=== PATIENT | female | born 1980 | race African-American/Black ===

== ENCOUNTER 2019-05-22 09:08 | Emergency (ER) | payer OTHER, SELFPAY ==
[2019-05-22 09:23] VITALS: BP 174/116; PULSE 86; RESP 16; TEMP 37.4; O2SAT 100
--- NOTE | 2019-05-22 09:26 | ED.URI ---
HPI - URI/Sore Throat General Chief Complaint: Upper Respiratory Infection Stated Complaint: Sore throat/ear pain History of Present Illness HPI Narrative: This is a 38-year-old female comes in complaining of a sore throat according the patient 1 of the children have strep. Patient states she woke up last night was having a sore throat her ear started to hurt continue this morning coming to be swabbed for strep. Related Data Home Medications Medication Instructions Recorded Confirmed amlodipine [Norvasc] 5 mg PO DAILY 05/22/19 05/22/19 losartan 100 mg PO DAILY 05/22/19 05/22/19 Allergies Allergy/AdvReac Type Severity Reaction Status Date / Time clindamycin Allergy Mild Itching Verified 05/22/19 09:30 Review of Systems Respiratory: Comments: CONSTITUTIONAL: Denies fever, chills, or sweats. EYES: Denies visual changes, redness, or discharge. ENT: Reports s rhinorrhea, congestion, sore throat, or otalgia. CARDIOVASCULAR:Denies chest pain, palpitations, or edema. RESPIRATORY: Denies cough or dyspnea. GASTROINTESTINAL: Denies abdominal pain, nausea, vomiting, or diarrhea. GENITOURINARY: Denies dysuria or hematuria. SKIN:[Denies rash or itching. MUSCULOSKELETAL:Denies back pain, joint pain, or myalgia. NEUROLOGIC: Denies headache, numbness, or weakness. PSYCHIATRIC:Denies anxiety or depression PMFSH Past Medical History Medical History (Updated 05/22/19 @ 10:24 by Ewa Moralez NP) Depression HTN (hypertension) Kidney stone UTI (urinary tract infection) Surgical History Surgical History (Updated 02/16/19 @ 17:24 by Nettie Sy) History of hysterectomy Hx of gastric bypass Social History Social History Gender identity (if verbalized by the patient): Female Comments At time as signature, I have reviewed and agree with nursing past medical, social, surgical and family history. Please see nursing chart for further information. There is no relevant family history pertinent to the presenting complaint. Exam Narrative: Exam Narrative: GENERAL:Well-appearing, well-nourished, and in no acute distress. HEAD:Normocephalic, atraumatic. EYES: PERRLA and EOMI. ENT: Nares clear, no rhinorrhea or epistaxis. Mucous membranes moist. Pharyngeal drainage slight erythema NECK: Supple. CHEST: Clear to auscultation. No respiratory distress. HEART: Regular rate and rhythm. No murmur heard. Normal peripheral pulses. ABDOMEN: Soft, nontender, nondistended, normal active bowel sounds. EXTREMITIES: Normal range of motion. No edema. SKIN: Warm, dry, no rash. NEURO: No focal deficits. Alert and oriented x3. Course Vital Signs Vital signs: Vital Signs Temperature 99.4 F 05/22/19 09:23 Pulse Rate 86 05/22/19 09:23 Respiratory Rate 16 05/22/19 09:23 Blood Pressure 174/116 H 05/22/19 09:23 Pulse Oximetry 100 05/22/19 09:23 Temperature 99.4 F 05/22/19 09:23 Pulse Rate 86 05/22/19 09:23 Respiratory Rate 16 05/22/19 09:23 Blood Pressure 174/116 H 05/22/19 09:23 Pulse Oximetry 100 05/22/19 09:23 Your blood pressure was elevated in the clinic today, I feel that this is due to your acute illness rather than essential hypertension. please follow-up with your regular doctor for further evaluation and monitor for evaluation of hypertension Please PURNIMA schedule a followup visit with your personal physician with in the next 1-4 weeks for further evaluation and treatment. Also, ask your personal physician to assist you regarding blood pressure. Even blood pressure exceeding 120/80 may indicate pre-hypertension. If your symptoms persist, change or worsen significantly before you can contact your personal physician then please, without delay, go to the emergency department for further evaluation. Patient is asymptomatic needs medicine refill is leaving to go to her PCPs office at 1030. Called patient at 1023 to confirm patient currently at doctor's office MDM - URI/Sore Throat Different
--- NOTE | 2019-05-22 09:33 | PC.NURSE ---
[id number]; Pt states she has not taken her HTN medication as she has been out for approx one week and she has not contacted her PCP
== END 2019-05-22 09:40 | disposition home or self-care (01) ==
PROVIDERS: Emergency Provider Nurse Practitioner Family; PCP Physician Assistant
DX: J02.0 Streptococcal pharyngitis (principal); I10 Essential (primary) hypertension; Z98.84 Bariatric surgery status
CPT/HCPCS: 87880; 99213; G0463

== ENCOUNTER 2019-08-02 06:21 | Day surgery (SDC) | payer OTHER, SELFPAY ==
[2019-08-02] VITALS (12 sets, daily range): BP systolic 109–213; BP diastolic 73–139; PULSE 55–88; RESP 16–21; TEMP 36.3–37.2; O2SAT 88–100
--- NOTE | ~2019-08-02 | CT_ITS ---
EXAMINATION: CT abdomen pelvis w con DATE: 08/02/2019 07:36 INDICATION: Right lower quadrant abdominal pain. TECHNIQUE: Computed tomography (CT) of the abdomen and pelvis was performed with 100 mL Omnipaque 350 intravenous contrast. Automated exposure control and iterative reconstruction technique were employe d. The dose-length product was 804.26 mGy-cm. COMPARISON: CT abdomen and pelvis 09/15/2018 FINDINGS: The visualized portions of the lung bases demonstrate mild atelectasis. No pleural effusion . The heart size is normal. No pericardial effusion. The liver, gallbladder, spleen, and right adrena l gland are normal. There is a 12 mm mass in left adrenal gland measuring soft tissue attenuation wit hout change in size, consistent with an adenoma. Pancreas divisum is noted. The kidneys are normal. T here are changes of gastric bypass procedure. The appendix is dilated to 12 mm and fluid-filled with surrounding fat stranding and trace free fluid, consistent with acute appendicitis. There are no path ologically enlarged lymph nodes. There is old fat necrosis inferior to the transverse colon. There is mild lumbar spondylosis. IMPRESSION: 1. Acute appendicitis. I called this result to Dr. Aly on 08/02/19 at 7:51 AM. Reviewed, dictated and finalized at location A.
[2019-08-02 06:44] LABS: Basophils Percent Auto 0.3 % (0.2-1.2); Eosinophils Absolute Auto 0.1 K/mm3 (0-0.3); Eosinophils Percent Auto 0.9 % (0-4.4); Hematocrit 38.7 % (37.0-47.0); Hemoglobin 12.2 g/dL (12.0-15.0); Immature Granulocyte Absolute 0.03 K/mm3 (0.00-0.031); Immature Granulocyte Percent A 0.3 % (0-0.5); Lymphocytes Absolute Auto 1.84 K/mm3 (0.9-3.2); Lymphocytes Percent Auto 19.3 % (18.3-44.2); Mean Corpuscular HGB Conc 31.5 g/dl (32-36); Mean Corpuscular Hemoglobin 26.6 pg (26-34); Mean Corpuscular Volume 84.5 fl (80-100); Mean Platelet Volume 12.9 fl (7.4-10.4); Monocytes Absolute Auto 0.6 K/mm3 (0.1-0.6); Monocytes Percent Auto 6.1 % (2.6-8.5); Neutrophils Percent Auto 73.1 % (45.5-73.1); Platelet Count Result 174 k/mm3 (150-375); Red Blood Count 4.58 M/mm3 (4.2-5.4); Red Cell Distribution Width 15.2 % (11.5-14.5); White Blood Count 9.5 K/mm3 (4.5-10.0)
[2019-08-02 06:48] LABS: Add Urine Microscopic? YES; Appearance Urine Cloudy (Clear); Bacteria Urine Trace /hpf; Bilirubin Urine Negative (Negative); Blood Urine Negative (Negative); Calcium Oxalate Crystals Urine Many /hpf; Color Urine Yellow (Yellow); Glucose Urine UA Negative (Negative); Ketones Urine Negative (Negative); Leukocyte Esterase Ur Negative LEU/UL (Negative); Mucus Urine Few /lpf; Nitrate Urine Negative (Negative); Protein Urine Negative (Negative); RBC Urine 0-2 /hpf (0-2); Specific Grav Ur 1.023 (1.001-1.035); Squamous Epithelial Cell Urine Many /hpf (Few)
[2019-08-02 06:56] LABS: Alanine Aminotransferase 33 U/L (4-35); Albumin Level 4.1 g/dL (3.5-5.1); Alkaline Phosphatase 122 U/L (38-126); Aspartate Amino Transferase 23 U/L (14-36); Bilirubin,Total 0.4 mg/dL (0.2-1.3); Blood Urea Nitrogen 10 mg/dL (7-17); Calcium 9.1 mg/dL (8.4-10.2); Carbon Dioxide 29 mmol/L (22-30); Chloride 104 mmol/L (98-107); Estimated CRCL calculation 106 ml/min; Estimated Glomerular Filt Rate > 60; Glucose 95 mg/dL (65-105); Lipase 29 U/L (23-300); Potassium 3.7 mmol/L (3.4-5.0); Sodium 137 mmol/L (137-145)
--- NOTE | 2019-08-02 07:07 | ED.ABDPAIN ---
HPI - Abdominal Pain General Chief Complaint: Abdominal Pain Stated Complaint: right abd pain Time Seen by Provider: 08/02/19 06:33 History of Present Illness HPI narrative: Suprapubic abdominal pain since yesterday. No radiation. Worse with movement and certain positions. Better with rest. She says that this is similar t when she had a kidney stone. No nausea, vomiting, diarrhea, constipation, fever, dysuria, hematuria, vaginal discharge. Related Data Home Medications Medication Instructions Recorded Confirmed amlodipine [Norvasc] 5 mg PO DAILY 05/22/19 05/22/19 losartan 100 mg PO DAILY 05/22/19 05/22/19 fluoxetine mg 08/02/19 fluoxetine mg 08/02/19 Allergies Allergy/AdvReac Type Severity Reaction Status Date / Time clindamycin Allergy Mild Itching Verified 05/22/19 09:30 Review of Systems Review of Systems: All systems reviewed & are unremarkable except as noted in HPI and below PMFSH Past Medical History Medical History (Updated 08/02/19 @ 14:36 by Alejandro Aly MD) Depression HTN (hypertension) Hypercholesterolemia Kidney stone Migraine Obesity UTI (urinary tract infection) Surgical History Surgical History History of hysterectomy Laparoscopic total hysterectomy with BSO Hx of gastric bypass In January of 2019 at [place], current weight loss of 100 pounds since surgery Family History Family History Mother Diabetes mellitus Father Heart disease Acute myocardial infarction Social History Social History Smoking status: Never smoker Alcohol intake: current Drinks per week: 14 Alcohol use details: Reports 2 drinks per night. Substance use: current Substance use type: marijuana Last use: Yesterday had an edible. Living arrangements: with family Additional living arrangements comments: With her . They have 4 children. Occupation/Education: other Additional occupation/education comments: Works for the [employer]. Currently on short-term disability due to depression. Gender identity (if verbalized by the patient): Female Exam Const: General: healthy appearing, no acute distress and alert Nutritional Appearance: well nourished Orientation/consciousness: patient oriented x3 HENMT: Head: normal to inspection Resp: Effort & Inspection: normal respiratory effort Auscultation: clear to auscultation bilaterally, no rales, no rhonchi and no wheezes Cardio: Jugular venous distension: no JVD Rate: regular rate Rhythm: regular rhythm Heart sounds: no murmurs GI: Inspection: non-distended GI Palp: Yes Soft to palpation and Yes Tenderness to palpation present (GI) (suprapubic) Skin: General skin exam: normal color Neuro: General: patient oriented x3, moves all extremities and CN's II-XI intact bilaterally Speech: normal speech Extrem: General: normal to inspection and no edema Psych: Appearance: well kempt Affect: normal affect Course Vital Signs Vital signs: Vital Signs Temperature 37.2 C 08/02/19 06:30 Pulse Rate 59 L 08/02/19 06:30 Respiratory Rate 16 08/02/19 06:30 Blood Pressure 188/117 H 08/02/19 06:30 Pulse Oximetry 100 08/02/19 06:30 Temperature 36.8 C 08/02/19 10:22 Pulse Rate 61 08/02/19 12:45 Respiratory Rate 16 08/02/19 11:35 Blood Pressure 117/73 08/02/19 12:45 Pulse Oximetry 94 08/02/19 11:35 MDM - Abdominal Pain MDM Narrative Medical decision making narrative: Exam is benign. Labs largely unremarkable. She does have a few WBCs in her urine. This would not be typical presentation for a kidney stone, but I will obtain CT due to the fact that she believes her symptoms are the same as with previous stone. Medical Records Attestation: I reviewed the patient's medical records. Lab Data Attestation: I reviewed the patient'
--- NOTE | 2019-08-02 08:38 | WPDANESEPPF ---
Anes - Initial Pre Proc Eval Procedure: Operation Date: 08/02/19 09:00 Proposed Procedures p Laparoscopic Appendectomy - Abril Caceres MD Date/Time: 08/02/19 08:38 Pre Op Diagnosis: right abd pain Patient Data Age: 38 Gender: F Height: 1.65 m Weight: 92.5 kg Last Vital Signs Temp 37.2 C 08/02/19 06:30 Pulse 72 08/02/19 08:24 Resp 18 08/02/19 08:24 BP 213/139 H 08/02/19 08:24 Pulse Ox 100 08/02/19 08:24 Allergies Allergy/AdvReac Type Severity Reaction Status Date / Time clindamycin Allergy Mild Itching Verified 05/22/19 09:30 Home Medications Medication Instructions Recorded Confirmed Type amlodipine [Norvasc] 5 mg PO DAILY 05/22/19 05/22/19 History amoxicillin 500 mg PO Q12H 10 Days #20 cap 05/22/19 Rx losartan 100 mg PO DAILY 05/22/19 05/22/19 History fluoxetine mg 08/02/19 History fluoxetine mg 08/02/19 History Laboratory Tests 08/02/19 08/02/19 08/02/19 06:35 06:35 06:35 WBC 9.5 K/mm3 K/mm3 (4.5-10.0) RBC 4.58 M/mm3 M/mm3 (4.2-5.4) Hgb 12.2 g/dL g/dL (12.0-15.0) Hct 38.7 % % (37.0-47.0) MCV 84.5 fl fl (80-100) MCH 26.6 pg pg (26-34) MCHC 31.5 g/dl L g/dl (32-36) RDW 15.2 % H % (11.5-14.5) Plt Count 174 k/mm3 k/mm3 (150-375) MPV 12.9 fl H fl (7.4-10.4) Immature Gran % (Auto) 0.3 % % (0-0.5) Neut % (Auto) 73.1 % % (45.5-73.1) Lymph % (Auto) 19.3 % % (18.3-44.2) [place] % (Auto) 6.1 % % (2.6-8.5) Eos % (Auto) 0.9 % % (0-4.4) Baso % (Auto) 0.3 % % (0.2-1.2) Lymph # (Auto) 1.84 K/mm3 K/mm3 (0.9-3.2) [place] # (Auto) 0.6 K/mm3 K/mm3 (0.1-0.6) Eos # (Auto) 0.1 K/mm3 K/mm3 (0-0.3) Baso # (Auto) 0.0 K/mm3 K/mm3 (0.0-0.1) Abs Immat Gran (auto) 0.03 K/mm3 K/mm3 (0.00-0.031) Absolute Neuts (auto) 7.0 K/mm3 H K/mm3 (1.3-6.7) Absolute Nucleated RBC 0.0 K/mm3 K/mm3 (0.0-0.012) Nucleated RBC % 0.0 % % (0.0-0.2) Sodium 137 mmol/L mmol/L (137-145) Potassium 3.7 mmol/L mmol/L (3.4-5.0) Chloride 104 mmol/L mmol/L (98-107) Carbon Dioxide 29 mmol/L mmol/L (22-30) BUN 10 mg/dL mg/dL (7-17) Creatinine 0.70 mg/dL mg/dL (0.7-1.0) Estim Creat Clear Calc 106 ml/min ml/min Estimated GFR > 60 (59 - ) Glucose 95 mg/dL mg/dL (65-105) Calcium 9.1 mg/dL mg/dL (8.4-10.2) Total Bilirubin 0.4 mg/dL mg/dL (0.2-1.3) AST 23 U/L U/L (14-36) ALT 33 U/L U/L (4-35) Alkaline Phosphatase 122 U/L U/L (38-126) Total Protein 8.0 g/dL g/dL (6.3-8.2) Albumin 4.1 g/dL g/dL (3.5-5.1) Lipase 29 U/L U/L (23-300) Urine Color Yellow (Yellow) Urine Appearance Cloudy H (Clear) Urine pH 6.0 (5.0-9.0) Ur Specific [place] 1.023 (1.001-1.035) Urine Protein Negative mg/dL mg/dL (Negative) Urine Glucose (UA) Negative mg/dL mg/dL (Negative) Urine Ketones Negative mg/dL mg/dL (Negative) Ur Blood (Man) Negative (Negative) Urine Nitrate Negative (Negative) Urine Bilirubin Negative (Negative) Urine Urobilinogen 4.0 mg/dL H mg/dL (<2.0) Leukocyte Esterase Rfl Negative OSKAR/UL OSKAR/UL (Negative) Urine RBC 0-2 /hpf /hpf (0-2) Urine WBC 4-6 /hpf H /hpf Ur Squamous Epith Cells Many /hpf H /hpf (Few) Calcium Oxalate Crystal Many /hpf /hpf (None) Urine Bacteria Trace /hpf /hpf Urine Mucus Few /lpf H /lpf Patient hx anesthesia problems: none Family hx anesthesia problems: none [facility] Past Medical History Medical History (Updated 08/02/19 @ 08:40 by Red
--- NOTE | 2019-08-02 08:40 | PM.IMHP ---
H&P: HPI History of Present Illness Chief complaint: right abd pain Narrative: Trish Haro is a 38 year old female with a history of hypertension and depression, who presented to the emergency department for complaints of RLQ abdominal pain. She reports her pain started yesterday afternoon and were initially mild. The pain continued to worsen through the night and into this morning. Due to her unrelenting pain, she presented to the emergency department for further evaluation. CT scan of the abdomen and pelvis showed acute uncomplicated appendicitis. Labs were unremarkable. Our service was contacted by the ED physician for surgical evaluation of the acute appendicitis. The patient is now being seen in the emergency department. She reports continued abdominal pain that is worse with movement, currently tolerable with sitting still. Denies any nausea, vomiting, bloating, fever, chills, diarrhea, or constipation. She has not taken her home medications yet this morning. Has not eaten since last night around 7 pm. No other complaints at this time. She does have a remote history of laparoscopic Gastric Bypass surgery in January of 2019 at [facility], and has since lost about 100 pounds. Review of Systems Constitutional: Constitutional: Reports as per HPI, Denies chills, Denies excessive sweating, Denies fatigue, Denies fever(s), Denies headache(s) and Denies weakness Eyes: Eyes: Denies change in vision and Denies loss of vision ENT: Reports Normal hearing present, Denies dizziness and Denies headache(s) Cardiovascular: Cardiovascular: Denies chest pain, Denies syncope, Denies leg edema, Denies lightheadedness, Denies radiating jaw, neck or arm pain and Denies dyspnea Respiratory: Respiratory: Denies cough, Denies dyspnea and Denies wheezing Gastrointestinal: Gastrointestinal: Reports as per HPI, Reports no additional gastrointestinal complaints, Reports abdominal pain (RLQ), Denies bloating, Denies change in bowel habits, Denies diarrhea, Denies nausea and Denies vomiting Musculoskeletal: Musculoskeletal: Denies deformity, Denies joint swelling, Denies radiating pain into limb and Denies tingling Integumentary/Breasts: Skin/Breast: Denies pruritus, Denies wounds and Denies jaundice Neurologic: Reports Normal hearing present, Denies confusion, Denies dizziness, Denies syncope, Denies headache(s), Denies loss of vision, Denies tingling, Denies tremor(s) and Denies weakness Psychiatric: Psychiatric: Denies anxiety, Denies confusion, Reports depression (currently taking fluoxetine, on short-term disability d/t depression), Denies homicidal ideation and Denies suicidal ideation Endocrine: Endocrine: Denies cold intolerance, Denies excessive sweating, Denies fatigue and Denies heat intolerance [facility] Past Medical History Medical History (Updated 08/02/19 @ 08:53 by DEANN Sapp) Depression HTN (hypertension) Hypercholesterolemia Kidney stone Migraine Obesity UTI (urinary tract infection) Surgical History Surgical History History of hysterectomy Laparoscopic total hysterectomy with BSO Hx of gastric bypass In January of 2019 at [place], current weight loss of 100 pounds since surgery Family History Family History Mother Diabetes mellitus Father Heart disease Acute myocardial infarction Social History Social History Smoking status: Never smoker Alcohol intake: current Drinks per week: 14 Alcohol use details: Reports 2 drinks per night. Substance use: current Substance use type: marijuana Last use: Yesterday had an edible. Living arrangements: with family Additional living arrangements comments: With her . They have 4 children. Occupation/Education: other Additional occupation/education comments: Works for [employer]
[2019-08-02] MEDS: LACTATED RINGERS 1,000 ML 30 ML IV CONT ×2 (08:50→10:22)
[2019-08-02] MEDS: hydrALAZINE HCL 20 MG/ML VIAL 10 MG IV PUSH (08:55)
[2019-08-02] MEDS: BUPIVACAINE/EPINEPHRINE 0.5% 30 ML VIAL INFILTRATE (10:01)
[2019-08-02] MEDS: KETOROLAC 30 MG/ML VIAL (*BKC) IV PUSH (10:15)
--- NOTE | 2019-08-02 10:21 | P.OP_ITS ---
Procedure Note - Detailed Date of procedure: 08/02/19 Pre-op diagnosis: right abd pain acute appendicitis Post-op diagnosis: same Procedure performed: laparoscopic appendectomy Description of procedure: The patient was brought into the operating room placed in the supine position. After adequate induction of general anesthesia, the patient was prepped and draped in normal sterile fashion. A time-out was then done to verify the patient's identity as well as the procedure being performed. I began by making a 5 mm incision in the infraumbilical region. A 5 mm Optiview trocar within used to gain access into the peritoneal cavity. Once into the peritoneal cavity, CO2 gas was insufflated. After adequate pneumoperitoneum was achieved, the laparoscope was placed into the 5 mm trocar. Under direct visualization, I went ahead and placed a further 5 mm suprapubic port as well as a 12 mm port in the left lower abdomen. At this point, I was able to visualize cecum. The cecum was retracted both cephalad and medial, and this allowed us to expose the appendix. The appendix was noted to be very dilated, injected, and inflamed. There was no obvious perforation of the appendix. I then grasped the appendix near the tip of the appendix and retracted both anterior and lateral. This allowed exposure of the base of the appendix with the cecum. I then created a window with the Di dissector between the appendix and the mesoappendix at the base of the appendix. Once this was achieved, a vascular staple load on the Endo-MIKAL was placed through the 12 mm port site and subsequently transected the mesoappendix. I then reloaded the Endo-MIKAL with a blue staple load and transected the base of the appendix with the cecum. Once the appendiceal specimen was completely detached, a Endo pouch was placed th rough the 12 mm port site. The appendix was placed into the Endo pouch and removed through the 12 mm port site. The appendix will now be sent to pathology for further review. I then visualized the right lower quadrant, both staple lines were noted to be intact and hemostatic. No other pathology was noted in the right lower quadrant or pelvis. I then moved the laparoscope to the 5 mm suprapubic port. I then visualized our port of entry at the 5 mm infraumbilical site. No iatrogenic injury or other pathology was seen in the upper abdomen. I then desufflated the abdomen and all ports were removed. The fascia of the 12 mm port site was closed with an 0 Vicryl figure of 8 suture. All port sites were then closed with 4 O Monocryl subcuticular suture. The patient tolerated the procedure well and was extubated in the operating room postoperatively. The patient will be transferred to the recovery room in stable condition. Anesthesia: GETA Surgeon: Abril Caceres MD Estimated blood loss (mL): 5 Drains: No Packing: No Pathology: yes Complications: No immediate complications Condition: stable Disposition: PACU Findings: Acute uncomplicated appendicitis
--- NOTE | 2019-08-02 11:12 | SUR.PHASEI ---
1105; SAO2 DROPS TO 88% WHILE RESTING QUIETLY. O2 2L NC APPLIED.
== END 2019-08-02 13:05 | disposition home or self-care (01) ==
LOC: ANHED 08:31 → ANHSURGERY 08:49
PROVIDERS: Emergency Medicine; Emergency Provider Emergency Medicine; PCP Physician Assistant; Visit Provider Surgery
PROC: 0DTJ4ZZ Resection of Appendix, Percutaneous Endoscopic Approach (ICD-10-PCS; CPT 44970; principal; 2019-08-02 09:00)
DX: K35.30 Acute appendicitis with localized peritonitis, without perforation or gangrene (principal); I10 Essential (primary) hypertension; E78.00 Pure hypercholesterolemia, unspecified; F32.9 Major depressive disorder, single episode, unspecified; E66.9 Obesity, unspecified; Z68.33 Body mass index [BMI] 33.0-33.9, adult; Z98.84 Bariatric surgery status; F12.90 Cannabis use, unspecified, uncomplicated
CPT/HCPCS: 44970; 36415; 74177; 80053; 81001; 81025; 83690; 85025; 88304; 96374; 99285; J0131; J0330; J0360; J1100; J1885; J2250; J2370; J2405; J2543; J2704; J2710; J3010; J7120; Q9967

== ENCOUNTER 2019-12-25 10:34 | Emergency (ER) | payer OTHER, SELFPAY ==
--- NOTE | ~2019-12-25 | XR_ITS ---
EXAMINATION: XR shoulder LT min 2V DATE: 12/25/2019 11:36 INDICATION: Nontraumatic left shoulder pain TECHNIQUE: AP internally and externally rotated, AP oblique externally rotated, axillary and transsca pular Y views of the left shoulder were obtained. COMPARISON: None FINDINGS: Normal alignment. No fracture. Glenohumeral joint is normal. Acromioclavicular joint is normal. Soft tissues are unremarkable. Visualized portions of the lungs are clear. IMPRESSION: Negative left shoulder radiographs. Reviewed, dictated and finalized at location B.
--- NOTE | ~2019-12-25 | XR_ITS ---
XR tibia fibula RT 2V DATE: 12/25/2019 12:30 INDICATION: Injury. Right lower leg pain. TECHNIQUE: AP and lateral views COMPARISON: None FINDINGS: No fracture or dislocation, periosteal reaction or bone destruction is detected. Normal ali gnment at the knee and ankle joints. There is posterior calcaneal enthesopathy. IMPRESSION: No fracture or dislocation Reviewed, dictated and finalized at location A. IMPRESSION: No fracture or dislocation
[2019-12-25 10:49] VITALS: BP 137/80; PULSE 67; RESP 18; TEMP 36.1; O2SAT 100
--- NOTE | 2019-12-25 12:18 | ED.UPPEXIN ---
HPI - Extremity Injury (Upper) General Chief Complaint: Extremity Injury, Upper Stated Complaint: left shoulder pain Time Seen by Provider: 12/25/19 11:16 Source: patient Mode of arrival: ambulatory Limitations: no limitations History of Present Illness HPI narrative: This is a 39 year old female that presents to the ER for left shoulder pain since yesterday. Reports the pain is in the back of her shoulder and constant. Unsure of a certain injury. Pain is worse at night. Reports intermittent tingling in the fingers. No paresthesias currently. Also reports pain in the right calf. Reports she does not remember an injury to the area, but noted some bruising. Denies fever, chest pain, shortness of breath. decreased ROM, edema, or numbness. Related Data Home Medications Medication Instructions Recorded Confirmed amlodipine [Norvasc] 5 mg PO DAILY 05/22/19 05/22/19 fluoxetine mg 08/02/19 calcium carbonate-vitamin D3 tablet PO 12/25/19 ergocalciferol (vitamin D2) 12/25/19 ferrous sulfate mg 12/25/19 multivitamin [Daily-Fredrick] tablet 12/25/19 trazodone 12/25/19 Allergies Allergy/AdvReac Type Severity Reaction Status Date / Time clindamycin Allergy Mild Itching Verified 12/25/19 11:09 Review of Systems Review of Systems: Narrative: CONSTITUTIONAL: Denies fever CARDIOVASCULAR: Denies chest pain, or edema. RESPIRATORY: Denies dyspnea. SKIN: Denies rash MUSCULOSKELETAL: Reports joint pain, and myalgia. NEUROLOGIC: Denies numbness, or weakness. All systems reviewed & are unremarkable except as noted in HPI and below PMFSH Past Medical History Medical History (Updated 12/25/19 @ 13:54 by Dania Fang PA-C) Depression HTN (hypertension) Hypercholesterolemia Kidney stone Migraine Obesity UTI (urinary tract infection) Surgical History Surgical History (Updated 08/15/19 @ 10:44 by Irina Campos) History of hysterectomy Laparoscopic total hysterectomy with BSO History of laparoscopic appendectomy 08/02/19 Hx of gastric bypass In January of 2019 at [place], current weight loss of 100 pounds since surgery Family History Family History Mother Diabetes mellitus Father Heart disease Acute myocardial infarction Social History Social History Smoking status: Never smoker Alcohol intake: current Drinks per week: 14 Substance use: current Substance use type: marijuana Last use: Yesterday had an edible. Additional living arrangements comments: With her . They have 4 children. Additional occupation/education comments: Works for the [employer]. Currently on short-term disability due to depression. Gender identity (if verbalized by the patient): Female Exam Narrative: Exam Narrative: GENERAL: Well-appearing, well-nourished, and in no acute distress. HEAD: Normocephalic, atraumatic. EYES: EOMI. CHEST: Clear to auscultation. No respiratory distress. No wheezes rales or rhonchi HEART: Regular rate and rhythm. No murmur heard. Normal peripheral pulses. EXTREMITIES: Normal range of motion. No edema, erythema or obvious deformity. Normal peripheral pulses. Normal sensation. Moderate sized bruise to the right calf, compartments are soft. Pain with Casanova test of the left shoulder SKIN: Warm, dry, no rash. NEURO: No focal deficits. Alert and oriented x3. PSYCH: Normal mood and affect Course Vital Signs Vital signs: Vital Signs Temperature 97.0 F L 12/25/19 10:49 Pulse Rate 67 12/25/19 10:49 Respiratory Rate 18 12/25/19 10:49 Blood Pressure 137/80 12/25/19 10:49 Pulse Oximetry 100 12/25/19 10:49 Temperature 97.0 F L 12/25/19 10:49 Pulse Rate 67 12/25/19 10:49 Respiratory Rate 18 12/25/19 10:49 Blood Pressure 137/80 12/25/19 10:49 Pulse Oximetry 100 12/25/19 10:49 MDM - Extremity Injury (Upper) MDM Narrative Medical decis
[2019-12-25 14:04] VITALS: BP 193/124; PULSE 60; RESP 18; TEMP 36.7; O2SAT 100
[2019-12-25 14:05] VITALS: BP 190/118
--- NOTE | 2019-12-25 14:10 | PC.NURSE ---
ED PA notified of elevated blood pressure. She spoke with the patient and patient reports that she has not taken medication prior to coming to the ED. She was instructed by the EDPA to take her daily medication as soon as she gets home and to follow up with her PMD for evaluation of blood pressure. Patient verbalized understanding and agrees to take medication as soon as she gets home.
== END 2019-12-25 14:20 | disposition home or self-care (01) ==
PROVIDERS: Emergency Provider Emergency Medicine; PCP Physician Assistant
DX: S80.11XA Contusion of right lower leg, initial encounter (principal); X58.XXXA Exposure to other specified factors, initial encounter; I10 Essential (primary) hypertension; E78.00 Pure hypercholesterolemia, unspecified; E66.9 Obesity, unspecified; Z68.33 Body mass index [BMI] 33.0-33.9, adult; F32.9 Major depressive disorder, single episode, unspecified
CPT/HCPCS: 73030; 73590; 99284

== ENCOUNTER 2020-02-29 16:16 | Emergency (ER) | payer OTHER, SELFPAY ==
--- NOTE | ~2020-02-29 | XR_ITS ---
EXAMINATION: XR wrist LT min 3V DATE: 02/29/2020 16:56 INDICATION: Left wrist pain TECHNIQUE: Posteroanterior, ulnar deviation, oblique, and lateral views of the left wrist were obtain ed. COMPARISON: None available FINDINGS: There is no fracture, dislocation, or subluxation. The bones, soft tissues, and joint space s are normal. IMPRESSION: 1. No acute osseous abnormality. Reviewed, dictated and finalized at location A. 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
[2020-02-29 16:31] VITALS: BP 171/105; PULSE 62; RESP 16; TEMP 36.2; O2SAT 99
[2020-02-29] MEDS: KETOROLAC 30 MG/ML VIAL (*BKC) IM (17:03)
--- NOTE | 2020-02-29 17:10 | ED.CHESTPAIN ---
HPI - Chest Pain General Chief Complaint: Extremity Problem,Nontraumatic Stated Complaint: lt hand/wrist pain Time Seen by Provider: 02/29/20 16:33 Source: patient Mode of arrival: ambulatory Limitations: no limitations History of Present Illness HPI narrative: Patient is a 39-year-old female who presents with irritation along the radial aspect of the left wrist last 3 days moderate aching pain radiating to the hand worse with activity and movement denies injury or trauma or similar occurrence in the past has not taken anything for her symptoms Related Data Home Medications Medication Instructions Recorded Confirmed amlodipine [Norvasc] 5 mg PO DAILY 05/22/19 05/22/19 fluoxetine mg 08/02/19 calcium carbonate-vitamin D3 tablet PO 12/25/19 ergocalciferol (vitamin D2) 12/25/19 ferrous sulfate mg 12/25/19 multivitamin [Daily-Fredrick] tablet 12/25/19 trazodone 12/25/19 losartan 02/29/20 Allergies Allergy/AdvReac Type Severity Reaction Status Date / Time clindamycin Allergy Mild Itching Verified 02/29/20 16:39 Review of Systems Review of Systems: All systems reviewed & are unremarkable except as noted in HPI and below PMFSH Past Medical History Medical History Depression HTN (hypertension) Hypercholesterolemia Kidney stone Migraine Obesity UTI (urinary tract infection) Surgical History Surgical History History of hysterectomy Laparoscopic total hysterectomy with BSO History of laparoscopic appendectomy 08/02/19 Hx of gastric bypass In January of 2019 at [place], current weight loss of 100 pounds since surgery Family History Family History Mother Diabetes mellitus Father Heart disease Acute myocardial infarction Social History Social History Smoking status: Never smoker Alcohol intake: current Drinks per week: 14 Substance use: current Substance use type: marijuana Last use: Yesterday had an edible. Additional living arrangements comments: With her . They have 4 children. Additional occupation/education comments: Works for the [employer]. Currently on short-term disability due to depression. Gender identity (if verbalized by the patient): Female Exam Narrative: Exam Narrative: GENERAL: Well-appearing, well-nourished, and in no acute distress. HEAD: Normocephalic, atraumatic. EYES: PERRLA and EOMI. CHEST: Clear to auscultation. No respiratory distress. No wheezes rales or rhonchi HEART: Regular rate and rhythm. No murmur heard. Normal peripheral pulses. EXTREMITIES: Normal range of motion. No edema. Tenderness along the radial aspect of the left wrist joint no deformities noted SKIN: Warm, dry, no rash. NEURO: No focal deficits. Alert and oriented x3. Cranial nerves II through XII grossly intact. Neurovascularly intact. Capillary refill less than 2 seconds PSYCH: Normal mood and affect. Course Course Emergency Course: Patient in the room no distress aware of case findings treatment plan diagnosis felt appropriate for outpatient reevaluation by primary care and orthopedic surgeon Vital Signs Vital signs: Vital Signs Temperature 97.2 F L 02/29/20 16:31 Pulse Rate 62 02/29/20 16:31 Respiratory Rate 16 02/29/20 16:31 Blood Pressure 171/105 H 02/29/20 16:31 Pulse Oximetry 99 02/29/20 16:31 Temperature 97.2 F L 02/29/20 16:31 Pulse Rate 62 02/29/20 16:31 Respiratory Rate 16 02/29/20 16:31 Blood Pressure 171/105 H 02/29/20 16:31 Pulse Oximetry 99 02/29/20 16:31 MDM - Chest Pain MDM Narrative Medical decision making narrative: Patients injury or pain is consistent with musculoskeletal etiology. No signs of neurological or vascular compromise on exam. Compartments and tisues are soft without signs o
== END 2020-02-29 17:57 | disposition home or self-care (01) ==
PROVIDERS: Emergency Provider Emergency Medicine; PCP Physician Assistant
DX: M25.532 Pain in left wrist (principal); F32.9 Major depressive disorder, single episode, unspecified; I10 Essential (primary) hypertension; E78.00 Pure hypercholesterolemia, unspecified; Z87.442 Personal history of urinary calculi; Z87.440 Personal history of urinary (tract) infections; E66.9 Obesity, unspecified; Z68.33 Body mass index [BMI] 33.0-33.9, adult; Z98.84 Bariatric surgery status
CPT/HCPCS: 73110; 96372; 99283; J1885

== ENCOUNTER 2020-04-02 11:22 | Emergency (ER) | payer OTHER, SELFPAY ==
--- NOTE | 2020-04-02 11:39 | ED.EYEPROB ---
HPI - Eye Problem General Chief complaint: Eye Problems Stated complaint: right eye pain/redness Source: patient and RN notes reviewed Mode of arrival: ambulatory Limitations: no limitations History of Present Illness HPI Narrative: This is a 39-year-old -[place] female who presented to urgent care with complaints of right ear eye pain. According to patient her symptoms started a couple days ago she complains of itchiness, redness to her right eye. She did not do anything at home to resolve it. Patient denies any visual disturbance, mucopurulent discharge or eye edema. visual acuity 20/40 with glasses Related Data Home Medications Medication Instructions Recorded Confirmed amlodipine 5 mg PO DAILY 04/02/20 04/02/20 estradiol-norethindrone acet 0.5 tablet PO DAILY 04/02/20 04/02/20 ferrous sulfate 325 mg PO DAILY 04/02/20 04/02/20 fluoxetine 40 mg PO DAILY 04/02/20 04/02/20 trazodone 50 mg PO PRN PRN 04/02/20 04/02/20 Allergies Allergy/AdvReac Type Severity Reaction Status Date / Time clindamycin Allergy Mild Swelling Verified 04/02/20 11:30 Review of Systems Review of Systems: All systems reviewed & are unremarkable except as noted in HPI and below (10 point system review) [facility] Past Medical History Medical History Depression HTN (hypertension) Hypercholesterolemia Kidney stone Migraine Obesity UTI (urinary tract infection) Surgical History Surgical History History of hysterectomy Laparoscopic total hysterectomy with BSO History of laparoscopic appendectomy 08/02/19 Hx of gastric bypass In January of 2019 at [place], current weight loss of 100 pounds since surgery Family History Family History Mother Diabetes mellitus Father Heart disease Acute myocardial infarction Social History Social History Smoking status: Never smoker Alcohol intake: current Drinks per week: 14 Substance use: current Substance use type: marijuana Last use: Yesterday had an edible. Additional living arrangements comments: With her . They have 4 children. Additional occupation/education comments: Works for the [employer]. Currently on short-term disability due to depression. Gender identity (if verbalized by the patient): Female Exam Narrative: Exam Narrative: GENERAL: This is a well-nourished, well-developed patient, in no apparent distress. HEAD: normocephalic, atraumatic. EYES: PERRL. Sclera clear/white. Vision is grossly intact. EARS: External ears normal, auditory canals clear and without drainage, TMs normal without perforation. Hearing grossly intact. NOSE: External nose normal with no obvious nasal discharge, nares without redness, no rhinorrhea. THROAT: Mucous membranes moist, posterior pharynx clear. NECK: Neck supple, non-tender without lymphadenopathy, masses or thyromegaly. CARDIOVASCULAR: Regular rate and rhythm without murmurs, gallops, or rubs. RESPIRATORY: Clear to auscultation. Breath sounds equal bilaterally. No wheezes, rales, or rhonchi. GASTROINTESTINAL: Abdomen soft, non-tender, nondistended. Bowel sounds are active. No hepato-splenomegaly, or palpable masses. No guarding. SKIN: warm, intact with no suspicious lesions or rash, good texture and turgor. NEURO: awake, alert, and oriented to person, place and time. There were no obvious focal neurologic abnormalities. Steady gait EXTREMITIES: Normal range of motion. No edema. No calf tenderness. Negative Homans sign bilaterally. BACK: Nontender without deformity or crepitance. No flank tenderness. Course Vital Signs Vital signs: Vital Signs Temperature 98.4 F 04/02/20 11:41 Pulse Rate 58 L 04/02/20 11:41 Respiratory Rate 16 04/02/20 11:41 Blood Pressure 146/106 H 04/02/20
[2020-04-02 11:41] VITALS: BP 146/106; PULSE 58; RESP 16; TEMP 36.9; O2SAT 100
== END 2020-04-02 11:55 | disposition home or self-care (01) ==
PROVIDERS: Emergency Provider Nurse Practitioner; PCP Physician Assistant
DX: H10.9 Unspecified conjunctivitis (principal); I10 Essential (primary) hypertension; E78.00 Pure hypercholesterolemia, unspecified; F32.9 Major depressive disorder, single episode, unspecified
CPT/HCPCS: 99213; G0463

== ENCOUNTER 2020-04-11 07:23 | Outpatient (CLI) | payer OTHER, SELFPAY ==
--- NOTE | ~2020-04-11 | MM_ITS ---
EXAMINATION: MM screening wali BI w niko HISTORY: Screening mammogram TECHNIQUE: Craniocaudal and mediolateral oblique 3-D tomosynthesis images were obtained and synthetic 2-D images were generated. CAD analysis was submitted and interpreted. COMPARISON: No prior mammogram is available for comparison at this institution. BREAST PARENCHYMAL COMPOSITION: There are scattered areas of fibroglandular density. FINDINGS: There is no evidence of suspicious mass, calcification, or architectural distortion to sugg est malignancy in either breast. There has been no suspicious interval change. IMPRESSION: 1. No mammographic evidence of malignancy. 2. Recommend routine screening mammography in one year. BI-RADS Category 1: Negative Reviewed, dictated and finalized at location A. 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
--- NOTE | ~2020-04-11 | DEXA_ITS ---
Bone Density Report Name: Trish Haro Age: 39 Sex: Female Ethnicity: Black Date of : 1980 Indication: postmenopausal; hysterectomy; Referring Provider: INO MYRICK Study: Bone densitometry was performed. Exam Date: April 11, 2020 Accession number: [id number] Bone Density: Region BMD T-score Z-score Classification AP Spine (L1-L4) 1.034 -0.1 -0.8 Normal Femoral Neck (Left) 0.865 0.1 -0.4 Normal Total Hip (Left) 1.006 0.5 -0.1 Normal Total Hip Bilateral Avg 0.964 0.2 -0.4 Normal Femoral Neck (Right) 0.809 -0.4 -0.8 Normal Total Hip (Right) 0.921 -0.2 -0.6 Normal World Health Organization criteria for BMD impression classify patients as: Normal (T-score at or above -1.0), Osteopenia (T-score between -1.0 and -2.5), or Osteoporosis (T-score at or below -2.5). 10-year Fracture Risk: FRAX not reported because: All T-scores for Spine Total, Hip Total, Femoral Neck at or above -1.0 Clinical Information Provided by Patient: Has used the following medications: Vitamin D, Calcium Has the following medical conditions: Hysterectomy Patient maximum height was 66 Menopause Age: 31 No regular weight bearing exercise Does not regularly consume dairy products Onset of menses at age 12 Number of children 4 Impression: The patient has normal bone mass. Discussion: BONE DENSITY IS ABOVE THE MINIMUM DESIRABLE LEVEL AT ALL SKELETAL SITES TESTED. This patient?s bone mineral density is above the minimum desirable level (T-score -1.0 or better) at all sites measured. The patient should follow a healthful lifestyle (good nutrition with adequate calcium and vitamin D, and appropriate weight-bearing exercise). Follow-Up: Consider repeating this study in 5 years or sooner if there is some new clinical indication. Reported by: EFRAIN on 04/11/2020 7:55:00 AM. Reviewed, dictated and finalized at location AGiancarlo MORELAND
== END 2020-04-11 07:24 | disposition home or self-care (01) ==
LOC: ANHIMG 07:26
PROVIDERS: PCP Physician Assistant; Visit Provider Obstetrics & Gynecology
DX: Z12.31 Encounter for screening mammogram for malignant neoplasm of breast (principal); Z13.820 Encounter for screening for osteoporosis; Z78.0 Asymptomatic menopausal state
CPT/HCPCS: 77063; 77067; 77080

== ENCOUNTER 2020-06-08 04:08 | Emergency (ER) | payer OTHER, SELFPAY ==
--- NOTE | ~2020-06-08 | XR_ITS ---
EXAMINATION: XR chest 1V portable EXAM DATE: 06/08/2020 05:11 INDICATION: Cough, shortness of breath. COVID exposure. TECHNIQUE: Portable AP frontal chest x-ray was obtained. Comparison is made to prior examination from 03/04/2017. FINDINGS: The lungs are clear. There are no pleural effusions. The cardiomediastinal silhouette is within normal limits. There is no pneumothorax suspected. The bones and soft tissues are unremarkab le. IMPRESSION: No acute cardiopulmonary findings. Follow-up can be obtained if symptoms persist. Reviewed, dictated and finalized at location A. IMPRESSION: No acute cardiopulmonary findings. Follow-up can be obtained if sy mptoms persist.
[2020-06-08 04:18] VITALS: BP 173/122; RESP 20; TEMP 38.2; O2SAT 98
--- NOTE | 2020-06-08 04:25 | ED.GENADULT ---
HPI - General Adult General Chief complaint: Unspecified Stated complaint: chest pain, body aches,covid exposure Time Seen by Provider: 06/08/20 04:12 Source: RN notes reviewed History of Present Illness HPI narrative: Patient presents to emergency department from home for COVID-19 symptoms. Patient states that her daughter tested positive for COVID-19 on June 04 and she currently resides with her daughter states she began to have feelings of illness 2 days ago. She states that she has had a feeling of chest tightness as well as a sore throat and generalized fatigue and body aches for the past 2 days. She denies any loss of taste or smell she says her chest tightness just feels like she cannot take a deep breath denies any abdominal pain nausea vomiting or any other symptoms patient states she does have a history of hypertension and takes amlodipine and losartan in the morning and is due to take those at 6 AM this morning Related Data Home Medications Medication Instructions Recorded Confirmed amlodipine 5 mg PO DAILY 04/02/20 04/02/20 estradiol-norethindrone acet 0.5 tablet PO DAILY 04/02/20 04/02/20 ferrous sulfate 325 mg PO DAILY 04/02/20 04/02/20 fluoxetine 40 mg PO DAILY 04/02/20 04/02/20 trazodone 50 mg PO PRN PRN 04/02/20 04/02/20 Allergies Allergy/AdvReac Type Severity Reaction Status Date / Time clindamycin Allergy Mild Swelling Verified 04/02/20 11:30 Review of Systems Review of Systems: Narrative: Gen.: Denies fevers or chills ENT: Sore throat Respiratory: Reports mild shortness of breath with ambulation CV: Reports chest tightness GI: Denies abdominal pain nausea, emesis or diarrhea Musculoskeletal: Denies back pain or muscle pain Neuro: Denies numbness, tingling, weakness or focal weakness Skin: Denies rash Except as documented, all other systems reviewed and negative [facility] Past Medical History Medical History Depression HTN (hypertension) Hypercholesterolemia Kidney stone Migraine Obesity UTI (urinary tract infection) Surgical History Surgical History History of hysterectomy Laparoscopic total hysterectomy with BSO History of laparoscopic appendectomy 08/02/19 Hx of gastric bypass In January of 2019 at [place], current weight loss of 100 pounds since surgery Family History Family History Mother Diabetes mellitus Father Heart disease Acute myocardial infarction Social History Social History Smoking status: Never smoker Alcohol intake: current Drinks per week: 14 Substance use: current Substance use type: marijuana Last use: Yesterday had an edible. Additional living arrangements comments: With her . They have 4 children. Additional occupation/education comments: Works for the [employer]. Currently on short-term disability due to depression. Gender identity (if verbalized by the patient): Female Exam Narrative: Exam Narrative: APPEARANCE: No acute distress, nontoxic, resting in bed EYES: EOMI HEENT: Normocephalic, atraumatic, RESPIRATORY: No respiratory distress Clear to auscultation bilaterally with no rhonchi wheezing or rales. CARDIOVASCULAR: Regular rate and rhythm without murmurs rubs or gallops. ABDOMINAL: Soft, nontender, nondistended, no rebound or guarding MUSCULOSKELETAl: Moves all extremities. No clubbing, cyanosis or edema. NEURO: Awake and alert. Following commands, speech normal, no focal deficits SKIN:: Warm, dry. No rashes lesions or abrasions PSYCHIATRIC: Normal affect/mood, Course Course Emergency Course: Discussed with patient results of workup and diagnosis. Discussed need for follow-up with primary care, proper use of medication, and reasons to return to the emergency department. Patient understands and agree
[2020-06-08 04:38] VITALS: O2SAT 9
--- NOTE | 2020-06-08 04:48 | ECG_ITS ---
Measurements Intervals [place] Rate: 93 P: 40 TN: 147 QRS: 0 QRSD: 84 T: 10 QT: 342 QTc: 427 Interpretive Statements SINUS RHYTHM POSSIBLE LEFT ATRIAL ENLARGEMENT POSSIBLE LEFT VENTRICULAR HYPERTROPHY BORDERLINE T WAVE ABNORMALITY- ANT/INF LEADS BORDERLINE ECG Electronically Signed On 06-08-2020 7:50:59 CDT by Ori Roque D.O.
[2020-06-08 05:10] LABS: Basophils Percent Auto 0.3 % (0.2-1.2); Eosinophils Absolute Auto 0.1 K/mm3 (0-0.3); Eosinophils Percent Auto 2.3 % (0-4.4); Hematocrit 38.6 % (37.0-47.0); Immature Granulocyte Absolute 0.01 K/mm3 (0.00-0.031); Immature Granulocyte Percent A 0.3 % (0-0.5); Lymphocytes Absolute Auto 0.57 K/mm3 (0.9-3.2); Lymphocytes Percent Auto 14.9 % (18.3-44.2); Mean Corpuscular HGB Conc 31.1 g/dl (32-36); Mean Corpuscular Hemoglobin 26.1 pg (26-34); Mean Corpuscular Volume 83.9 fl (80-100); Mean Platelet Volume 12.8 fl (7.4-10.4); Monocytes Absolute Auto 0.5 K/mm3 (0.1-0.6); Monocytes Percent Auto 14.1 % (2.6-8.5); Neutrophils Absolute Auto 2.6 K/mm3 (1.3-6.7); Neutrophils Percent Auto 68.1 % (45.5-73.1); Platelet Count Result 175 k/mm3 (150-375); Red Cell Distribution Width 15.4 % (11.5-14.5); White Blood Count 3.8 K/mm3 (4.5-10.0)
[2020-06-08 05:20] LABS: INR 0.9; Prothrombin Time 13.1 Seconds (11.1-14.7)
[2020-06-08 05:21] LABS: Partial Thromboplastin Time 26.9 SECONDS (22.3-36.8)
[2020-06-08] MEDS: ACETAMINOPHEN 500 MG TABLET 1000 MG PO (05:22)
[2020-06-08 05:23] LABS: Anion Gap 6 mmol/L (8-16); Blood Urea Nitrogen 14 mg/dL (7-17); Calcium 8.6 mg/dL (8.4-10.2); Carbon Dioxide 31 mmol/L (22-30); Chloride 103 mmol/L (98-107); Estimated CRCL calculation 87 ml/min; Estimated Glomerular Filt Rate > 60; Glucose 93 mg/dL (65-105); Sodium 140 mmol/L (137-145)
[2020-06-08] MEDS: LOSARTAN POTASSIUM 100 MG TABLET PO (05:23)
[2020-06-08] MEDS: amLODIPine BESYLATE 5 MG TABLET PO (05:23)
[2020-06-08] MEDS: ALBUTEROL SULFATE (*SP) AEROSOL 1 PUFF 2 PUFF INHALATION (05:29)
[2020-06-08 05:35] LABS: Troponin I < 0.012 ng/mL (0.000-0.034)
[2020-06-08 05:46] VITALS: BP 182/113; PULSE 89; RESP 18; O2SAT 98
[2020-06-08 06:37] VITALS: BP 161/112; PULSE 86; RESP 20; O2SAT 97
[2020-06-09 19:43] LABS: SARS-CoV-2 RNA PCR Positive
== END 2020-06-08 06:52 | disposition home or self-care (01) ==
PROVIDERS: Emergency Provider Emergency Medicine; PCP Physician Assistant
DX: U07.1 COVID-19 (principal); F32.9 Major depressive disorder, single episode, unspecified; I10 Essential (primary) hypertension; E78.00 Pure hypercholesterolemia, unspecified; Z87.442 Personal history of urinary calculi; Z87.440 Personal history of urinary (tract) infections; E66.9 Obesity, unspecified; Z68.39 Body mass index [BMI] 39.0-39.9, adult; Z98.84 Bariatric surgery status; R94.31 Abnormal electrocardiogram [ECG] [EKG]
CPT/HCPCS: 36415; 71045; 80048; 84484; 85025; 85610; 85730; 93005; 94640; 99284; A9270; C9803; U0003; U0005

== ENCOUNTER 2020-06-10 11:52 | Emergency (ER) | payer OTHER, SELFPAY ==
[2020-06-10] VITALS (14 sets, daily range): BP systolic 128–176; BP diastolic 106–119; PULSE 73–96; RESP 14–26; TEMP 36.2; O2SAT 94–100
--- NOTE | ~2020-06-10 | XR_ITS ---
EXAMINATION: XR chest 1V portable EXAM DATE: 06/10/2020 13:57 INDICATION: Cough, shortness of breath. COVID exposure. TECHNIQUE: Portable AP frontal chest x-ray was obtained. Comparison is made to prior examination from 06/08/2020. FINDINGS: Small amount of linear bilateral mid lung zone atelectasis or developing infectious process . No confluent consolidation, pneumothorax or pleural effusion suspected. Cardiomediastinal silhouet te is normal. There are no osseous abnormalities identified. IMPRESSION: Small amount of linear bilateral atelectasis or developing infection. Reviewed, dictated and finalized at location A. IMPRESSION: Small amount of linear bilateral atelectasis or developing infectio n.
--- NOTE | 2020-06-10 13:36 | ECG_ITS ---
Measurements Intervals [place] Rate: 74 P: 31 CA: 157 QRS: -11 QRSD: 87 T: 3 QT: 365 QTc: 406 Interpretive Statements SINUS RHYTHM VOLTAGE CRITERIA FOR LVH NONSPECIFIC T-WAVE ABNORMALITY- ANTEROLAT/INF LEADS BORDERLINE ECG Electronically Signed On 06-10-2020 14:19:24 CDT by Ori Roque D.O.
--- NOTE | 2020-06-10 13:49 | ED.URI ---
HPI - URI/Sore Throat General Chief Complaint: Upper Respiratory Infection Stated Complaint: covid Time Seen by Provider: 06/10/20 13:18 Source: patient Mode of arrival: ambulatory Limitations: no limitations History of Present Illness HPI Narrative: This is a 39 year old female that presents to the ER for cold symptoms x5 days. Reports cough, congestion, fever, and otalgia. Reports he tested positive for coronavirus 2 days ago. Reports she has been experiencing shortness of breath and dull chest pains with exertion. Denies lower extremity edema. Related Data Home Medications Medication Instructions Recorded Confirmed amlodipine 5 mg PO DAILY 04/02/20 04/02/20 estradiol-norethindrone acet 0.5 tablet PO DAILY 04/02/20 04/02/20 ferrous sulfate 325 mg PO DAILY 04/02/20 04/02/20 fluoxetine 40 mg PO DAILY 04/02/20 04/02/20 trazodone 50 mg PO PRN PRN 04/02/20 04/02/20 Allergies Allergy/AdvReac Type Severity Reaction Status Date / Time clindamycin Allergy Mild Swelling Verified 06/10/20 13:50 Review of Systems Review of Systems: Narrative: CONSTITUTIONAL: Reports fever ENT: Reports rhinorrhea, congestion and otalgia. CARDIOVASCULAR: Reports chest pain. Denies edema. RESPIRATORY: Reports cough and dyspnea. All systems reviewed & are unremarkable except as noted in HPI and below PMFSH Past Medical History Medical History Depression HTN (hypertension) Hypercholesterolemia Kidney stone Migraine Obesity UTI (urinary tract infection) Surgical History Surgical History History of hysterectomy Laparoscopic total hysterectomy with BSO History of laparoscopic appendectomy 08/02/19 Hx of gastric bypass In January of 2019 at [place], current weight loss of 100 pounds since surgery Family History Family History Mother Diabetes mellitus Father Heart disease Acute myocardial infarction Social History Social History Smoking status: Never smoker Alcohol intake: current Drinks per week: 14 Substance use: current Substance use type: marijuana Last use: Yesterday had an edible. Additional living arrangements comments: With her . They have 4 children. Additional occupation/education comments: Works for the [employer]. Currently on short-term disability due to depression. Gender identity (if verbalized by the patient): Female Exam Narrative: Exam Narrative: GENERAL: Well-appearing, obese, and in no acute distress. HEAD: Normocephalic, atraumatic. EYES: PERRLA and EOMI. ENT: Nares clear, no rhinorrhea or epistaxis. Mucous membranes moist. Oropharynx without tonsillar hypertrophy exudate or other lesions. Bilateral TMs pearly armijo non-bulging NECK: Supple. No adenopathy or masses. CHEST: Clear to auscultation. No respiratory distress. No wheezes rales or rhonchi HEART: Regular rate and rhythm. No murmur heard. Normal peripheral pulses. EXTREMITIES: Normal range of motion. No edema. SKIN: Warm, dry, no rash. NEURO: No focal deficits. Alert and oriented x3. PSYCH: Normal mood and affect Course Vital Signs Vital signs: Vital Signs Temperature 97.2 F L 06/10/20 11:55 Pulse Rate 96 06/10/20 11:55 Respiratory Rate 18 06/10/20 11:55 Blood Pressure 176/117 H 06/10/20 11:55 Pulse Oximetry 100 06/10/20 11:55 Temperature 97.2 F L 06/10/20 11:55 Pulse Rate 87 06/10/20 15:16 Respiratory Rate 17 06/10/20 15:16 Blood Pressure 128/113 H 06/10/20 15:16 Pulse Oximetry 94 06/10/20 15:16 MDM - URI/Sore Throat MDM Narrative Medical decision making narrative: Patient presents to the emergency department for cold symptoms x5 days. Was recently diagnosed with coronavirus. Reporting shortness of breath. She is afebrile and nontoxic-appearing.
[2020-06-10] MEDS: amLODIPine BESYLATE 5 MG TABLET PO (13:54)
[2020-06-10] MEDS: LOSARTAN POTASSIUM 100 MG TABLET PO (13:54)
[2020-06-10 14:56] LABS: Basophils Percent Auto 0.3 % (0.2-1.2); Eosinophils Percent Auto 0.3 % (0-4.4); Hematocrit 40.7 % (37.0-47.0); Hemoglobin 12.7 g/dL (12.0-15.0); Immature Granulocyte Absolute 0.01 K/mm3 (0.00-0.031); Immature Granulocyte Percent A 0.3 % (0-0.5); Immature Platelet Fraction Pct 10.6 % (0.9-11.2); Lymphocytes Absolute Auto 1.12 K/mm3 (0.9-3.2); Lymphocytes Percent Auto 28.6 % (18.3-44.2); Mean Corpuscular HGB Conc 31.2 g/dl (32-36); Mean Corpuscular Hemoglobin 26.3 pg (26-34); Mean Corpuscular Volume 84.4 fl (80-100); Monocytes Absolute Auto 0.4 K/mm3 (0.1-0.6); Monocytes Percent Auto 10.5 % (2.6-8.5); Neutrophils Absolute Auto 2.4 K/mm3 (1.3-6.7); Platelet Count Result 137 k/mm3 (150-375); Red Blood Count 4.82 M/mm3 (4.2-5.4); Red Cell Distribution Width 15.5 % (11.5-14.5); White Blood Count 3.9 K/mm3 (4.5-10.0)
[2020-06-10 15:05] LABS: INR 0.9; Prothrombin Time 12.4 Seconds (11.1-14.7)
[2020-06-10 15:06] LABS: Alanine Aminotransferase 48 U/L (4-35); Albumin Level 4.4 g/dL (3.5-5.1); Alkaline Phosphatase 102 U/L (38-126); Anion Gap 6 mmol/L (8-16); Aspartate Amino Transferase 47 U/L (14-36); Bilirubin,Total 0.3 mg/dL (0.2-1.3); Blood Urea Nitrogen 12 mg/dL (7-17); Calcium 8.7 mg/dL (8.4-10.2); Carbon Dioxide 28 mmol/L (22-30); Chloride 103 mmol/L (98-107); Estimated CRCL calculation 94 ml/min; Estimated Glomerular Filt Rate > 60; Glucose 86 mg/dL (65-105); Partial Thromboplastin Time 27.6 SECONDS (22.3-36.8); Potassium 3.8 mmol/L (3.4-5.0); Sodium 137 mmol/L (137-145)
[2020-06-10 15:08] LABS: D Dimer 0.39 ug/mL (<0.48)
[2020-06-10 15:18] LABS: Troponin I < 0.012 ng/mL (0.000-0.034)
--- NOTE | 2020-06-10 16:08 | PC.NURSE ---
called gordo ivy, added on BNP 1602
[2020-06-10 16:28] LABS: NT Pro B Type Natriuretic Pept 43 PG/ML (5-100)
== END 2020-06-10 16:33 | disposition home or self-care (01) ==
PROVIDERS: Physician Assistant; Emergency Provider Emergency Medicine; PCP Physician Assistant
DX: U07.1 COVID-19 (principal); F32.9 Major depressive disorder, single episode, unspecified; I10 Essential (primary) hypertension; E78.5 Hyperlipidemia, unspecified; Z87.440 Personal history of urinary (tract) infections; Z87.442 Personal history of urinary calculi
CPT/HCPCS: 36415; 71045; 80053; 83880; 84484; 85025; 85055; 85380; 85610; 85730; 93005; 99284; A9270

== ENCOUNTER 2020-06-12 20:33 | Emergency (ER) | payer OTHER, SELFPAY ==
--- NOTE | ~2020-06-12 | XR_ITS ---
XR chest 1V portable DATE: 06/12/2020 21:18 INDICATION: Generalized chest pain, weakness. Covid-positive for one week. TECHNIQUE: Portable upright AP chest on 06/12/2020 at 2109 hours COMPARISON: 06/10/2020 portable AP chest FINDINGS: There is patchy infiltrate and atelectasis in the left mid and bilateral lower lung zones, left greater than right. Heart size is within normal range. No pleural effusion or pulmonary vascular congestion or pneumothor ax. IMPRESSION: Left mid and bilateral lower lung infiltrate and/atelectasis, increased since 06/10/2020 Reviewed, dictated and finalized at location A. IMPRESSION: Left mid and bilateral lower lung infiltrate and/atelectasis, incre ased since 06/10/2020
--- NOTE | ~2020-06-12 | CT_ITS ---
EXAMINATION: CTA chest PE abdomen pel DATE: 06/12/2020 22:45 INDICATION: Chest pain, abdominal pain. Covid-positive. TECHNIQUE: Computed tomography angiography (CTA) of the chest, abdomen and pelvis was performed with 100 mL Omnipaque-350 intravenous contrast timed to evaluate the pulmonary arteries. Coronal maximum i ntensity projection 3D-reconstructions were created by the technologist. Automated exposure control a nd iterative reconstruction technique were employed. Exam dose: 1314.60 mGy-cm total exam DLP. COMPARISON: 06/12/2020 portable AP chest 08/02/2019 CT abdomen and pelvis FINDINGS: There is moderate opacification of the pulmonary arteries and no apparent pulmonary embolis m. Cardiomegaly. No pericardial effusion. Minimal bilateral pleural effusions. Mild thoracic aortic aneurysm of the anterior arch measuring up to 3.2 cm diameter. Normal diameter o f the ascending and descending thoracic aorta. No thoracic aortic dissection is evident. No hilar or mediastinal mass lesion or lymphadenopathy. There are patchy bilateral infiltrates with mild scattered groundglass infiltrates in the upper lobes , more prominent involvement of the lingula and prominent patchy infiltrate and atelectasis of the mi ddle and to a greater extent both lower lobes. The liver, gallbladder, bile ducts, pancreas, pancreatic duct and spleen are unremarkable. The adrenal glands are unremarkable. No renal mass lesion is evident. There is a 4.5 x 8.2 mm calculus at the very proximal right ureter with minimal if any right hydronep hrosis. No other urinary tract calcification is noted. There is no hydronephrosis on the left. The urinary bladder is unremarkable. Status post hysterectomy. Normal caliber of the abdominal aorta. No intraperitoneal or retroperitoneal or pelvic mass lesion or adenopathy or ascites. Status post gastric bypass. Minimal colonic diverticulosis; no CT evidence of diverticulitis. Status post appendectomy. Included skeletal structures are unremarkable, without evidence of suspicious osteolytic or osteoblas tic lesions. IMPRESSION: Patchy bilateral pulmonary infiltrates, greatest in the lower lobes and lingula, with le sser involvement of the middle lobe and upper lobes No CT evidence of pulmonary embolism Cardiomegaly 4.5 x 8.2 mm proximal right ureteral calculus with minimal if any right hydronephrosis Minimal colonic diverticulosis; no CT evidence of diverticulitis Status post appendectomy Status post hysterectomy Reviewed, dictated and finalized at [facility]. Reviewed, dictated and finalized at [facility]. IMPRESSION: Patchy bilateral pulmonary infiltrates, greatest in the lower lobe s and lingula, with lesser involvement of the middle lobe and upper lobes No CT evidence of pulmonary embolism Cardiomegaly 4.5 x 8.2 mm proximal right ureteral calculus with minimal if any right hydrone phrosis Minimal colonic diverticulosis; no CT evidence of diverticulitis Status post appendectomy Status post hysterectomy
--- NOTE | 2020-06-12 20:38 | ECG_ITS ---
Measurements Intervals [place] Rate: 95 P: 37 [place]: 146 QRS: 0 QRSD: 93 T: 28 QT: 385 QTc: 484 Interpretive Statements SINUS RHYTHM VOLTAGE CRITERIA FOR LVH BORDERLINE T WAVE ABNORMALITY- ANTEROLAT/INF LEADS BASELINE ARTIFACT- I, II, AVR, AVF, V2-V6 BORDERLINE ECG Electronically Signed On 06-13-2020 0:15:50 CDT by Ori Roque D.O.
[2020-06-12 20:42] VITALS: BP 157/100; PULSE 114; RESP 21; TEMP 39.6; O2SAT 99
[2020-06-12 20:56] LABS: Basophils Percent Auto 0.2 % (0.2-1.2); Hematocrit 41.7 % (37.0-47.0); Hemoglobin 13.2 g/dL (12.0-15.0); Immature Granulocyte Absolute 0.01 K/mm3 (0.00-0.031); Immature Granulocyte Percent A 0.2 % (0-0.5); Lymphocytes Absolute Auto 1.43 K/mm3 (0.9-3.2); Lymphocytes Percent Auto 33.5 % (18.3-44.2); Mean Corpuscular HGB Conc 31.7 g/dl (32-36); Mean Corpuscular Volume 82.2 fl (80-100); Mean Platelet Volume 12.1 fl (7.4-10.4); Monocytes Absolute Auto 0.4 K/mm3 (0.1-0.6); Monocytes Percent Auto 10.3 % (2.6-8.5); Neutrophils Absolute Auto 2.4 K/mm3 (1.3-6.7); Neutrophils Percent Auto 55.8 % (45.5-73.1); Platelet Count Result 143 k/mm3 (150-375); Red Blood Count 5.07 M/mm3 (4.2-5.4); Red Cell Distribution Width 15.3 % (11.5-14.5); White Blood Count 4.3 K/mm3 (4.5-10.0)
[2020-06-12] MEDS: SODIUM CHLORIDE 0.9% IV 1,000 ML 999 ML (21:00)
[2020-06-12] MEDS: ASPIRIN 81 MG CHEWABLE TABLET 324 MG PO (21:00)
[2020-06-12 21:05] LABS: Anion Gap 7 mmol/L (8-16); Blood Urea Nitrogen 12 mg/dL (7-17); Calcium 8.5 mg/dL (8.4-10.2); Carbon Dioxide 27 mmol/L (22-30); Chloride 103 mmol/L (98-107); Estimated CRCL calculation 76 ml/min; Estimated Glomerular Filt Rate > 60; Glucose 109 mg/dL (65-105); Potassium 3.9 mmol/L (3.4-5.0); Sodium 137 mmol/L (137-145)
[2020-06-12 21:06] LABS: INR 0.9; Partial Thromboplastin Time 29.2 SECONDS (22.3-36.8); Prothrombin Time 12.6 Seconds (11.1-14.7)
[2020-06-12 21:18] LABS: Troponin I 0.013 ng/mL (0.000-0.034)
[2020-06-12 21:26] VITALS: PULSE 89; RESP 21
[2020-06-12] MEDS: ALBUTEROL SULFATE (*SP) INHALER 2 PUFF INHALATION (21:26)
[2020-06-12] MEDS: KETOROLAC 30 MG/ML VIAL (*BKC) IV PUSH (21:38)
[2020-06-12] MEDS: ONDANSETRON INJ 4 MG/2 ML VIAL IV PUSH (21:38)
[2020-06-12 21:48] LABS: Base Excess ABG -1.2 mEq/l (+/-2.0); Fractional Inspired Oxygen 28 %; HCO3 ABG 23.4 mEq/l (22.0-26.0); Oxygen Content ABG 16.8 %vol (16.0-22.0); Oxygen Saturation ABG 98.7 % (95.0-100.0); Oxyhemoglobin 96.7 % THb (90.0-100.0); PCO2 ABG 38.6 mmHg (35.0-45.0); PO2 ABG 135.1 mmHg (80.0-100.0); PO2 FiO2 Ratio Arterial Blood 4.83 %; Total Hemoglobin 12.2 g/dL (12.0-18.0)
[2020-06-12 21:49] LABS: Device NASAL CANNULA; Site Drawn RIGHT BRACHIAL
[2020-06-12] MEDS: BENZONATATE 100 MG CAPSULE 200 MG PO (21:50)
[2020-06-12] MEDS: SODIUM CHLORIDE 0.9% IV 1,000 ML 999 ML IV CONT (21:50)
[2020-06-12 23:31] LABS: Troponin I < 0.012 ng/mL (0.000-0.034)
--- NOTE | 2020-06-13 00:15 | ED.GENADULT ---
HPI - General Adult General Chief complaint: Chest Pain Stated complaint: covid-19+, chest pain Time Seen by Provider: 06/12/20 21:00 History of Present Illness HPI narrative: Patient is a 39-year-old female who presents to emergency department with chief complaint of cough and shortness of breath. Patient reports she was diagnosed with COVID-19 states she is felt bad as generalized body aches fevers and has been unimproved. The patient states her primary care physician and started on a cough medication and steroid and she is still feeling unwell. Patient came to the emergency department today because she felt as though she was dehydrated and wanted to make sure that she was not getting worse. Related Data Home Medications Medication Instructions Recorded Confirmed amlodipine 5 mg PO DAILY 04/02/20 04/02/20 estradiol-norethindrone acet 0.5 tablet PO DAILY 04/02/20 04/02/20 ferrous sulfate 325 mg PO DAILY 04/02/20 04/02/20 fluoxetine 40 mg PO DAILY 04/02/20 04/02/20 trazodone 50 mg PO PRN PRN 04/02/20 04/02/20 Allergies Allergy/AdvReac Type Severity Reaction Status Date / Time clindamycin Allergy Mild Swelling Verified 06/10/20 13:50 Review of Systems Review of Systems: Narrative: A 10 system review of systems was completed on the patient and is negative except for what is stated in the HPI. Nursing and ancillary documentation was reviewed. [facility] Past Medical History Medical History Depression HTN (hypertension) Hypercholesterolemia Kidney stone Migraine Obesity UTI (urinary tract infection) Surgical History Surgical History History of hysterectomy Laparoscopic total hysterectomy with BSO History of laparoscopic appendectomy 08/02/19 Hx of gastric bypass In January of 2019 at [place], current weight loss of 100 pounds since surgery Family History Family History Mother Diabetes mellitus Father Heart disease Acute myocardial infarction Social History Social History Smoking status: Never smoker Alcohol intake: current Drinks per week: 14 Substance use: current Substance use type: marijuana Last use: Yesterday had an edible. Additional living arrangements comments: With her . They have 4 children. Additional occupation/education comments: Works for the [employer]. Currently on short-term disability due to depression. Gender identity (if verbalized by the patient): Female Exam Narrative: Exam Narrative: GENERAL: Well-appearing, well-nourished, and in no acute distress. HEAD: Normocephalic, atraumatic. EYES: PERRLA and EOMI. ENT: Nares clear, no rhinorrhea or epistaxis. Mucous membranes moist. NECK: Supple. CHEST: Clear to auscultation. No respiratory distress. HEART: Regular rate and rhythm. No murmur heard. Normal peripheral pulses. ABDOMEN: Soft, nontender, nondistended, normal active bowel sounds. EXTREMITIES: Normal range of motion. No edema. SKIN: Warm, dry, no rash. NEURO: No focal deficits. Alert and oriented x3. PSYCH: Normal mood and affect. Course Course Emergency Course: Patient received hydration in the emergency department and is feeling much better at this time. Vital Signs Vital signs: Vital Signs Temperature 39.6 C H 06/12/20 20:42 Pulse Rate 114 H 06/12/20 20:42 Respiratory Rate 21 H 06/12/20 20:42 Blood Pressure 157/100 H 06/12/20 20:42 Pulse Oximetry 99 06/12/20 20:42 Temperature 39.6 C H 06/12/20 20:42 Pulse Rate 89 06/12/20 21:26 Respiratory Rate 21 H 06/12/20 21:26 Blood Pressure 157/100 H 06/12/20 20:42 Pulse Oximetry 99 06/12/20 20:42 Medical Decision Making Vital Signs Vital Signs: Vital Signs Temperature 39.6 C H 06/12/20 20:42 Pulse Rate 11
[2020-06-13 00:24] VITALS: BP 131/76; PULSE 85; RESP 18; TEMP 37.1; O2SAT 97
== END 2020-06-13 00:25 | disposition home or self-care (01) ==
PROVIDERS: Emergency Provider Emergency Medicine; PCP Physician Assistant
DX: U07.1 COVID-19 (principal); J12.82 Pneumonia due to coronavirus disease 2019; I10 Essential (primary) hypertension; E78.00 Pure hypercholesterolemia, unspecified; Z87.442 Personal history of urinary calculi; F32.9 Major depressive disorder, single episode, unspecified; Z87.440 Personal history of urinary (tract) infections; E66.9 Obesity, unspecified; Z68.35 Body mass index [BMI] 35.0-35.9, adult; Z98.84 Bariatric surgery status; R94.31 Abnormal electrocardiogram [ECG] [EKG]
CPT/HCPCS: 36415; 36600; 71045; 71275; 74177; 80048; 82805; 84484; 85025; 85610; 85730; 93005; 94640; 96361; 96374; 96375; 99284; A9270; J1885; J2405; J7030; Q9967

== ENCOUNTER 2020-06-15 11:09 | Inpatient (IN) | payer OTHER, SELFPAY ==
[2020-06-15] VITALS (27 sets, daily range): BP systolic 115–152; BP diastolic 75–104; PULSE 88–108; RESP 7–38; TEMP 36.3–37.8; O2SAT 89–98; BMI 34.8
--- NOTE | ~2020-06-15 | XR_ITS ---
EXAMINATION: XR chest 1V portable DATE: 06/15/2020 11:48 INDICATION: COVID positive. Cough. TECHNIQUE: frontal view of the chest was obtained. COMPARISON: Chest radiograph and CT dated 06/12/2020 FINDINGS: Interval increase in patchy airspace opacities in bilateral mid and lower lung zones. No pneumothorax or definitive pleural effusion. Cardiomegaly. Visualized bones and soft tissues are unremarkable. IMPRESSION: 1. Increasing patchy airspace opacity in the bilateral mid and lower lung zones consistent with pneum onia. 2. Cardiomegaly. Reviewed, dictated and finalized at [facility]. IMPRESSION: 1. Increasing patchy airspace opacity in the bilateral mid and lower lung zones consistent with pneumonia. 2. Cardiomegaly.
--- NOTE | ~2020-06-15 | XR_ITS ---
EXAMINATION: XR chest 1V portable DATE: 06/21/2020 10:44 INDICATION: Hypoxia. Pulmonary edema. COVID-19 positive on 06/08/20 TECHNIQUE: A single frontal view of the chest was obtained. COMPARISON: Chest single view 06/15/2020, chest CT 06/12/2020 FINDINGS: There are patchy airspace opacities in the middle and lower zones. No pleural effusion or p neumothorax. Cardiomegaly is noted. IMPRESSION: 1. Patchy airspace opacities in the mid and lower lung zones with improvement on the left, consistent with pneumonia. 2. Cardiomegaly. Reviewed, dictated and finalized at [facility]. IMPRESSION: 1. Patchy airspace opacities in the mid and lower lung zones with improvement o n the left, consistent with pneumonia. 2. Cardiomegaly.
--- NOTE | 2020-06-15 11:18 | ECG_ITS ---
Measurements Intervals [place] Rate: 90 P: 38 AR: 141 QRS: -21 QRSD: 100 T: 6 QT: 348 QTc: 427 Interpretive Statements SINUS RHYTHM DELAYED PRECORDIAL R/S TRANSITION VOLTAGE CRITERIA FOR LVH BORDERLINE T WAVE ABNORMALITY- ANTEROLAT/INF LEADS BASELINE ARTIFACT- II, III, AVF, V2-V6 BORDERLINE ECG Electronically Signed On 06-15-2020 21:46:56 CDT by Ori Roque D.O.
[2020-06-15 11:42] LABS: Hematocrit 39.6 % (37.0-47.0); Hemoglobin 12.4 g/dL (12.0-15.0); Immature Granulocyte Absolute 0.01 K/mm3 (0.00-0.031); Immature Granulocyte Percent A 0.2 % (0-0.5); Immature Platelet Fraction Pct 10.8 % (0.9-11.2); Lymphocytes Absolute Auto 0.76 K/mm3 (0.9-3.2); Lymphocytes Percent Auto 17.6 % (18.3-44.2); Mean Corpuscular HGB Conc 31.3 g/dl (32-36); Mean Corpuscular Hemoglobin 26.1 pg (26-34); Mean Corpuscular Volume 83.4 fl (80-100); Mean Platelet Volume 12.7 fl (7.4-10.4); Monocytes Absolute Auto 0.1 K/mm3 (0.1-0.6); Neutrophils Absolute Auto 3.4 K/mm3 (1.3-6.7); Neutrophils Percent Auto 79.2 % (45.5-73.1); Platelet Count Result 143 k/mm3 (150-375); Red Blood Count 4.75 M/mm3 (4.2-5.4); Red Cell Distribution Width 15.3 % (11.5-14.5); White Blood Count 4.3 K/mm3 (4.5-10.0)
[2020-06-15 11:50] LABS: Lactic Acid Reflex 1.1 mmol/L (0.7-2.1)
[2020-06-15 11:56] LABS: Anion Gap 6 mmol/L (8-16); Blood Urea Nitrogen 9 mg/dL (7-17); Calcium 8.7 mg/dL (8.4-10.2); Carbon Dioxide 29 mmol/L (22-30); Chloride 105 mmol/L (98-107); Estimated CRCL calculation 107 ml/min; Estimated Glomerular Filt Rate > 60; Glucose 97 mg/dL (65-105); Sodium 140 mmol/L (137-145)
[2020-06-15 12:18] LABS: Alveolar/Arterial O2 Gradient 32.5 mmHg; Base Excess ABG 2.3 mEq/l (+/-2.0); Fractional Inspired Oxygen 21 %; HCO3 ABG 25.5 mEq/l (22.0-26.0); Oxygen Content ABG 15.5 %vol (16.0-22.0); Oxygen Saturation ABG 96.1 % (95.0-100.0); Oxyhemoglobin 93.8 % THb (90.0-100.0); PCO2 ABG 34.8 mmHg (35.0-45.0); PO2 ABG 75.6 mmHg (80.0-100.0); Total Hemoglobin 11.7 g/dL (12.0-18.0); pH ABG 7.483 (7.350-7.450)
[2020-06-15 12:19] LABS: Alanine Aminotransferase 21 U/L (4-35); Albumin Level 4.1 g/dL (3.5-5.1); Alkaline Phosphatase 79 U/L (38-126); Aspartate Amino Transferase 32 U/L (14-36); Bilirubin,Total 0.5 mg/dL (0.2-1.3); CRP 8.1 mg/dL (<1.0)
[2020-06-15 12:19] LABS: Device ROOM AIR; Site Drawn LEFT BRACHIAL
[2020-06-15 12:28] LABS: Partial Thromboplastin Time 29.1 SECONDS (22.3-36.8); Prothrombin Time 13.3 Seconds (11.1-14.7)
[2020-06-15 12:31] LABS: D Dimer 0.39 ug/mL (<0.48)
--- NOTE | 2020-06-15 14:07 | ED.SOB ---
HPI - SOB/Dyspnea General Chief Complaint: Shortness of Breath/Dyspnea Stated Complaint: SOB-covid positive Time Seen by Provider: 06/15/20 11:17 Source: patient Mode of arrival: ambulatory Limitations: no limitations History of Present Illness HPI Narrative: Patient is 39 years old -[place] female presents to the ED with increased shortness of breath over the last few days. Patient was tested positive for COVID-19 on June 08. Today is the fourth ED visit over the last 7 days.. Currently patient denying any fever, chills, nausea, vomiting, headache, or sore throat. MD elicited complaint: shortness of breath and cough Related Data Home Medications Medication Instructions Recorded Confirmed amlodipine 5 mg PO DAILY 04/02/20 04/02/20 estradiol-norethindrone acet 0.5 tablet PO DAILY 04/02/20 04/02/20 ferrous sulfate 325 mg PO DAILY 04/02/20 04/02/20 fluoxetine 40 mg PO DAILY 04/02/20 04/02/20 trazodone 50 mg PO PRN PRN 04/02/20 04/02/20 Allergies Allergy/AdvReac Type Severity Reaction Status Date / Time clindamycin Allergy Mild Swelling Verified 06/15/20 11:20 Review of Systems Review of Systems: Narrative: CONSTITUTIONAL: Denies fever, chills, or sweats. EYES: Denies visual changes, redness, or discharge. ENT: Denies rhinorrhea, congestion, sore throat, or otalgia. CARDIOVASCULAR: Denies chest pain, palpitations, or edema. RESPIRATORY: Denies cough or dyspnea. GASTROINTESTINAL: Denies abdominal pain, nausea, vomiting, or diarrhea. GENITOURINARY: Denies dysuria or hematuria. SKIN: Denies rash or itching. MUSCULOSKELETAL: Denies back pain, joint pain, or myalgia. NEUROLOGIC: Denies headache, numbness, or weakness. PSYCHIATRIC: Denies anxiety or depression. [facility] Past Medical History Medical History Depression HTN (hypertension) Hypercholesterolemia Kidney stone Migraine Obesity UTI (urinary tract infection) Surgical History Surgical History History of hysterectomy Laparoscopic total hysterectomy with BSO History of laparoscopic appendectomy 08/02/19 Hx of gastric bypass In January of 2019 at [place], current weight loss of 100 pounds since surgery Family History Family History Mother Diabetes mellitus Father Heart disease Acute myocardial infarction Social History Social History Smoking status: Never smoker Alcohol intake: current Drinks per week: 14 Substance use: current Substance use type: marijuana Last use: Yesterday had an edible. Additional living arrangements comments: With her . They have 4 children. Additional occupation/education comments: Works for the [employer]. Currently on short-term disability due to depression. Gender identity (if verbalized by the patient): Female Exam Narrative: Exam Narrative: General appearance: Well-developed, well-nourished, anxious, no family member at the bedside Skin: Normal color Head: Normocephalic, nontraumatic Eyes: Clear conjunctiva ENT: Oropharynx normal, ears normal, nose normal Neck: Supple, nontender Chest and respiratory: Airway patent, no respiratory distress, no accessory muscle use, diminution of air entry bilaterally at the bases, few scattered rhonchi Heart: Regular rate/rhythm Abdomen: Soft, nontender, no organomegaly, quiet bowel sounds Vascular: Normal peripheral pulses, normal capillary refill. Musculoskeletal: Normal range of motion, nontender back Neurologic: Alert and oriented ?3, SCHEDULE HANGER is normal as tested, no gross motor deficit
--- NOTE | 2020-06-15 18:39 | PC.NURSE ---
This patient, Trish Haro, was admitted to 3 Med Surg Room 310-01 at 1350. Patient/family oriented to hospital policies and general routines including ID bracelet, bed and alarms, visiting hours, pain management, procedures, bathroom and other care routines, personal items, smoking policy, room service/diet, and visiting hours. Information on how to activate the Rapid Response Team has been discussed. Patient/Family are encouraged to report perceived risks to care and to ask questions if they do not understand what they are told or what they should do.
[2020-06-15] MEDS: ALBUTEROL SULFATE NEB 2.5 MG/0.5 ML INH 5 MG INHALATION (19:56)
[2020-06-15] MEDS: ENOXAPARIN 40 MG/0.4 ML SYRINGE SUB-Q (20:43)
[2020-06-15] MEDS: guaiFENesin 12 HR 600 MG TABCR PO (20:44)
[2020-06-16] VITALS (24 sets, daily range): BP systolic 107–128; BP diastolic 66–86; PULSE 64–102; RESP 14–22; TEMP 36.1–37.4; O2SAT 82–98
[2020-06-16] MEDS: ALBUTEROL SULFATE NEB 2.5 MG/0.5 ML INH 5 MG INHALATION (01:47)
--- NOTE | 2020-06-16 06:24 | PM.IMHP ---
H&P: HPI History of Present Illness Date/Time: 06/16/20 06:24 Chief Complaint: COVID with worsening shortness of breath Narrative: 39-year-old female with past medical history of obesity, hypertension and hormone replacement therapy and recent diagnosis of COVID who presented to the ER with worsening shortness of breath. The patient was diagnosed with COVID on 06/08/2020. She reported that her youngest daughter (12 years old) became ill with COVID on 06/04/2020. The patient began having symptoms on 06/06/2020. She reported feeling chest tightness and, sore throat generalized fatigue and body aches. On day 4 she developed loss of sense of taste and smell. She reports that her chest tightness feels if she cannot take a deep breath. She began having a cough 2 or 3 days in the symptoms. Her cough is for the most part nonproductive. She has had decreased appetite but no nausea or vomiting. She did have 1 day of diarrhea that has since resolved. She has had temperatures as high as 103.2?. She contacted her primary care physician and had a prescription for azithromycin. She was also taking Coricidin HBP and naproxen for symptoms without much relief. HerT-max on day presentation was 100.1. The patient had a total of 4 ER visits since the . She had a CTA of the chest abdomen and pelvis on the for PE but demonstrated bilateral patchy pulmonary infiltrates greatest in the lower lobes and lingula with lesser involvement middle lobe and upper lobes. She had incidental finding of 4.5 x 8.2 mm proximal right ureteral stone with minimal if any right hydronephrosis. She had also been prescribed an albuterol inhaler. She reports that her cough has gotten progressively worse. Her cough is nonproductive. She has been having significant increase in dyspnea on exertion mostly due to her cough. The patient was placed on oxygen the ER for comfort. When patient arrived on the medical floor the nursing staff weaned her oxygen down to 1 L nasal cannula. When they tried to wean her oxygen off her oxygen saturations dropped to 85% on room air. Review of Systems Review of Systems: Narrative: 12 systems were reviewed with pertinent positives and negatives per HPI. Except as documented in the HPI, all other systems were reviewed and are negative. [facility] Past Medical History Medical History Depression HTN (hypertension) Hypercholesterolemia Kidney stone Migraine Obesity UTI (urinary tract infection) Surgical History Surgical History History of hysterectomy Laparoscopic total hysterectomy with BSO History of laparoscopic appendectomy 08/02/19 Hx of gastric bypass In January of 2019 at [place], current weight loss of 100 pounds since surgery Family History Family History (Updated 06/16/20 @ 07:06 by Abida Rea DO) Mother Diabetes mellitus Father , At age 64 Heart disease Acute myocardial infarction Social History Social History (Updated 06/16/20 @ 07:10 by Abida Rea DO) Social History: Primary care provider: Andrews GOLDSMITH Smoking status: Never smoker Alcohol intake: current Drinks per week: 2 Alcohol use details: She reports that since her father's last year she has been drinking more alcohol. She was drinking 2-3 alcoholic beverages a night. She has cut back down to 2 drinks a week over the last couple of months. Substance use: never Last use: Yesterday had an edible. Additional living arrangements comments: With her they have been together for 22 years and been for 9 years.. They have 4 children. Her oldest child is 22 years old and youngest is 12. Additional occupation/education comments: Works for the [employer]. Currently on short-term disability due to depression. 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
[2020-06-16] MEDS: ALBUTEROL SULFATE (*SP) AEROSOL 1 PUFF 4 PUFF INHALATION ×2 (08:45→20:06)
[2020-06-16] MEDS: DEXAMETHASONE SOD PHOS INJ 4 MG/ML VIAL 6 MG IV PUSH (09:55)
[2020-06-16] MEDS: ENOXAPARIN 40 MG/0.4 ML SYRINGE SUB-Q ×2 (09:55→20:06)
[2020-06-16] MEDS: FLUoxetine HCL 20 MG CAPSULE 40 MG PO (09:55)
[2020-06-16] MEDS: FERROUS SULFATE 324 MG TABLET PO (09:55)
[2020-06-16] MEDS: amLODIPine BESYLATE 5 MG TABLET PO (09:55)
[2020-06-16 11:35] LABS: Alanine Aminotransferase 17 U/L (4-35); Estimated CRCL calculation 94 ml/min; Estimated Glomerular Filt Rate > 60
[2020-06-16 11:36] LABS: Prothrombin Time 13.4 Seconds (11.1-14.7)
[2020-06-16] MEDS: CHOLECALCIFEROL 1,000 UNITS TABLET 1000 UNITS PO (12:05)
[2020-06-16] MEDS: ASCORBIC ACID 500 MG TABLET PO (12:05)
[2020-06-16] MEDS: ZINC SULFATE 220 MG CAPSULE PO (12:06)
--- NOTE | 2020-06-16 13:28 | PM.IMPN ---
Progress Note: A&P Assessment and Plan (1) Pneumonia due to COVID-19 virus: Code(s): U07.1 - COVID-19; J12.82 - Pneumonia due to coronavirus disease 2019 Status: Acute (2) Acute respiratory failure with hypoxia: Code(s): J96.01 - Acute respiratory failure with hypoxia Status: Acute Additional Plan 06/16/20 13:28 Patient has acute hypoxic respiratory failure due to COVID-19 pneumonia. Patient has been started on Decadron. Will initiate therapy with albuterol 4 puffs q.6 hours scheduled. Patient may have Mucinex p.r.n. for cough. Will wean oxygen as tolerated. Patient is to remain on droplet/airborne and contact isolation. Patient has been placed on DVT prophylaxis with Lovenox 40 mg subq q.12 hours. The patient's home hormone supplementation will be held. Patient's blood pressures are stable will continue patient's home antihypertensive and antidepressants. Patient is a 39-year-old female was diagnosed with COVID-19 on 06/08/20 patient presented emergency depart with worsening shortness of breath and hypoxia patient was started on dexamethasone on 06/16 03/09 and today started her on Remdesivir and patient has agreed to take convalescent plasma, also added Vitmain D and C also zinc as well as symbicort, currently patient has no fever and requiring 1-2 L of oxygen will continue to monitor, Subjective Date/time seen: 06/16/20 13:28 Patient has acute hypoxic respiratory failure due to COVID-19 pneumonia. Patient has been started on Decadron. Will initiate therapy with albuterol 4 puffs q.6 hours scheduled. Patient may have Mucinex p.r.n. for cough. Will wean oxygen as tolerated. Patient is to remain on droplet/airborne and contact isolation. Patient has been placed on DVT prophylaxis with Lovenox 40 mg subq q.12 hours. The patient's home hormone supplementation will be held. Patient's blood pressures are stable will continue patient's home antihypertensive and antidepressants. Patient is a 39-year-old female was diagnosed with COVID-19 on 06/08/20 patient presented emergency depart with worsening shortness of breath and hypoxia patient was started on dexamethasone on 06/16 03/09 and today started her on Remdesivir and patient has agreed to take convalescent plasma, also added Vitmain D and C also zinc as well as symbicort, currently patient has no fever and requiring 1-2 L of oxygen will continue to monitor, Review of Systems Review of Systems: All systems reviewed & are unremarkable except as noted in HPI and below Exam Narrative: Exam Narrative: Moderately obese Patient is comfortable, NAD HEENT: eyes are clear and none icteric LUNGS: Normal respiratory effort ABD: Mildly distended Lower extremities: no edema SKIN: nonjaundiced Neuro: grossly intact normal speech. Objective Data Vital Signs Vital Signs: Vital Signs - 24 hr 06/15/20 13:31 06/15/20 13:46 06/15/20 14:01 Temperature Pulse Rate 93 90 91 Respiratory Rate 20 33 H 24 H Blood Pressure 133/93 H 132/94 H 132/90 Pulse Oximetry 98 95 96 06/15/20 14:16 06/15/20 14:31 06/15/20 14:47 Temperature Pulse Rate 101 H 89 108 H Respiratory Rate 30 H 26 H 38 H Blood Pressure 127/93 H 131/91 H 132/88 Pulse Oximetry 93 98 06/15/20 15:01 06/15/20 16:00 06/15/20 18:30 Temperature 100.1 F H Pulse Rate 88 91 96 Respiratory Rate 11 L 26 H Blood Pressure 129/94 H 121/78 Pulse Oximetry 95 06/15/20 19:57 06/15/20 20:00 06/15/20 20:11 Temperature 98.9 F Pulse Rate 105 H 101 H 101 H Respiratory Rate 24 H 22 H 22 H Blood Pressure 135/92 H Pulse Oximetry 96 06/15/20 22:00 06/15/20 23:49 06/16/20 00:00 Temperature 97.5 F L Pulse Rate 93 80 Respiratory Rate 18 Blood Pressure 116/76 Pulse Oximetry 95 95 06/16/20 01:00 06/16/20 01:48 06/16/20 01:59 Temperature Pulse Rate 99 102 H Respiratory Rate 22 H 22 H Blood Pressure Pulse Oximetry 93 06/16/20 02:26 06/16/20 03:46 06/16/20
[2020-06-16] MEDS: REMDESIVIR 200 MG/NS 250 ML 200 MG/250 ML BAG 250 MG IVPB (13:41)
[2020-06-16 14:09] LABS: Alveolar/Arterial O2 Gradient 238.7 mmHg; Base Excess ABG -0.1 mEq/l (+/-2.0); Fractional Inspired Oxygen 48 %; HCO3 ABG 23.7 mEq/l (22.0-26.0); Oxygen Content ABG 15.3 %vol (16.0-22.0); Oxygen Saturation ABG 93.2 % (95.0-100.0); Oxyhemoglobin 90.6 % THb (90.0-100.0); PCO2 ABG 35.6 mmHg (35.0-45.0); PO2 ABG 63.3 mmHg (80.0-100.0); PO2 FiO2 Ratio Arterial Blood 1.32 %; pH ABG 7.441 (7.350-7.450)
[2020-06-16 14:10] LABS: Device HIGH FLOW NASAL CANN; Site Drawn LEFT BRACHIAL
[2020-06-16] MEDS: ACETAMINOPHEN 325 MG TABLET 650 MG PO (14:10)
[2020-06-16 14:23] LABS: Glucose Point of Care 141 (65-105)
--- NOTE | 2020-06-16 16:19 | PC.NURSE ---
Around 1340, patient became very weak and pulled her bathroom cord to alarm us. Patient stated she was very weak, didn't feel good, and had diarrhea. Put patient back in bed with Martina Balbuena assisted by MORENO Luevano. Vital signs obtained. O2 sats were 82% on 1L NC, patient diaphoretic and drowsy. O2 increased to 7L NC. MD notified and obtained STAT ABG's and consult to pulmonology. Blood sugar at this time was 141. After patient was in bed for a few minutes, she stated she was feeling a little better, but still weak. Discussed plan of care with patient. Patient is now a stand by assist with ambulation. Patient currently on 7LHFNC sats 95%.
[2020-06-16] MEDS: BUDESONIDE/FORMOTEROL (*SP) 160-4.5 MCG 6 GM INH 2 PUFF INHALATION (20:14)
[2020-06-17] VITALS (18 sets, daily range): BP systolic 124–141; BP diastolic 83–94; PULSE 57–91; RESP 14–24; TEMP 36.4–36.9; O2SAT 79–99
[2020-06-17] MEDS: ALBUTEROL SULFATE (*SP) AEROSOL 1 PUFF 4 PUFF INHALATION ×4 (02:22→20:18)
[2020-06-17 06:44] LABS: Alanine Aminotransferase 18 U/L (4-35); Albumin Level 3.7 g/dL (3.5-5.1); Alkaline Phosphatase 74 U/L (38-126); Anion Gap 5 mmol/L (8-16); Aspartate Amino Transferase 25 U/L (14-36); Bilirubin,Total 0.1 mg/dL (0.2-1.3); Blood Urea Nitrogen 11 mg/dL (7-17); Calcium 8.6 mg/dL (8.4-10.2); Carbon Dioxide 28 mmol/L (22-30); Chloride 108 mmol/L (98-107); Estimated CRCL calculation 106 ml/min; Estimated Glomerular Filt Rate > 60; Glucose 91 mg/dL (65-105); Lactate Dehydrogenase 554 U/L (313-618); Sodium 141 mmol/L (137-145)
[2020-06-17 06:48] LABS: CRP 11.9 mg/dL (<1.0)
[2020-06-17 07:26] LABS: Hematocrit 33.5 % (37.0-47.0); Hemoglobin 10.4 g/dL (12.0-15.0); Mean Corpuscular Volume 83.8 fl (80-100); Mean Platelet Volume 11.9 fl (7.4-10.4); Platelet Count Result 111 k/mm3 (150-375); Red Cell Distribution Width 15.5 % (11.5-14.5)
[2020-06-17] MEDS: FLUoxetine HCL 20 MG CAPSULE 40 MG PO (09:01)
[2020-06-17] MEDS: ASCORBIC ACID 500 MG TABLET PO (09:01)
[2020-06-17] MEDS: ZINC SULFATE 220 MG CAPSULE PO (09:01)
[2020-06-17] MEDS: amLODIPine BESYLATE 5 MG TABLET PO (09:02)
[2020-06-17] MEDS: CHOLECALCIFEROL 1,000 UNITS TABLET 1000 UNITS PO (09:02)
[2020-06-17] MEDS: FERROUS SULFATE 324 MG TABLET PO (09:02)
[2020-06-17] MEDS: ENOXAPARIN 40 MG/0.4 ML SYRINGE SUB-Q ×2 (09:03→20:18)
[2020-06-17] MEDS: DEXAMETHASONE SOD PHOS INJ 4 MG/ML VIAL 6 MG IV PUSH (09:03)
[2020-06-17] MEDS: BUDESONIDE/FORMOTEROL (*SP) 160-4.5 MCG 6 GM INH 2 PUFF INHALATION ×2 (09:07→20:18)
[2020-06-17] MEDS: REMDESIVIR 100 MG/NS 250 ML 100 MG/250 ML BAG 250 MG IVPB (09:19)
--- NOTE | 2020-06-17 10:07 | PM.CNPUL ---
Assessment and Plan Assessment and plan (1) Acute respiratory failure with hypoxia: Code(s): J96.01 - Acute respiratory failure with hypoxia Status: Acute Assessment and Plan: she has bilateral pulmonary infiltrates with hypoxic respiratory failure. She also has some bibasilar atelectasis likely from laying in bed. Continue high-flow oxygen to maintain O2 saturations of 92-96% incentive spirometer q.2 hours while awake up into the chair b.i.d. as tolerated Benzotate 200 mg t.i.d. for cough suppression (2) Pneumonia due to COVID-19 virus: Code(s): U07.1 - COVID-19; J12.82 - Pneumonia due to coronavirus disease 2018 Status: Acute Assessment and Plan: agree with Decadron 6 mg daily for 5-10 days to be pending on her clinical response agree with Remdesivir for 5-10 days depending on her clinical response. History of Present Illness History of Present Illness Consult date: 06/17/20 Chief complaint: Covid pneumonia, hypoxia Narrative: This is a very pleasant 45-year-old female who is admitted with COVID-19 pneumonia and acute hypoxemic respiratory failure. Her symptoms started around June 05 and she tested positive on June 07 or . Her symptoms were mild so she was not admitted to the hospital at the time but a couple of days ago she began to have more coughing, more shortness of breath and chest tightness and was admitted to hospital. She is currently on high-flow oxygen is 7 L and ranges between 3-7 L depending on activity. She gets into coughing spells and becomes short of breath on exertion. She does not appear to be in any respiratory distress at the moment. She does feel weak with decreased appetite but has no fevers. She was started on Decadron and Remdesivir on admission and received 1 transfusion of convalescent plasma her past medical history significant for hypertension and morbid obesity she underwent a gastric bypass surgery in 2019 and has since lost about 100 lb. She was borderline diabetic which seems to have resolved, Review of Systems Review of Systems: All systems reviewed & are unremarkable except as noted in HPI and below PMFSH Past Medical History Medical History Depression HTN (hypertension) Hypercholesterolemia Kidney stone Migraine Obesity UTI (urinary tract infection) Surgical History Surgical History History of hysterectomy Laparoscopic total hysterectomy with BSO History of laparoscopic appendectomy 08/02/19 Hx of gastric bypass In January of 2019 at [place], current weight loss of 100 pounds since surgery Family History Family History (Updated 06/16/20 @ 07:06 by Abida Rea DO) Mother Diabetes mellitus Father , At age 64 Heart disease Acute myocardial infarction Social History Social History (Updated 06/16/20 @ 07:10 by Abida Rea DO) Social History: Primary care provider: Andrews GOLDSMITH Smoking status: Never smoker Alcohol intake: current Drinks per week: 2 Alcohol use details: She reports that since her father's last year she has been drinking more alcohol. She was drinking 2-3 alcoholic beverages a night. She has cut back down to 2 drinks a week over the last couple of months. Substance use: never Last use: Yesterday had an edible. Additional living arrangements comments: With her they have been together for 22 years and been for 9 years.. They have 4 children. Her oldest child is 22 years old and youngest is 12. Additional occupation/education comments: Works for the [employer]. Currently on short-term disability due to depression. Gender identity (if verbalized by the patient): Female Spiritual care concerns: No Meds Home Medications and Allergies Home Medications Medication Instructions Recorded Confirmed Type amlod
--- NOTE | 2020-06-17 13:27 | PM.IMPN ---
Progress Note: A&P Assessment and Plan (1) Pneumonia due to COVID-19 virus: Code(s): U07.1 - COVID-19; J12.82 - Pneumonia due to coronavirus disease 2019 Status: Acute (2) Acute respiratory failure with hypoxia: Code(s): J96.01 - Acute respiratory failure with hypoxia Status: Acute Additional Plan 06/17/20 13:27 Patient has acute hypoxic respiratory failure due to COVID-19 pneumonia. Patient has been started on Decadron. Will initiate therapy with albuterol 4 puffs q.6 hours scheduled. Patient may have Mucinex p.r.n. for cough. Will wean oxygen as tolerated. Patient is to remain on droplet/airborne and contact isolation. Patient has been placed on DVT prophylaxis with Lovenox 40 mg subq q.12 hours. The patient's home hormone supplementation will be held. Patient's blood pressures are stable will continue patient's home antihypertensive and antidepressants. 06/16 Patient is a 39-year-old female was diagnosed with COVID-19 on 06/08/20 patient presented emergency depart with worsening shortness of breath and hypoxia patient was started on dexamethasone on 06/16 03/09 and today started her on Remdesivir and patient has agreed to take convalescent plasma, also added Vitmain D and C also zinc as well as symbicort, currently patient has no fever and requiring 1-2 L of oxygen will continue to monitor, 06/17 Patient is a 39-year-old female was diagnosed with COVID-19 on 06/08/20 patient presented emergency depart on 06/16 with worsening shortness of breath and hypoxia patient was started on dexamethasone on 06/16 04/09 and started her on Remdesivir 04/09 and received convalescent plasma, patient still requiring 7 L of oxygen and gets worse with exertion, patient was seen by supervisor post wave agreed with current management and added Tessalon and spirometer, patient states is feeling little better compared to yesterday when she arrived, patient instructed to ambulate as much as possible and to lay and prone position, will continue to monitor and further recommendation to follow. Subjective Date/time seen: 06/17/20 13:27 Patient has acute hypoxic respiratory failure due to COVID-19 pneumonia. Patient has been started on Decadron. Will initiate therapy with albuterol 4 puffs q.6 hours scheduled. Patient may have Mucinex p.r.n. for cough. Will wean oxygen as tolerated. Patient is to remain on droplet/airborne and contact isolation. Patient has been placed on DVT prophylaxis with Lovenox 40 mg subq q.12 hours. The patient's home hormone supplementation will be held. Patient's blood pressures are stable will continue patient's home antihypertensive and antidepressants. 06/16 Patient is a 39-year-old female was diagnosed with COVID-19 on 06/08/20 patient presented emergency depart with worsening shortness of breath and hypoxia patient was started on dexamethasone on 06/16 03/09 and today started her on Remdesivir and patient has agreed to take convalescent plasma, also added Vitmain D and C also zinc as well as symbicort, currently patient has no fever and requiring 1-2 L of oxygen will continue to monitor, 06/17 Patient is a 39-year-old female was diagnosed with COVID-19 on 06/08/20 patient presented emergency depart on 06/16 with worsening shortness of breath and hypoxia patient was started on dexamethasone on 06/16 04/09 and started her on Remdesivir 04/09 and received convalescent plasma, patient still requiring 7 L of oxygen and gets worse with exertion, patient was seen by supervisor post wave agreed with current management and added Tessalon and spirometer, patient states is feeling little better compared to yesterday when she arrived, patient instructed to ambulate as much as possible and to lay and prone position, will continue to monitor and further recommendation to follow Review of Systems Review of Systems: All systems reviewed & are unremarkable except as noted in HPI and below Exam Narrative: Exam Narrative: Moderately obese Patient
[2020-06-17] MEDS: BENZONATATE 100 MG CAPSULE 200 MG PO ×2 (13:47→18:16)
[2020-06-18] VITALS (14 sets, daily range): BP systolic 132–146; BP diastolic 76–98; PULSE 53–106; RESP 18–26; TEMP 36.7–37.5; O2SAT 87–99
[2020-06-18] MEDS: ALBUTEROL SULFATE (*SP) AEROSOL 1 PUFF 4 PUFF INHALATION ×4 (02:39→20:04)
[2020-06-18 06:21] LABS: Hematocrit 33.8 % (37.0-47.0); Hemoglobin 10.5 g/dL (12.0-15.0); Lymphocytes Absolute Auto 1.16 K/mm3 (0.9-3.2); Lymphocytes Percent Auto 34.6 % (18.3-44.2); Mean Corpuscular HGB Conc 31.1 g/dl (32-36); Mean Corpuscular Hemoglobin 26.1 pg (26-34); Mean Corpuscular Volume 84.1 fl (80-100); Mean Platelet Volume 12.8 fl (7.4-10.4); Monocytes Absolute Auto 0.3 K/mm3 (0.1-0.6); Monocytes Percent Auto 10.1 % (2.6-8.5); Neutrophils Absolute Auto 1.9 K/mm3 (1.3-6.7); Neutrophils Percent Auto 55.3 % (45.5-73.1); Platelet Count Result 119 k/mm3 (150-375); Red Blood Count 4.02 M/mm3 (4.2-5.4); Red Cell Distribution Width 15.3 % (11.5-14.5); White Blood Count 3.4 K/mm3 (4.5-10.0)
[2020-06-18 06:28] LABS: Prothrombin Time 13.8 Seconds (11.1-14.7)
[2020-06-18 06:34] LABS: Alanine Aminotransferase 18 U/L (4-35); Albumin Level 3.6 g/dL (3.5-5.1); Alkaline Phosphatase 70 U/L (38-126); Anion Gap 3 mmol/L (8-16); Aspartate Amino Transferase 23 U/L (14-36); Bilirubin,Total 0.1 mg/dL (0.2-1.3); Blood Urea Nitrogen 12 mg/dL (7-17); CRP 4.1 mg/dL (<1.0); Calcium 8.5 mg/dL (8.4-10.2); Carbon Dioxide 31 mmol/L (22-30); Chloride 107 mmol/L (98-107); Estimated CRCL calculation 94 ml/min; Estimated Glomerular Filt Rate > 60; Glucose 88 mg/dL (65-105); Potassium 3.6 mmol/L (3.4-5.0); Sodium 141 mmol/L (137-145)
[2020-06-18] MEDS: guaiFENesin 12 HR 600 MG TABCR PO (09:56)
[2020-06-18] MEDS: DEXAMETHASONE SOD PHOS INJ 4 MG/ML VIAL 6 MG IV PUSH (09:56)
[2020-06-18] MEDS: FLUoxetine HCL 20 MG CAPSULE 40 MG PO (09:56)
[2020-06-18] MEDS: CHOLECALCIFEROL 1,000 UNITS TABLET 1000 UNITS PO (09:56)
[2020-06-18] MEDS: amLODIPine BESYLATE 5 MG TABLET PO (09:57)
[2020-06-18] MEDS: ENOXAPARIN 40 MG/0.4 ML SYRINGE SUB-Q ×2 (09:57→22:01)
[2020-06-18] MEDS: ZINC SULFATE 220 MG CAPSULE PO (09:57)
[2020-06-18] MEDS: BENZONATATE 100 MG CAPSULE 200 MG PO ×3 (09:57→17:48)
[2020-06-18] MEDS: FERROUS SULFATE 324 MG TABLET PO (09:58)
[2020-06-18] MEDS: REMDESIVIR 100 MG/NS 250 ML 100 MG/250 ML BAG 250 MG IVPB (09:58)
[2020-06-18] MEDS: ASCORBIC ACID 500 MG TABLET PO (09:58)
[2020-06-18] MEDS: BUDESONIDE/FORMOTEROL (*SP) 160-4.5 MCG 6 GM INH 2 PUFF INHALATION (09:59)
[2020-06-18] MEDS: ONDANSETRON INJ 4 MG/2 ML VIAL IV PUSH (10:02)
--- NOTE | 2020-06-18 10:25 | PM.IMPN ---
Progress Note: A&P Additional Plan 06/17/20 13:27 Patient has acute hypoxic respiratory failure due to COVID-19 pneumonia. Patient has been started on Decadron. Will initiate therapy with albuterol 4 puffs q.6 hours scheduled. Patient may have Mucinex p.r.n. for cough. Will wean oxygen as tolerated. Patient is to remain on droplet/airborne and contact isolation. Patient has been placed on DVT prophylaxis with Lovenox 40 mg subq q.12 hours. The patient's home hormone supplementation will be held. Patient's blood pressures are stable will continue patient's home antihypertensive and antidepressants. 06/16 Patient is a 39-year-old female was diagnosed with COVID-19 on 06/08/20 patient presented emergency depart with worsening shortness of breath and hypoxia patient was started on dexamethasone on 06/16 03/09 and today started her on Remdesivir and patient has agreed to take convalescent plasma, also added Vitmain D and C also zinc as well as symbicort, currently patient has no fever and requiring 1-2 L of oxygen will continue to monitor, 06/17 Patient is a 39-year-old female was diagnosed with COVID-19 on 06/08/20 patient presented emergency depart on 06/16 with worsening shortness of breath and hypoxia patient was started on dexamethasone on 06/16 04/09 and started her on Remdesivir 04/09 and received convalescent plasma, patient still requiring 7 L of oxygen and gets worse with exertion, patient was seen by market risk specialist agreed with current management and added Tessalon and spirometer, patient states is feeling little better compared to yesterday when she arrived, patient instructed to ambulate as much as possible and to lay and prone position, will continue to monitor and further recommendation to follow. 06/18 Patient doing well on dexamethasone and to severe being followed by pulmonology Critical Care currently on day 3 of 10 day treatment. She has received plasma. Today she is on 7 L uncomfortable. Medications reviewed. Ambrocio encouraged. Pulmonology Critical Care bedside recommendations appreciated. continue current care Subjective Date/time seen: 06/18/20 10:25 Patient doing okay at the time my interview she states she is feeling the same somewhat improved from previous study. Her coughing fits causing to lose breath she has no complaints. Review of Systems Review of Systems: All systems reviewed & are unremarkable except as noted in HPI and below Exam Narrative: Exam Narrative: GEN: NAD, AAOx3, cooperative HEENT: NCAT, MMM, EOMI Neck: no JVD Heart: S1S2 RRR Lungs: CTA B/l Abd: soft, NT, ND, bowel sounds normoactive Ext: moves all, no cyanosis, no clubbing, no edema Neuro: No focal neurological deficits noted, cranial nerves intact Psych: mood and affect congruent Objective Data Vital Signs Vital Signs: Vital Signs - 24 hr 06/17/20 12:00 06/17/20 13:55 06/17/20 15:05 Temperature 98.3 F Pulse Rate 91 91 Respiratory Rate 24 H 18 Blood Pressure 134/88 Pulse Oximetry 92 92 91 06/17/20 16:00 06/17/20 20:00 06/17/20 23:49 Temperature 98.1 F 98.4 F 98.2 F Pulse Rate 78 68 70 Respiratory Rate 20 18 20 Blood Pressure 141/89 H 134/94 H 140/91 H Pulse Oximetry 93 93 97 06/18/20 00:00 06/18/20 03:55 06/18/20 04:00 Temperature 98.3 F Pulse Rate 59 L 57 L 53 L Respiratory Rate 20 Blood Pressure 135/95 H Pulse Oximetry 97 06/18/20 06:00 06/18/20 06:26 06/18/20 06:53 Temperature Pulse Rate Respiratory Rate Blood Pressure Pulse Oximetry 99 97 98 06/18/20 08:00 06/18/20 08:29 Temperature 98.0 F Pulse Rate 73 Respiratory Rate 18 Blood Pressure 137/92 H Pulse Oximetry 98 91 Intake/Output Intake/Output: Intake & Output 06/15/20 06/16/20 06/17/20 06/18/20 23:59 23:59 23:59 23:59 Intake Total 540 1580 2193 250 Output Total 600 700 Balance 642 066 3456 250 Meds/Results Medications: Active Medications Generic Name Dose Route Start Last Admin Trade Name
--- NOTE | 2020-06-18 12:58 | PM.PNPUL ---
Progress Note: A&P Assessment and Plan (1) Acute respiratory failure with hypoxia: Code(s): J96.01 - Acute respiratory failure with hypoxia Status: Acute Assessment and Plan: Continue current oxygen with high-flow nasal cannula to maintain O2 saturations of 92-96% Continue Benzoate 200 mg p.o. t.i.d. scheduled Morphine 4 mg IV q.4 hours p.r.n. for severe coughing spasms attempt prone positioning for as long as tolerated during the day. When speaking to the patient she does want intubation and full aggressive measures should she deteriorate (2) Pneumonia due to COVID-19 virus: Code(s): U07.1 - COVID-19; J12.82 - Pneumonia due to coronavirus disease 2019 Status: Acute Assessment and Plan: continue dexamethasone daily for 10 days continue Remdesivir daily for 10 days and monitor daily creatinine and liver function test. Start Pulmicort 1 mg nebulized q.12 hours Subjective Date/time seen: 06/18/20 12:58 Interval history: She continues to complain of coughing and severe shortness of breath with minimal exertion such as getting out of bed to use the bedside commode. When compared to yesterday she says her symptoms are no worse. Her oxygen demands are fluctuating but currently at around 9 L by high-flow nasal cannula. Review of Systems Review of Systems: All systems reviewed & are unremarkable except as noted in HPI and below Exam Const: General: cooperative, healthy appearing, comfortable, no acute distress, well developed, alert and awake HENMT: Head: normal to inspection, normocephalic and atraumatic Eyes: General: appearance normal, both eyes and all related structures Neck: Neck: trachea midline and supple Resp: Effort & Inspection: normal respiratory effort and able to speak in complete sentences Auscultation: clear to auscultation bilaterally and diminished lung sounds Cardio: Jugular venous distension: no JVD Rate: regular rate Rhythm: regular rhythm Heart sounds: S1 normal heart sound present and S2 normal heart sound present GI: Inspection: normal to inspection Auscultation: normal bowel sounds Skin: General skin exam: normal color and no rashes or lesions noted Neuro: General: oriented to person, oriented to place, oriented to time and patient oriented x3 Cognition (Neuro): normal cognition Speech: normal speech Extrem: General: normal to inspection and no clubbing, cyanosis or edema Psych: Appearance: grossly normal and well kempt Mental Status: mental status grossly normal Objective Data Vital Signs Vital Signs: Vital Signs - 24 hr 06/17/20 13:55 06/17/20 15:05 06/17/20 16:00 Temperature 36.7 C Pulse Rate 91 78 Respiratory Rate 18 20 Blood Pressure 141/89 H Pulse Oximetry 92 91 93 06/17/20 20:00 06/17/20 23:49 06/18/20 00:00 Temperature 36.9 C 36.8 C Pulse Rate 68 70 59 L Respiratory Rate 18 20 Blood Pressure 134/94 H 140/91 H Pulse Oximetry 93 97 06/18/20 03:55 06/18/20 04:00 06/18/20 06:00 Temperature 36.8 C Pulse Rate 57 L 53 L Respiratory Rate 20 Blood Pressure 135/95 H Pulse Oximetry 97 99 06/18/20 06:26 06/18/20 06:53 06/18/20 08:00 Temperature 36.7 C Pulse Rate 73 Respiratory Rate 18 Blood Pressure 137/92 H Pulse Oximetry 97 98 91 06/18/20 08:29 Temperature Pulse Rate Respiratory Rate Blood Pressure Pulse Oximetry 91 Intake/Output Intake/Output: Intake & Output 06/15/20 06/16/20 06/17/20 06/18/20 23:59 23:59 23:59 23:59 Intake Total 540 1580 2193 370 Output Total 600 700 Balance 705 782 9087 370 Meds/Results Medications: Active Medications Generic Name Dose Route Start Last Admin Trade Name Freq PRN Reason Stop Dose Admin Acetaminophen 650 mg 06/15/20 14:14 06/16/20 14:10 Acetaminophen 325 Mg Tablet PO 650 mg Q4H PRN Administration Mild Pain (1-3) or Fever Hydrocodone Bitart/Acetaminophen 1 tab 06/15/20 16:48 Hydrocodone/Acetaminophen
--- NOTE | 2020-06-18 14:26 | PCRCNOTE ---
Window of time for administration has passed. See next scheduled administration.
[2020-06-18] MEDS: BUDESONIDE RESPULE NEB 0.5 MG/2 ML AMP 1 MG INHALATION (20:04)
[2020-06-19] VITALS (14 sets, daily range): BP systolic 119–145; BP diastolic 72–92; PULSE 52–96; RESP 16–22; TEMP 36.4–37.1; O2SAT 91–100
[2020-06-19] MEDS: ALBUTEROL SULFATE (*SP) AEROSOL 1 PUFF 4 PUFF INHALATION ×4 (02:22→19:56)
[2020-06-19 06:11] LABS: Prothrombin Time 14.2 Seconds (11.1-14.7)
[2020-06-19 06:12] LABS: Hemoglobin 10.7 g/dL (12.0-15.0); Immature Granulocyte Absolute 0.01 K/mm3 (0.00-0.031); Immature Granulocyte Percent A 0.3 % (0-0.5); Lymphocytes Absolute Auto 0.88 K/mm3 (0.9-3.2); Lymphocytes Percent Auto 25.9 % (18.3-44.2); Mean Corpuscular HGB Conc 30.6 g/dl (32-36); Mean Corpuscular Hemoglobin 26.2 pg (26-34); Mean Corpuscular Volume 85.6 fl (80-100); Mean Platelet Volume 12.7 fl (7.4-10.4); Monocytes Absolute Auto 0.4 K/mm3 (0.1-0.6); Monocytes Percent Auto 11.8 % (2.6-8.5); Neutrophils Absolute Auto 2.1 K/mm3 (1.3-6.7); Red Blood Count 4.09 M/mm3 (4.2-5.4); Red Cell Distribution Width 15.2 % (11.5-14.5); White Blood Count 3.4 K/mm3 (4.5-10.0)
[2020-06-19 06:14] LABS: D Dimer 0.38 ug/mL (<0.48)
[2020-06-19 06:40] LABS: Alanine Aminotransferase 30 U/L (4-35); Albumin Level 3.7 g/dL (3.5-5.1); Alkaline Phosphatase 81 U/L (38-126); Anion Gap 6 mmol/L (8-16); Aspartate Amino Transferase 32 U/L (14-36); Bilirubin,Total 0.2 mg/dL (0.2-1.3); Blood Urea Nitrogen 10 mg/dL (7-17); Calcium 8.6 mg/dL (8.4-10.2); Carbon Dioxide 31 mmol/L (22-30); Chloride 106 mmol/L (98-107); Estimated CRCL calculation 106 ml/min; Estimated Glomerular Filt Rate > 60; Glucose 98 mg/dL (65-105); Potassium 3.3 mmol/L (3.4-5.0); Sodium 143 mmol/L (137-145)
[2020-06-19] MEDS: ENOXAPARIN 40 MG/0.4 ML SYRINGE SUB-Q ×2 (08:53→20:43)
[2020-06-19] MEDS: ASCORBIC ACID 500 MG TABLET PO (08:53)
[2020-06-19] MEDS: BENZONATATE 100 MG CAPSULE 200 MG PO ×3 (08:53→16:58)
[2020-06-19] MEDS: FLUoxetine HCL 20 MG CAPSULE 40 MG PO (08:54)
[2020-06-19] MEDS: traZODone HCL 50 MG TABLET PO (08:54)
[2020-06-19] MEDS: CHOLECALCIFEROL 1,000 UNITS TABLET 1000 UNITS PO (08:54)
[2020-06-19] MEDS: amLODIPine BESYLATE 5 MG TABLET PO (08:54)
[2020-06-19] MEDS: guaiFENesin 12 HR 600 MG TABCR PO (08:54)
[2020-06-19] MEDS: DEXAMETHASONE SOD PHOS INJ 4 MG/ML VIAL 6 MG IV PUSH (08:54)
[2020-06-19] MEDS: ZINC SULFATE 220 MG CAPSULE PO (08:55)
[2020-06-19] MEDS: FERROUS SULFATE 324 MG TABLET PO (08:55)
[2020-06-19] MEDS: BUDESONIDE RESPULE NEB 0.5 MG/2 ML AMP 1 MG INHALATION ×2 (09:16→19:56)
[2020-06-19] MEDS: REMDESIVIR 100 MG/NS 250 ML 100 MG/250 ML BAG 250 MG IVPB (09:45)
[2020-06-19] MEDS: POTASSIUM CHLORIDE 20 MEQ PACKET (FOR LIQUID) 40 MEQ PO (10:48)
--- NOTE | 2020-06-19 12:39 | PM.IMPN ---
Progress Note: A&P Additional Plan 06/17/20 13:27 Patient has acute hypoxic respiratory failure due to COVID-19 pneumonia. Patient has been started on Decadron. Will initiate therapy with albuterol 4 puffs q.6 hours scheduled. Patient may have Mucinex p.r.n. for cough. Will wean oxygen as tolerated. Patient is to remain on droplet/airborne and contact isolation. Patient has been placed on DVT prophylaxis with Lovenox 40 mg subq q.12 hours. The patient's home hormone supplementation will be held. Patient's blood pressures are stable will continue patient's home antihypertensive and antidepressants. 06/16 Patient is a 39-year-old female was diagnosed with COVID-19 on 06/08/20 patient presented emergency depart with worsening shortness of breath and hypoxia patient was started on dexamethasone on 06/16 03/09 and today started her on Remdesivir and patient has agreed to take convalescent plasma, also added Vitmain D and C also zinc as well as symbicort, currently patient has no fever and requiring 1-2 L of oxygen will continue to monitor, 06/17 Patient is a 39-year-old female was diagnosed with COVID-19 on 06/08/20 patient presented emergency depart on 06/16 with worsening shortness of breath and hypoxia patient was started on dexamethasone on 06/16 04/09 and started her on Remdesivir 04/09 and received convalescent plasma, patient still requiring 7 L of oxygen and gets worse with exertion, patient was seen by pin sorter and bagger agreed with current management and added Tessalon and spirometer, patient states is feeling little better compared to yesterday when she arrived, patient instructed to ambulate as much as possible and to lay and prone position, will continue to monitor and further recommendation to follow. 06/18 Patient doing well on dexamethasone and Remdesivir being followed by pulmonology Critical Care currently on day 3 of 10 day treatment. She has received plasma. Today she is on 7 L uncomfortable. Medications reviewed. Cristóbal encouraged. Pulmonology Critical Care bedside recommendations appreciated. continue current care 06/19/20 Patient continues to improve. She is on 7 L and comfortable. Yesterday she had to be increased to 9 briefly but recovered shortly thereafter. Patient is following directions of Cristóbal. She remains treatment for COVID 19 and pulmonary Critical Care is following. Continue current care Subjective Date/time seen: 06/19/20 12:39 Patient doing much better. Reports the coughing has decreased that she has of problems overnight in that she was able to sleep very well. Exam Narrative: Exam Narrative: GEN: NAD, AAOx3, cooperative, obese HEENT: NCAT, MMM, EOMI Neck: no JVD Abd: soft, NT, ND, bowel sounds normoactive Ext: moves all, no cyanosis, no clubbing, no edema Neuro: No focal neurological deficits noted, cranial nerves intact Psych: mood and affect congruent Objective Data Vital Signs Vital Signs: Vital Signs - 24 hr 06/18/20 16:00 06/18/20 20:00 06/18/20 20:11 Temperature 98.1 F 99.5 F Pulse Rate 106 H 86 81 Respiratory Rate 24 H 22 H 20 Blood Pressure 146/98 H 140/76 Pulse Oximetry 93 95 87 L 06/18/20 20:24 06/18/20 23:27 06/19/20 00:00 Temperature 98.2 F Pulse Rate 86 59 L 76 Respiratory Rate 22 H 18 Blood Pressure 145/80 H Pulse Oximetry 96 06/19/20 02:22 06/19/20 02:27 06/19/20 03:47 Temperature Pulse Rate 52 L 52 L 90 Respiratory Rate 22 H Blood Pressure Pulse Oximetry 100 96 06/19/20 04:00 06/19/20 08:00 06/19/20 09:16 Temperature 98.7 F 98.5 F Pulse Rate 85 61 76 Respiratory Rate 18 18 20 Blood Pressure 137/91 H 145/92 H Pulse Oximetry 91 97 94 06/19/20 09:30 Temperature Pulse Rate 72 Respiratory Rate 20 Blood Pressure Pulse Oximetry Intake/Output Intake/Output: Intake & Output 06/16/20 06/17/20 06/18/20 06/19/20 23:59 23:59 23:59 23:59 Intake Total 1580 2193 1140 200 Output Total 600 700 750 Balance 980 1493 390 200
[2020-06-20] VITALS (24 sets, daily range): BP systolic 126–141; BP diastolic 85–99; PULSE 46–94; RESP 18–20; TEMP 36.4–37.1; O2SAT 85–100
[2020-06-20] MEDS: ALBUTEROL SULFATE (*SP) AEROSOL 1 PUFF 4 PUFF INHALATION ×4 (04:59→20:09)
[2020-06-20 05:57] LABS: Eosinophils Percent Auto 0.2 % (0-4.4); Hematocrit 36.8 % (37.0-47.0); Hemoglobin 11.1 g/dL (12.0-15.0); Immature Granulocyte Absolute 0.02 K/mm3 (0.00-0.031); Immature Granulocyte Percent A 0.5 % (0-0.5); Lymphocytes Absolute Auto 1.41 K/mm3 (0.9-3.2); Lymphocytes Percent Auto 32.2 % (18.3-44.2); Mean Corpuscular HGB Conc 30.2 g/dl (32-36); Mean Corpuscular Volume 86.2 fl (80-100); Mean Platelet Volume 11.5 fl (7.4-10.4); Monocytes Absolute Auto 0.5 K/mm3 (0.1-0.6); Monocytes Percent Auto 10.7 % (2.6-8.5); Neutrophils Absolute Auto 2.5 K/mm3 (1.3-6.7); Neutrophils Percent Auto 56.4 % (45.5-73.1); Platelet Count Result 118 k/mm3 (150-375); Red Blood Count 4.27 M/mm3 (4.2-5.4); Red Cell Distribution Width 15.2 % (11.5-14.5); White Blood Count 4.4 K/mm3 (4.5-10.0)
[2020-06-20 06:09] LABS: INR 1.1; Prothrombin Time 14.6 Seconds (11.1-14.7)
[2020-06-20 06:20] LABS: Potassium 3.3 mmol/L (3.4-5.0)
[2020-06-20 06:26] LABS: Alanine Aminotransferase 33 U/L (4-35); Albumin Level 3.5 g/dL (3.5-5.1); Alkaline Phosphatase 85 U/L (38-126); Anion Gap 5 mmol/L (8-16); Aspartate Amino Transferase 34 U/L (14-36); Bilirubin,Total 0.1 mg/dL (0.2-1.3); Blood Urea Nitrogen 10 mg/dL (7-17); CRP 1.2 mg/dL (<1.0); Calcium 8.7 mg/dL (8.4-10.2); Carbon Dioxide 31 mmol/L (22-30); Chloride 106 mmol/L (98-107); Estimated CRCL calculation 94 ml/min; Estimated Glomerular Filt Rate > 60; Glucose 90 mg/dL (65-105); Sodium 142 mmol/L (137-145)
[2020-06-20] MEDS: BUDESONIDE RESPULE NEB 0.5 MG/2 ML AMP 1 MG INHALATION ×2 (07:51→20:09)
[2020-06-20] MEDS: ENOXAPARIN 40 MG/0.4 ML SYRINGE SUB-Q ×2 (10:09→21:25)
[2020-06-20] MEDS: DEXAMETHASONE SOD PHOS INJ 4 MG/ML VIAL 6 MG IV PUSH (10:10)
[2020-06-20] MEDS: BENZONATATE 100 MG CAPSULE 200 MG PO ×3 (10:10→18:36)
[2020-06-20] MEDS: amLODIPine BESYLATE 5 MG TABLET PO (10:11)
[2020-06-20] MEDS: ZINC SULFATE 220 MG CAPSULE PO (10:11)
[2020-06-20] MEDS: FLUoxetine HCL 20 MG CAPSULE 40 MG PO (10:11)
[2020-06-20] MEDS: FERROUS SULFATE 324 MG TABLET PO (10:11)
[2020-06-20] MEDS: CHOLECALCIFEROL 1,000 UNITS TABLET 1000 UNITS PO (10:11)
[2020-06-20] MEDS: guaiFENesin 12 HR 600 MG TABCR PO (10:11)
[2020-06-20] MEDS: traZODone HCL 50 MG TABLET PO (10:12)
[2020-06-20] MEDS: ASCORBIC ACID 500 MG TABLET PO (10:12)
[2020-06-20] MEDS: REMDESIVIR 100 MG/NS 250 ML 100 MG/250 ML BAG 250 MG IVPB (10:35)
--- NOTE | 2020-06-20 11:06 | PM.PNPUL ---
Progress Note: A&P Assessment and Plan (1) Acute respiratory failure with hypoxia: Code(s): J96.01 - Acute respiratory failure with hypoxia Status: Acute Assessment and Plan: Continue current oxygen with high-flow nasal cannula to maintain O2 saturations of 92-96% Continue Benzoate 200 mg p.o. t.i.d. scheduled Morphine 4 mg IV q.4 hours p.r.n. for severe coughing spasms attempt prone positioning for as long as tolerated during the day. When speaking to the patient she does want intubation and full aggressive measures should she deteriorate (2) Pneumonia due to COVID-19 virus: Code(s): U07.1 - COVID-19; J12.82 - Pneumonia due to coronavirus disease 2019 Status: Acute Assessment and Plan: continue dexamethasone daily for 10 days continue Remdesivir daily for 10 days and monitor daily creatinine and liver function test. Start Pulmicort 1 mg nebulized q.12 hours Subjective Date/time seen: 06/20/20 11:06 Interval history: She is feeling much better today. Her cough is less and she is less short of breath on exertion. Her oxygen demands her weaning and her appetite is improving. She appears to be clinically improving. Review of Systems Review of Systems: All systems reviewed & are unremarkable except as noted in HPI and below Exam Const: General: cooperative, healthy appearing, comfortable, no acute distress, well developed, alert and awake HENMT: Head: normal to inspection, normocephalic and atraumatic Eyes: General: appearance normal, both eyes and all related structures Neck: Neck: trachea midline and supple Resp: Effort & Inspection: normal respiratory effort and able to speak in complete sentences Auscultation: clear to auscultation bilaterally and diminished lung sounds Cardio: Jugular venous distension: no JVD Rate: regular rate Rhythm: regular rhythm Heart sounds: S1 normal heart sound present and S2 normal heart sound present GI: Inspection: normal to inspection Auscultation: normal bowel sounds Skin: General skin exam: normal color and no rashes or lesions noted Neuro: General: oriented to person, oriented to place, oriented to time and patient oriented x3 Cognition (Neuro): normal cognition Speech: normal speech Extrem: General: normal to inspection and no clubbing, cyanosis or edema Psych: Appearance: grossly normal and well kempt Mental Status: mental status grossly normal Objective Data Vital Signs Vital Signs: Vital Signs - 24 hr 06/19/20 12:00 06/19/20 16:00 06/19/20 20:00 Temperature 37.1 C 36.4 C 36.6 C Pulse Rate 61 80 96 Respiratory Rate 16 18 18 Blood Pressure 128/77 120/81 119/72 Pulse Oximetry 96 96 97 06/19/20 20:10 06/19/20 20:25 06/19/20 23:35 Temperature 36.7 C Pulse Rate 90 52 L Respiratory Rate 18 18 Blood Pressure 132/76 Pulse Oximetry 96 100 06/20/20 00:00 06/20/20 04:00 06/20/20 07:56 Temperature 36.6 C Pulse Rate 52 L 46 L 93 Respiratory Rate 20 18 Blood Pressure 135/88 Pulse Oximetry 99 96 06/20/20 08:00 Temperature 36.7 C Pulse Rate 63 Respiratory Rate 18 Blood Pressure 136/99 H Pulse Oximetry 95 Intake/Output Intake/Output: Intake & Output 06/17/20 06/18/20 06/19/20 06/20/20 23:59 23:59 23:59 23:59 Intake Total 2193 1140 1000 310 Output Total 700 750 400 Balance 1493 390 600 310 Meds/Results Medications: Active Medications Generic Name Dose Route Start Last Admin Trade Name Freq PRN Reason Stop Dose Admin Acetaminophen 650 mg 06/15/20 14:14 06/16/20 14:10 Acetaminophen 325 Mg Tablet PO 650 mg Q4H PRN Administration Mild Pain (1-3) or Fever Hydrocodone Bitart/Acetaminophen 1 tab 06/15/20 16:48 Hydrocodone/Acetaminophen (*Crx) 5-325 Mg Tablet PO Q6H PRN Pain Rated 4-6 Albuterol 4 puff 06/16/20 08:00 06/20/20 07:51 Albuterol Sulfate (*Sp) Aerosol 1 Puff INHALATION 4 puff Q6HRT SOPHIA Administration Amlodipine Besylate 5 mg
--- NOTE | 2020-06-20 14:32 | PM.IMPN ---
Progress Note: A&P Additional Plan 06/17/20 13:27 Patient has acute hypoxic respiratory failure due to COVID-19 pneumonia. Patient has been started on Decadron. Will initiate therapy with albuterol 4 puffs q.6 hours scheduled. Patient may have Mucinex p.r.n. for cough. Will wean oxygen as tolerated. Patient is to remain on droplet/airborne and contact isolation. Patient has been placed on DVT prophylaxis with Lovenox 40 mg subq q.12 hours. The patient's home hormone supplementation will be held. Patient's blood pressures are stable will continue patient's home antihypertensive and antidepressants. 06/16 Patient is a 39-year-old female was diagnosed with COVID-19 on 06/08/20 patient presented emergency depart with worsening shortness of breath and hypoxia patient was started on dexamethasone on 06/16 03/09 and today started her on Remdesivir and patient has agreed to take convalescent plasma, also added Vitmain D and C also zinc as well as symbicort, currently patient has no fever and requiring 1-2 L of oxygen will continue to monitor, 06/17 Patient is a 39-year-old female was diagnosed with COVID-19 on 06/08/20 patient presented emergency depart on 06/16 with worsening shortness of breath and hypoxia patient was started on dexamethasone on 06/16 04/09 and started her on Remdesivir 04/09 and received convalescent plasma, patient still requiring 7 L of oxygen and gets worse with exertion, patient was seen by sexual assault counselor agreed with current management and added Tessalon and spirometer, patient states is feeling little better compared to yesterday when she arrived, patient instructed to ambulate as much as possible and to lay and prone position, will continue to monitor and further recommendation to follow. 06/18 Patient doing well on dexamethasone and Remdesivir being followed by pulmonology Critical Care currently on day 3 of 10 day treatment. She has received plasma. Today she is on 7 L uncomfortable. Medications reviewed. Cristóbal encouraged. Pulmonology Critical Care bedside recommendations appreciated. continue current care 06/19/20 Patient continues to improve. She is on 7 L and comfortable. Yesterday she had to be increased to 9 briefly but recovered shortly thereafter. Patient is following directions of Cristóbal. She remains treatment for COVID 19 and pulmonary Critical Care is following. Continue current care 06/20/20 Patient continues to improve now down to 4 L would like to go home tomorrow however review of medical record shows that pulmonology is requesting that she continue Remdesvir for 10 days Continue current oxygen Continue Benzoate 200 mg p.o. t.i.d. scheduled proning encouraged continue dexamethasone daily for 10 days continue Remdesivir daily for 10 days and monitor daily creatinine and liver function test. continue Pulmicort 1 mg nebulized q.12 hours Subjective Date/time seen: 06/20/20 14:32 Patient doing a lot better now down on 4 L reports that she overall is breathing better with less dyspnea with exertion. Tomorrow is her daughter's birthday she would really like to be discharged without if possible. She is advised that if she continues to have oxygen overnight and is able to walk around without requiring higher levels of oxygen tomorrow and she might be able to go home. review of medical record reveals that pulmonology would like patient to remain on Remdesivir for 10 days she has completed 5 of 10 day course. Exam Narrative: Exam Narrative: GEN: NAD, AAOx3, cooperative, obese HEENT: NCAT, MMM, EOMI Neck: no JVD Abd: soft, NT, ND, bowel sounds normoactive Ext: moves all, no cyanosis, no clubbing, no edema Neuro: No focal neurological deficits noted, cranial nerves intact Psych: mood and affect congruent Objective Data Vital Signs Vital Signs: Vital Signs - 24 hr 06/19/20 16:00 06/19/20 20:00 06/19/20 20:10 Temperature 97.6 F 97.9 F Pulse Rate 80 96 90 Respiratory Rate 18 18 18 Blood Pressu
--- NOTE | 2020-06-20 17:22 | PCRCNOTE ---
Home O2 eval, pt requires 3 L at rest and 9 L with exertion High Flow Cannula. RN and Charge Nurse aware.
[2020-06-20] MEDS: POTASSIUM CHLORIDE 20 MEQ PACKET (FOR LIQUID) 40 MEQ PO (18:37)
[2020-06-21] VITALS (19 sets, daily range): BP systolic 130–142; BP diastolic 86–96; PULSE 56–99; RESP 18–20; TEMP 35.8–37.2; O2SAT 84–100
[2020-06-21] MEDS: ALBUTEROL SULFATE (*SP) AEROSOL 1 PUFF 4 PUFF INHALATION ×2 (02:15→09:45)
[2020-06-21 06:06] LABS: Eosinophils Percent Auto 0.4 % (0-4.4); Hematocrit 35.7 % (37.0-47.0); Hemoglobin 10.9 g/dL (12.0-15.0); Immature Granulocyte Absolute 0.04 K/mm3 (0.00-0.031); Immature Granulocyte Percent A 0.9 % (0-0.5); Immature Platelet Fraction Pct 12.3 % (0.9-11.2); Lymphocytes Absolute Auto 1.36 K/mm3 (0.9-3.2); Lymphocytes Percent Auto 30.4 % (18.3-44.2); Mean Corpuscular HGB Conc 30.5 g/dl (32-36); Mean Corpuscular Hemoglobin 26.3 pg (26-34); Mean Platelet Volume 11.8 fl (7.4-10.4); Monocytes Absolute Auto 0.5 K/mm3 (0.1-0.6); Monocytes Percent Auto 10.1 % (2.6-8.5); Neutrophils Absolute Auto 2.6 K/mm3 (1.3-6.7); Neutrophils Percent Auto 58.2 % (45.5-73.1); Platelet Count Result 150 k/mm3 (150-375); Red Blood Count 4.15 M/mm3 (4.2-5.4); Red Cell Distribution Width 15.1 % (11.5-14.5); White Blood Count 4.5 K/mm3 (4.5-10.0)
[2020-06-21 06:18] LABS: Alanine Aminotransferase 40 U/L (4-35); Albumin Level 3.4 g/dL (3.5-5.1); Alkaline Phosphatase 82 U/L (38-126); Anion Gap 3 mmol/L (8-16); Aspartate Amino Transferase 38 U/L (14-36); Bilirubin,Total 0.1 mg/dL (0.2-1.3); Blood Urea Nitrogen 11 mg/dL (7-17); CRP 0.9 mg/dL (<1.0); Calcium 8.7 mg/dL (8.4-10.2); Carbon Dioxide 32 mmol/L (22-30); Chloride 106 mmol/L (98-107); Estimated CRCL calculation 106 ml/min; Estimated Glomerular Filt Rate > 60; Glucose 85 mg/dL (65-105); Potassium 3.7 mmol/L (3.4-5.0); Sodium 141 mmol/L (137-145)
[2020-06-21 06:23] LABS: D Dimer 0.36 ug/mL (<0.48)
[2020-06-21] MEDS: DEXAMETHASONE SOD PHOS INJ 4 MG/ML VIAL 6 MG IV PUSH (09:26)
[2020-06-21] MEDS: FLUoxetine HCL 20 MG CAPSULE 40 MG PO (09:27)
[2020-06-21] MEDS: BENZONATATE 100 MG CAPSULE 200 MG PO ×3 (09:27→18:14)
[2020-06-21] MEDS: ENOXAPARIN 40 MG/0.4 ML SYRINGE SUB-Q ×2 (09:27→20:56)
[2020-06-21] MEDS: CHOLECALCIFEROL 1,000 UNITS TABLET 1000 UNITS PO (09:28)
[2020-06-21] MEDS: ASCORBIC ACID 500 MG TABLET PO (09:28)
[2020-06-21] MEDS: guaiFENesin 12 HR 600 MG TABCR PO (09:28)
[2020-06-21] MEDS: ZINC SULFATE 220 MG CAPSULE PO (09:28)
[2020-06-21] MEDS: amLODIPine BESYLATE 5 MG TABLET PO (09:28)
[2020-06-21] MEDS: FERROUS SULFATE 324 MG TABLET PO (09:28)
[2020-06-21] MEDS: BUDESONIDE RESPULE NEB 0.5 MG/2 ML AMP 1 MG INHALATION ×2 (09:37→20:26)
--- NOTE | 2020-06-21 12:38 | PM.PNPUL ---
Progress Note: A&P Assessment and Plan (1) Acute respiratory failure with hypoxia: Code(s): J96.01 - Acute respiratory failure with hypoxia Status: Acute Assessment and Plan: Continue current oxygen with high-flow nasal cannula to maintain O2 saturations of 92-96% Continue Benzoate 200 mg p.o. t.i.d. scheduled Morphine 4 mg IV q.4 hours p.r.n. for severe coughing spasms attempt prone positioning for as long as tolerated during the day. When speaking to the patient she does want intubation and full aggressive measures should she deteriorate (2) Pneumonia due to COVID-19 virus: Code(s): U07.1 - COVID-19; J12.82 - Pneumonia due to coronavirus disease 2019 Status: Acute Assessment and Plan: continue dexamethasone daily for 10 days continue Remdesivir daily for 10 days and monitor daily creatinine and liver function test. Start Pulmicort 1 mg nebulized q.12 hours Subjective Date/time seen: 06/21/20 12:38 Interval history: She is doing well but still gets very short of breath with minimal exertion along with coughing. Her coughing has diminished quite a bit and her appetite and oral intake is improving. Her O2 demands will fluctuate from time to time but they are no significantly better or worse than many days ago. Albuterol MDI his make her cough excessively without added benefit to her dyspnea so I will discontinue this medication. Review of Systems Review of Systems: All systems reviewed & are unremarkable except as noted in HPI and below Exam Const: General: cooperative, healthy appearing, comfortable, no acute distress, well developed, alert and awake HENMT: Head: normal to inspection, normocephalic and atraumatic Eyes: General: appearance normal, both eyes and all related structures Neck: Neck: trachea midline and supple Resp: Effort & Inspection: normal respiratory effort and able to speak in complete sentences Auscultation: clear to auscultation bilaterally and diminished lung sounds Cardio: Jugular venous distension: no JVD Rate: regular rate Rhythm: regular rhythm Heart sounds: S1 normal heart sound present and S2 normal heart sound present GI: Inspection: normal to inspection Auscultation: normal bowel sounds Skin: General skin exam: normal color and no rashes or lesions noted Neuro: General: oriented to person, oriented to place, oriented to time and patient oriented x3 Cognition (Neuro): normal cognition Speech: normal speech Extrem: General: normal to inspection and no clubbing, cyanosis or edema Psych: Appearance: grossly normal and well kempt Mental Status: mental status grossly normal Objective Data Vital Signs Vital Signs: Vital Signs - 24 hr 06/20/20 14:53 06/20/20 16:00 06/20/20 16:41 Temperature 36.6 C Pulse Rate 74 Respiratory Rate 18 Blood Pressure 141/97 H Pulse Oximetry 93 92 95 06/20/20 16:45 06/20/20 16:46 06/20/20 16:47 Temperature Pulse Rate Respiratory Rate Blood Pressure Pulse Oximetry 87 L 87 L 91 06/20/20 16:50 06/20/20 16:52 06/20/20 16:54 Temperature Pulse Rate Respiratory Rate Blood Pressure Pulse Oximetry 85 L 85 L 87 L 06/20/20 17:00 06/20/20 17:03 06/20/20 17:05 Temperature Pulse Rate Respiratory Rate Blood Pressure Pulse Oximetry 87 L 87 L 89 L 06/20/20 17:10 06/20/20 18:17 06/20/20 20:00 Temperature 36.4 C Pulse Rate 63 Respiratory Rate 18 Blood Pressure 129/93 H Pulse Oximetry 92 96 95 06/20/20 20:20 06/20/20 20:38 06/20/20 20:40 Temperature Pulse Rate 66 69 66 Respiratory Rate 18 18 Blood Pressure Pulse Oximetry 96 06/20/20 23:53 06/21/20 00:00 06/21/20 00:47 Temperature 36.4 C L Pulse Rate 57 L 56 L Respiratory Rate 18 Blood Pressure 126/85 Pulse Oximetry 100 97 06/21/20 02:16 06/21/20 03:05 06/21/20 04:00 Temperature 36.1 C L Pulse Rate 59 L 58 L Respiratory Rate 18 18 Blood Pressure 1
--- NOTE | 2020-06-21 14:23 | PM.IMPN ---
Progress Note: A&P Additional Plan 06/17/20 13:27 Patient has acute hypoxic respiratory failure due to COVID-19 pneumonia. Patient has been started on Decadron. Will initiate therapy with albuterol 4 puffs q.6 hours scheduled. Patient may have Mucinex p.r.n. for cough. Will wean oxygen as tolerated. Patient is to remain on droplet/airborne and contact isolation. Patient has been placed on DVT prophylaxis with Lovenox 40 mg subq q.12 hours. The patient's home hormone supplementation will be held. Patient's blood pressures are stable will continue patient's home antihypertensive and antidepressants. 06/16 Patient is a 39-year-old female was diagnosed with COVID-19 on 06/08/20 patient presented emergency depart with worsening shortness of breath and hypoxia patient was started on dexamethasone on 06/16 03/09 and today started her on Remdesivir and patient has agreed to take convalescent plasma, also added Vitmain D and C also zinc as well as symbicort, currently patient has no fever and requiring 1-2 L of oxygen will continue to monitor, 06/17 Patient is a 39-year-old female was diagnosed with COVID-19 on 06/08/20 patient presented emergency depart on 06/16 with worsening shortness of breath and hypoxia patient was started on dexamethasone on 06/16 04/09 and started her on Remdesivir 04/09 and received convalescent plasma, patient still requiring 7 L of oxygen and gets worse with exertion, 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 06/18 Patient doing well on dexamethasone and Remdesivir being followed by pulmonology Critical Care currently on day 3 of 10 day treatment. She has received plasma. Today she is on 7 L uncomfortable. Medications reviewed. Cristóbal encouraged. Pulmonology Critical Care bedside recommendations appreciated. continue current care 06/19/20 Patient continues to improve. She is on 7 L and comfortable. Yesterday she had to be increased to 9 briefly but recovered shortly thereafter. Patient is following directions of Cristóbal. She remains treatment for COVID 19 and pulmonary Critical Care is following. Continue current care 06/20/20 Patient continues to improve now down to 4 L would like to go home tomorrow however review of medical record shows that pulmonology is requesting that she continue Remdesvir for 10 days Continue current oxygen Continue Benzoate 200 mg p.o. t.i.d. scheduled proning encouraged continue dexamethasone daily for 10 days continue Remdesivir daily for 10 days and monitor daily creatinine and liver function test. continue Pulmicort 1 mg nebulized q.12 hours 06/21/20 Patient with significant lung pathology. Her coronal virus inflammatory labs have all normalized. She remains O2 dependent on 6 L 9 for ambulation. Patient now receiving day 7/10 Remdesivir and dexamethasone. Anticipate slow recovery. Continue current care. Subjective Date/time seen: 06/21/20 14:23 Patient still complains of cough, reports that her breathing is improved. She has no subjective feeling of hypoxia despite her fluctuating need for oxygen. Would like to go soon. Exam Narrative: Exam Narrative: GEN: NAD, AAOx3, cooperative, obese HEENT: NCAT, MMM, EOMI Neck: no JVD Abd: soft, NT, ND, bowel sounds normoactive Ext: moves all, no cyanosis, no clubbing, no edema Neuro: No focal neurological deficits noted, cranial nerves intact Psych: mood and affect congruent Objective Data Vital Signs Vital Signs: Vital Signs - 24 hr 06/20/20 14:53 06/20/20 16:00 06/20/20 16:41 Temperature 97.9 F Pulse Rate 74 Respiratory Rate 18 Blood Pressure 141/97 H Pulse Oximetry 93 92 95 06/20/20 16:45 06/20/20 16:46 06/20/20 16:47 Temper
[2020-06-22] VITALS (9 sets, daily range): BP systolic 111–137; BP diastolic 71–96; PULSE 50–99; RESP 16–20; TEMP 36.2–37; O2SAT 92–97
[2020-06-22 06:19] LABS: Basophils Percent Auto 0.1 % (0.2-1.2); Eosinophils Absolute Auto 0.1 K/mm3 (0-0.3); Hematocrit 35.1 % (37.0-47.0); Hemoglobin 10.9 g/dL (12.0-15.0); Immature Granulocyte Absolute 0.07 K/mm3 (0.00-0.031); Lymphocytes Absolute Auto 1.67 K/mm3 (0.9-3.2); Lymphocytes Percent Auto 24.4 % (18.3-44.2); Mean Corpuscular HGB Conc 31.1 g/dl (32-36); Mean Corpuscular Hemoglobin 25.6 pg (26-34); Mean Corpuscular Volume 82.6 fl (80-100); Mean Platelet Volume 11.6 fl (7.4-10.4); Monocytes Absolute Auto 0.5 K/mm3 (0.1-0.6); Monocytes Percent Auto 7.7 % (2.6-8.5); Neutrophils Absolute Auto 4.5 K/mm3 (1.3-6.7); Neutrophils Percent Auto 65.8 % (45.5-73.1); Platelet Count Result 182 k/mm3 (150-375); Red Blood Count 4.25 M/mm3 (4.2-5.4); White Blood Count 6.9 K/mm3 (4.5-10.0)
[2020-06-22 06:33] LABS: Alanine Aminotransferase 61 U/L (4-35); Albumin Level 3.4 g/dL (3.5-5.1); Alkaline Phosphatase 82 U/L (38-126); Anion Gap 4 mmol/L (8-16); Aspartate Amino Transferase 54 U/L (14-36); Bilirubin,Total 0.1 mg/dL (0.2-1.3); Blood Urea Nitrogen 14 mg/dL (7-17); CRP 0.7 mg/dL (<1.0); Calcium 8.6 mg/dL (8.4-10.2); Carbon Dioxide 31 mmol/L (22-30); Chloride 105 mmol/L (98-107); Estimated CRCL calculation 106 ml/min; Estimated Glomerular Filt Rate > 60; Glucose 91 mg/dL (65-105); Potassium 3.8 mmol/L (3.4-5.0); Sodium 140 mmol/L (137-145)
[2020-06-22] MEDS: BENZONATATE 100 MG CAPSULE 200 MG PO ×3 (08:23→17:28)
[2020-06-22] MEDS: CHOLECALCIFEROL 1,000 UNITS TABLET 1000 UNITS PO (08:23)
[2020-06-22] MEDS: amLODIPine BESYLATE 5 MG TABLET PO (08:23)
[2020-06-22] MEDS: ASCORBIC ACID 500 MG TABLET PO (08:23)
[2020-06-22] MEDS: ENOXAPARIN 40 MG/0.4 ML SYRINGE SUB-Q ×2 (08:24→20:57)
[2020-06-22] MEDS: FERROUS SULFATE 324 MG TABLET PO (08:24)
[2020-06-22] MEDS: ZINC SULFATE 220 MG CAPSULE PO (08:24)
[2020-06-22] MEDS: FLUoxetine HCL 20 MG CAPSULE 40 MG PO (08:24)
[2020-06-22] MEDS: DEXAMETHASONE SOD PHOS INJ 4 MG/ML VIAL 6 MG IV PUSH (08:24)
[2020-06-22] MEDS: BUDESONIDE RESPULE NEB 0.5 MG/2 ML AMP 1 MG INHALATION ×2 (08:38→20:13)
--- NOTE | 2020-06-22 12:55 | PM.PNPUL ---
Progress Note: A&P Assessment and Plan (1) Acute respiratory failure with hypoxia: Code(s): J96.01 - Acute respiratory failure with hypoxia Status: Acute Assessment and Plan: Continue current oxygen with high-flow nasal cannula to maintain O2 saturations of 92-96% Continue Benzoate 200 mg p.o. t.i.d. scheduled Morphine 4 mg IV q.4 hours p.r.n. for severe coughing spasms attempt prone positioning for as long as tolerated during the day. When speaking to the patient she does want intubation and full aggressive measures should she deteriorate (2) Pneumonia due to COVID-19 virus: Code(s): U07.1 - COVID-19; J12.82 - Pneumonia due to coronavirus disease 2019 Status: Acute Assessment and Plan: continue dexamethasone daily for 10 days continue Remdesivir daily for 10 days and monitor daily creatinine and liver function test. Start Pulmicort 1 mg nebulized q.12 hours Subjective Date/time seen: 06/22/20 12:55 Interval history: Continues to improve slowly. Oxygen down to 3 L. still gets short of breath with minimal exertion. Review of Systems Review of Systems: All systems reviewed & are unremarkable except as noted in HPI and below Exam Const: General: cooperative, healthy appearing, comfortable, no acute distress, well developed, alert and awake HENMT: Head: normal to inspection, normocephalic and atraumatic Eyes: General: appearance normal, both eyes and all related structures Neck: Neck: trachea midline and supple Resp: Effort & Inspection: normal respiratory effort and able to speak in complete sentences Auscultation: clear to auscultation bilaterally and diminished lung sounds Cardio: Jugular venous distension: no JVD Rate: regular rate Rhythm: regular rhythm Heart sounds: S1 normal heart sound present and S2 normal heart sound present GI: Inspection: normal to inspection Auscultation: normal bowel sounds Skin: General skin exam: normal color and no rashes or lesions noted Neuro: General: oriented to person, oriented to place, oriented to time and patient oriented x3 Cognition (Neuro): normal cognition Speech: normal speech Extrem: General: normal to inspection and no clubbing, cyanosis or edema Psych: Appearance: grossly normal and well kempt Mental Status: mental status grossly normal Objective Data Vital Signs Vital Signs: Vital Signs - 24 hr 06/21/20 13:05 06/21/20 13:15 06/21/20 14:10 Temperature Pulse Rate Respiratory Rate Blood Pressure Pulse Oximetry 97 95 97 06/21/20 14:27 06/21/20 16:00 06/21/20 20:00 Temperature 36.2 C L 35.8 C L Pulse Rate 99 71 Respiratory Rate 18 18 Blood Pressure 134/96 H 132/95 H Pulse Oximetry 96 95 97 06/21/20 20:26 06/21/20 23:52 06/22/20 00:00 Temperature 35.9 C L Pulse Rate 71 56 L 52 L Respiratory Rate 20 18 Blood Pressure 142/91 H Pulse Oximetry 97 98 06/22/20 04:00 06/22/20 08:00 06/22/20 08:38 Temperature 36.2 C L 36.8 C Pulse Rate 55 L 50 L 73 Respiratory Rate 18 20 20 Blood Pressure 137/86 137/85 Pulse Oximetry 96 95 92 06/22/20 08:45 Temperature Pulse Rate 75 Respiratory Rate 20 Blood Pressure Pulse Oximetry Intake/Output Intake/Output: Intake & Output 06/19/20 06/20/20 06/21/20 06/22/20 23:59 23:59 23:59 23:59 Intake Total 1000 1540 1510 250 Output Total 493 609 6371 300 Balance 600 840 110 -50 Meds/Results Medications: Active Medications Generic Name Dose Route Start Last Admin Trade Name Sarbjitq PRN Reason Stop Dose Admin Acetaminophen 650 mg 06/15/20 14:14 06/16/20 14:10 Acetaminophen 325 Mg Tablet PO 650 mg Q4H PRN Administration Mild Pain (1-3) or Fever Amlodipine Besylate 5 mg 06/16/20 09:00 06/22/20 08:23 Amlodipine Besylate 5 Mg Tablet PO 5 mg DAILY SOPHIA Administration Ascorbic Acid 500 mg 06/16/20 10:40 06/22/20 08:23 Ascorbic Acid 500 Mg Tablet PO 500 mg DAILY SOPHIA Administration Benzon
--- NOTE | 2020-06-22 15:41 | PM.IMPN ---
Progress Note: A&P Assessment and Plan (1) Acute respiratory failure with hypoxia: Code(s): J96.01 - Acute respiratory failure with hypoxia Status: Acute (2) 2019 novel coronavirus–infected pneumonia (NCIP)#8211;infected pneumonia (NCIP): Code(s): U07.1 - COVID-19; J12.82 - Pneumonia due to coronavirus disease 2019 Status: Acute (3) Migraine: Code(s): G43.909 - Migraine, unspecified, not intractable, without status migrainosus Status: Acute (4) Obesity: Code(s): E66.9 - Obesity, unspecified Status: Acute (5) Hypercholesterolemia: Code(s): E78.00 - Pure hypercholesterolemia, unspecified Status: Acute (6) HTN (hypertension): Qualifiers: Hypertension type: unspecified Qualified Code(s): I10 - Essential (primary) hypertension Code(s): I10 - Essential (primary) hypertension Status: Acute (7) Depression: Code(s): F32.9 - Major depressive disorder, single episode, unspecified Status: Acute Additional Plan 06/17/20 13:27 Patient has acute hypoxic respiratory failure due to COVID-19 pneumonia. Patient has been started on Decadron. Will initiate therapy with albuterol 4 puffs q.6 hours scheduled. Patient may have Mucinex p.r.n. for cough. Will wean oxygen as tolerated. Patient is to remain on droplet/airborne and contact isolation. Patient has been placed on DVT prophylaxis with Lovenox 40 mg subq q.12 hours. The patient's home hormone supplementation will be held. Patient's blood pressures are stable will continue patient's home antihypertensive and antidepressants. 06/16 Patient is a 39-year-old female was diagnosed with COVID-19 on 06/08/20 patient presented emergency depart with worsening shortness of breath and hypoxia patient was started on dexamethasone on 06/16 03/09 and today started her on Remdesivir and patient has agreed to take convalescent plasma, also added Vitmain D and C also zinc as well as symbicort, currently patient has no fever and requiring 1-2 L of oxygen will continue to monitor, 06/17 Patient is a 39-year-old female was diagnosed with COVID-19 on 06/08/20 patient presented emergency depart on 06/16 with worsening shortness of breath and hypoxia patient was started on dexamethasone on 06/16 04/09 and started her on Remdesivir 04/09 and received convalescent plasma, patient still requiring 7 L of oxygen and gets worse with exertion, 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 06/18 Patient doing well on dexamethasone and Remdesivir being followed by pulmonology Critical Care currently on day 3 of 10 day treatment. She has received plasma. Today she is on 7 L uncomfortable. Medications reviewed. Cristóbal encouraged. Pulmonology Critical Care bedside recommendations appreciated. continue current care 06/19/20 Patient continues to improve. She is on 7 L and comfortable. Yesterday she had to be increased to 9 briefly but recovered shortly thereafter. Patient is following directions of Cristóbal. She remains treatment for COVID 19 and pulmonary Critical Care is following. Continue current care 06/20/20 Patient continues to improve now down to 4 L would like to go home tomorrow however review of medical record shows that pulmonology is requesting that she continue Remdesvir for 10 days Continue current oxygen Continue Benzoate 200 mg p.o. t.i.d. scheduled proning encouraged continue dexamethasone daily for 10 days continue Remdesivir daily for 10 days and monitor daily creatinine and liver function test. continue Pulmicort 1 mg nebulized q.12 hours 06/21/20 Patient with significant lung pathology. Her coronal virus inflammatory labs have a
[2020-06-23] VITALS (11 sets, daily range): BP systolic 127–151; BP diastolic 88–97; PULSE 49–80; RESP 18–20; TEMP 36.1–37; O2SAT 90–100
[2020-06-23 06:16] LABS: Basophils Percent Auto 0.2 % (0.2-1.2); Eosinophils Absolute Auto 0.1 K/mm3 (0-0.3); Eosinophils Percent Auto 0.8 % (0-4.4); Hematocrit 34.5 % (37.0-47.0); Hemoglobin 10.5 g/dL (12.0-15.0); Immature Granulocyte Absolute 0.07 K/mm3 (0.00-0.031); Immature Granulocyte Percent A 1.1 % (0-0.5); Lymphocytes Absolute Auto 1.74 K/mm3 (0.9-3.2); Lymphocytes Percent Auto 27.7 % (18.3-44.2); Mean Corpuscular HGB Conc 30.4 g/dl (32-36); Mean Corpuscular Hemoglobin 25.4 pg (26-34); Mean Corpuscular Volume 83.3 fl (80-100); Mean Platelet Volume 11.4 fl (7.4-10.4); Monocytes Absolute Auto 0.5 K/mm3 (0.1-0.6); Monocytes Percent Auto 7.6 % (2.6-8.5); Neutrophils Absolute Auto 3.9 K/mm3 (1.3-6.7); Neutrophils Percent Auto 62.6 % (45.5-73.1); Platelet Count Result 211 k/mm3 (150-375); Red Blood Count 4.14 M/mm3 (4.2-5.4); Red Cell Distribution Width 15.2 % (11.5-14.5); White Blood Count 6.3 K/mm3 (4.5-10.0)
[2020-06-23 06:27] LABS: Alanine Aminotransferase 78 U/L (4-35); Albumin Level 3.3 g/dL (3.5-5.1); Alkaline Phosphatase 85 U/L (38-126); Anion Gap 3 mmol/L (8-16); Aspartate Amino Transferase 61 U/L (14-36); Bilirubin,Total 0.1 mg/dL (0.2-1.3); Blood Urea Nitrogen 12 mg/dL (7-17); CRP 0.7 mg/dL (<1.0); Calcium 8.4 mg/dL (8.4-10.2); Carbon Dioxide 31 mmol/L (22-30); Chloride 105 mmol/L (98-107); Estimated CRCL calculation 106 ml/min; Estimated Glomerular Filt Rate > 60; Glucose 82 mg/dL (65-105); Potassium 3.8 mmol/L (3.4-5.0); Sodium 139 mmol/L (137-145)
[2020-06-23] MEDS: ASCORBIC ACID 500 MG TABLET PO (08:17)
[2020-06-23] MEDS: FLUoxetine HCL 20 MG CAPSULE 40 MG PO (08:17)
[2020-06-23] MEDS: CHOLECALCIFEROL 1,000 UNITS TABLET 1000 UNITS PO (08:17)
[2020-06-23] MEDS: amLODIPine BESYLATE 5 MG TABLET PO (08:17)
[2020-06-23] MEDS: ENOXAPARIN 40 MG/0.4 ML SYRINGE SUB-Q ×2 (08:18→20:18)
[2020-06-23] MEDS: DEXAMETHASONE SOD PHOS INJ 4 MG/ML VIAL 6 MG IV PUSH (08:18)
[2020-06-23] MEDS: FERROUS SULFATE 324 MG TABLET PO (08:18)
[2020-06-23] MEDS: ZINC SULFATE 220 MG CAPSULE PO (08:18)
[2020-06-23] MEDS: BENZONATATE 100 MG CAPSULE 200 MG PO ×2 (08:19→13:03)
--- NOTE | 2020-06-23 09:48 | PM.PNPUL ---
Progress Note: A&P Assessment and Plan (1) Pneumonia due to COVID-19 virus: Code(s): U07.1 - COVID-19; J12.82 - Pneumonia due to coronavirus disease 2019 Status: Acute Assessment and Plan: Patient improving clinically and CXR improved on 06/21. She is on 2 L NC oxygen (peak was 10 L NC on 06/18) on dexamethasone 6 mg IV, s/p convalescent plasma on 06/16 and remdesivir from 06/16 to 06/20. Would give another 5 days (10 total) since she is still requiring oxygen and has DAVIS. I will DC budesonide for now as she is on systemic steroids and no wheezes. At discharge she will need chest Xray to serve as discharge baseline, apnea link on room air and home O2 assessment to determine if she qualifies for supplemental oxygen at night, with rest or with ambulation. No pulmonary specific issues that require outpatient pulmonary follow up at this time. She sees primary physicain Dr. Falcon as an oupatient. Discussed with Dr. Tapia, will sign off, call with any questions. Subjective Date/time seen: 06/23/20 09:48 Interval history: Patient states that she is improved, aafebrile, slept last night, no phlegm production, ambulating in room with some SOB but improved. On 2 L with saturations 90-97%. Review of Systems Review of Systems: All systems reviewed & are unremarkable except as noted in HPI and below Eyes: Eyes: Reports no additional eye complaints ENT: Reports system reviewed and no additional complaints, except as documented Cardiovascular: Cardiovascular: Reports no additional cardiovascular complaints Respiratory: Respiratory: Reports no additional respiratory complaints, Denies change in phlegm color, Reports cough, Denies excessive phlegm production and Reports dyspnea on exertion Gastrointestinal: Gastrointestinal: Reports no additional gastrointestinal complaints Musculoskeletal: Musculoskeletal: Reports no additional musculoskeletal complaints Integumentary/Breasts: Skin/Breast: Reports system reviewed and no additional complaints, except as docu Neurologic: Reports system reviewed and no additional complaints, except as documented Psychiatric: Psychiatric: Reports no additional psychiatric complaints Endocrine: Endocrine: Reports no additional endocrine complaints Exam Const: General: cooperative and healthy appearing Orientation/consciousness: oriented to person, oriented to place and oriented to time HENMT: Head: normal to inspection Ears: hearing grossly normal bilaterally Mouth: Yes Normal oral and palatal mucosa present Throat: tonsils absent Eyes: General: appearance normal, both eyes and all related structures Neck: Neck: normal visual inspection Chest: Chest palpation & inspection: normal inspection of the chest Resp: Effort & Inspection: normal respiratory effort Auscultation: crackles, no rales, no rhonchi and no wheezes Cardio: Jugular venous distension: no JVD GI: Inspection: normal to inspection Skin: General skin exam: normal color Neuro: General: oriented to person, oriented to place and oriented to time Extrem: General: normal to inspection Psych: Appearance: grossly normal Objective Data Vital Signs Vital Signs: Vital Signs - 24 hr 06/22/20 12:00 06/22/20 16:00 06/22/20 20:00 Temperature 36.9 C 36.5 C 37.0 C Pulse Rate 84 60 66 Respiratory Rate 20 20 20 Blood Pressure 125/89 111/71 135/96 H Pulse Oximetry 94 95 97 06/22/20 20:13 06/23/20 00:00 06/23/20 04:00 Temperature 37.0 C 36.7 C Pulse Rate 70 54 L 56 L Respiratory Rate 16 20 20 Blood Pressure 151/93 H 145/91 H Pulse Oximetry 94 98 96 06/23/20 08:00 06/23/20 08:47 06/23/20 08:48 Temperature 36.7 C Pulse Rate 59 L 80 Respiratory Rate 18 18 Blood Pressure 129/90 Pulse Oximetry 97 90 06/23/20 08:57 Temperature Pulse Rate 80 Respiratory Rate 18 Blood Pressure Pulse Oximetry Intake/Output Intake/Output: Intake & Output 06/20/20 06/21/20 06/22/20 06/23/20
--- NOTE | 2020-06-23 09:56 | PCNWS ---
Weekly nutritional screen. Patient is tolerating current diet-regular with adequate intake-greater than 75% of meals. No weight loss reported. No nutritional needs at this time.
[2020-06-23 10:11] LABS: Estimated CRCL calculation 94 ml/min; Estimated Glomerular Filt Rate > 60
[2020-06-23 10:27] LABS: Prothrombin Time 13.8 Seconds (11.1-14.7)
[2020-06-23] MEDS: REMDESIVIR 200 MG/NS 250 ML 200 MG/250 ML BAG 250 MG IVPB (11:06)
--- NOTE | 2020-06-23 13:04 | PM.IMPN ---
Progress Note: A&P Additional Plan 06/17/20 13:27 Patient has acute hypoxic respiratory failure due to COVID-19 pneumonia. Patient has been started on Decadron. Will initiate therapy with albuterol 4 puffs q.6 hours scheduled. Patient may have Mucinex p.r.n. for cough. Will wean oxygen as tolerated. Patient is to remain on droplet/airborne and contact isolation. Patient has been placed on DVT prophylaxis with Lovenox 40 mg subq q.12 hours. The patient's home hormone supplementation will be held. Patient's blood pressures are stable will continue patient's home antihypertensive and antidepressants. 06/16 Patient is a 39-year-old female was diagnosed with COVID-19 on 06/08/20 patient presented emergency depart with worsening shortness of breath and hypoxia patient was started on dexamethasone on 06/16 03/09 and today started her on Remdesivir and patient has agreed to take convalescent plasma, also added Vitmain D and C also zinc as well as symbicort, currently patient has no fever and requiring 1-2 L of oxygen will continue to monitor, 06/17 Patient is a 39-year-old female was diagnosed with COVID-19 on 06/08/20 patient presented emergency depart on 06/16 with worsening shortness of breath and hypoxia patient was started on dexamethasone on 06/16 04/09 and started her on Remdesivir 04/09 and received convalescent plasma, patient still requiring 7 L of oxygen and gets worse with exertion, patient was seen by critical care clinical nurse specialist agreed with current management and added Tessalon and spirometer, patient states is feeling little better compared to yesterday when she arrived, patient instructed to ambulate as much as possible and to lay and prone position, will continue to monitor and further recommendation to follow. 06/18 Patient doing well on dexamethasone and Remdesivir being followed by pulmonology Critical Care currently on day 3 of 10 day treatment. She has received plasma. Today she is on 7 L uncomfortable. Medications reviewed. Cristóbal encouraged. Pulmonology Critical Care bedside recommendations appreciated. continue current care 06/19/20 Patient continues to improve. She is on 7 L and comfortable. Yesterday she had to be increased to 9 briefly but recovered shortly thereafter. Patient is following directions of Cristóbal. She remains treatment for COVID 19 and pulmonary Critical Care is following. Continue current care 06/20/20 Patient continues to improve now down to 4 L would like to go home tomorrow however review of medical record shows that pulmonology is requesting that she continue Remdesvir for 10 days Continue current oxygen Continue Benzoate 200 mg p.o. t.i.d. scheduled proning encouraged continue dexamethasone daily for 10 days continue Remdesivir daily for 10 days and monitor daily creatinine and liver function test. continue Pulmicort 1 mg nebulized q.12 hours 06/21/20 Patient with significant lung pathology. Her coronal virus inflammatory labs have all normalized. She remains O2 dependent on 6 L 9 for ambulation. Patient now receiving day 09/06 Remdesivir and dexamethasone. Anticipate slow recovery. Continue current care. 06/22/20 pt doing ok now down to 3L of O2 at rest, still requiring more O2 with increased activity. Remdesivir 10/07. cont to improve slowly. cont supportive care pulm following 06/23/20 13:04 Patient with COVID-19 on dexamethasone now 11/07 patient received 5 days remdesivir and had been required high flow of oxygen today discussed with pulmonology will start the 2nd round of Remdesivir with loading dose, today patient states feeling much is only requiring 2-3 L address however with exertion her oxygen requirement goes into 6-7 L, she is off isolation as patient was diagnosed with COVID-19 over 10 days ago will continue to monitor, and further recommendation to follow Subjective Date/time seen: 06/23/20 13:04 Patient with COVID-19 on dexamethasone now 11/07 patient received 5 days remdesivir and had been requir
[2020-06-24] VITALS (12 sets, daily range): BP systolic 129–145; BP diastolic 74–82; PULSE 45–76; RESP 16–18; TEMP 36.2–36.7; O2SAT 92–98
[2020-06-24 06:11] LABS: Basophils Percent Auto 0.2 % (0.2-1.2); Eosinophils Absolute Auto 0.1 K/mm3 (0-0.3); Hematocrit 36.7 % (37.0-47.0); Hemoglobin 11.2 g/dL (12.0-15.0); Immature Granulocyte Absolute 0.07 K/mm3 (0.00-0.031); Immature Granulocyte Percent A 1.2 % (0-0.5); Lymphocytes Absolute Auto 1.79 K/mm3 (0.9-3.2); Lymphocytes Percent Auto 29.6 % (18.3-44.2); Mean Corpuscular HGB Conc 30.5 g/dl (32-36); Mean Corpuscular Hemoglobin 25.8 pg (26-34); Mean Corpuscular Volume 84.6 fl (80-100); Mean Platelet Volume 11.8 fl (7.4-10.4); Monocytes Absolute Auto 0.4 K/mm3 (0.1-0.6); Monocytes Percent Auto 6.8 % (2.6-8.5); Neutrophils Absolute Auto 3.7 K/mm3 (1.3-6.7); Neutrophils Percent Auto 61.2 % (45.5-73.1); Platelet Count Result 230 k/mm3 (150-375); Red Blood Count 4.34 M/mm3 (4.2-5.4); Red Cell Distribution Width 15.3 % (11.5-14.5)
[2020-06-24 06:29] LABS: Alanine Aminotransferase 93 U/L (4-35); Albumin Level 3.3 g/dL (3.5-5.1); Alkaline Phosphatase 86 U/L (38-126); Anion Gap 2 mmol/L (8-16); Aspartate Amino Transferase 55 U/L (14-36); Bilirubin,Total 0.1 mg/dL (0.2-1.3); Blood Urea Nitrogen 12 mg/dL (7-17); CRP < 0.5 mg/dL (<1.0); Calcium 8.4 mg/dL (8.4-10.2); Carbon Dioxide 32 mmol/L (22-30); Chloride 104 mmol/L (98-107); Estimated CRCL calculation 106 ml/min; Estimated Glomerular Filt Rate > 60; Glucose 84 mg/dL (65-105); Potassium 3.7 mmol/L (3.4-5.0); Sodium 138 mmol/L (137-145)
[2020-06-24] MEDS: BENZONATATE 100 MG CAPSULE 200 MG PO ×2 (08:21→12:50)
[2020-06-24] MEDS: ZINC SULFATE 220 MG CAPSULE PO (08:22)
[2020-06-24] MEDS: CHOLECALCIFEROL 1,000 UNITS TABLET 1000 UNITS PO (08:22)
[2020-06-24] MEDS: amLODIPine BESYLATE 5 MG TABLET PO (08:22)
[2020-06-24] MEDS: ASCORBIC ACID 500 MG TABLET PO (08:22)
[2020-06-24] MEDS: ENOXAPARIN 40 MG/0.4 ML SYRINGE SUB-Q ×2 (08:22→20:12)
[2020-06-24] MEDS: FLUoxetine HCL 20 MG CAPSULE 40 MG PO (08:22)
[2020-06-24] MEDS: FERROUS SULFATE 324 MG TABLET PO (08:22)
[2020-06-24] MEDS: DEXAMETHASONE SOD PHOS INJ 4 MG/ML VIAL 6 MG IV PUSH (08:22)
[2020-06-24] MEDS: REMDESIVIR 100 MG/NS 250 ML 100 MG/250 ML BAG 250 MG IVPB (10:15)
--- NOTE | 2020-06-24 12:16 | P.PNIM_ITS ---
Progress Note: A&P Assessment and Plan (1) Acute respiratory failure with hypoxia: Code(s): J96.01 - Acute respiratory failure with hypoxia Status: Acute (2) 2019 novel coronavirus–infected pneumonia (NCIP)#8211;infected pneumonia (NCIP): Code(s): U07.1 - COVID-19; J12.82 - Pneumonia due to coronavirus disease 2019 Status: Acute (3) Migraine: Code(s): G43.909 - Migraine, unspecified, not intractable, without status migrainosus Status: Acute (4) Obesity: Code(s): E66.9 - Obesity, unspecified Status: Acute (5) Hypercholesterolemia: Code(s): E78.00 - Pure hypercholesterolemia, unspecified Status: Acute (6) HTN (hypertension): Qualifiers: Hypertension type: unspecified Qualified Code(s): I10 - Essential (primary) hypertension Code(s): I10 - Essential (primary) hypertension Status: Acute (7) Depression: Code(s): F32.9 - Major depressive disorder, single episode, unspecified Status: Acute Additional Plan 06/17/20 13:27 Patient has acute hypoxic respiratory failure due to COVID-19 pneumonia. Patient has been started on Decadron. Will initiate therapy with albuterol 4 puffs q.6 hours scheduled. Patient may have Mucinex p.r.n. for cough. Will wean oxygen as tolerated. Patient is to remain on droplet/airborne and contact isolation. Patient has been placed on DVT prophylaxis with Lovenox 40 mg subq q.12 hours. The patient's home hormone supplementation will be held. Patient's blood pressures are stable will continue patient's home antihypertensive and antidepressants. 06/16 Patient is a 39-year-old female was diagnosed with COVID-19 on 06/08/20 patient presented emergency depart with worsening shortness of breath and hypoxia patient was started on dexamethasone on 06/16 03/09 and today started her on Remdesivir and patient has agreed to take convalescent plasma, also added Vitmain D and C also zinc as well as symbicort, currently patient has no fever and requiring 1-2 L of oxygen will continue to monitor, 06/17 Patient is a 39-year-old female was diagnosed with COVID-19 on 06/08/20 patient presented emergency depart on 06/16 with worsening shortness of breath and hypoxia patient was started on dexamethasone on 06/16 04/09 and started her on Remdesivir 04/09 and received convalescent plasma, patient still requiring 7 L of oxygen and gets worse with exertion, patient was seen by preventive medicine physician agreed with current management and added Tessalon and spirometer, patient states is feeling little better compared to yesterday when she arrived, patient instructed to ambulate as much as possible and to lay and prone position, will continue to monitor and further recommendation to follow. 06/18 Patient doing well on dexamethasone and Remdesivir being followed by pulmonology Critical Care currently on day 3 of 10 day treatment. She has received plasma. Today she is on 7 L uncomfortable. Medications reviewed. Cristóbal encouraged. Pulmonology Critical Care bedside recommendations appreciated. continue current care 06/19/20 Patient continues to improve. She is on 7 L and comfortable. Yesterday she had to be increased to 9 briefly but recovered shortly thereafter. Patient is following directions of Cristóbal. She remains treatment for COVID 19 and pulm onleonidas Critical Care is following. Continue current care 06/20/20 Patient continues to improve now down to 4 L would like to go home tomorrow however review of medical record shows that pulmonology is requesting that she continue Remdesvir for 10 days Continue current oxygen Continue Benzoate 200 mg p.o. t.i.d. brent
[2020-06-25] VITALS (11 sets, daily range): BP systolic 119–159; BP diastolic 78–94; PULSE 47–95; RESP 16–18; TEMP 36–36.7; O2SAT 5–100
[2020-06-25 06:31] LABS: Basophils Percent Auto 0.1 % (0.2-1.2); Eosinophils Absolute Auto 0.1 K/mm3 (0-0.3); Hematocrit 35.6 % (37.0-47.0); Immature Granulocyte Absolute 0.05 K/mm3 (0.00-0.031); Immature Granulocyte Percent A 0.7 % (0-0.5); Lymphocytes Absolute Auto 1.75 K/mm3 (0.9-3.2); Lymphocytes Percent Auto 25.2 % (18.3-44.2); Mean Corpuscular HGB Conc 30.9 g/dl (32-36); Mean Corpuscular Hemoglobin 25.5 pg (26-34); Mean Corpuscular Volume 82.6 fl (80-100); Mean Platelet Volume 11.4 fl (7.4-10.4); Monocytes Absolute Auto 0.5 K/mm3 (0.1-0.6); Monocytes Percent Auto 6.8 % (2.6-8.5); Neutrophils Absolute Auto 4.6 K/mm3 (1.3-6.7); Neutrophils Percent Auto 66.2 % (45.5-73.1); Platelet Count Result 194 k/mm3 (150-375); Red Blood Count 4.31 M/mm3 (4.2-5.4); Red Cell Distribution Width 15.2 % (11.5-14.5)
[2020-06-25 06:44] LABS: Alanine Aminotransferase 86 U/L (4-35); Albumin Level 3.3 g/dL (3.5-5.1); Alkaline Phosphatase 86 U/L (38-126); Anion Gap 1 mmol/L (8-16); Aspartate Amino Transferase 47 U/L (14-36); Bilirubin,Total < 0.1 mg/dL (0.2-1.3); Blood Urea Nitrogen 13 mg/dL (7-17); CRP 0.5 mg/dL (<1.0); Calcium 8.3 mg/dL (8.4-10.2); Carbon Dioxide 32 mmol/L (22-30); Chloride 105 mmol/L (98-107); Estimated CRCL calculation 106 ml/min; Estimated Glomerular Filt Rate > 60; Glucose 82 mg/dL (65-105); Potassium 3.8 mmol/L (3.4-5.0); Sodium 138 mmol/L (137-145)
[2020-06-25 07:09] LABS: Prothrombin Time 13.8 Seconds (11.1-14.7)
[2020-06-25] MEDS: ZINC SULFATE 220 MG CAPSULE PO (09:37)
[2020-06-25] MEDS: ENOXAPARIN 40 MG/0.4 ML SYRINGE SUB-Q ×2 (09:37→20:40)
[2020-06-25] MEDS: guaiFENesin 12 HR 600 MG TABCR PO (09:38)
[2020-06-25] MEDS: FERROUS SULFATE 324 MG TABLET PO (09:38)
[2020-06-25] MEDS: FLUoxetine HCL 20 MG CAPSULE 40 MG PO (09:38)
[2020-06-25] MEDS: CHOLECALCIFEROL 1,000 UNITS TABLET 1000 UNITS PO (09:39)
[2020-06-25] MEDS: amLODIPine BESYLATE 5 MG TABLET PO (09:39)
[2020-06-25] MEDS: DEXAMETHASONE SOD PHOS INJ 4 MG/ML VIAL 6 MG IV PUSH (09:39)
[2020-06-25] MEDS: ASCORBIC ACID 500 MG TABLET PO (09:39)
[2020-06-25] MEDS: BENZONATATE 100 MG CAPSULE 200 MG PO ×3 (09:39→18:15)
[2020-06-25] MEDS: REMDESIVIR 100 MG/NS 250 ML 100 MG/250 ML BAG 250 MG IVPB (09:40)
--- NOTE | 2020-06-25 10:12 | HOMEO2EVAL ---
Evaluation was performed at [facility] Home Oxygen Evaluation RC: Home Oxygen (O2) Evaluation Start: 06/25/20 07:45 Freq: ONCE Status: Active Protocol: RPE Activity Type Activity Date Activity User E-Sign Co-Sign Detail Recorded Client Recorded Date Recorded By Document 06/25/20 09:40 KMV [email or web address] 06/25/20 10:11 KMV Document 06/25/20 09:35 KMV [email or web address] 06/25/20 10:02 KMV 06/25/20 06/25/20 09:40 09:35 Home O2 Evaluation Test Phase Exercise Resting Oxygen Delivery Nasal Cannula Room Air Pulse Oximetry (90-100 %) 5 L 89 L Pulse Rate (60-100 beats/min) 95 95 Activity Tolerance Good Ambulation Distance (feet) 150 Home Oxygen Evaluation Comments Pt requires 1 lpm at rest 5 lpm with activity. Treatment Charges O2 Evaluation - O2 Evaluation - Inpatient Inpatient
--- NOTE | 2020-06-25 10:56 | PM.DS ---
DS: Summary Time Spent with Patient Time attestation: Total time spent providing and/or coordinating discharge services: DS: Data Data Completed and Pending Labs on day of discharge: Labs from last 24 hours 06/25/20 06/25/20 06/25/20 06:01 06:01 06:01 WBC 7.0 RBC 4.31 Hgb 11.0 L Hct 35.6 L MCV 82.6 MCH 25.5 L MCHC 30.9 L RDW 15.2 H Plt Count 194 MPV 11.4 H Immature Gran % (Auto) 0.7 H Neut % (Auto) 66.2 Lymph % (Auto) 25.2 [place] % (Auto) 6.8 Eos % (Auto) 1.0 Baso % (Auto) 0.1 L Lymph # (Auto) 1.75 [place] # (Auto) 0.5 Eos # (Auto) 0.1 Baso # (Auto) 0.0 Abs Immat Gran (auto) 0.05 H Absolute Neuts (auto) 4.6 Absolute Nucleated RBC 0.0 Nucleated RBC % 0.0 PT 13.8 INR 1.0 Sodium 138 Potassium 3.8 Chloride 105 Carbon Dioxide 32 H Anion Gap 1 L BUN 13 Creatinine 0.70 Estim Creat Clear Calc 106 Estimated GFR > 60 Glucose 82 Calcium 8.3 L Total Bilirubin < 0.1 L AST 47 H ALT 86 H Alkaline Phosphatase 86 C-Reactive Protein 0.5 Total Protein 6.0 L Albumin 3.3 L Discharge Plan Discharge Attending physician on discharge: Jelly Tapia Consulting providers: Xavier Fritz Discharging Clinician: Jelly Tapia Patient Disposition: Home, Self-Care Activity: as tolerated Diet: heart healthy Discharge Instructions: patient is instructed to wear mask, keep social distance and general public, patient to follow up with her primary care provider as soon as possible, patient is instructed if any symptomds get worsen to go to nearest ER, please let the ER know you are COVID-19 positive. Patient Instructions: Antibiotic Form, Remdesivir (By injection), Hypoxia (GEN), COVID-19 (Coronavirus Disease 2019) (DC) Stand Alone Forms: General Discharge Information Follow-up/Referrals: Ezekiel,RUPAL Yoo [Primary Care Provider] - Discharge Medications: New benzonatate 100 mg Capsule 200 mg PO TID Qty: 30 RF: 0 guaifenesin [Mucus Relief ER] 600 mg Tablet Extended Release 12hr 600 mg PO Q12HR PRN (Reason: cough) Qty: 30 RF: 0 ascorbic acid (vitamin C) [Vitamin C] 500 mg Tablet 500 mg PO DAILY Qty: 30 RF: 0 cholecalciferol (vitamin D3) [Vitamin D3] 25 mcg (1,000 unit) Tablet 1,000 unit PO DAILY Qty: 30 RF: 0 zinc sulfate 50 mg zinc (220 mg) Capsule 220 mg PO QAM Qty: 30 RF: 0 Continued fluoxetine 40 mg capsule 40 mg PO DAILY RF: 0 trazodone 50 mg tablet 50 mg PO PRN PRN (Reason: Insomnia) RF: 0 amlodipine 5 mg tablet 5 mg PO DAILY RF: 0 estradiol-norethindrone acet 1-0.5 mg tablet 0.5 tablet PO DAILY RF: 0 ferrous sulfate 325 mg (65 mg iron) tablet 325 mg PO DAILY RF: 0 calcium carbonate-vitamin D3 [Calcium 600 + D(3)] 600 mg(1,500mg) -400 unit tablet 1 tablet PO DAILY RF: 0 albuterol sulfate 90 mcg/actuation HFA aerosol inhaler 2 puff INHALATION QID PRN (Reason: shortness of breath or wheezing) Qty: 6.7 RF: 0 Date of admission: 06/16/20 11:52 Primary Care Provider: Ezekiel,Sai Turcios Admitting Provider: Jacob Stone V. Attending physician on admission: Jacob Stone V. Condition: Stable Quality VTE Prophylaxis VTE prophylaxis: pharmacologic ordered (Lovenox 40 mg subq q.12 hours)
--- NOTE | 2020-06-25 12:41 | P.PNIM_ITS ---
Progress Note: A&P Additional Plan 06/17/20 13:27 Patient has acute hypoxic respiratory failure due to COVID-19 pneumonia. Patient has been started on Decadron. Will initiate therapy with albuterol 4 puffs q.6 hours scheduled. Patient may have Mucinex p.r.n. for cough. Will wean oxygen as tolerated. Patient is to remain on droplet/airborne and contact isolation. Patient has been placed on DVT prophylaxis with Lovenox 40 mg subq q.12 hours. The patient's home hormone supplementation will be held. Patient's blood pressures are stable will continue patient's home antihypertensive and antidepressants. 06/16 Patient is a 39-year-old female was diagnosed with COVID-19 on 06/08/20 patient presented emergency depart with worsening shortness of breath and hypoxia patient was started on dexamethasone on 06/16 03/09 and today started her on Remdesivir and patient has agreed to take convalescent plasma, also added Vitmain D and C also zinc as well as symbicort, currently patient has no fever and requiring 1-2 L of oxygen will continue to monitor, 06/17 Patient is a 39-year-old female was diagnosed with COVID-19 on 06/08/20 patient presented emergency depart on 06/16 with worsening shortness of breath and hypoxia patient was started on dexamethasone on 06/16 04/09 and started her on Remdesivir 04/09 and received convalescent plasma, patient still requiring 7 L of oxygen and gets worse with exertion, patient was seen by payroll machine operator agreed with current management and added Tessalon and spirometer, patient states is f eeling little better compared to yesterday when she arrived, patient instructed to ambulate as much as possible and to lay and prone position, will continue to monitor and further recommendation to follow. 06/18 Patient doing well on dexamethasone and Remdesivir being followed by pulmonology Critical Care currently on day 3 of 10 day treatment. She has received plasma. Today she is on 7 L uncomfortable. Medications reviewed. Cristóbal encouraged. Pulmonology Critical Care bedside recommendations appreciated. continue current care 06/19/20 Patient continues to improve. She is on 7 L and comfortable. Yesterday she had to be increased to 9 briefly but recovered shortly thereafter. Patient is following directions of Cristóbal. She remains treatment for COVID 19 and pulmonary Critical Care is following. Continue current care 06/20/20 Patient continues to improve now down to 4 L would like to go home tomorrow however review of medical record shows that pulmonology is requesting that she continue Remdesvir for 10 days Continue current oxygen Continue Benzoate 200 mg p.o. t.i.d. scheduled proning encouraged continue dexamethasone daily for 10 days continue Remdesivir daily for 10 days and monitor daily creatinine and liver function test. continue Pulmicort 1 mg nebulized q.12 hours 06/21/20 Patient with significant lung pathology. Her coronal virus inflammatory labs have all normalized. She remains O2 dependent on 6 L 9 for ambulation. Patient now receiving day 7/ Remdesivir and dexamethasone. Anticipate slow recovery. Continue current care. 06/22/20 pt doing ok now down to 3L of O2 at rest, still requiring more O2 with increased activity. Remdesivir 10/07. cont to improve slowly. cont supportive care pulm following 06/24 Patient with COVID-19 on dexamethasone now 11/07 patient received 5 days remdesivir and had been required high flow of oxygen today discussed with pulmonology will start the 2nd round of Remdesivir with loading dose, today patient states feeling much is only requiring 2-3 L address however with exertion her oxygen requirement goes into 6-7 L, she is off isolation as patient was diagn
--- NOTE | 2020-06-25 15:07 | HOMEO2EVAL ---
Evaluation was performed at [facility] Home Oxygen Evaluation RC: Home Oxygen (O2) Evaluation Start: 06/25/20 07:45 Freq: ONCE Status: Active Protocol: RPE Activity Type Activity Date Activity User E-Sign Co-Sign Detail Recorded Client Recorded Date Recorded By Document 06/25/20 09:40 KMV [email or web address] 06/25/20 10:11 KMV Document 06/25/20 09:35 KMV [email or web address] 06/25/20 10:02 KMV 06/25/20 06/25/20 09:40 09:35 Home O2 Evaluation Test Phase Exercise Resting Oxygen Delivery Nasal Cannula Room Air Pulse Oximetry (90-100 %) 5 L 89 L Pulse Rate (60-100 beats/min) 95 95 Activity Tolerance Good Ambulation Distance (feet) 150 Home Oxygen Evaluation Comments Pt requires 1 lpm at rest 5 lpm with activity. Treatment Charges O2 Evaluation - O2 Evaluation - Inpatient Inpatient
[2020-06-26] VITALS (12 sets, daily range): BP systolic 123–135; BP diastolic 82–87; PULSE 54–83; RESP 16–20; TEMP 36.7–37; O2SAT 93–98
[2020-06-26 06:05] LABS: Basophils Percent Auto 0.1 % (0.2-1.2); Eosinophils Percent Auto 0.3 % (0-4.4); Hematocrit 37.2 % (37.0-47.0); Hemoglobin 11.8 g/dL (12.0-15.0); Immature Granulocyte Absolute 0.05 K/mm3 (0.00-0.031); Immature Granulocyte Percent A 0.6 % (0-0.5); Lymphocytes Absolute Auto 1.77 K/mm3 (0.9-3.2); Lymphocytes Percent Auto 19.7 % (18.3-44.2); Mean Corpuscular HGB Conc 31.7 g/dl (32-36); Mean Corpuscular Hemoglobin 25.8 pg (26-34); Mean Corpuscular Volume 81.4 fl (80-100); Mean Platelet Volume 12.1 fl (7.4-10.4); Monocytes Absolute Auto 0.6 K/mm3 (0.1-0.6); Monocytes Percent Auto 6.1 % (2.6-8.5); Neutrophils Absolute Auto 6.6 K/mm3 (1.3-6.7); Neutrophils Percent Auto 73.2 % (45.5-73.1); Platelet Count Result 258 k/mm3 (150-375); Red Blood Count 4.57 M/mm3 (4.2-5.4); Red Cell Distribution Width 15.3 % (11.5-14.5)
[2020-06-26 06:37] LABS: Alanine Aminotransferase 105 U/L (4-35); Albumin Level 3.6 g/dL (3.5-5.1); Alkaline Phosphatase 87 U/L (38-126); Anion Gap 5 mmol/L (8-16); Aspartate Amino Transferase 54 U/L (14-36); Bilirubin,Total 0.1 mg/dL (0.2-1.3); Blood Urea Nitrogen 12 mg/dL (7-17); CRP 0.6 mg/dL (<1.0); Calcium 8.6 mg/dL (8.4-10.2); Carbon Dioxide 29 mmol/L (22-30); Chloride 105 mmol/L (98-107); Estimated CRCL calculation 106 ml/min; Estimated Glomerular Filt Rate > 60; Glucose 121 mg/dL (65-105); Potassium 3.6 mmol/L (3.4-5.0); Sodium 139 mmol/L (137-145)
[2020-06-26] MEDS: guaiFENesin 12 HR 600 MG TABCR PO (08:23)
[2020-06-26] MEDS: ZINC SULFATE 220 MG CAPSULE PO (08:23)
[2020-06-26] MEDS: ENOXAPARIN 40 MG/0.4 ML SYRINGE SUB-Q ×2 (08:23→20:30)
[2020-06-26] MEDS: BENZONATATE 100 MG CAPSULE 200 MG PO ×3 (08:24→17:24)
[2020-06-26] MEDS: FLUoxetine HCL 20 MG CAPSULE 40 MG PO (08:24)
[2020-06-26] MEDS: ASCORBIC ACID 500 MG TABLET PO (08:24)
[2020-06-26] MEDS: amLODIPine BESYLATE 5 MG TABLET PO (08:24)
[2020-06-26] MEDS: FERROUS SULFATE 324 MG TABLET PO (08:24)
[2020-06-26] MEDS: CHOLECALCIFEROL 1,000 UNITS TABLET 1000 UNITS PO (08:25)
[2020-06-26] MEDS: REMDESIVIR 100 MG/NS 250 ML 100 MG/250 ML BAG 250 MG IVPB (09:09)
[2020-06-26] MEDS: ONDANSETRON INJ 4 MG/2 ML VIAL IV PUSH (09:43)
--- NOTE | 2020-06-26 11:35 | PM.IMPN ---
Progress Note: A&P Additional Plan 06/17/20 13:27 Patient has acute hypoxic respiratory failure due to COVID-19 pneumonia. Patient has been started on Decadron. Will initiate therapy with albuterol 4 puffs q.6 hours scheduled. Patient may have Mucinex p.r.n. for cough. Will wean oxygen as tolerated. Patient is to remain on droplet/airborne and contact isolation. Patient has been placed on DVT prophylaxis with Lovenox 40 mg subq q.12 hours. The patient's home hormone supplementation will be held. Patient's blood pressures are stable will continue patient's home antihypertensive and antidepressants. 06/16 Patient is a 39-year-old female was diagnosed with COVID-19 on 06/08/20 patient presented emergency depart with worsening shortness of breath and hypoxia patient was started on dexamethasone on 06/16 03/09 and today started her on Remdesivir and patient has agreed to take convalescent plasma, also added Vitmain D and C also zinc as well as symbicort, currently patient has no fever and requiring 1-2 L of oxygen will continue to monitor, 06/17 Patient is a 39-year-old female was diagnosed with COVID-19 on 06/08/20 patient presented emergency depart on 06/16 with worsening shortness of breath and hypoxia patient was started on dexamethasone on 06/16 04/09 and started her on Remdesivir 04/09 and received convalescent plasma, patient still requiring 7 L of oxygen and gets worse with exertion, patient was seen by stained glass painter agreed with current management and added Tessalon and spirometer, patient states is feeling little better compared to yesterday when she arrived, patient instructed to ambulate as much as possible and to lay and prone position, will continue to monitor and further recommendation to follow. 06/18 Patient doing well on dexamethasone and Remdesivir being followed by pulmonology Critical Care currently on day 3 of 10 day treatment. She has received plasma. Today she is on 7 L uncomfortable. Medications reviewed. Cristóbal encouraged. Pulmonology Critical Care bedside recommendations appreciated. continue current care 06/19/20 Patient continues to improve. She is on 7 L and comfortable. Yesterday she had to be increased to 9 briefly but recovered shortly thereafter. Patient is following directions of Cristóbal. She remains treatment for COVID 19 and pulmonary Critical Care is following. Continue current care 06/20/20 Patient continues to improve now down to 4 L would like to go home tomorrow however review of medical record shows that pulmonology is requesting that she continue Remdesvir for 10 days Continue current oxygen Continue Benzoate 200 mg p.o. t.i.d. scheduled proning encouraged continue dexamethasone daily for 10 days continue Remdesivir daily for 10 days and monitor daily creatinine and liver function test. continue Pulmicort 1 mg nebulized q.12 hours 06/21/20 Patient with significant lung pathology. Her coronal virus inflammatory labs have all normalized. She remains O2 dependent on 6 L 9 for ambulation. Patient now receiving day 09/06 Remdesivir and dexamethasone. Anticipate slow recovery. Continue current care. 06/22/20 pt doing ok now down to 3L of O2 at rest, still requiring more O2 with increased activity. Remdesivir 10/07. cont to improve slowly. cont supportive care pulm following 06/24 Patient with COVID-19 on dexamethasone now 11/07 patient received 5 days remdesivir and had been required high flow of oxygen today discussed with pulmonology will start the 2nd round of Remdesivir with loading dose, today patient states feeling much is only requiring 2-3 L address however with exertion her oxygen requirement goes into 6-7 L, she is off isolation as patient was diagnosed with COVID-19 over 10 days ago will continue to monitor, and further recommendation to follow 06/24, on 06/23 2nd 5 dose of Remdesivir was resumed yesterday and received the 1st loading dose, today patient will complete a 10 days dexamethasone, t
--- NOTE | 2020-06-26 15:54 | PCPTNOTE ---
The patient treatment was not able to be completed today. PT attempted 2 x this afternoon and patient was out of room. Will plan to continue treatment per plan of care.
[2020-06-27] VITALS: PULSE 60
[2020-06-27 04:00] VITALS: PULSE 54
[2020-06-27 05:49] VITALS: BP 118/68; PULSE 62; RESP 18; TEMP 37.1; O2SAT 95
[2020-06-27 06:20] LABS: Basophils Percent Auto 0.3 % (0.2-1.2); Eosinophils Absolute Auto 0.1 K/mm3 (0-0.3); Eosinophils Percent Auto 1.4 % (0-4.4); Hematocrit 35.7 % (37.0-47.0); Hemoglobin 10.8 g/dL (12.0-15.0); Immature Granulocyte Absolute 0.04 K/mm3 (0.00-0.031); Immature Granulocyte Percent A 0.6 % (0-0.5); Lymphocytes Absolute Auto 1.74 K/mm3 (0.9-3.2); Lymphocytes Percent Auto 24.6 % (18.3-44.2); Mean Corpuscular HGB Conc 30.3 g/dl (32-36); Mean Corpuscular Hemoglobin 25.4 pg (26-34); Mean Corpuscular Volume 83.8 fl (80-100); Mean Platelet Volume 12.8 fl (7.4-10.4); Monocytes Absolute Auto 0.5 K/mm3 (0.1-0.6); Monocytes Percent Auto 6.8 % (2.6-8.5); Neutrophils Absolute Auto 4.7 K/mm3 (1.3-6.7); Neutrophils Percent Auto 66.3 % (45.5-73.1); Platelet Count Result 208 k/mm3 (150-375); Red Blood Count 4.26 M/mm3 (4.2-5.4); Red Cell Distribution Width 15.9 % (11.5-14.5); White Blood Count 7.1 K/mm3 (4.5-10.0)
[2020-06-27 06:33] LABS: Alanine Aminotransferase 98 U/L (4-35); Albumin Level 3.2 g/dL (3.5-5.1); Alkaline Phosphatase 83 U/L (38-126); Anion Gap 1 mmol/L (8-16); Aspartate Amino Transferase 43 U/L (14-36); Bilirubin,Total 0.2 mg/dL (0.2-1.3); Blood Urea Nitrogen 14 mg/dL (7-17); CRP 0.5 mg/dL (<1.0); Calcium 8.3 mg/dL (8.4-10.2); Carbon Dioxide 32 mmol/L (22-30); Chloride 106 mmol/L (98-107); Estimated CRCL calculation 106 ml/min; Estimated Glomerular Filt Rate > 60; Glucose 83 mg/dL (65-105); Potassium 4.1 mmol/L (3.4-5.0); Sodium 139 mmol/L (137-145)
[2020-06-27 06:42] LABS: Prothrombin Time 14.1 Seconds (11.1-14.7)
[2020-06-27 08:00] VITALS: PULSE 56; O2SAT 94
[2020-06-27] MEDS: REMDESIVIR 100 MG/NS 250 ML 100 MG/250 ML BAG 250 MG IVPB (08:05)
[2020-06-27] MEDS: BENZONATATE 100 MG CAPSULE 200 MG PO (08:05)
[2020-06-27] MEDS: CHOLECALCIFEROL 1,000 UNITS TABLET 1000 UNITS PO (08:05)
[2020-06-27] MEDS: amLODIPine BESYLATE 5 MG TABLET PO (08:05)
[2020-06-27] MEDS: ASCORBIC ACID 500 MG TABLET PO (08:05)
[2020-06-27] MEDS: FLUoxetine HCL 20 MG CAPSULE 40 MG PO (08:06)
[2020-06-27] MEDS: ZINC SULFATE 220 MG CAPSULE PO (08:06)
[2020-06-27] MEDS: FERROUS SULFATE 324 MG TABLET PO (08:06)
[2020-06-27] MEDS: ENOXAPARIN 40 MG/0.4 ML SYRINGE SUB-Q (08:06)
--- NOTE | 2020-06-27 08:39 | PM.DS ---
DS: Admitting Diagnosis Admitting Diagnosis Admitting Diagnosis: Chief Complaint: COVID with worsening shortness of breath DS: Discharge Diagnosis Discharge Diagnosis (1) Acute respiratory failure with hypoxia: Code(s): J96.01 - Acute respiratory failure with hypoxia Status: Acute (2) 2019 novel coronavirus–infected pneumonia (NCIP)#8211;infected pneumonia (NCIP): Code(s): U07.1 - COVID-19; J12.82 - Pneumonia due to coronavirus disease 2019 Status: Acute Assessment and Plan: Patient has acute hypoxic respiratory failure due to COVID-19 pneumonia. Patient has been started on Decadron. Will initiate therapy with albuterol 4 puffs q.6 hours scheduled. Patient may have Mucinex p.r.n. for cough. Will wean oxygen as tolerated. Patient is to remain on droplet/airborne and contact isolation. Patient has been placed on DVT prophylaxis with Lovenox 40 mg subq q.12 hours. The patient's home hormone supplementation will be held. Patient's blood pressures are stable will continue patient's home antihypertensive and antidepressants. 06/16 Patient is a 39-year-old female was diagnosed with COVID-19 on 06/08/20 patient presented emergency depart with worsening shortness of breath and hypoxia patient was started on dexamethasone on 06/16 03/09 and today started her on Remdesivir and patient has agreed to take convalescent plasma, also added Vitmain D and C also zinc as well as symbicort, currently patient has no fever and requiring 1-2 L of oxygen will continue to monitor, 06/17 Patient is a 39-year-old female was diagnosed with COVID-19 on 06/08/20 patient presented emergency depart on 06/16 with worsening shortness of breath and hypoxia patient was started on dexamethasone on 06/16 04/09 and started her on Remdesivir 04/09 and received convalescent plasma, patient still requiring 7 L of oxygen and gets worse with exertion, patient was seen by striker off agreed with current management and added Tessalon and spirometer, patient states is feeling little better compared to yesterday when she arrived, patient instructed to ambulate as much as possible and to lay and prone position, will continue to monitor and further recommendation to follow. 06/18 Patient doing well on dexamethasone and Remdesivir being followed by pulmonology Critical Care currently on day 3 of 10 day treatment. She has received plasma. Today she is on 7 L uncomfortable. Medications reviewed. Cristóbal encouraged. Pulmonology Critical Care bedside recommendations appreciated. continue current care 06/19/20 Patient continues to improve. She is on 7 L and comfortable. Yesterday she had to be increased to 9 briefly but recovered shortly thereafter. Patient is following directions of Cristóbal. She remains treatment for COVID 19 and pulmonary Critical Care is following. Continue current care 06/20/20 Patient continues to improve now down to 4 L would like to go home tomorrow however review of medical record shows that pulmonology is requesting that she continue Remdesvir for 10 days Continue current oxygen Continue Benzoate 200 mg p.o. t.i.d. scheduled proning encouraged continue dexamethasone daily for 10 days continue Remdesivir daily for 10 days and monitor daily creatinine and liver function test. continue Pulmicort 1 mg nebulized q.12 hours 06/21/20 Patient with significant lung pathology. Her coronal virus inflammatory labs have all normalized. She remains O2 dependent on 6 L 9 for ambulation. Patient now receiving day 7/10 Remdesivir and dexamethasone. Anticipate slow recovery. Continue current care. 06/22/20 pt doing ok now down to 3L of O2 at rest, still requiring more O2 with increased activity. Remdesivir 10/07. cont to improve slowly. cont supportive care pulm following 06/23 Patient with COVID-19 on dexamethasone now 11/07 patient received 5 days remdesivir and had been required high flow of oxygen today discussed with pulmonology will start
--- NOTE | 2020-06-27 11:15 | PCRCNOTE ---
[facility] notified me that the patient is refusing the oxygen set-up upon her discharge. Evelia Presley RN aware.
== END 2020-06-27 10:00 | disposition home or self-care (01) | DRG 137 ==
LOC: ANHED 14:28 → ANH3MEDSUR 14:38
PROVIDERS: Hospitalist; Internal Medicine; Admitting Provider Internal Medicine; Emergency Provider Emergency Medicine; PCP Physician Assistant; Visit Provider Family Medicine
DX: U07.1 COVID-19 (principal); J12.82 Pneumonia due to coronavirus disease 2019; J96.00 Acute respiratory failure, unspecified whether with hypoxia or hypercapnia; E66.9 Obesity, unspecified; Z68.34 Body mass index [BMI] 34.0-34.9, adult; F32.9 Major depressive disorder, single episode, unspecified; I10 Essential (primary) hypertension
CPT/HCPCS: 36415; 36430; 36600; 71045; 80048; 80053; 82565; 82728; 82805; 82948; 83605; 83615; 83735; 84460; 85025; 85027; 85055; 85380; 85610; 85730; 86140; 86900; 86901; 87040; 93005; 94618; 94640; 96372; 96374; 97110; 97116; 97161; 99285; A9270; G0378; G0379; J1100; J1650; J2405; P9059

== ENCOUNTER 2020-07-18 02:20 | Emergency (ER) | payer OTHER, SELFPAY ==
--- NOTE | ~2020-07-18 | XR_ITS ---
EXAMINATION: XR hand RT min 3V DATE: 07/18/2020 02:44 INDICATION: Right hand injury and pain. TECHNIQUE: 3 views of right hand were obtained. COMPARISON: None. FINDINGS: Bone alignment is normal. No fracture. Joint spaces are well maintained. IMPRESSION: 1. Normal right hand. Reviewed, dictated and finalized at location A. IMPRESSION: 1. Normal right hand.
[2020-07-18 02:25] VITALS: BP 208/132; PULSE 72; RESP 18; TEMP 36.7; O2SAT 97
--- NOTE | 2020-07-18 02:30 | ED.UPPEXIN ---
HPI - Extremity Injury (Upper) General Chief Complaint: Extremity Injury, Upper Stated Complaint: hurt hand while walking dog Time Seen by Provider: 07/18/20 02:23 Source: patient, RN notes reviewed and old records reviewed History of Present Illness HPI narrative: 39-year-old female presents to emergency department for right hand pain that happened yesterday. Patient states she was walking her dog, when her dog got away from her causing her to fall onto her right hand. She has not taken anything for the pain so far. She reports having pain around the fifth MCP joint. Pain with movement. She also reports some swelling Related Data Home Medications Medication Instructions Recorded Confirmed amlodipine 5 mg PO DAILY 04/02/20 06/15/20 ferrous sulfate 325 mg PO DAILY 04/02/20 06/15/20 fluoxetine 40 mg PO DAILY 04/02/20 06/15/20 calcium carbonate-vitamin D3 1 tablet PO DAILY 06/15/20 06/15/20 [Calcium 600 + D(3)] Allergies Allergy/AdvReac Type Severity Reaction Status Date / Time clindamycin Allergy Mild Swelling Verified 07/18/20 02:33 Review of Systems Review of Systems: Narrative: CONSTITUTIONAL: Denies fever, chills, or sweats. EYES: Denies visual changes, redness, or discharge. ENT: Denies rhinorrhea, congestion, sore throat, or otalgia. CARDIOVASCULAR: Denies chest pain, palpitations, or edema. RESPIRATORY: Denies cough or dyspnea. GASTROINTESTINAL: Denies abdominal pain, nausea, vomiting, or diarrhea. GENITOURINARY: Denies dysuria or hematuria. SKIN: Denies rash or itching. MUSCULOSKELETAL: Denies back pain and myalgia. Reports right hand pain NEUROLOGIC: Denies headache, numbness, dizziness, or weakness. PSYCHIATRIC: Denies anxiety or depression. All systems reviewed & are unremarkable except as noted in HPI and below (ROS) [facility] Past Medical History Medical History Depression HTN (hypertension) Hypercholesterolemia Kidney stone Migraine Obesity UTI (urinary tract infection) Surgical History Surgical History History of hysterectomy Laparoscopic total hysterectomy with BSO History of laparoscopic appendectomy 08/02/19 Hx of gastric bypass In January of 2019 at [place], current weight loss of 100 pounds since surgery Family History Family History Mother Diabetes mellitus Father , At age 64 Heart disease Acute myocardial infarction Social History Social History (Updated 06/16/20 @ 07:10 by Abida Rea DO) Social History: Primary care provider: Andrews GOLDSMITH Smoking status: Never smoker Alcohol intake: current Drinks per week: 2 Substance use: never Last use: Yesterday had an edible. Additional living arrangements comments: With her they have been together for 22 years and been for 9 years.. They have 4 children. Her oldest child is 22 years old and youngest is 12. Additional occupation/education comments: Works for the [employer]. Currently on short-term disability due to depression. Gender identity (if verbalized by the patient): Female Spiritual care concerns: No Exam Narrative: Exam Narrative: GENERAL: Well-appearing, well-nourished, and in no acute distress. HEAD: Normocephalic, atraumatic. EYES: PERRLA and EOMI. ENT: Nares clear, no rhinorrhea or epistaxis. Mucous membranes moist. NECK: Supple. CHEST: Clear to auscultation. No respiratory distress. HEART: Regular rate and rhythm. No murmur heard. Normal peripheral pulses. ABDOMEN: Soft, nontender, nondistended, normal active bowel sounds. EXTREMITIES: Tenderness to palpation of right fifth MCP joint with swelling. SKIN: Warm, dry, no rash. NEURO: No focal deficits. Alert and oriented x3. PSYCH: Normal mood and affect. Course Course Emergency Course: 300AM -reevaluated patient, no new complai
[2020-07-18 02:45] VITALS: BP 172/127; PULSE 79; RESP 20; O2SAT 82
--- NOTE | 2020-07-18 02:45 | PC.NURSE ---
Manual BP taken on pt after high BP reading on automatic cuff. EDP aware of BP.
[2020-07-18] MEDS: KETOROLAC 15 MG/ML VIAL (*BKC) IM (02:49)
== END 2020-07-18 03:15 | disposition home or self-care (01) ==
PROVIDERS: Emergency Provider Emergency Medicine; PCP Physician Assistant
DX: S63.91XA Sprain of unspecified part of right wrist and hand, initial encounter (principal); I10 Essential (primary) hypertension; E78.00 Pure hypercholesterolemia, unspecified; F32.9 Major depressive disorder, single episode, unspecified; E66.9 Obesity, unspecified; Z68.34 Body mass index [BMI] 34.0-34.9, adult; Z87.440 Personal history of urinary (tract) infections; Z87.442 Personal history of urinary calculi; Z98.84 Bariatric surgery status; W18.39XA Other fall on same level, initial encounter; Y93.K1 Activity, walking an animal
CPT/HCPCS: 73130; 96372; 99283; J1885

== ENCOUNTER 2020-08-24 09:05 | Emergency (ER) | payer OTHER, SELFPAY ==
--- NOTE | ~2020-08-24 | CT_ITS ---
EXAMINATION: CT abdomen pelvis w con DATE: 08/24/2020 11:35 INDICATION: Right lower quadrant pain TECHNIQUE: Computed tomography (CT) of the abdomen and pelvis was performed without intravenous contr ast. The dose-length product was 982.22 mGy-cm. Automated exposure control and iterative reconstructi on technique were employed. COMPARISON: CT dated 06/12/2020. FINDINGS: Lung bases are unremarkable. Cardiomegaly. No significant pleural or pericardial effusion. The liver, spleen, pancreas, adrenal glands and kidneys are unremarkable. There are changes of gastri c bypass surgery. No acute osseous abnormality. Nonobstructive bowel gas pattern. No free air or free fluid. IMPRESSION: 1. No acute abdominal abnormality. Reviewed, dictated and finalized at location A.
[2020-08-24 09:16] VITALS: BP 187/120; PULSE 69; RESP 18; TEMP 36.9; O2SAT 100
[2020-08-24 09:43] LABS: Basophils Percent Auto 0.7 % (0.2-1.2); Eosinophils Absolute Auto 0.2 K/mm3 (0-0.3); Eosinophils Percent Auto 3.9 % (0-4.4); Hematocrit 36.5 % (37.0-47.0); Hemoglobin 11.3 g/dL (12.0-15.0); Immature Granulocyte Absolute 0.02 K/mm3 (0.00-0.031); Immature Granulocyte Percent A 0.3 % (0-0.5); Lymphocytes Absolute Auto 1.75 K/mm3 (0.9-3.2); Lymphocytes Percent Auto 29.4 % (18.3-44.2); Mean Corpuscular Volume 84.1 fl (80-100); Mean Platelet Volume 12.4 fl (7.4-10.4); Monocytes Absolute Auto 0.6 K/mm3 (0.1-0.6); Monocytes Percent Auto 9.9 % (2.6-8.5); Neutrophils Absolute Auto 3.3 K/mm3 (1.3-6.7); Neutrophils Percent Auto 55.8 % (45.5-73.1); Platelet Count Result 200 k/mm3 (150-375); Red Blood Count 4.34 M/mm3 (4.2-5.4); Red Cell Distribution Width 16.1 % (11.5-14.5)
[2020-08-24 09:52] LABS: Alanine Aminotransferase 30 U/L (4-35); Albumin Level 4.3 g/dL (3.5-5.1); Alkaline Phosphatase 88 U/L (38-126); Anion Gap 9 mmol/L (8-16); Aspartate Amino Transferase 33 U/L (14-36); Bilirubin,Total 0.3 mg/dL (0.2-1.3); Blood Urea Nitrogen 11 mg/dL (7-17); Calcium 9.1 mg/dL (8.4-10.2); Carbon Dioxide 27 mmol/L (22-30); Chloride 106 mmol/L (98-107); Estimated CRCL calculation 123 ml/min; Estimated Glomerular Filt Rate > 60; Glucose 90 mg/dL (65-105); Lipase 33 U/L (23-300); Potassium 3.9 mmol/L (3.4-5.0); Sodium 142 mmol/L (137-145)
[2020-08-24 09:54] LABS: Add Urine Microscopic? YES; Appearance Urine Clear (Clear); Bilirubin Urine Negative (Negative); Blood Urine Negative (Negative); Color Urine Yellow (Yellow); Glucose Urine UA Negative (Negative); Ketones Urine Negative (Negative); Leukocyte Esterase Ur Negative LEU/UL (Negative); Mucus Urine Few /lpf; Nitrate Urine Negative (Negative); Protein Urine 1+ mg/dL (Negative); RBC Urine 0-2 /hpf (0-2); Specific Grav Ur 1.027 (1.001-1.035); Squamous Epithelial Cell Urine Few /hpf (Few); WBC Urine 0-3 /hpf
[2020-08-24] MEDS: PANTOPRAZOLE SODIUM IV 40 MG VIAL IV PUSH (10:49)
--- NOTE | 2020-08-24 12:06 | ED.GENADULT ---
HPI - General Adult General Chief complaint: Abdominal Pain <VITA Mendez Last Filed: 08/24/20 12:10> Stated complaint: abdominal pain <VITA Mendez Last Filed: 08/24/20 12:10> Time Seen by Provider: 08/24/20 10:14 <VITA Mendez Last Filed: 08/24/20 12:10> Source: patient and RN notes reviewed <VITA Mendez Last Filed: 08/24/20 12:10> Mode of arrival: ambulatory <VITA Mendez Last Filed: 08/24/20 12:10> Limitations: no limitations <VITA Mendez Last Filed: 08/24/20 12:10> History of Present Illness HPI narrative: Patient is a 39-year-old female who presents with right lower abdominal pain that is been present now for the last week off and on patient is unsure as to the etiology of this pain patient had recent appendectomy a few months ago patient denies any vomiting urinary bowel changes or vaginal complaints patient has not taken anything for symptoms presents in no distress does not appear to come <VITA Mendez Last Filed: 08/24/20 12:10> Related Data Home medications: Home Medications Medication Instructions Recorded Confirmed amlodipine 5 mg PO DAILY 04/02/20 06/15/20 ferrous sulfate 325 mg PO DAILY 04/02/20 06/15/20 fluoxetine 40 mg PO DAILY 04/02/20 06/15/20 calcium carbonate-vitamin D3 1 tablet PO DAILY 06/15/20 06/15/20 [Calcium 600 + D(3)] <VITA Mendez Last Filed: 08/24/20 12:10> Allergies/adverse reactions: Allergies Allergy/AdvReac Type Severity Reaction Status Date / Time clindamycin Allergy Mild Swelling Verified 08/24/20 09:31 <VITA Mendez Last Filed: 08/24/20 12:10> Review of Systems Review of Systems: All systems reviewed & are unremarkable except as noted in HPI and below <VITA Mendez Last Filed: 08/24/20 12:10> PMFSH Past Medical History Medical History: Medical History Depression HTN (hypertension) Hypercholesterolemia Kidney stone Migraine Obesity UTI (urinary tract infection) <Balaji Lynn PA-C - Last Filed: 08/24/20 12:10> Surgical History Surgical History: Surgical History History of hysterectomy Laparoscopic total hysterectomy with BSO History of laparoscopic appendectomy 08/02/19 Hx of gastric bypass In January of 2019 at [place], current weight loss of 100 pounds since surgery <Balaji Lynn PA-C - Last Filed: 08/24/20 12:10> Family History Family History: Family History Mother Diabetes mellitus Father , At age 64 Heart disease Acute myocardial infarction <Balaji Lynn PA-C - Last Filed: 08/24/20 12:10> Social History Social History: Social History Social History: Primary care provider: Andrews GOLDSMITH Smoking status: Never smoker Alcohol intake: current Drinks per week: 2 Substance use: never Last use: Yesterday had an edible. Additional living arrangements comments: With her they have been together for 22 years and been for 9 years.. They have 4 children. Her oldest child is 22 years old and youngest is 12. Additional occupation/education comments: Works for the [employer]. Currently on short-term disability due to depression. Gender identity (if verbalized by the patient): Female Spiritual care concerns: No <Balaji Lynn PA-C - Last Filed: 08/24/20 12:10> Exam Narrative: Exam Narrative: GENERAL: Well-appearing, well-nourished, and in no acute distress. HEAD: Normocephalic, atraumatic. EYES: PERRLA and EOMI. ENT: Nares clear, no rhinorrhea or epistaxis. Mucous membranes moist. CHEST: Clear to auscultation. No respiratory distress. No wheezes rales or r
[2020-08-24 12:20] VITALS: BP 175/90; PULSE 70; RESP 17; O2SAT 100
== END 2020-08-24 12:21 | disposition home or self-care (01) ==
PROVIDERS: Emergency Provider General Practice; PCP Physician Assistant
DX: R10.31 Right lower quadrant pain (principal); I10 Essential (primary) hypertension; E78.00 Pure hypercholesterolemia, unspecified; Z87.442 Personal history of urinary calculi; Z87.440 Personal history of urinary (tract) infections; E66.9 Obesity, unspecified; Z68.35 Body mass index [BMI] 35.0-35.9, adult; Z98.84 Bariatric surgery status; F32.9 Major depressive disorder, single episode, unspecified
CPT/HCPCS: 36415; 74177; 80053; 81001; 83690; 85025; 96365; 96375; 99284; C9113; J0131; Q9967

== ENCOUNTER 2020-09-18 02:01 | Observation (INO) | payer OTHER, SELFPAY ==
[2020-09-18] VITALS (22 sets, daily range): BP systolic 130–194; BP diastolic 69–132; PULSE 52–86; RESP 8–20; TEMP 35.8–37.3; O2SAT 94–100; BMI 33.7
--- NOTE | ~2020-09-18 | XR_ITS ---
XR retrograde pyelo w/stent RT DATE: 09/18/2020 11:46 INDICATION: Right stent placement TECHNIQUE: 14.9 seconds fluoroscopy time 255.39 radcm2 COMPARISON: None FINDINGS: Cystoscopic placement of guidewire and subsequently stent in right ureter and kidney. There is contrast material in the colonic lumen. IMPRESSION: Right internal urinary stent placement Reviewed, dictated and finalized at [facility]. Reviewed, dictated and finalized at location A.
--- NOTE | ~2020-09-18 | CT_ITS ---
EXAMINATION: CT abdomen pelvis w con INDICATION: Abdominal pain TECHNIQUE: Computed tomographic images of the abdomen and pelvis were obtained after the administrati on of 100 cc of Omnipaque 350 intravenous contrast. The dose-length product (DLP) was 1206.98 mGy-cm. Automated exposure control and iterative reconstruction technique were employed. COMPARISON: 08/24/2020 FINDINGS: Minimal dependent atelectasis is present in the lung bases. The heart size is normal. Carl es of gastric bypass surgery are noted. The liver, spleen, pancreas, gallbladder, and right adrenal g land are normal. There is a stable 12 mm adenoma of the left adrenal There is a 2 mm cyst in the left kidney. An 8 mm stone is present at the right ureterovesicular junction which causes moderate right hydroureteronephrosis. There is decreased perfusion of the right kidney compared to the left. No path ologically enlarged abdominal or pelvic lymph nodes are identified. There is no free intraperitoneal gas or evidence of bowel obstruction. Enteric contrast material opacifies the large and small bowel. There is mild lumbar spondylosis. IMPRESSION: 1. 8 mm stone at the right ureterovesicular junction causing moderate right hydroureteronephrosis Reviewed, dictated and finalized at location B. IMPRESSION: 1. 8 mm stone at the right ureterovesicular junction causing moderate right hyd roureteronephrosis
--- NOTE | 2020-09-18 02:22 | PC.NURSE ---
Pt has had hysterectomy, bedside test not required.
[2020-09-18 02:34] LABS: Basophils Percent Auto 0.6 % (0.2-1.2); Eosinophils Absolute Auto 0.2 K/mm3 (0-0.3); Eosinophils Percent Auto 2.6 % (0-4.4); Hematocrit 38.6 % (37.0-47.0); Immature Granulocyte Absolute 0.01 K/mm3 (0.00-0.031); Immature Granulocyte Percent A 0.1 % (0-0.5); Lymphocytes Absolute Auto 1.66 K/mm3 (0.9-3.2); Lymphocytes Percent Auto 23.9 % (18.3-44.2); Mean Corpuscular HGB Conc 31.1 g/dl (32-36); Mean Corpuscular Hemoglobin 25.8 pg (26-34); Mean Platelet Volume 11.9 fl (7.4-10.4); Monocytes Absolute Auto 0.7 K/mm3 (0.1-0.6); Monocytes Percent Auto 9.8 % (2.6-8.5); Neutrophils Absolute Auto 4.4 K/mm3 (1.3-6.7); Platelet Count Result 179 k/mm3 (150-375); Red Blood Count 4.65 M/mm3 (4.2-5.4); Red Cell Distribution Width 15.3 % (11.5-14.5)
[2020-09-18 02:36] LABS: Add Urine Microscopic? NO; Appearance Urine Clear (Clear); Bilirubin Urine Negative (Negative); Blood Urine Negative (Negative); Color Urine Colorless (Yellow); Glucose Urine UA Negative (Negative); Ketones Urine Negative (Negative); Leukocyte Esterase Ur Negative LEU/UL (Negative); Nitrate Urine Negative (Negative); Protein Urine Negative (Negative); Specific Grav Ur 1.012 (1.001-1.035); Urobilinogen Urine Negative mg/dL (<2.0)
[2020-09-18 02:45] LABS: Alanine Aminotransferase 37 U/L (4-35); Albumin Level 4.4 g/dL (3.5-5.1); Alkaline Phosphatase 108 U/L (38-126); Anion Gap 9 mmol/L (8-16); Aspartate Amino Transferase 30 U/L (14-36); Bilirubin,Total 0.3 mg/dL (0.2-1.3); Blood Urea Nitrogen 14 mg/dL (7-17); Calcium 9.1 mg/dL (8.4-10.2); Carbon Dioxide 28 mmol/L (22-30); Chloride 101 mmol/L (98-107); Estimated CRCL calculation 84 ml/min; Estimated Glomerular Filt Rate > 60; Glucose 96 mg/dL (65-110); Lipase 65 U/L (23-300); Potassium 3.4 mmol/L (3.4-5.0); Sodium 138 mmol/L (137-145)
--- NOTE | 2020-09-18 02:47 | ED.GENADULT ---
HPI - General Adult General Chief complaint: Abdominal Pain Stated complaint: abd pain Time Seen by Provider: 09/18/20 02:24 History of Present Illness HPI narrative: Patient 39-year-old female presents the emergency department chief complaint of abdominal pain. Patient reports that she has been having some discomfort in the right side of her abdomen reports that it is sharp reports that she is also had increasing urinary frequency. The patient denies nausea vomiting reports that she noticed her stool has been somewhat different color and almost orange in color. Patient denies blood in her stool denies fever. The patient reports that she has had a prior history of a gastric bypass Related Data Home Medications Medication Instructions Recorded Confirmed amlodipine 5 mg PO DAILY 04/02/20 06/15/20 ferrous sulfate 325 mg PO DAILY 04/02/20 06/15/20 fluoxetine 40 mg PO DAILY 04/02/20 06/15/20 calcium carbonate-vitamin D3 1 tablet PO DAILY 06/15/20 06/15/20 [Calcium 600 + D(3)] gentamicin drp 09/18/20 omeprazole 09/18/20 09/18/20 Allergies Allergy/AdvReac Type Severity Reaction Status Date / Time clindamycin Allergy Mild Swelling Verified 09/18/20 02:18 Review of Systems Review of Systems: Narrative: A 10 system review of systems was completed on the patient and is negative except for what is stated in the HPI. Nursing and ancillary documentation was reviewed. [facility] Past Medical History Medical History Depression HTN (hypertension) Hypercholesterolemia Kidney stone Migraine Obesity UTI (urinary tract infection) Surgical History Surgical History History of hysterectomy Laparoscopic total hysterectomy with BSO History of laparoscopic appendectomy 08/02/19 Hx of gastric bypass In January of 2019 at [place], current weight loss of 100 pounds since surgery Family History Family History Mother Diabetes mellitus Father , At age 64 Heart disease Acute myocardial infarction Social History Social History Social History: Primary care provider: Andrews GOLDSMITH Smoking status: Never smoker Alcohol intake: current Drinks per week: 2 Alcohol use details: She reports that since her father's last year she has been drinking more alcohol. She was drinking 2-3 alcoholic beverages a night. She has cut back down to 2 drinks a week over the last couple of months. Substance use: never Last use: Yesterday had an edible. Additional living arrangements comments: With her they have been together for 22 years and been for 9 years.. They have 4 children. Her oldest child is 22 years old and youngest is 12. Additional occupation/education comments: Works for the [employer]. Currently on short-term disability due to depression. Gender identity (if verbalized by the patient): Female Spiritual care concerns: No Exam Narrative: Exam Narrative: GENERAL: Well-appearing, well-nourished, and in no acute distress. HEAD: Normocephalic, atraumatic. EYES: PERRLA and EOMI. ENT: Nares clear, no rhinorrhea or epistaxis. Mucous membranes moist. NECK: Supple. CHEST: Clear to auscultation. No respiratory distress. HEART: Regular rate and rhythm. No murmur heard. Normal peripheral pulses. ABDOMEN: Soft, tenderness to palpation in the right lower quadrant, nondistended, normal active bowel sounds. EXTREMITIES: Normal range of motion. No edema. SKIN: Warm, dry, no rash. NEURO: No focal deficits. Alert and oriented x3. PSYCH: Normal mood and affect. Course Vital Signs Vital signs: Vital Signs Temperature 36.6 C 09/18/20 02:02 Pulse Rate 79 09/18/20 02:02 Respiratory Rate 18 09/18/20 02:02 Blood Pressure
[2020-09-18] MEDS: SODIUM CHLORIDE 0.9% IV 1,000 ML 999 ML IV CONT ×2 (02:56→05:23)
[2020-09-18] MEDS: ONDANSETRON INJ 4 MG/2 ML VIAL IV PUSH (02:58)
[2020-09-18] MEDS: DICYCLOMINE HCL INJ 20 MG/2 ML VIAL IM (02:58)
[2020-09-18 03:02] LABS: Alanine Aminotransferase 34 U/L (4-35); Albumin Level 4.2 g/dL (3.5-5.1); Alkaline Phosphatase 106 U/L (38-126); Anion Gap 10 mmol/L (8-16); Aspartate Amino Transferase 29 U/L (14-36); Bilirubin,Total 0.4 mg/dL (0.2-1.3); Blood Urea Nitrogen 15 mg/dL (7-17); Calcium 8.8 mg/dL (8.4-10.2); Carbon Dioxide 25 mmol/L (22-30); Chloride 102 mmol/L (98-107); Estimated CRCL calculation 93 ml/min; Estimated Glomerular Filt Rate > 60; Glucose 96 mg/dL (65-110); Lactic Acid Reflex 0.9 mmol/L (0.7-2.1); Lipase 57 U/L (23-300); Potassium 3.3 mmol/L (3.4-5.0); Sodium 137 mmol/L (137-145)
--- NOTE | 2020-09-18 03:30 | PC.NURSE ---
Pt to imaging at this time
--- NOTE | 2020-09-18 04:04 | PC.NURSE ---
Dr. Akers aware of elevated BP.
[2020-09-18] MEDS: MORPHINE SULFATE (*CRX) 4 MG/ML INJ IV PUSH (04:24)
[2020-09-18] MEDS: HYDROmorphone HCL INJ (*CRX) 1 MG/ML SYR IV PUSH ×2 (05:09→05:38)
--- NOTE | 2020-09-18 06:51 | PC.NURSE ---
Unit unable to take report at this time. Will call ED back for report.
--- NOTE | 2020-09-18 07:08 | PM.IMHP ---
H&P: HPI History of Present Illness Date/Time: 09/18/20 07:08 Pleasant 39-year-old female whose had urolithiasis in the past, requiring endoscopic extraction on at least 1 prior occasion. She has a history of gastric bypass which puts her at risk for urolithiasis. She presents to the ER with acute right flank pain, nausea vomiting but no fevers chills or gross hematuria. Imaging demonstrates a 7 day mm obstructing right distal ureteral calculus. Discussion of options she elects for admission with endoscopic extraction later today. She is aware the risks, including but not limited to, adverse cardiopulmonary events, postoperative infection, need for stent placement, ureteral injury. Chief Complaint: Right flank pain Review of Systems Cardiovascular: Cardiovascular: Denies chest pain, Denies lightheadedness, Denies palpitations and Denies dyspnea Respiratory: Respiratory: Denies dyspnea Gastrointestinal: Gastrointestinal: Denies diarrhea, Denies nausea and Denies vomiting Genitourinary: Genitourinary: Denies hematuria and Denies dysuria Endocrine: Endocrine: Denies palpitations PMFSH Past Medical History Medical History Depression HTN (hypertension) Hypercholesterolemia Kidney stone Migraine Obesity UTI (urinary tract infection) Surgical History Surgical History History of hysterectomy Laparoscopic total hysterectomy with BSO History of laparoscopic appendectomy 08/02/19 Hx of gastric bypass In January of 2019 at [place], current weight loss of 100 pounds since surgery Family History Family History Mother Diabetes mellitus Father , At age 64 Heart disease Acute myocardial infarction Social History Social History Social History: Primary care provider: Andrews GOLDSMITH Smoking status: Never smoker Alcohol intake: current Drinks per week: 2 Alcohol use details: She reports that since her father's last year she has been drinking more alcohol. She was drinking 2-3 alcoholic beverages a night. She has cut back down to 2 drinks a week over the last couple of months. Substance use: never Last use: Yesterday had an edible. Additional living arrangements comments: With her they have been together for 22 years and been for 9 years.. They have 4 children. Her oldest child is 22 years old and youngest is 12. Additional occupation/education comments: Works for the [employer]. Currently on short-term disability due to depression. Gender identity (if verbalized by the patient): Female Spiritual care concerns: No Meds Home Medications and Allergies Home Medications Medication Instructions Recorded Confirmed Type amlodipine 5 mg PO DAILY 04/02/20 06/15/20 History ferrous sulfate 325 mg PO DAILY 04/02/20 06/15/20 History fluoxetine 40 mg PO DAILY 04/02/20 06/15/20 History calcium carbonate-vitamin D3 1 tablet PO DAILY 06/15/20 06/15/20 History [Calcium 600 + D(3)] ascorbic acid (vitamin C) [Vitamin 500 mg PO DAILY #30 tablet 06/25/20 Rx C] cholecalciferol (vitamin D3) 1,000 unit PO DAILY #30 tablet 06/25/20 Rx [Vitamin D3] zinc sulfate 220 mg PO QAM #30 cap 06/25/20 Rx ondansetron 4 mg PO Q8H PRN #7 tablet 08/24/20 Rx gentamicin drp 09/18/20 History omeprazole 09/18/20 09/18/20 History Allergies Allergy/AdvReac Type Severity Reaction Status Date / Time clindamycin Allergy Mild Swelling Verified 09/18/20 02:18 Vital Signs Vital Signs - 24 hr 09/18/20 02:02 09/18/20 03:18 09/18/20 04:00 Temperature 97.9 F Pulse Rate 79 69 Respiratory Rate 18 19 Blood Pressure 157/127 H 194/122 H 184/132 H Pulse Oximetry 100 100 09/18/20 04:32 09/18/20 05:26 09/18/20 05:32 Temperature Pul
--- NOTE | 2020-09-18 07:49 | ADMGEN ---
This patient, Trish Haro, was admitted to 2 Medical Room 251-01. Patient/family oriented to hospital policies and general routines including ID bracelet, bed and alarms, visiting hours, pain management, procedures, bathroom and other care routines, personal items, smoking policy, room service/diet, and visiting hours. Information on how to activate the Rapid Response Team has been discussed. Patient/Family are encouraged to report perceived risks to care and to ask questions if they do not understand what they are told or what they should do.
[2020-09-18] MEDS: SODIUM CHLORIDE 0.9% IV 1,000 ML 125 ML IV CONT ×3 (08:14→23:20)
[2020-09-18] MEDS: LACTATED RINGERS 1,000 ML 30 ML IV CONT (10:30)
--- NOTE | 2020-09-18 10:45 | WPDANESEPPF ---
Anes - Initial Pre Proc Eval Procedure: Operation Date: 09/18/20 17:30 Proposed Procedures p Cystoscopy, Right Ureteroscopy, Possible Right Retrograde Pyelogram, Possible Right Stone Extraction, Possible Right Stent Placement, - Ignacio Campos MD s Possible Holmium Laser Procedure - Ignacio Campos MD Date/Time: 09/18/20 10:45 Surgeon: Ignacio Campos MD Pre Op Diagnosis: ureterolithiasis Patient Data Age: 39 Gender: F Height: 1.65 m Weight: 94.2 kg Last Vital Signs Temp 36.6 C 09/18/20 02:02 Pulse 65 09/18/20 07:35 Resp 18 09/18/20 07:35 BP 170/115 H 09/18/20 07:35 Pulse Ox 98 09/18/20 07:35 Allergies Allergy/AdvReac Type Severity Reaction Status Date / Time clindamycin Allergy Mild Swelling Verified 09/18/20 07:51 NSAIDS (Non-Steroidal AdvReac Unknown Verified 09/18/20 07:51 Anti-Inflamma Home Medications Medication Instructions Recorded Confirmed Type amlodipine 5 mg PO DAILY 04/02/20 09/18/20 History ferrous sulfate 325 mg PO DAILY 04/02/20 09/18/20 History fluoxetine 40 mg PO DAILY 04/02/20 09/18/20 History ascorbic acid (vitamin C) [Vitamin 500 mg PO DAILY #30 tablet 06/25/20 09/18/20 Rx C] zinc sulfate 220 mg PO QAM #30 cap 06/25/20 09/18/20 Rx cholecalciferol (vitamin D3) 1,000 unit PO WEEKLY 09/18/20 09/18/20 History [Vitamin D3] losartan 100 mg PO DAILY 09/18/20 09/18/20 History Laboratory Tests 09/18/20 09/18/20 09/18/20 02:23 02:23 02:23 WBC 7.0 K/mm3 K/mm3 (4.5-10.0) RBC 4.65 M/mm3 M/mm3 (4.2-5.4) Hgb 12.0 g/dL g/dL (12.0-15.0) Hct 38.6 % % (37.0-47.0) MCV 83.0 fl fl (80-100) MCH 25.8 pg L pg (26-34) MCHC 31.1 g/dl L g/dl (32-36) RDW 15.3 % H % (11.5-14.5) Plt Count 179 k/mm3 k/mm3 (150-375) MPV 11.9 fl H fl (7.4-10.4) Immature Gran % (Auto) 0.1 % % (0-0.5) Neut % (Auto) 63.0 % % (45.5-73.1) Lymph % (Auto) 23.9 % % (18.3-44.2) [place]lin % (Auto) 9.8 % H % (2.6-8.5) Eos % (Auto) 2.6 % % (0-4.4) Baso % (Auto) 0.6 % % (0.2-1.2) Lymph # (Auto) 1.66 K/mm3 K/mm3 (0.9-3.2) Collin # (Auto) 0.7 K/mm3 H K/mm3 (0.1-0.6) Eos # (Auto) 0.2 K/mm3 K/mm3 (0-0.3) Baso # (Auto) 0.0 K/mm3 K/mm3 (0.0-0.1) Abs Immat Gran (auto) 0.01 K/mm3 K/mm3 (0.00-0.031) Absolute Neuts (auto) 4.4 K/mm3 K/mm3 (1.3-6.7) Absolute Nucleated RBC 0.0 K/mm3 K/mm3 (0.0-0.012) Nucleated RBC % 0.0 % % (0.0-0.2) % Immature Plt Fraction Sodium 138 mmol/L mmol/L (137-145) Potassium 3.4 mmol/L mmol/L (3.4-5.0) Chloride 101 mmol/L mmol/L (98-107) Carbon Dioxide 28 mmol/L mmol/L (22-30) Anion Gap 9 mmol/L mmol/L (8-16) BUN 14 mg/dL mg/dL (7-17) Creatinine 0.90 mg/dL mg/dL (0.7-1.0) Estim Creat Clear Calc 84 ml/min ml/min Estimated GFR > 60 (59 - ) Glucose 96 mg/dL mg/dL (65-110) Lactic Acid Calcium 9.1 mg/dL mg/dL (8.4-10.2) Total Bilirubin 0.3 mg/dL mg/dL (0.2-1.3) AST 30 U/L U/L (14-36) ALT 37 U/L H U/L (4-35) Alkaline Phosphatase 108 U/L U/L (38-126) Total Protein 8.0 g/dL g/dL (6.3-8.2) Albumin 4.4 g/dL g/dL (3.5-5.1) Lipase 65 U/L U/L (23-300) Urine Color Colorless (Yellow) Urine Appearance Clear (Clear) Urine pH 7.0 (5.0-9.0) Ur Specific [place] 1.012 (1.001-1.035) Urine Protein Negative mg/dL mg/dL (Negative) Urine Glucose (UA) Negative mg/dL mg/dL (Negative) Urine Ketones Negative mg/dL mg/dL (Negative) Ur Blood (Man) Negative (Negative) Urine Nitrate Negative (Negative
--- NOTE | 2020-09-18 10:59 | WPDHPUPDATE1 ---
History and Physical Update Update Date/Time: 09/18/20 10:59 History and Physical has been reviewed, including an updated exam of the patient. There are NO changes in the patient's condition. Risks, benefits, and alternatives have been discussed and questions answered. Patient agrees to proceed with procedure.
[2020-09-18] MEDS: ceFAZolin 2 GM/D5W 50 ML 2 GM/50 ML BAG IVPB (11:13)
--- NOTE | 2020-09-18 11:42 | W.PM.PROC2 ---
Procedure Note - Detailed Date of Procedure 09/18/20 Pre-op Diagnosis Right ureteral stone Post-op Diagnosis same Procedure Performed Cystoscopy, right ureteroscopy, laser lithotripsy with stone extraction and right ureteral stent placement Surgeon Ignacio Campos MD Environmental Director None Anesthesia general Description of Procedure The patient was brought to the operative suite where she is prepped and draped in a routine sterile fashion while in the dorsal lithotomy position after the uneventful induction of a general LMA anesthetic. A 19F rigid cystoscope was placed in the bladder. The patient had no evidence of urethral stricture or bladder neck contracture. The bladder mucosa was endoscopically normal without hyperemia or neoplasm. There was a single, orthotopic ureteral orifice bilaterally. A 0.035 glidewire was advanced into the right renal pelvis under fluoroscopy. The distal ureter was dilated with an 8F/10F ureteral dilator. Ureteroscopy was undertaken with a short tapered semi-rigid ureteroscope. With ureteroscopy I fractured the stone into smaller pieces using a 273micron Holmium laser fiber with the Holmium laser. I was able to then extract the stone pieces using a 1.9F Escape disposable stone basket. Due to the extent of this manipulation I did place a 4.8F double-J ureteral stent. The proximal coil of the stent was confirmed to be in the renal pelvis and the distal coil in the bladder. The patient's bladder was emptied and he was taken to the recovery room having tolerated this procedure well. Drains Yes Packing No Pathology yes Complications No immediate complications Condition stable Disposition PACU
[2020-09-18] MEDS: LOSARTAN POTASSIUM 100 MG TABLET PO (16:24)
[2020-09-18] MEDS: FLUoxetine HCL 20 MG CAPSULE 40 MG PO (16:24)
[2020-09-18] MEDS: FERROUS SULFATE 324 MG TABLET PO (16:24)
[2020-09-18] MEDS: amLODIPine BESYLATE 5 MG TABLET PO (16:24)
[2020-09-19 05:07] VITALS: BP 144/98; PULSE 68; RESP 16; TEMP 36.1; O2SAT 99
--- NOTE | 2020-09-19 06:15 | WPDUROPN2 ---
Progress Note: A&P Assessment and Plan (1) Right ureteral stone: Code(s): N20.1 - Calculus of ureter Status: Acute Assessment and Plan: Doing well following endoscopic extraction of right ureteral stone Discharged today with follow-up in 1 week for stent removal Subjective Subjective Date/Time Seen: 09/19/20 06:15 Comfortable, tolerating diet Review of Systems Cardiovascular: Cardiovascular: Denies chest pain, Denies lightheadedness, Denies palpitations and Denies dyspnea Respiratory: Respiratory: Denies dyspnea Gastrointestinal: Gastrointestinal: Denies diarrhea, Denies nausea and Denies vomiting Genitourinary: Genitourinary: Denies hematuria and Denies dysuria Endocrine: Endocrine: Denies palpitations Exam Const: General: no acute distress Resp: Effort & Inspection: normal respiratory effort GI: Inspection: non-distended GI Palp: No abdominal tenderness and No Guarding due to palpation present (GI) Auscultation: normal bowel sounds Objective Data Vital Signs Vital Signs: Vital Signs - 24 hr 09/18/20 07:35 09/18/20 08:00 09/18/20 10:15 Temperature 97.2 F L 97.0 F L Pulse Rate 65 62 56 L Respiratory Rate 18 16 16 Blood Pressure 170/115 H 179/106 H 164/106 H Pulse Oximetry 98 100 100 09/18/20 11:49 09/18/20 12:00 09/18/20 12:15 Temperature 97.1 F L Pulse Rate 59 L 54 L 56 L Respiratory Rate 13 16 16 Blood Pressure 130/97 H 162/105 H 162/104 H Pulse Oximetry 100 100 96 09/18/20 12:30 09/18/20 12:45 09/18/20 13:00 Temperature Pulse Rate 56 L 53 L 54 L Respiratory Rate 15 18 19 Blood Pressure 152/98 H 165/109 H 154/103 H Pulse Oximetry 96 96 94 09/18/20 13:15 09/18/20 13:40 09/18/20 13:55 Temperature 96.9 F L 96.9 F L Pulse Rate 52 L 60 59 L Respiratory Rate 16 16 16 Blood Pressure 166/98 H 180/106 H 162/106 H Pulse Oximetry 94 94 94 09/18/20 14:15 09/18/20 15:15 09/18/20 21:28 Temperature 96.6 F L 96.4 F L 99.1 F Pulse Rate 57 L 86 66 Respiratory Rate 17 17 16 Blood Pressure 158/97 H 152/69 H 145/97 H Pulse Oximetry 97 100 96 09/19/20 05:07 Temperature 97.0 F L Pulse Rate 68 Respiratory Rate 16 Blood Pressure 144/98 H Pulse Oximetry 99 Intake/Output Intake/Output: Intake & Output 09/16/20 09/17/20 09/18/20 09/19/20 23:59 23:59 23:59 23:59 Intake Total 4580 300 Output Total 500 1000 Balance 4080 -700 Meds/Results Medications: Active Medications Generic Name Dose Route Start Last Admin Trade Name Freq PRN Reason Stop Dose Admin Amlodipine Besylate 5 mg 09/19/20 09:00 Amlodipine Besylate 5 Mg Tablet PO DAILY [facility] Fentanyl Citrate 25 mcg 09/18/20 16:57 Fentanyl Citrate Inj (*Crx) 100 Mcg/2 Ml Vial IV PUSH Q2M PRN Pain Ferrous Sulfate 324 mg 09/19/20 09:00 Ferrous Sulfate 324 Mg Tablet PO DAILY [facility] Fluoxetine HCl 40 mg 09/19/20 09:00 Fluoxetine Hcl 20 Mg Capsule PO DAILY [facility] Hydromorphone HCl 1 mg 09/18/20 06:29 Hydromorphone Hcl Inj (*Crx) 1 Mg/Ml Syr IV PUSH Q4H PRN Pain Rated 7-10 Hydromorphone HCl 0.25 mg 09/18/20 16:57 Hydromorphone Hcl Inj (*Crx) 1 Mg/Ml Syr IV PUSH Q5M PRN Pain Sodium Chloride 1,000 mls @ 125 mls/hr 09/18/20 06:30 09/18/20 23:20 Normal Saline Iv IV CONT 125 mls/hr .Q8H [place] Administration Lactated Ringer's 1,000 mls @ 30 mls/hr 09/18/20 17:00 Lr - Lactated Ringers Iv IV CONT .Q24H [facility] Losartan Potassium 100 mg 09/19/20 09:00 Losartan Potassium 100 Mg Tablet PO DAILY [facility] Ondansetron HCl 4 mg 09/18/20 06:29 Ondansetron Inj 4 Mg/2 Ml Vial IV PUSH Q4H PRN Nausea Ondansetron HCl 4 mg 09/18/20 16:57 Ondansetron Inj 4 Mg/2 Ml Vial IV PUSH ONCE PRN Nausea Oxycodone HCl 5 mg 09/18/20 16:57 Oxycodone Hcl (*Crx) 5 Mg Tab Ir PO ONCE PRN Pain Radiology Results: ITS Impressions Abdomen/Pelvis CT 09/18/20 08:13 IMPRESSION
--- NOTE | 2020-09-19 06:18 | PM.DS ---
DS: Admitting Diagnosis Admitting Diagnosis right ureteral stone DS: Discharge Diagnosis Discharge Diagnosis (1) Right ureteral stone: Code(s): N20.1 - Calculus of ureter Status: Acute DS: Summary Hospital Course Hospital Course: Patient was admitted to the ER with a painful, obstructing right distal ureteral calculus. That morning she underwent endoscopic extraction with stent placement. Thereafter she tolerated a diet and ambulating. She will be discharged with plans follow-up in 1 week for stent removal Time Spent with Patient Time attestation: Total time spent providing and/or coordinating discharge services: 20 min Exam Const: General: no acute distress Resp: Effort & Inspection: normal respiratory effort GI: Inspection: non-distended GI Palp: No abdominal tenderness and No Guarding due to palpation present (GI) Auscultation: normal bowel sounds DS: Data Data Completed and Pending Pending studies at discharge: Pending at discharge 09/18/20 11:45 Surgical [PTH] Routine Discharge Plan Discharge Attending physician on discharge: Ignacio Campos Discharging Clinician: Ignacio Campos Patient Disposition: Home, Self-Care Activity: as tolerated Diet: as tolerated Discharge Instructions: 1) Activity: no driving or important decisions x24 hours. 2) Diet: resume your normal, pre-admission diet. 3) Follow-up: 1-week for stent removal / call for appointment time ([phone]). 4) Office fax for paperwork from her employer: [phone]. 5) Return to work Tuesday09/29/20. Patient Instructions: Antibiotic Form Stand Alone Forms: General Discharge Information Follow-up/Referrals: Ignacio Campos MD [Physician] - Discharge Medications: New hydrocodone-acetaminophen 5-325 mg tablet 1 - 2 tablet PO Q6H PRN (Reason: pain) Qty: 20 RF: 0 cephalexin 500 mg capsule 500 mg PO Q8H Qty: 9 RF: 0 Continued fluoxetine 40 mg capsule 40 mg PO DAILY RF: 0 amlodipine 5 mg tablet 5 mg PO DAILY RF: 0 ferrous sulfate 325 mg (65 mg iron) tablet 325 mg PO DAILY RF: 0 ascorbic acid (vitamin C) [Vitamin C] 500 mg Tablet 500 mg PO DAILY Qty: 30 RF: 0 zinc sulfate 50 mg zinc (220 mg) Capsule 220 mg PO QAM Qty: 30 RF: 0 losartan 100 mg tablet 100 mg PO DAILY RF: 0 cholecalciferol (vitamin D3) [Vitamin D3] 25 mcg (1,000 unit) tablet 1,000 unit PO WEEKLY RF: 0 Date of admission: 09/18/20 06:29 Primary Care Provider: Ezekiel,Sai Turcios Admitting Provider: Ignacio Campos Attending physician on admission: Ignacio Campos Condition: Stable
[2020-09-19] MEDS: SODIUM CHLORIDE 0.9% IV 1,000 ML 125 ML IV CONT (07:40)
[2020-09-19] MEDS: amLODIPine BESYLATE 5 MG TABLET PO (07:59)
[2020-09-19] MEDS: FERROUS SULFATE 324 MG TABLET PO (07:59)
[2020-09-19] MEDS: FLUoxetine HCL 20 MG CAPSULE 40 MG PO (08:00)
[2020-09-19] MEDS: LOSARTAN POTASSIUM 100 MG TABLET PO (08:00)
== END 2020-09-19 11:27 | disposition home or self-care (01) ==
LOC: ANHED 06:29 → ANH2MED 06:39
PROVIDERS: Admitting Provider Urology; Emergency Provider Emergency Medicine; PCP Physician Assistant; Visit Provider Urology
PROC: (CPT 52352; principal; 2020-09-18 17:30)
PROC: (CPT 52356; 2020-09-18 17:30)
DX: N13.2 Hydronephrosis with renal and ureteral calculous obstruction (principal); I10 Essential (primary) hypertension; E78.00 Pure hypercholesterolemia, unspecified; E66.9 Obesity, unspecified; G43.909 Migraine, unspecified, not intractable, without status migrainosus; F32.9 Major depressive disorder, single episode, unspecified; Z98.84 Bariatric surgery status; Z90.710 Acquired absence of both cervix and uterus
CPT/HCPCS: 52356; 36415; 74177; 74420; 80053; 81003; 82365; 83605; 83690; 85025; 88300; 96361; 96372; 96375; 99285; A9270; C1769; C2617; G0378; G0379; J0500; J0690; J1100; J1170; J2250; J2270; J2405; J2704; J7030; J7120; Q9967

== ENCOUNTER 2020-12-15 09:56 | Emergency (ER) | payer OTHER, SELFPAY ==
--- NOTE | ~2020-12-15 | XR_ITS ---
EXAMINATION: XR chest 2V DATE: 12/15/2020 10:37 INDICATION: Chest congestion. TECHNIQUE: Frontal and lateral views of the chest were obtained. COMPARISON: Chest single view 06/21/2020, CT abdomen and pelvis 09/18/2020 FINDINGS: The chest demonstrates clear lungs without pneumonia, pleural effusion, or pneumothorax. Th e heart size is normal. IMPRESSION: 1. No acute cardiopulmonary disease. Reviewed, dictated and finalized at location A.
[2020-12-15 10:05] VITALS: BP 147/104; PULSE 78; RESP 18; TEMP 36.5; O2SAT 100
--- NOTE | 2020-12-15 10:20 | ED.URI ---
HPI - URI/Sore Throat General Chief Complaint: Upper Respiratory Infection Stated Complaint: Congestion Time Seen by Provider: 12/15/20 10:20 Source: patient and RN notes reviewed Mode of arrival: ambulatory Limitations: no limitations History of Present Illness HPI Narrative: 40-year-old female presents to the [facility] with complaints of a cough and congestion. Patient states she started with a sore throat 3 days ago Patient states she has had chest congestion, significant cough and is concerned for pneumonia. Has had a sore throat is concerned for strep throat. MD elicited complaint: cough and sore throat Related Data Home Medications Medication Instructions Recorded Confirmed amlodipine 5 mg PO DAILY 04/02/20 09/18/20 ferrous sulfate 325 mg PO DAILY 04/02/20 09/18/20 fluoxetine 40 mg PO DAILY 04/02/20 09/18/20 cholecalciferol (vitamin D3) 1,000 unit PO WEEKLY 09/18/20 09/18/20 [Vitamin D3] losartan 100 mg PO DAILY 09/18/20 09/18/20 Allergies Allergy/AdvReac Type Severity Reaction Status Date / Time clindamycin Allergy Mild Swelling Verified 12/15/20 10:21 NSAIDS (Non-Steroidal AdvReac Unknown Verified 12/15/20 10:21 Anti-Inflamma Review of Systems Review of Systems: All systems reviewed & are unremarkable except as noted in HPI and below Constitutional: Constitutional: Reports no additional constitutional complaints, Denies chills and Denies fever(s) Eyes: Eyes: Reports no additional eye complaints ENT: Reports as per HPI and Reports sore throat Cardiovascular: Cardiovascular: Reports no additional cardiovascular complaints and Denies chest pain Respiratory: Respiratory: Reports as per HPI, Reports chest congestion, Reports cough, Reports dyspnea and Denies wheezing Gastrointestinal: Gastrointestinal: Reports no additional gastrointestinal complaints, Denies abdominal pain, Denies nausea and Denies vomiting Musculoskeletal: Musculoskeletal: Reports no additional musculoskeletal complaints Integumentary/Breasts: Skin/Breast: Reports system reviewed and no additional complaints, except as docu Neurologic: Reports system reviewed and no additional complaints, except as documented Psychiatric: Psychiatric: Reports no additional psychiatric complaints Allergic/Immunologic: Allergic/Immunologic: Reports no additional allergic/immunologic complaints PMFSH Past Medical History Medical History Depression HTN (hypertension) Hypercholesterolemia Kidney stone Migraine Obesity UTI (urinary tract infection) Surgical History Surgical History History of hysterectomy Laparoscopic total hysterectomy with BSO History of laparoscopic appendectomy 08/02/19 Hx of gastric bypass In January of 2019 at [place], current weight loss of 100 pounds since surgery Family History Family History Mother Diabetes mellitus Father , At age 64 Heart disease Acute myocardial infarction Social History Social History Social History: Primary care provider: Andrews GOLDSMITH Smoking status: Never smoker Alcohol intake: current Drinks per week: 2 Alcohol use details: She reports that since her father's last year she has been drinking more alcohol. She was drinking 2-3 alcoholic beverages a night. She has cut back down to 2 drinks a week over the last couple of months. Substance use: never Last use: Yesterday had an edible. Additional living arrangements comments: With her they have been together for 22 years and been for 9 years.. They have 4 children. Her oldest child is 22 years old and youngest is 12. Additional occupation/education comments: Works for the [employer]. Currently on short-term disability due to depression. Gender identity (if verbalized by t
== END 2020-12-15 11:00 | disposition home or self-care (01) ==
PROVIDERS: Emergency Provider Nurse Practitioner
DX: J40 Bronchitis, not specified as acute or chronic (principal); J01.40 Acute pansinusitis, unspecified; I10 Essential (primary) hypertension; E78.00 Pure hypercholesterolemia, unspecified; E66.9 Obesity, unspecified; Z68.35 Body mass index [BMI] 35.0-35.9, adult; F32.A Depression, unspecified
CPT/HCPCS: 71046; 87081; 87880; 99213; G0463

== ENCOUNTER 2020-12-16 11:07 | Emergency (ER) | payer OTHER, SELFPAY ==
[2020-12-16] VITALS (17 sets, daily range): BP systolic 98–213; BP diastolic 38–147; PULSE 58–123; RESP 16–29; TEMP 36.4; O2SAT 99–100
--- NOTE | ~2020-12-16 | CT_ITS ---
EXAMINATION: CT BRAIN W/O DATE: 12/16/2020 14:49 INDICATION: Headache. Hypertension. TECHNIQUE: Computed tomography (CT) of the head was performed without intravenous contrast. The dose- length product was 529.67 mGy-cm. Automated exposure control and iterative reconstruction technique w ere employed. COMPARISON: CT dated 03/04/2017 FINDINGS: Normal brain parenchymal volume for age. Normal armijo-white differentiation. No acute intrac ranial hemorrhage, infarction, mass or mass effect. No ventriculomegaly or midline shift. Midline sagittal images demonstrate a normal corpus callosum, c raniovertebral junction and sella turcica. Basilar cisterns are patent. No depressed skull fractures. Paranasal sinuses and mastoids are pneumatized. No depressed skull fractures. IMPRESSION: 1. No acute intracranial abnormality. Reviewed, dictated and finalized at location B.
--- NOTE | ~2020-12-16 | XR_ITS ---
EXAMINATION: XR chest 1V portable 12/16/2020 16:02 INDICATION: Hypertension. Headache. Generalized chest pain. PROCEDURE: AP portable chest COMPARISON: Comparison to multiple prior studies sequentially, with oldest reviewed study dated 06/12. FINDINGS: The lungs are clear. The cardiomediastinal silhouette is within normal limits. There are no pleural effusions. There is no pneumothorax suspected. IMPRESSION: 1: NO ACUTE CARDIOPULMONARY DISEASE. Reviewed, dictated and finalized at location B.
--- NOTE | 2020-12-16 11:19 | ECG_ITS ---
Measurements Intervals [place] Rate: 60 P: 21 AL: 143 QRS: 2 QRSD: 90 T: 8 QT: 418 QTc: 421 Interpretive Statements SINUS RHYTHM VOLTAGE CRITERIA FOR LVH BORDERLINE T WAVE ABNORMALITY- INFERIOR LEADS BORDERLINE ECG Electronically Signed On 12-16-2020 13:07:15 CDT by Ori Roque D.O.
[2020-12-16 11:37] LABS: Basophils Percent Auto 0.4 % (0.2-1.2); Eosinophils Absolute Auto 0.1 K/mm3 (0-0.3); Eosinophils Percent Auto 0.8 % (0-4.4); Hematocrit 35.6 % (37.0-47.0); Immature Granulocyte Absolute 0.02 K/mm3 (0.00-0.031); Immature Granulocyte Percent A 0.3 % (0-0.5); Lymphocytes Absolute Auto 1.96 K/mm3 (0.9-3.2); Lymphocytes Percent Auto 26.2 % (18.3-44.2); Mean Corpuscular HGB Conc 30.9 g/dl (32-36); Mean Corpuscular Hemoglobin 25.3 pg (26-34); Mean Platelet Volume 11.7 fl (7.4-10.4); Monocytes Absolute Auto 0.7 K/mm3 (0.1-0.6); Monocytes Percent Auto 9.3 % (2.6-8.5); Neutrophils Absolute Auto 4.7 K/mm3 (1.3-6.7); Platelet Count Result 211 k/mm3 (150-375); Red Blood Count 4.34 M/mm3 (4.2-5.4); Red Cell Distribution Width 15.9 % (11.5-14.5); White Blood Count 7.5 K/mm3 (4.5-10.0)
[2020-12-16 11:46] LABS: INR 0.9; Prothrombin Time 12.1 Seconds (11.1-14.7)
[2020-12-16 11:47] LABS: Partial Thromboplastin Time 25.2 SECONDS (22.3-36.8)
[2020-12-16 11:50] LABS: Anion Gap 7 mmol/L (8-16); Blood Urea Nitrogen 11 mg/dL (7-17); Calcium 9.1 mg/dL (8.4-10.2); Carbon Dioxide 27 mmol/L (22-30); Chloride 106 mmol/L (98-107); Estimated CRCL calculation 105 ml/min; Estimated Glomerular Filt Rate > 60; Glucose 95 mg/dL (65-110); Potassium 3.6 mmol/L (3.4-5.0); Sodium 140 mmol/L (137-145)
[2020-12-16 12:02] LABS: Troponin I < 0.012 ng/mL (0.000-0.034)
[2020-12-16] MEDS: NITROGLYCERIN OINTMENT 1 INCH DOSE TRANSDERM (15:03)
[2020-12-16] MEDS: hydrALAZINE HCL 20 MG/ML VIAL IV PUSH (15:03)
[2020-12-16 15:39] LABS: Troponin I < 0.012 ng/mL (0.000-0.034)
--- NOTE | 2020-12-16 15:52 | ED.GENADULT ---
HPI - General Adult General Chief complaint: Recheck/Abnormal Lab/Rx Stated complaint: high blood pressure Time Seen by Provider: 12/16/20 14:27 Source: patient, RN notes reviewed and old records reviewed Mode of arrival: ambulatory Limitations: no limitations History of Present Illness HPI narrative: Patient is 40 years old -[place] female presented to the ED with left-sided headache and nausea for the last 2 days. Patient had sore throat and dry cough over the last few days, went to urgent care, negative strep throat and normal chest x-ray. The symptoms are resolved. The last 2 days patient noticed dull aching pain left frontal, associated with intermittent nausea and elevated blood pressure. Currently patient is on amlodipine and lisinopril. Patient denies any chest pain or shortness of breath or back pain. Patient also denies any vomiting or abdominal pain. Patient reported that her 15 years old at the time had sore throat and dry cough few days ago. The patient and her daughter are fully vaccinated for COVID-19, denies exposure to any known COVID-19 patient. Related Data Home Medications Medication Instructions Recorded Confirmed amlodipine 5 mg PO DAILY 04/02/20 09/18/20 ferrous sulfate 325 mg PO DAILY 04/02/20 09/18/20 fluoxetine 40 mg PO DAILY 04/02/20 09/18/20 cholecalciferol (vitamin D3) 1,000 unit PO WEEKLY 09/18/20 09/18/20 [Vitamin D3] losartan 100 mg PO DAILY 09/18/20 09/18/20 Allergies Allergy/AdvReac Type Severity Reaction Status Date / Time clindamycin Allergy Mild Swelling Verified 12/15/20 10:21 NSAIDS (Non-Steroidal AdvReac Unknown Verified 12/15/20 10:21 Anti-Inflamma Review of Systems Review of Systems: CONSTITUTIONAL: Denies fever, chills, or sweats. EYES: Denies visual changes, redness, or discharge. ENT: Denies rhinorrhea, congestion, sore throat, or otalgia. CARDIOVASCULAR: Denies chest pain, palpitations, or edema. RESPIRATORY: Denies cough or dyspnea. GASTROINTESTINAL: Denies abdominal pain, nausea, vomiting, or diarrhea. GENITOURINARY: Denies dysuria or hematuria. SKIN: Denies rash or itching. MUSCULOSKELETAL: Denies back pain, joint pain, or myalgia. NEUROLOGIC: Denies headache, numbness, or weakness. PSYCHIATRIC: Denies anxiety or depression. [facility] Past Medical History Medical History Depression HTN (hypertension) Hypercholesterolemia Kidney stone Migraine Obesity UTI (urinary tract infection) Surgical History Surgical History History of hysterectomy Laparoscopic total hysterectomy with BSO History of laparoscopic appendectomy 08/02/19 Hx of gastric bypass In January of 2019 at [place], current weight loss of 100 pounds since surgery Family History Family History Mother Diabetes mellitus Father , At age 64 Heart disease Acute myocardial infarction Social History Social History Social History: Primary care provider: Andrews GOLDSMITH Smoking status: Never smoker Alcohol intake: current Drinks per week: 2 Alcohol use details: She reports that since her father's last year she has been drinking more alcohol. She was drinking 2-3 alcoholic beverages a night. She has cut back down to 2 drinks a week over the last couple of months. Substance use: never Last use: Yesterday had an edible. Additional living arrangements comments: With her they have been together for 22 years and been for 9 years.. They have 4 children. Her oldest child is 22 years old and youngest is 12. Additional occupation/education comments: Works for the [employer]. Currently on short-term disability due to depression. Gender identity (if verbalized by the patient): Female Spiritual care concerns: No Exam Narr
[2020-12-16] MEDS: hydrALAZINE HCL 20 MG/ML VIAL 10 MG IV PUSH (15:53)
[2020-12-16] MEDS: LABETALOL HCL INJ 100 MG/20 ML VIAL 20 MG IV PUSH (16:32)
== END 2020-12-16 17:13 | disposition home or self-care (01) ==
PROVIDERS: Emergency Provider Emergency Medicine; PCP Physician Assistant
DX: I10 Essential (primary) hypertension (principal); E78.00 Pure hypercholesterolemia, unspecified; Z87.442 Personal history of urinary calculi; Z87.440 Personal history of urinary (tract) infections; E66.9 Obesity, unspecified; Z68.35 Body mass index [BMI] 35.0-35.9, adult; Z98.84 Bariatric surgery status; R94.31 Abnormal electrocardiogram [ECG] [EKG]
CPT/HCPCS: 36415; 70450; 71045; 80048; 84484; 85025; 85610; 85730; 93005; 96374; 96375; 96376; 99284; A9270; J0360

== ENCOUNTER 2021-02-07 08:19 | Outpatient (CLI) | payer OTHER, SELFPAY ==
[2021-02-07 09:16] LABS: Hemoglobin 11.5 g/dL (12.0-15.0); Mean Corpuscular HGB Conc 31.1 g/dl (32-36); Mean Corpuscular Hemoglobin 25.1 pg (26-34); Mean Corpuscular Volume 80.6 fl (80-100); Mean Platelet Volume 12.6 fl (7.4-10.4); Platelet Count Result 244 k/mm3 (150-375); Red Blood Count 4.59 M/mm3 (4.2-5.4); Red Cell Distribution Width 15.7 % (11.5-14.5); White Blood Count 4.7 K/mm3 (4.5-10.0)
[2021-02-07 09:31] LABS: Alanine Aminotransferase 29 U/L (4-35); Albumin Level 4.3 g/dL (3.5-5.1); Alkaline Phosphatase 101 U/L (38-126); Anion Gap 7 mmol/L (8-16); Aspartate Amino Transferase 25 U/L (14-36); Bilirubin,Total 0.3 mg/dL (0.2-1.3); Blood Urea Nitrogen 13 mg/dL (7-17); Calcium 8.9 mg/dL (8.4-10.2); Carbon Dioxide 26 mmol/L (22-30); Chloride 103 mmol/L (98-107); Cholesterol 209 mg/dL (0-200); Estimated Glomerular Filt Rate > 60; Glucose 94 mg/dL (65-110); HDL Direct 80 mg/dL; Potassium 4.1 mmol/L (3.4-5.0); Sodium 136 mmol/L (137-145); Triglycerides 71 mg/dL (<150)
[2021-02-07 09:39] LABS: Hemoglobin A1C 5.7 % (<5.7)
[2021-02-07 09:41] LABS: LDL Cholesterol Direct 95 mg/dL
[2021-02-07 10:04] LABS: Iron 32 ug/dL (37-170)
[2021-02-07 10:15] LABS: Percent Iron Saturation 7 % (20-50)
[2021-02-07 10:32] LABS: Vitamin D 25 Hydroxy 23.6 ng/mL
[2021-02-07 10:45] LABS: Ferritin 5.02 ng/mL (6.24-137); Thyroid Stimulating Hormone Reflex 0.917 uIU/mL (0.465-4.68)
[2021-02-11 14:40] LABS: Red Blood Cell Folate 389 ng/mL RBC (>280)
[2021-02-14 10:35] LABS: Folic Acid 3.2 ng/mL (2.76->20)
== END 2021-02-07 08:20 | disposition home or self-care (01) ==
LOC: ANHLAB 08:25
PROVIDERS: PCP Physician Assistant
DX: E55.9 Vitamin D deficiency, unspecified (principal); Z98.84 Bariatric surgery status; E88.9 Metabolic disorder, unspecified; E63.9 Nutritional deficiency, unspecified; R73.02 Impaired glucose tolerance (oral); D64.9 Anemia, unspecified; K90.89 Other intestinal malabsorption
CPT/HCPCS: 36415; 80053; 80061; 82306; 82525; 82607; 82728; 82746; 82747; 83036; 83525; 83540; 83550; 84425; 84443; 85027

== ENCOUNTER 2021-02-16 10:17 | Outpatient (CLI) | payer OTHER, SELFPAY ==
[2021-02-19 00:43] LABS: Insulin Level Total 5.6 uIU/mL (<=19.6)
== END 2021-02-16 10:18 | disposition home or self-care (01) ==
PROVIDERS: PCP Physician Assistant
DX: E55.9 Vitamin D deficiency, unspecified (principal); Z98.84 Bariatric surgery status; E88.9 Metabolic disorder, unspecified; D64.9 Anemia, unspecified; K90.89 Other intestinal malabsorption; E63.9 Nutritional deficiency, unspecified; R73.02 Impaired glucose tolerance (oral)
CPT/HCPCS: 36415; 83525

== ENCOUNTER 2021-02-23 15:09 | Emergency (ER) | payer OTHER, SELFPAY ==
--- NOTE | ~2021-02-23 | XR_ITS ---
XR chest 1V portable DATE: 02/23/2021 18:10 INDICATION: Midsternal chest pain. Shortness of breath. TECHNIQUE: Portable upright AP chest on 02/23/2021 1807 hours COMPARISON: 12/16/2020 portable upright AP chest FINDINGS: No pulmonary infiltrate or consolidation, pleural effusion or pulmonary vascular congestion or pneumothorax is detected. The cardiac and mediastinal sweats appear unremarkable. Included skelet al structures are unremarkable other than minimal thoracic scoliosis. IMPRESSION: No active cardiopulmonary disease Reviewed, dictated and finalized at location A. MOTIVE WARRANTY ADMINISTRATOR
[2021-02-23 15:14] VITALS: BP 187/131; PULSE 78; RESP 18; TEMP 36.2; O2SAT 99
--- NOTE | 2021-02-23 15:25 | ECG_ITS ---
Measurements Intervals [place] Rate: 70 P: 23 FL: 152 QRS: 68 QRSD: 95 T: 52 QT: 387 QTc: 418 Interpretive Statements SINUS RHYTHM NONSPECIFIC T-WAVE ABNORMALITY- ANTERIOR LEADS BORDERLINE ECG Electronically Signed On 02-23-2021 16:59:39 FASHION ILLUSTRATOR by Ori Roque D.O.
[2021-02-23 17:04] VITALS: BP 180/110; PULSE 86; RESP 18; TEMP 36.4; O2SAT 100
[2021-02-23 17:25] VITALS: BP 194/128; PULSE 78; RESP 14; TEMP 37.6; O2SAT 100
--- NOTE | 2021-02-23 18:02 | WPDEDEXPGENP ---
HPI - General Ped General Chief complaint: Fever Stated complaint: Cough,CP,Diarrhea,Sweats Time Seen by Provider: 02/23/21 17:27 History of Present Illness HPI narrative: 40-year-old female presented [facility] department for evaluation of dry cough, chest pain and sore throat. Patient also has associated subjective fever and chills. Patient states that the symptoms started yesterday approximately 5 PM. Patient states at that time she began having intermittent chest pain with a dry nonproductive cough. Patient states that her blood pressure has been high at home although she reports she has been taking her medications as directed. Patient reports she has taken both her lisinopril and amlodipine and has not missed any doses. Patient reports she did have Covid in May. Patient states she was also vaccinated after this. Patient states she is due for her Covid booster in March. Related Data Home Medications Medication Instructions Recorded Confirmed amlodipine 20 mg PO DAILY 04/02/20 09/18/20 ferrous sulfate 325 mg PO DAILY 04/02/20 09/18/20 fluoxetine 40 mg PO DAILY 04/02/20 09/18/20 cholecalciferol (vitamin D3) 1,000 unit PO WEEKLY 09/18/20 09/18/20 [Vitamin D3] losartan 100 mg PO DAILY 09/18/20 09/18/20 Allergies Allergy/AdvReac Type Severity Reaction Status Date / Time clindamycin Allergy Mild Swelling Verified 02/23/21 17:31 NSAIDS (Non-Steroidal AdvReac Unknown Verified 02/23/21 17:31 Anti-Inflamma Pediatric Review of Systems Review of Systems: CONSTITUTIONAL: Subjective fever and chills. EYES: Denies visual changes, redness, or discharge. ENT: Sore throat CARDIOVASCULAR: intermittent chest pain, palpitations, or edema. RESPIRATORY: Dry cough, exertional shortness of breath. GASTROINTESTINAL: Denies abdominal pain, nausea, vomiting, or diarrhea. GENITOURINARY: Denies dysuria or hematuria. SKIN: Denies rash or itching. MUSCULOSKELETAL: Denies back pain, joint pain, or myalgia. NEUROLOGIC: Does report associated headache PSYCHIATRIC: Denies anxiety or depression. [facility] Past Medical History Medical History Depression HTN (hypertension) Hypercholesterolemia Kidney stone Migraine Obesity UTI (urinary tract infection) Surgical History Surgical History History of hysterectomy Laparoscopic total hysterectomy with BSO History of laparoscopic appendectomy 08/02/19 Hx of gastric bypass In January of 2019 at [place], current weight loss of 100 pounds since surgery Family History Family History Mother Diabetes mellitus Father , At age 64 Heart disease Acute myocardial infarction Social History Social History Social History: Primary care provider: Andrews GOLDSMITH Smoking status: Never smoker Alcohol intake: current Drinks per week: 2 Alcohol use details: She reports that since her father's last year she has been drinking more alcohol. She was drinking 2-3 alcoholic beverages a night. She has cut back down to 2 drinks a week over the last couple of months. Substance use: never Last use: Yesterday had an edible. Additional living arrangements comments: With her they have been together for 22 years and been for 9 years.. They have 4 children. Her oldest child is 22 years old and youngest is 12. Additional occupation/education comments: Works for the [employer]. Currently on short-term disability due to depression. Gender identity (if verbalized by the patient): Female Spiritual care concerns: No Pediatric Exam Narrative: Physical exam: APPEARANCE: Well appearing, no pain in distress, well-nourished. Head normocephalic and atraumatic. EYES: PERRLA/EOMI, conjunctivae very clear. NOSE: Normal no drainage THROAT: Pharynx c
[2021-02-23 18:33] LABS: Basophils Percent Auto 0.4 % (0.2-1.2); Eosinophils Absolute Auto 0.1 K/mm3 (0-0.3); Hematocrit 35.8 % (37.0-47.0); Immature Granulocyte Absolute 0.02 K/mm3 (0.00-0.031); Immature Granulocyte Percent A 0.3 % (0-0.5); Lymphocytes Percent Auto 19.2 % (18.3-44.2); Mean Corpuscular HGB Conc 30.7 g/dl (32-36); Mean Corpuscular Hemoglobin 24.9 pg (26-34); Mean Platelet Volume 11.7 fl (7.4-10.4); Monocytes Absolute Auto 0.7 K/mm3 (0.1-0.6); Monocytes Percent Auto 9.5 % (2.6-8.5); Neutrophils Absolute Auto 5.4 K/mm3 (1.3-6.7); Neutrophils Percent Auto 69.6 % (45.5-73.1); Platelet Count Result 174 k/mm3 (150-375); Red Blood Count 4.42 M/mm3 (4.2-5.4); Red Cell Distribution Width 15.7 % (11.5-14.5); White Blood Count 7.8 K/mm3 (4.5-10.0)
[2021-02-23] MEDS: hydrALAZINE HCL 20 MG/ML VIAL 10 MG IV PUSH ×2 (18:35→19:18)
[2021-02-23 18:46] LABS: Alanine Aminotransferase 30 U/L (4-35); Albumin Level 4.1 g/dL (3.5-5.1); Alkaline Phosphatase 105 U/L (38-126); Anion Gap 6 mmol/L (8-16); Aspartate Amino Transferase 36 U/L (14-36); Bilirubin,Total 0.3 mg/dL (0.2-1.3); Blood Urea Nitrogen 11 mg/dL (7-17); Calcium 8.7 mg/dL (8.4-10.2); Carbon Dioxide 29 mmol/L (22-30); Chloride 103 mmol/L (98-107); Estimated CRCL calculation 94 ml/min; Estimated Glomerular Filt Rate > 60; Glucose 103 mg/dL (65-110); Potassium 3.7 mmol/L (3.4-5.0); Sodium 138 mmol/L (137-145)
[2021-02-23 18:57] LABS: Troponin I < 0.012 ng/mL (0.000-0.034)
[2021-02-23 20:16] VITALS: BP 161/107
[2021-02-23 21:25] VITALS: BP 162/92
[2021-02-23 22:17] LABS: Troponin I < 0.012 ng/mL (0.000-0.034)
[2021-02-23] MEDS: HYDROcodone/acetaminophen (*CRX) 5-325 MG TABLET 1 TAB PO (22:55)
[2021-02-23 23:20] VITALS: BP 147/90; PULSE 80; RESP 16; O2SAT 100
[2021-02-25 03:58] LABS: SARS-CoV-2 RNA PCR Positive
== END 2021-02-23 23:21 | disposition home or self-care (01) ==
PROVIDERS: Emergency Provider Emergency Medicine; PCP Physician Assistant
DX: U07.1 COVID-19 (principal); R05.9 Cough, unspecified; R07.9 Chest pain, unspecified; I10 Essential (primary) hypertension; Z86.16 Personal history of COVID-19; E78.00 Pure hypercholesterolemia, unspecified; F32.A Depression, unspecified; Z87.442 Personal history of urinary calculi; Z87.440 Personal history of urinary (tract) infections; E66.9 Obesity, unspecified; Z68.35 Body mass index [BMI] 35.0-35.9, adult
CPT/HCPCS: 36415; 71045; 80053; 84484; 85025; 87804; 93005; 96374; 96376; 99284; A9270; C9803; J0360; U0003; U0005

== ENCOUNTER 2021-03-20 20:37 | Emergency (ER) | payer OTHER, SELFPAY ==
[2021-03-20] VITALS (9 sets, daily range): BP systolic 134–157; BP diastolic 77–102; PULSE 50–67; RESP 17–20; TEMP 36.2; O2SAT 99–100
--- NOTE | ~2021-03-20 | CT_ITS ---
EXAMINATION: CTA chest PE protocol DATE: 03/20/2021 23:07 INDICATION: Left-sided chest pain TECHNIQUE: Computed tomography angiography (CTA) of the chest was performed with 100 mL Omnipaque-350 intravenous contrast timed to evaluate the pulmonary arteries. Coronal maximum intensity projection 3D-reconstructions were created by the technologist. The dose-length product (DLP) was 511.44 mGy-cm. Automated exposure control and iterative reconstruction technique were employed. COMPARISON: 06/12/2020 FINDINGS: The pulmonary arteries are well-opacified. No pulmonary embolism is identified. Cardiomegal y is noted. There is no pleural effusion or pneumothorax. No pathologically enlarged thoracic lymph n odes are identified. There is mild dependent atelectasis. The lungs are free of focal airspace opacit ies. Surgical changes are noted in the stomach. IMPRESSION: 1. No pulmonary embolism or acute cardiopulmonary abnormality. 2. Cardiomegaly. Reviewed, dictated and finalized at location F. CENTER SUPPORT CONSULTANT
--- NOTE | ~2021-03-20 | XR_ITS ---
EXAMINATION: XR chest 2V DATE: 03/20/2021 21:17 INDICATION: Left chest and arm pain TECHNIQUE: PA and lateral views of the chest are obtained. COMPARISON: 02/23/2021 FINDINGS: The lungs are free of acute opacities. There is no pleural effusion or pneumothorax. The ca rdiomediastinal silhouette is normal. The visualized bones and soft tissues are unremarkable. IMPRESSION: 1. No acute cardiopulmonary abnormality. Reviewed, dictated and finalized at location F. CARE ASSISTANT
--- NOTE | 2021-03-20 21:00 | ECG_ITS ---
Measurements Intervals [place] Rate: 50 P: 47 UT: 152 QRS: 10 QRSD: 90 T: 17 QT: 467 QTc: 428 Interpretive Statements SINUS BRADYCARDIA BORDERLINE ECG Electronically Signed On 03-21-2021 7:05:22 POCKET MACHINE OPERATOR by Ori Roque D.O.
[2021-03-20 21:18] LABS: Basophils Percent Auto 0.5 % (0.2-1.2); Eosinophils Absolute Auto 0.4 K/mm3 (0-0.3); Eosinophils Percent Auto 5.7 % (0-4.4); Hematocrit 36.2 % (37.0-47.0); Hemoglobin 10.8 g/dL (12.0-15.0); Immature Granulocyte Absolute 0.01 K/mm3 (0.00-0.031); Immature Granulocyte Percent A 0.1 % (0-0.5); Lymphocytes Absolute Auto 1.98 K/mm3 (0.9-3.2); Lymphocytes Percent Auto 27.1 % (18.3-44.2); Mean Corpuscular HGB Conc 29.8 g/dl (32-36); Mean Corpuscular Hemoglobin 24.6 pg (26-34); Mean Corpuscular Volume 82.5 fl (80-100); Monocytes Absolute Auto 0.6 K/mm3 (0.1-0.6); Monocytes Percent Auto 8.1 % (2.6-8.5); Neutrophils Absolute Auto 4.3 K/mm3 (1.3-6.7); Neutrophils Percent Auto 58.5 % (45.5-73.1); Platelet Count Result 177 k/mm3 (150-375); Red Blood Count 4.39 M/mm3 (4.2-5.4); Red Cell Distribution Width 16.2 % (11.5-14.5); White Blood Count 7.3 K/mm3 (4.5-10.0)
[2021-03-20 21:27] LABS: Prothrombin Time 12.8 Seconds (11.1-14.7)
[2021-03-20 21:28] LABS: Hypochromasia 1+ (NORMAL); Partial Thromboplastin Time 26.7 SECONDS (22.3-36.8); Platelet Estimate Adequate (Adequate)
[2021-03-20 21:30] LABS: Alanine Aminotransferase 34 U/L (4-35); Albumin Level 4.2 g/dL (3.5-5.1); Alkaline Phosphatase 111 U/L (38-126); Anion Gap 7 mmol/L (8-16); Aspartate Amino Transferase 33 U/L (14-36); Bilirubin,Total 0.2 mg/dL (0.2-1.3); Blood Urea Nitrogen 13 mg/dL (7-17); Carbon Dioxide 28 mmol/L (22-30); Chloride 103 mmol/L (98-107); Estimated CRCL calculation 94 ml/min; Estimated Glomerular Filt Rate > 60; Glucose 96 mg/dL (65-110); Lipase 62 U/L (23-300); Potassium 3.7 mmol/L (3.4-5.0); Sodium 138 mmol/L (137-145)
[2021-03-20 21:41] LABS: Troponin I < 0.012 ng/mL (0.000-0.034)
--- NOTE | 2021-03-20 21:45 | ED.CHESTPAIN ---
HPI - Chest Pain General Chief Complaint: Chest Pain Stated Complaint: chest pain x few days Time Seen by Provider: 03/20/21 21:31 Source: RN notes reviewed History of Present Illness HPI narrative: Patient presents emergency department from home for chest pain. Patient states for the past 3 days she has been having midsternal chest pain that has been intermittent the pain is located midsternal chest described as a pressure and radiates into the left arm patient states he is having approximately 3-4 episodes a day and nothing seems to make the episodes better or worse she states the pain has been more constant this evening she denies any associated shortness of breath with the symptoms she denies any abdominal pain nausea vomiting or any other symptoms. Patient did have COVID at the end of January 2021 but denies any cough denies any previous cardiac history Related Data Home Medications Medication Instructions Recorded Confirmed amlodipine 20 mg PO DAILY 04/02/20 09/18/20 ferrous sulfate 325 mg PO DAILY 04/02/20 09/18/20 fluoxetine 40 mg PO DAILY 04/02/20 09/18/20 cholecalciferol (vitamin D3) 1,000 unit PO WEEKLY 09/18/20 09/18/20 [Vitamin D3] losartan 100 mg PO DAILY 09/18/20 09/18/20 Allergies Allergy/AdvReac Type Severity Reaction Status Date / Time clindamycin Allergy Mild Swelling Verified 02/23/21 17:31 NSAIDS (Non-Steroidal AdvReac Unknown Verified 02/23/21 17:31 Anti-Inflamma Review of Systems Review of Systems: Gen.: Denies fevers or chills ENT: Denies congestion Respiratory: Denies shortness of breath or cough CV: Reports chest pain GI: Denies abdominal pain nausea, emesis or diarrhea Musculoskeletal: Denies back pain or muscle pain Neuro: Denies numbness, tingling, weakness or focal weakness Skin: Denies rash Except as documented, all other systems reviewed and negative [facility] Past Medical History Medical History Depression HTN (hypertension) Hypercholesterolemia Kidney stone Migraine Obesity UTI (urinary tract infection) Surgical History Surgical History History of hysterectomy Laparoscopic total hysterectomy with BSO History of laparoscopic appendectomy 08/02/19 Hx of gastric bypass In January of 2019 at [place], current weight loss of 100 pounds since surgery Family History Family History Mother Diabetes mellitus Father , At age 64 Heart disease Acute myocardial infarction Social History Social History Social History: Primary care provider: Andrews GOLDSMITH Smoking status: Never smoker Alcohol intake: current Drinks per week: 2 Alcohol use details: She reports that since her father's last year she has been drinking more alcohol. She was drinking 2-3 alcoholic beverages a night. She has cut back down to 2 drinks a week over the last couple of months. Substance use: never Last use: Yesterday had an edible. Additional living arrangements comments: With her they have been together for 22 years and been for 9 years.. They have 4 children. Her oldest child is 22 years old and youngest is 12. Additional occupation/education comments: Works for the [employer]. Currently on short-term disability due to depression. Gender identity (if verbalized by the patient): Female Spiritual care concerns: No Exam Narrative: APPEARANCE: No acute distress, nontoxic, resting in bed EYES: EOMI HEENT: Normocephalic, atraumatic, OMM RESPIRATORY: No respiratory distress Clear to auscultation bilaterally with no rhonchi wheezing or rales. CARDIOVASCULAR: Regular rate and rhythm without murmurs rubs or gallops. Bilateral radial pulse 2+ ABDOMINAL: Soft, nontender, nondistended, no rebound or guarding MUSCULOSKELETAl:
[2021-03-20 22:02] LABS: D Dimer 0.56 ug/mL (<0.48)
[2021-03-21 00:49] VITALS: BP 140/87; PULSE 49; RESP 16; O2SAT 100
[2021-03-21 00:54] LABS: Troponin I < 0.012 ng/mL (0.000-0.034)
[2021-03-21 01:29] VITALS: BP 139/94; PULSE 53; RESP 16; O2SAT 100
== END 2021-03-21 01:32 | disposition home or self-care (01) ==
PROVIDERS: Emergency Medicine; Emergency Provider Emergency Medicine; PCP Physician Assistant
DX: R07.89 Other chest pain (principal); I10 Essential (primary) hypertension; E78.00 Pure hypercholesterolemia, unspecified; F32.A Depression, unspecified; E66.9 Obesity, unspecified; Z68.35 Body mass index [BMI] 35.0-35.9, adult; Z86.16 Personal history of COVID-19; Z87.442 Personal history of urinary calculi; Z87.440 Personal history of urinary (tract) infections; Z98.84 Bariatric surgery status; I51.7 Cardiomegaly; R00.1 Bradycardia, unspecified
CPT/HCPCS: 36415; 71046; 71275; 80053; 83690; 84484; 85025; 85380; 85610; 85730; 93005; 99284; A9270; Q9967

== ENCOUNTER 2021-05-07 07:36 | Emergency (ER) | payer OTHER, SELFPAY ==
[2021-05-07] VITALS (7 sets, daily range): BP systolic 154–171; BP diastolic 96–108; PULSE 53–82; RESP 13–20; TEMP 36.9; O2SAT 99–100
--- NOTE | ~2021-05-07 | XR_ITS ---
EXAMINATION: XR chest 2V DATE: 05/07/2021 08:07 INDICATION: Midline chest pain. TECHNIQUE: Frontal and lateral views of the chest were obtained. COMPARISON: Chest 2 views 03/20/2021, chest CT 03/20/2021 FINDINGS: The chest demonstrates clear lungs without pneumonia, pleural effusion, or pneumothorax. Ca rdiomegaly is noted. IMPRESSION: 1. Cardiomegaly. Reviewed, dictated and finalized at location A. NUE RESEARCH ANALYST IMPRESSION: 1. Cardiomegaly.
--- NOTE | 2021-05-07 07:40 | ECG_ITS ---
Measurements Intervals [place] Rate: 74 P: 53 NC: 163 QRS: 22 QRSD: 89 T: 29 QT: 379 QTc: 421 Interpretive Statements SINUS RHYTHM BASELINE ARTIFACT NONSPECIFIC T-WAVE ABNORMALITY BORDERLINE ECG COMPARED TO ECG 03/20/2021 21:04:37 HEART RATE HAS INCREASED Electronically Signed On 05-07-2021 14:09:01 PULMONARY DISEASE SPECIALIST by Ras Yeung M.D.
[2021-05-07 07:50] LABS: Basophils Absolute Auto 0.1 K/mm3 (0.0-0.1); Basophils Percent Auto 0.8 % (0.2-1.2); Eosinophils Absolute Auto 0.3 K/mm3 (0-0.3); Eosinophils Percent Auto 4.6 % (0-4.4); Hematocrit 36.5 % (37.0-47.0); Hemoglobin 11.1 g/dL (12.0-15.0); Immature Granulocyte Absolute 0.01 K/mm3 (0.00-0.031); Immature Granulocyte Percent A 0.1 % (0-0.5); Lymphocytes Absolute Auto 2.05 K/mm3 (0.9-3.2); Lymphocytes Percent Auto 27.9 % (18.3-44.2); Mean Corpuscular HGB Conc 30.4 g/dl (32-36); Mean Corpuscular Hemoglobin 25.1 pg (26-34); Mean Corpuscular Volume 82.4 fl (80-100); Mean Platelet Volume 11.4 fl (7.4-10.4); Monocytes Absolute Auto 0.6 K/mm3 (0.1-0.6); Monocytes Percent Auto 8.6 % (2.6-8.5); Neutrophils Absolute Auto 4.3 K/mm3 (1.3-6.7); Platelet Count Result 215 k/mm3 (150-375); Red Blood Count 4.43 M/mm3 (4.2-5.4); Red Cell Distribution Width 18.3 % (11.5-14.5); White Blood Count 7.3 K/mm3 (4.5-10.0)
[2021-05-07 08:02] LABS: Alanine Aminotransferase 28 U/L (4-35); Albumin Level 4.2 g/dL (3.5-5.1); Alkaline Phosphatase 106 U/L (38-126); Anion Gap 8 mmol/L (8-16); Aspartate Amino Transferase 34 U/L (14-36); Bilirubin,Total 0.4 mg/dL (0.2-1.3); Blood Urea Nitrogen 13 mg/dL (7-17); Calcium 8.7 mg/dL (8.4-10.2); Carbon Dioxide 26 mmol/L (22-30); Chloride 105 mmol/L (98-107); Estimated CRCL calculation 93 ml/min; Estimated Glomerular Filt Rate > 60; Glucose 83 mg/dL (65-110); Lipase 52 U/L (23-300); Potassium 3.5 mmol/L (3.4-5.0); Sodium 139 mmol/L (137-145)
[2021-05-07 08:13] LABS: Partial Thromboplastin Time 26.4 SECONDS (22.3-36.8); Prothrombin Time 13.1 Seconds (11.1-14.7); Troponin I < 0.012 ng/mL (0.000-0.034)
[2021-05-07] MEDS: KETOROLAC 15 MG/ML VIAL (*BKC) IV PUSH (08:43)
[2021-05-07 10:49] LABS: Troponin I < 0.012 ng/mL (0.000-0.034)
--- NOTE | 2021-05-07 11:08 | ED.CHESTPAIN ---
HPI - Chest Pain General Chief Complaint: Chest Pain Stated Complaint: chest pain, light headed Time Seen by Provider: 05/07/21 07:43 History of Present Illness HPI narrative: Patient is a 40-year-old female who presents ER with chest pain. Central and aching. Began after she took her morning medications. Denies bad taste going into her mouth or epigastric discomfort. No fevers or chills or sweats. No exertional discomfort. No alleviating factors that she is noted. No history of cardiac disease. Denies nausea/vomiting/shortness of breath. Related Data Home Medications Medication Instructions Recorded Confirmed amlodipine 20 mg PO DAILY 04/02/20 09/18/20 ferrous sulfate 325 mg PO DAILY 04/02/20 09/18/20 fluoxetine 40 mg PO DAILY 04/02/20 09/18/20 cholecalciferol (vitamin D3) 1,000 unit PO WEEKLY 09/18/20 09/18/20 [Vitamin D3] losartan 100 mg PO DAILY 09/18/20 09/18/20 Allergies Allergy/AdvReac Type Severity Reaction Status Date / Time clindamycin Allergy Mild Swelling Verified 02/23/21 17:31 NSAIDS (Non-Steroidal AdvReac Unknown Verified 02/23/21 17:31 Anti-Inflamma Review of Systems Review of Systems: All systems reviewed & are unremarkable except as noted in HPI and below Constitutional: Constitutional: Denies chills, Denies fever(s) and Denies weakness ENT: Denies nasal congestion and Denies sore throat Cardiovascular: Cardiovascular: Reports chest pain, Denies rapid heart rate and Denies radiating jaw, neck or arm pain Respiratory: Respiratory: Denies cough and Denies dyspnea Gastrointestinal: Gastrointestinal: Denies abdominal pain, Denies nausea and Denies vomiting Genitourinary: Genitourinary: Denies nocturia, Denies dysuria and Denies flank pain Neurologic: Denies syncope, Denies focal weakness and Denies numbness ON LICENSE OF [facility] Past Medical History Medical History Depression HTN (hypertension) Hypercholesterolemia Kidney stone Migraine Obesity UTI (urinary tract infection) Surgical History Surgical History History of hysterectomy Laparoscopic total hysterectomy with BSO History of laparoscopic appendectomy 6/4/20 Hx of gastric bypass In January of 2019 at [place], current weight loss of 100 pounds since surgery Family History Family History Mother Diabetes mellitus Father , At age 64 Heart disease Acute myocardial infarction Social History Social History Social History: Primary care provider: Andrews GOLDSMITH Smoking status: Never smoker Alcohol intake: current Drinks per week: 2 Alcohol use details: She reports that since her father's last year she has been drinking more alcohol. She was drinking 2-3 alcoholic beverages a night. She has cut back down to 2 drinks a week over the last couple of months. Substance use: never Last use: Yesterday had an edible. Additional living arrangements comments: With her they have been together for 22 years and been for 9 years.. They have 4 children. Her oldest child is 22 years old and youngest is 12. Additional occupation/education comments: Works for the [employer]. Currently on short-term disability due to depression. Gender identity (if verbalized by the patient): Female Spiritual care concerns: No Exam Narrative: GENERAL: Well-appearing, well-nourished, and in no acute distress. HEAD: Normocephalic, atraumatic. CHEST: Clear to auscultation. No respiratory distress. HEART: Regular rate and rhythm. Normal peripheral pulses. ABDOMEN: Soft, nontender, nondistended. EXTREMITIES: Normal range of motion. No edema. SKIN: Warm, dry, no rash. NEURO: Alert and oriented x3. PSYCH: Normal mood and affect. Course Course Emergency Course: Patient re
--- NOTE | 2021-05-07 12:14 | PC.NURSE ---
EKG and report EDP faxed to primary.
== END 2021-05-07 11:59 | disposition home or self-care (01) ==
PROVIDERS: General Practice; Emergency Provider Emergency Medicine; PCP Physician Assistant
DX: R07.89 Other chest pain (principal); I10 Essential (primary) hypertension; E78.00 Pure hypercholesterolemia, unspecified; E66.9 Obesity, unspecified; Z68.35 Body mass index [BMI] 35.0-35.9, adult; Z87.442 Personal history of urinary calculi; Z87.440 Personal history of urinary (tract) infections; Z98.84 Bariatric surgery status; I51.7 Cardiomegaly; R94.31 Abnormal electrocardiogram [ECG] [EKG]
CPT/HCPCS: 36415; 71046; 80053; 83690; 84484; 85025; 85610; 85730; 93005; 96374; 99284; J1885

== ENCOUNTER 2021-05-26 08:54 | Emergency (ER) | payer OTHER, SELFPAY ==
[2021-05-26] VITALS (18 sets, daily range): BP systolic 120–151; BP diastolic 69–108; PULSE 47–70; RESP 6–23; TEMP 37; O2SAT 96–100
--- NOTE | ~2021-05-26 | XR_ITS ---
EXAMINATION: XR chest 2V DATE: 05/26/2021 09:09 INDICATION: Midsternal chest pain. TECHNIQUE: Frontal and lateral views of the chest were obtained. COMPARISON: Chest 2 views 05/07/2021, chest CT 03/20/2021 FINDINGS: The chest demonstrates clear lungs without pneumonia, pleural effusion, or pneumothorax. Ca rdiomegaly is noted. IMPRESSION: 1. Cardiomegaly. Reviewed, dictated and finalized at location A. IMPRESSION: 1. Cardiomegaly.
--- NOTE | ~2021-05-26 | CT_ITS ---
EXAMINATION: CT abdomen pelvis wo con DATE: 05/26/2021 10:35 INDICATION: Bilateral flank pain. TECHNIQUE: Computed tomography (CT) of the abdomen and pelvis was performed without intravenous contr ast. Automated exposure control and iterative reconstruction technique were employed. The dose-length product was 423.86 mGy-cm. COMPARISON: None FINDINGS: Lung bases are clear. Heart size is normal. No pericardial or pleural effusion. Postoperative change of prior antecolic Lluvia-en-Y gastric bypass procedure. Liver, gallbladder, spleen, pancreas and bilat eral adrenal glands are normal. No urolithiasis along the normal appearing bilateral kidneys and dyana l collecting systems. No hydronephrosis. Suture line at the tip the cecum likely related to prior mariama endectomy. There is fatty infiltration of the wall of the colon primarily proximally which is likely related to body habitus. No bowel obstruction. Bladder is normal. The uterus is not identified and barbour s likely been surgically resected. No free intraperitoneal gas or fluid No pathologically enlarged ab dominal or pelvic lymphadenopathy. Which are unremarkable. IMPRESSION: 1. No urolithiasis or acute intra-abdominal/pelvic process. Reviewed, dictated and finalized at location A.
--- NOTE | 2021-05-26 08:57 | ECG_ITS ---
Measurements Intervals [place] Rate: 61 P: 33 MD: 158 QRS: -2 QRSD: 87 T: -1 QT: 404 QTc: 408 Interpretive Statements SINUS RHYTHM VOLTAGE CRITERIA FOR LVH [MEETS CRITERIA IN ONE OF: R(aVL), S(V1), R(V5), R(V5/V6)+S(V1)] NONSPECIFIC T-WAVE ABNORMALITY COMPARED TO ECG 05/07/2021 07:43:50 LEFT VENTRICULAR HYPERTROPHY NOW PRESENT Electronically Signed On 05-26-2021 17:18:45 CDT by Ray Barney M.D.
--- NOTE | 2021-05-26 09:12 | PC.NURSE ---
Patient off unit to Radiology for chest xray.
--- NOTE | 2021-05-26 09:26 | ED.CHESTPAIN ---
HPI - Chest Pain General Chief Complaint: Chest Pain Stated Complaint: chest pain Time Seen by Provider: 05/26/21 08:58 Source: patient Mode of arrival: ambulatory Limitations: no limitations History of Present Illness HPI narrative: Patient is a 40-year-old female complaining of chest pain, midsternal, tightness, 7 out of 10, nonradiating started yesterday. Patient has had multiple ER visits secondary to chest pain since January. Patient states that she has recently seen a mail weigher and has scheduled an echo and a stress test for her next week. Patient also states that she has been having bilateral flank pain, I think it is my kidney stones that is been ongoing x2 weeks. Patient denies any shortness of breath, abdominal pain, nausea, vomiting, diaphoresis, fever or chills. Related Data Home Medications Medication Instructions Recorded Confirmed amlodipine 20 mg PO DAILY 04/02/20 09/18/20 ferrous sulfate 325 mg PO DAILY 04/02/20 09/18/20 fluoxetine 40 mg PO DAILY 04/02/20 09/18/20 cholecalciferol (vitamin D3) 1,000 unit PO WEEKLY 09/18/20 09/18/20 [Vitamin D3] losartan 100 mg PO DAILY 09/18/20 09/18/20 Allergies Allergy/AdvReac Type Severity Reaction Status Date / Time clindamycin Allergy Mild Swelling Verified 05/26/21 09:30 NSAIDS (Non-Steroidal AdvReac Unknown Verified 05/26/21 09:30 Anti-Inflamma Review of Systems Review of Systems: All systems reviewed & are unremarkable except as noted in HPI and below Constitutional: Constitutional: Denies body ache(s), Denies chills, Denies excessive sweating, Denies fatigue, Denies fever(s), Denies headache(s), Denies lethargy, Denies malaise, Denies weakness and Denies weight loss Eyes: Eyes: Denies blurry vision, Denies change in vision and Denies loss of vision ENT: Denies dizziness, Denies ear discharge, Denies headache(s), Denies lip swelling, Denies epistaxis, Denies nasal congestion, Denies neck pain, Denies throat swelling and Denies tongue swelling Cardiovascular: Cardiovascular: Denies diaphoresis, Denies rapid heart rate, Denies edema, Denies irregular heart rhythm, Denies lightheadedness, Denies palpitations, Denies dyspnea and Denies dyspnea on exertion Respiratory: Respiratory: Denies chest congestion, Denies cough, Denies hemoptysis, Denies dyspnea and Denies dyspnea on exertion Gastrointestinal: Gastrointestinal: Denies abdominal pain, Denies melena, Denies hematochezia, Denies diarrhea, Denies nausea, Denies vomiting and Denies hematemesis Musculoskeletal: Musculoskeletal: Denies abnormal gait, Denies deformity, Denies joint swelling, Denies limited range of motion, Denies neck pain and Denies numbness Neurologic: Denies Abnormal speech present, Denies abnormal gait, Denies confusion, Denies dizziness, Denies headache(s), Denies focal weakness, Denies loss of vision, Denies numbness, Denies Other visual disturbances, Denies Sensory deficit (Neuro) and Denies weakness Psychiatric: Psychiatric: Denies confusion, Denies depression, Denies auditory hallucinations, Denies homicidal ideation and Denies suicidal ideation Endocrine: Endocrine: Denies cold intolerance, Denies excessive sweating, Denies fatigue, Denies heat intolerance and Denies palpitations Hematologic/Lymphatic: Hematologic/Lymphatic: Denies easy bleeding and Denies easy bruising Allergic/Immunologic: Allergic/Immunologic: Denies lip swelling, Denies throat swelling and Denies tongue swelling PMFSH Past Medical History Medical History Depression HTN (hypertension) Hypercholesterolemia Kidney stone Migraine Obesity UTI (urinary tract infection) Surgical History Surgical History History of hysterectomy Laparoscopic total hysterectomy with BSO History of laparoscopic appendectomy 08/02/19 Hx of gastric bypass In January of 2019 at [place], current weight loss of 100 pounds
[2021-05-26 09:56] LABS: Basophils Percent Auto 0.4 % (0.2-1.2); Eosinophils Absolute Auto 0.2 K/mm3 (0-0.3); Eosinophils Percent Auto 3.6 % (0-4.4); Hematocrit 36.5 % (37.0-47.0); Immature Granulocyte Absolute 0.01 K/mm3 (0.00-0.031); Immature Granulocyte Percent A 0.1 % (0-0.5); Lymphocytes Absolute Auto 1.25 K/mm3 (0.9-3.2); Lymphocytes Percent Auto 18.7 % (18.3-44.2); Mean Corpuscular HGB Conc 30.1 g/dl (32-36); Mean Corpuscular Hemoglobin 24.6 pg (26-34); Mean Corpuscular Volume 81.5 fl (80-100); Mean Platelet Volume 11.6 fl (7.4-10.4); Monocytes Absolute Auto 0.5 K/mm3 (0.1-0.6); Monocytes Percent Auto 7.2 % (2.6-8.5); Neutrophils Absolute Auto 4.7 K/mm3 (1.3-6.7); Platelet Count Result 203 k/mm3 (150-375); Red Blood Count 4.48 M/mm3 (4.2-5.4); Red Cell Distribution Width 17.9 % (11.5-14.5); White Blood Count 6.7 K/mm3 (4.5-10.0)
[2021-05-26 10:05] LABS: INR 0.9; Prothrombin Time 12.1 Seconds (11.1-14.7)
[2021-05-26 10:06] LABS: Appearance Urine Clear (Clear); Bilirubin Urine Negative (Negative); Color Urine Yellow (Yellow); Glucose Urine UA Negative (Negative); Ketones Urine Negative (Negative); Leukocyte Esterase Ur Negative LEU/UL (Negative); Nitrate Urine Negative (Negative); Protein Urine Negative (Negative); Specific Grav Ur 1.015 (1.001-1.035); Urobilinogen Urine 0.2 mg/dL (<2.0)
[2021-05-26 10:09] LABS: D Dimer 0.31 ug/mL (<0.48)
[2021-05-26 10:11] LABS: Alanine Aminotransferase 28 U/L (4-35); Albumin Level 4.2 g/dL (3.5-5.1); Alkaline Phosphatase 107 U/L (38-126); Anion Gap 7 mmol/L (8-16); Aspartate Amino Transferase 29 U/L (14-36); Bilirubin,Total 0.2 mg/dL (0.2-1.3); Blood Urea Nitrogen 12 mg/dL (7-17); Carbon Dioxide 29 mmol/L (22-30); Chloride 103 mmol/L (98-107); Estimated CRCL calculation 85 ml/min; Estimated Glomerular Filt Rate > 60; Glucose 109 mg/dL (65-110); Lipase 54 U/L (23-300); Potassium 3.7 mmol/L (3.4-5.0); Sodium 139 mmol/L (137-145)
[2021-05-26 10:22] LABS: Add Urine Microscopic? YES; Blood Urine Trace-Intact (Negative); Troponin I < 0.012 ng/mL (0.000-0.034)
[2021-05-26 10:25] LABS: RBC Urine 0-2 /hpf (0-2); Squamous Epithelial Cell Urine Rare /hpf (Few); WBC Urine 0-3 /hpf
[2021-05-26] MEDS: METOPROLOL TARTRATE 50 MG TAB PO (10:51)
[2021-05-26] MEDS: ASPIRIN 81 MG CHEWABLE TABLET 324 MG PO (10:51)
[2021-05-26 12:21] LABS: Troponin I < 0.012 ng/mL (0.000-0.034)
== END 2021-05-26 13:08 | disposition home or self-care (01) ==
PROVIDERS: Emergency Provider Emergency Medicine; PCP Physician Assistant
DX: R07.89 Other chest pain (principal); R10.9 Unspecified abdominal pain; I10 Essential (primary) hypertension; F32.A Depression, unspecified; E78.00 Pure hypercholesterolemia, unspecified; Z87.442 Personal history of urinary calculi; Z87.440 Personal history of urinary (tract) infections; E66.9 Obesity, unspecified; Z68.36 Body mass index [BMI] 36.0-36.9, adult; Z98.84 Bariatric surgery status; R94.31 Abnormal electrocardiogram [ECG] [EKG]
CPT/HCPCS: 36415; 71046; 74176; 80053; 81001; 83690; 84484; 85025; 85380; 85610; 85730; 93005; 99284; A9270

== ENCOUNTER 2021-06-25 08:06 | Emergency (ER) | payer OTHER, SELFPAY ==
[2021-06-25 08:15] VITALS: BP 139/81; PULSE 69; RESP 16; TEMP 36.3; O2SAT 100
--- NOTE | 2021-06-25 08:25 | ED.URI ---
HPI - URI/Sore Throat General Chief Complaint: Upper Respiratory Infection Stated Complaint: sore throat/cough Time Seen by Provider: 06/25/21 08:25 Source: patient Mode of arrival: ambulatory Limitations: no limitations History of Present Illness HPI Narrative: 40-year-old female presents with complaint of runny nose, scratchy throat, dry cough since yesterday. Denies fever chills. No chest pain or shortness of breath. Works from home. No concern for COVID. States I just thought maybe I had strep throat because my throat is itching . Patient is eating and drinking normally. Started taking DayQuil NyQuil cold and flu yesterday. All systems reviewed and negative except as noted above. Related Data Home Medications Medication Instructions Recorded Confirmed amlodipine 20 mg PO DAILY 04/02/20 09/18/20 fluoxetine 40 mg PO DAILY 04/02/20 09/18/20 losartan 100 mg PO DAILY 09/18/20 09/18/20 chlorthalidone 25 mg PO DAILY 06/25/21 06/25/21 omeprazole 40 mg PO DAILY 06/25/21 06/25/21 spironolactone 50 mg PO DAILY 06/25/21 06/25/21 Allergies Allergy/AdvReac Type Severity Reaction Status Date / Time clindamycin Allergy Mild Swelling Verified 06/25/21 08:27 NSAIDS (Non-Steroidal AdvReac Unknown Verified 06/25/21 08:27 Anti-Inflamma Review of Systems Review of Systems: CONSTITUTIONAL: Denies fever, chills, or sweats. EYES: Denies visual changes, redness, or discharge. ENT: Reports rhinorrhea, congestion, sore throat. Denies otalgia. CARDIOVASCULAR: Denies chest pain, palpitations, or edema. RESPIRATORY: Reports cough. Denies dyspnea. GASTROINTESTINAL: Denies abdominal pain, nausea, vomiting, or diarrhea. GENITOURINARY: Denies dysuria or hematuria. SKIN: Denies rash or itching. MUSCULOSKELETAL: Denies back pain, joint pain, or myalgia. NEUROLOGIC: Denies headache, numbness, or weakness. PSYCHIATRIC: Denies anxiety or depression. All other systems reviewed are negative, except as documented in HPI. [facility] Past Medical History Medical History Depression HTN (hypertension) Hypercholesterolemia Kidney stone Migraine Obesity UTI (urinary tract infection) Surgical History Surgical History History of hysterectomy Laparoscopic total hysterectomy with BSO History of laparoscopic appendectomy 08/02/19 Hx of gastric bypass In January of 2019 at [place], current weight loss of 100 pounds since surgery Family History Family History Mother Diabetes mellitus Father , At age 64 Heart disease Acute myocardial infarction Social History Social History Social History: Primary care provider: Andrews GOLDSMITH Smoking status: Never smoker Alcohol intake: current Drinks per week: 2 Alcohol use details: She reports that since her father's last year she has been drinking more alcohol. She was drinking 2-3 alcoholic beverages a night. She has cut back down to 2 drinks a week over the last couple of months. Substance use: never Last use: Yesterday had an edible. Additional living arrangements comments: With her they have been together for 22 years and been for 9 years.. They have 4 children. Her oldest child is 22 years old and youngest is 12. Additional occupation/education comments: Works for the [employer]. Currently on short-term disability due to depression. Gender identity (if verbalized by the patient): Female Spiritual care concerns: No Comments At time of signature, agree with nursing past medical, surgical, social and family history. There is no relevant family history pertinent to the presenting complaint. Exam Narrative: GENERAL: This is a well-nourished, well-developed patient, in no apparent distress. HEAD: normoceph
== END 2021-06-25 08:40 | disposition home or self-care (01) ==
PROVIDERS: Emergency Provider Nurse Practitioner Family; PCP Physician Assistant
DX: J06.9 Acute upper respiratory infection, unspecified (principal); I10 Essential (primary) hypertension; E78.00 Pure hypercholesterolemia, unspecified; E66.9 Obesity, unspecified; Z68.35 Body mass index [BMI] 35.0-35.9, adult; Z98.84 Bariatric surgery status; F32.A Depression, unspecified
CPT/HCPCS: 99211; G0463

== ENCOUNTER 2021-07-22 09:37 | Emergency (ER) | payer OTHER, SELFPAY ==
[2021-07-22 09:58] VITALS: BP 154/100; PULSE 70; RESP 20; TEMP 36.6; O2SAT 100
--- NOTE | 2021-07-22 10:08 | ED.URI ---
HPI - URI/Sore Throat General Chief Complaint: Upper Respiratory Infection Stated Complaint: ear pain/sore throat Time Seen by Provider: 07/22/21 10:08 Source: patient Mode of arrival: ambulatory Limitations: no limitations History of Present Illness HPI Narrative: 40-year-old female presents with complaint of runny nose, itchy ears, scratchy throat, dry cough for 2 days. Reports pain with swallowing. Afebrile. No shortness of breath or chest pain. Has not taken any [id number] medications to treat her symptoms. Is not concerned for COVID. Eating and drinking normally. Patient's grandson had recent runny nose and lives with patient. All systems reviewed and negative except as noted above. Related Data Home Medications Medication Instructions Recorded Confirmed amlodipine 5 mg tablet 20 mg PO DAILY 04/02/20 07/22/21 fluoxetine 40 mg capsule 40 mg PO DAILY 04/02/20 07/22/21 losartan 100 mg tablet 100 mg PO DAILY 09/18/20 07/22/21 chlorthalidone 25 mg tablet 25 mg PO DAILY 06/25/21 07/22/21 omeprazole 40 mg capsule,delayed 40 mg PO DAILY 06/25/21 07/22/21 release spironolactone 50 mg tablet 50 mg PO DAILY 06/25/21 07/22/21 Allergies Allergy/AdvReac Type Severity Reaction Status Date / Time clindamycin Allergy Mild Swelling Verified 07/22/21 09:56 NSAIDS (Non-Steroidal AdvReac Unknown Verified 07/22/21 09:56 Anti-Inflamma Review of Systems Review of Systems: CONSTITUTIONAL: Denies fever, chills, or sweats. EYES: Denies visual changes, redness, or discharge. ENT: Reports rhinorrhea, congestion, sore throat, itchy ears Denies otalgia. CARDIOVASCULAR: Denies chest pain, palpitations, or edema. RESPIRATORY: Reports cough. Denies dyspnea. GASTROINTESTINAL: Denies abdominal pain, nausea, vomiting, or diarrhea. GENITOURINARY: Denies dysuria or hematuria. SKIN: Denies rash or itching. MUSCULOSKELETAL: Denies back pain, joint pain, or myalgia. NEUROLOGIC: Denies headache, numbness, or weakness. PSYCHIATRIC: Denies anxiety or depression. All other systems reviewed are negative, except as documented in HPI. [facility] Past Medical History Medical History Depression HTN (hypertension) Hypercholesterolemia Kidney stone Migraine Obesity UTI (urinary tract infection) Surgical History Surgical History History of hysterectomy Laparoscopic total hysterectomy with BSO History of laparoscopic appendectomy 08/02/19 Hx of gastric bypass In January of 2019 at [place], current weight loss of 100 pounds since surgery Family History Family History Mother Diabetes mellitus Father , At age 64 Heart disease Acute myocardial infarction Social History Social History Social History: Primary care provider: Andrews GOLDSMITH Smoking status: Never smoker Alcohol intake: current Drinks per week: 2 Alcohol use details: She reports that since her father's last year she has been drinking more alcohol. She was drinking 2-3 alcoholic beverages a night. She has cut back down to 2 drinks a week over the last couple of months. Substance use: never Last use: Yesterday had an edible. Additional living arrangements comments: With her they have been together for 22 years and been for 9 years.. They have 4 children. Her oldest child is 22 years old and youngest is 12. Additional occupation/education comments: Works for the [employer]. Currently on short-term disability due to depression. Gender identity (if verbalized by the patient): Female Spiritual care concerns: No Comments At time of signature, agree with nursing past medical, surgical, social and family history. There is no relevant family history pertinent to the presenting complaint. Exam Narrat
== END 2021-07-22 10:25 | disposition home or self-care (01) ==
PROVIDERS: Emergency Provider Nurse Practitioner Family; PCP Physician Assistant
DX: J02.0 Streptococcal pharyngitis (principal); F32.A Depression, unspecified; I10 Essential (primary) hypertension; E78.00 Pure hypercholesterolemia, unspecified; E66.9 Obesity, unspecified; Z68.37 Body mass index [BMI] 37.0-37.9, adult; Z87.440 Personal history of urinary (tract) infections
CPT/HCPCS: 87880; 99213; G0463

== ENCOUNTER 2021-07-23 14:19 | Emergency (ER) | payer OTHER, SELFPAY ==
[2021-07-23 14:23] VITALS: BP 187/98; PULSE 88; RESP 20; TEMP 36.8; O2SAT 100
[2021-07-23] MEDS: METOCLOPRAMIDE HCL INJ 10 MG/2 ML VIAL IV PUSH (16:06)
[2021-07-23] MEDS: KETOROLAC 30 MG/ML VIAL (*BKC) IV PUSH (16:06)
[2021-07-23] MEDS: diphenhydrAMINE HCl INJ 50 MG/ML VIAL 25 MG IV PUSH (16:07)
[2021-07-23] MEDS: SODIUM CHLORIDE 0.9% IV 1,000 ML 999 ML IV CONT (16:09)
--- NOTE | 2021-07-23 16:49 | ED.HA ---
HPI - Headache General Chief Complaint: Headache Stated Complaint: nausea, ear pain Time Seen by Provider: 07/23/21 14:28 Source: patient Mode of arrival: ambulatory Limitations: no limitations History of Present Illness HPI Narrative: 40-year-old female presents today with complaints of a headache that started around 2 AM last night. Patient states she used oxycodone and Tylenol at home without any relief. Patient states she has a history of migraines but has not had migraines since she is staying on top of her high blood pressure. Patient seen yesterday in clinic for complaints of left ear pain which she still continues to have. Patient diagnosed with strep and sent home on amoxicillin. Patient denies decrease in oral intake. Patient states she does not feel any better since she started her antibiotics yesterday. Related Data Home Medications Medication Instructions Recorded Confirmed amlodipine 5 mg tablet 20 mg PO DAILY 04/02/20 07/22/21 fluoxetine 40 mg capsule 40 mg PO DAILY 04/02/20 07/22/21 losartan 100 mg tablet 100 mg PO DAILY 09/18/20 07/22/21 chlorthalidone 25 mg tablet 25 mg PO DAILY 06/25/21 07/22/21 omeprazole 40 mg capsule,delayed 40 mg PO DAILY 06/25/21 07/22/21 release spironolactone 50 mg tablet 50 mg PO DAILY 06/25/21 07/22/21 Allergies Allergy/AdvReac Type Severity Reaction Status Date / Time clindamycin Allergy Mild Swelling Verified 07/23/21 14:31 NSAIDS (Non-Steroidal AdvReac Unknown Verified 07/23/21 14:31 Anti-Inflamma Review of Systems Review of Systems: CONSTITUTIONAL: Denies fever, chills, or sweats. EYES: Denies visual changes, redness, or discharge. ENT: Left ear pain and left-sided throat pain. Denies rhinorrhea, congestion. CARDIOVASCULAR: Denies chest pain, palpitations, or edema. RESPIRATORY: Denies cough or dyspnea. GASTROINTESTINAL: Denies abdominal pain, nausea, vomiting, or diarrhea. GENITOURINARY: Denies dysuria or hematuria. SKIN: Denies rash or itching. MUSCULOSKELETAL: Denies back pain, joint pain, or myalgia. NEUROLOGIC: Headache 7 out of 10 throbbing and annoying in nature, similar to her previous migraines but not as intense. Denies numbness, dizziness, or weakness. PSYCHIATRIC: Denies anxiety or depression. [facility] Past Medical History Medical History Depression HTN (hypertension) Hypercholesterolemia Kidney stone Migraine Obesity UTI (urinary tract infection) Surgical History Surgical History History of hysterectomy Laparoscopic total hysterectomy with BSO History of laparoscopic appendectomy 08/02/19 Hx of gastric bypass In January of 2019 at [place], current weight loss of 100 pounds since surgery Family History Family History Mother Diabetes mellitus Father , At age 64 Heart disease Acute myocardial infarction Social History Social History Social History: Primary care provider: Andrews GOLDSMITH Smoking status: Never smoker Alcohol intake: current Drinks per week: 2 Alcohol use details: She reports that since her father's last year she has been drinking more alcohol. She was drinking 2-3 alcoholic beverages a night. She has cut back down to 2 drinks a week over the last couple of months. Substance use: never Last use: Yesterday had an edible. Additional living arrangements comments: With her they have been together for 22 years and been for 9 years.. They have 4 children. Her oldest child is 22 years old and youngest is 12. Additional occupation/education comments: Works for the [employer]. Currently on short-term disability due to depression. Gender identity (if verbalized by the patient): Female Spiritual care concerns: No Exam Narrative: GENERAL: Well-appea
== END 2021-07-23 17:25 | disposition home or self-care (01) ==
PROVIDERS: Emergency Provider Nurse Practitioner Family; PCP Physician Assistant
DX: R51.9 Headache, unspecified (principal); H60.512 Acute actinic otitis externa, left ear; I10 Essential (primary) hypertension; E78.00 Pure hypercholesterolemia, unspecified; E66.9 Obesity, unspecified; Z68.36 Body mass index [BMI] 36.0-36.9, adult; F32.A Depression, unspecified; Z87.442 Personal history of urinary calculi; Z87.440 Personal history of urinary (tract) infections; Z98.84 Bariatric surgery status
CPT/HCPCS: 96361; 96374; 96375; 99284; J1100; J1200; J1885; J2765; J7030

== ENCOUNTER 2021-09-07 13:57 | Emergency (ER) | payer OTHER, SELFPAY ==
--- NOTE | ~2021-09-07 | CT_ITS ---
EXAMINATION: CT abdomen pelvis w con DATE: 09/07/2021 16:17 INDICATION: Abdominal pain TECHNIQUE: Computed tomography (CT) of the abdomen and pelvis was performed with 100 mL Omnipaque-300 intravenous contrast. Automated exposure control and iterative reconstruction technique were employe d. The dose-length product was 1301.42 mGy-cm. COMPARISON: 05/26/2021 FINDINGS: Mild dependent atelectasis in the bilateral lower lobes. Borderline heart size. No pericardial or ple ural effusion. Postoperative changes of prior Lluvia-en-Y gastric bypass procedure with antecolic Lluvia limb. Liver, gallbladder, spleen, pancreas and right adrenal gland are normal. Unchanged 1 cm left ad renal adenoma with characteristic low attenuation on prior CT. Bilateral kidneys are normal. Status p ost appendectomy with couple surgical clips and suture line at the tip the cecum. Unchanged fatty inf iltration of the wall of the proximal colon likely related to body habitus. No bowel obstruction. Harley dder is normal. The uterus is not identified and has likely been surgically resected. Tiny amount of likely physiologic free fluid in the pelvis. No abscess or free intraperitoneal gas. No pathologicall y enlarged abdominal or pelvic lymphadenopathy. Bones are unremarkable. IMPRESSION: 1. No acute intra-abdominal/pelvic process. Reviewed, dictated and finalized at location B.
[2021-09-07 14:13] VITALS: BP 181/117; PULSE 59; RESP 14; TEMP 36.9; O2SAT 100
[2021-09-07 14:24] LABS: Basophils Absolute Auto 0.1 K/mm3 (0.0-0.1); Basophils Percent Auto 0.6 % (0.2-1.2); Eosinophils Absolute Auto 0.2 K/mm3 (0-0.3); Eosinophils Percent Auto 1.9 % (0-4.4); Hematocrit 36.1 % (37.0-47.0); Hemoglobin 10.8 g/dL (12.0-15.0); Immature Granulocyte Absolute 0.02 K/mm3 (0.00-0.031); Immature Granulocyte Percent A 0.2 % (0-0.5); Lymphocytes Absolute Auto 1.85 K/mm3 (0.9-3.2); Lymphocytes Percent Auto 21.8 % (18.3-44.2); Mean Corpuscular HGB Conc 29.9 g/dl (32-36); Mean Corpuscular Hemoglobin 23.8 pg (26-34); Mean Corpuscular Volume 79.7 fl (80-100); Mean Platelet Volume 11.5 fl (7.4-10.4); Monocytes Absolute Auto 0.7 K/mm3 (0.1-0.6); Monocytes Percent Auto 8.6 % (2.6-8.5); Neutrophils Absolute Auto 5.7 K/mm3 (1.3-6.7); Neutrophils Percent Auto 66.9 % (45.5-73.1); Platelet Count Result 240 k/mm3 (150-375); Red Blood Count 4.53 M/mm3 (4.2-5.4); White Blood Count 8.5 K/mm3 (4.5-10.0)
[2021-09-07 14:32] LABS: Appearance Urine Clear (Clear); Bilirubin Urine Negative (Negative); Blood Urine Negative (Negative); Color Urine Yellow (Yellow); Glucose Urine UA Negative (Negative); Ketones Urine Negative (Negative); Leukocyte Esterase Ur Negative LEU/UL (Negative); Nitrate Urine Negative (Negative); Protein Urine Negative (Negative); Specific Grav Ur 1.025 (1.001-1.035)
[2021-09-07 14:36] LABS: Alanine Aminotransferase 35 U/L (6-35); Albumin Level 4.6 g/dL (3.5-5.1); Alkaline Phosphatase 104 U/L (38-126); Anion Gap 7 mmol/L (8-16); Aspartate Amino Transferase 27 U/L (14-36); Bilirubin,Total 0.2 mg/dL (0.2-1.3); Blood Urea Nitrogen 17 mg/dL (7-17); Calcium 8.9 mg/dL (8.4-10.2); Carbon Dioxide 27 mmol/L (22-30); Chloride 103 mmol/L (98-107); Estimated Glomerular Filt Rate > 60; Glucose 119 mg/dL (65-110); Lipase 48 U/L (23-300); Potassium 3.3 mmol/L (3.4-5.0); Sodium 137 mmol/L (137-145)
[2021-09-07 14:37] LABS: Mucus Urine Rare /lpf; Squamous Epithelial Cell Urine Many /hpf (Few)
[2021-09-07 14:42] LABS: Add Urine Microscopic? YES
[2021-09-07 16:13] LABS: Pregnancy On Board Control Positive; Urine Pregnancy Test Negative
--- NOTE | 2021-09-07 16:38 | ED.GENADULT ---
HPI - General Adult General Chief complaint: Abdominal Pain Stated complaint: ABDOMINAL PAIN Time Seen by Provider: 09/07/21 14:16 Source: RN notes reviewed History of Present Illness HPI narrative: Patient presents emergency department from home for abdominal pain. Patient states that symptoms been intermittent for the past 3 weeks. The pain is located around the umbilicus and is described as cramping in nature. Patient states that symptoms seem to be worse at night she denies any current pain she denies any fevers or chills chest pain shortness of breath nausea vomiting diarrhea or any other symptoms. States she not taking thing for the pain Related Data Home Medications Medication Instructions Recorded Confirmed amlodipine 5 mg tablet 20 mg PO DAILY 04/02/20 07/22/21 fluoxetine 40 mg capsule 40 mg PO DAILY 04/02/20 07/22/21 losartan 100 mg tablet 100 mg PO DAILY 09/18/20 07/22/21 chlorthalidone 25 mg tablet 25 mg PO DAILY 06/25/21 07/22/21 omeprazole 40 mg capsule,delayed 40 mg PO DAILY 06/25/21 07/22/21 release spironolactone 50 mg tablet 50 mg PO DAILY 06/25/21 07/22/21 Allergies Allergy/AdvReac Type Severity Reaction Status Date / Time clindamycin Allergy Mild Swelling Verified 07/23/21 14:31 NSAIDS (Non-Steroidal AdvReac Unknown Verified 07/23/21 14:31 Anti-Inflamma Review of Systems Review of Systems: Gen.: Denies fevers or chills ENT: Denies congestion Respiratory: Denies shortness of breath or cough CV: Denies chest pain or palpitations GI: See HPI denies burning, urgency, frequency or hematuria Musculoskeletal: Denies back pain or muscle pain Neuro: Denies numbness, tingling, weakness or focal weakness Skin: Denies rash Except as documented, all other systems reviewed and negative [facility] Past Medical History Medical History Depression HTN (hypertension) Hypercholesterolemia Kidney stone Migraine Obesity UTI (urinary tract infection) Surgical History Surgical History History of hysterectomy Laparoscopic total hysterectomy with BSO History of laparoscopic appendectomy 08/02/19 Hx of gastric bypass In January of 2019 at [place], current weight loss of 100 pounds since surgery Family History Family History Mother Diabetes mellitus Father , At age 64 Heart disease Acute myocardial infarction Social History Social History Social History: Primary care provider: Andrews GOLDSMITH Smoking status: Never smoker Alcohol intake: current Drinks per week: 2 Alcohol use details: She reports that since her father's last year she has been drinking more alcohol. She was drinking 2-3 alcoholic beverages a night. She has cut back down to 2 drinks a week over the last couple of months. Substance use: never Last use: Yesterday had an edible. Additional living arrangements comments: With her they have been together for 22 years and been for 9 years.. They have 4 children. Her oldest child is 22 years old and youngest is 12. Additional occupation/education comments: Works for the [employer]. Currently on short-term disability due to depression. Gender identity (if verbalized by the patient): Female Spiritual care concerns: No Exam Narrative: APPEARANCE: No acute distress, nontoxic, resting in bed EYES: EOMI HEENT: Normocephalic, atraumatic, OMM RESPIRATORY: No respiratory distress Clear to auscultation bilaterally with no rhonchi wheezing or rales. CARDIOVASCULAR: Regular rate and rhythm without murmurs rubs or gallops. ABDOMINAL: Soft, nontender, nondistended, no rebound or guarding MUSCULOSKELETAl: Moves all extremities. No clubbing, cyanosis or edema. NEURO: Awake and alert. Following commands, speech normal, no
[2021-09-07 16:46] VITALS: BP 154/101
[2021-09-07] MEDS: POTASSIUM CHLORIDE 20 MEQ TABLET PO (16:59)
[2021-09-07 17:10] VITALS: BP 154/100; PULSE 61; RESP 18; O2SAT 100
== END 2021-09-07 17:05 | disposition home or self-care (01) ==
PROVIDERS: Emergency Provider Emergency Medicine; PCP Physician Assistant
DX: R10.33 Periumbilical pain (principal); I10 Essential (primary) hypertension; E78.00 Pure hypercholesterolemia, unspecified; E66.9 Obesity, unspecified; F32.A Depression, unspecified; Z87.442 Personal history of urinary calculi; Z87.440 Personal history of urinary (tract) infections; Z98.84 Bariatric surgery status
CPT/HCPCS: 36415; 74177; 80053; 81001; 81025; 83690; 85025; 99284; A9270; Q9967

== ENCOUNTER 2021-10-06 13:41 | Emergency (ER) | payer OTHER, SELFPAY ==
--- NOTE | ~2021-10-06 | CT_ITS ---
EXAMINATION: CTA chest abdomen pelvis DATE: 10/06/2021 18:29 INDICATION: dissection protocol . TECHNIQUE: Computed tomography angiography (CTA) of the chest, abdomen, and pelvis was performed with 100 mL Omnipaque-350 intravenous contrast. Automated exposure control and iterative reconstruction t [email or web address] were employed. The dose-length product was 1771.15 mGy-cm. COMPARISON: CT abdomen pelvis 09/07/2021 FINDINGS: Thoracic aorta: No significant dilation or calcification. Lung parenchyma and airways: Lungs and airways are clear. Thoracic inlet, axillae and chest wall: No thyroid or soft tissue mass. No axillary lymphadenopathy. Mediastinum: No mass or lymphadenopathy. Heart and pericardium: Cardiomegaly. No pericardial effusion. Coronary artery calcifications: Mild. Pleura: No effusion or mass. Thoracic bones: No acute osseous finding in the chest. ABDOMEN/PELVIS: Liver: 6 mm right posterior liver lobe hemangioma. Hepatomegaly. Biliary/Gallbladder: Gallbladder is normal. No bile duct dilation. Pancreas: No mass or duct dilation. Spleen: Normal. Adrenals:Left adrenal adenoma. Kidneys: No mass, stone, or hydronephrosis. GI tract: Gastric bypass. Colonic and gastric submucosal fat as can be seen with chronic IBD, obesity , chemotherapy treatment, and celiac disease. No small or large bowel dilation. Appendix surgically absent. Mesentery/Peritoneum: No ascites, mass, or free air. Retroperitoneum: No mass Pelvis: Uterus absent. Soft Tissues: Soft tissues and body wall unremarkable. Abdominopelvic bones: No acute osseous finding in the abdomen/pelvis. IMPRESSION: No CT evidence of aortic dissection. Reviewed, dictated and finalized at location K.
--- NOTE | ~2021-10-06 | XR_ITS ---
EXAMINATION: XR chest 2V Exam Date/Time: 10/06/2021 15:00 CDT HISTORY: left arm pain, rule out ACS Comparison: 05/26/2021. RESULT: Lines, tubes, and devices: None. Lungs and pleura: Clear. Cardiomediastinal silhouette: Stable. Other: No acute osseous or upper abdominal finding. IMPRESSION: No acute cardiopulmonary process. Reviewed, dictated and finalized at location K.
[2021-10-06 13:44] VITALS: BP 183/112; PULSE 64; RESP 16; TEMP 36.8; O2SAT 100
--- NOTE | 2021-10-06 13:55 | ED.GENADULT ---
HPI - General Adult General Chief complaint: Unspecified Stated complaint: left sided sharp pains since yesterday Time Seen by Provider: 10/06/21 13:54 History of Present Illness HPI narrative: The patient is a 40-year-old female with a history of gastric bypass, appendectomy, nephrolithiasis, presenting to the emergency department for evaluation of multiple complaints including left-sided arm pain, left lower abdominal pain and left leg pain. Patient states that she has had intermittent left arm pain, left leg pain over the past 5 days. Patient states the pain in her left arm is sharp, aching in nature with associated tingling. She denies any focal weakness or difficulty with movement. She denies fever, chills, frontal chest pain or shortness of breath. No diaphoresis. Patient reports no current abdominal pain but states that yesterday she had right lower quadrant abdominal pain. She denies any dysuria or hematuria that she has noticed. No frequency of urination. Patient denies any cough, lightheadedness, dizziness. She has been ambulatory without difficulty. She denies recent fall or injury. She denies cervical neck pain, thoracic or lower back pain. Patient denies history of this in the past. She denies exacerbation of pain in her left arm with movement. There does not seem to be any pattern to the pain sensation she is experiencing. Related Data Home Medications Medication Instructions Recorded Confirmed amlodipine 5 mg tablet 20 mg PO DAILY 04/02/20 07/22/21 fluoxetine 40 mg capsule 40 mg PO DAILY 04/02/20 07/22/21 losartan 100 mg tablet 100 mg PO DAILY 09/18/20 07/22/21 chlorthalidone 25 mg tablet 25 mg PO DAILY 06/25/21 07/22/21 omeprazole 40 mg capsule,delayed 40 mg PO DAILY 06/25/21 07/22/21 release spironolactone 50 mg tablet 50 mg PO DAILY 06/25/21 07/22/21 Allergies Allergy/AdvReac Type Severity Reaction Status Date / Time clindamycin Allergy Mild Swelling Verified 10/06/21 13:48 NSAIDS (Non-Steroidal AdvReac Unknown Verified 10/06/21 13:48 Anti-Inflamma Review of Systems Review of Systems: CONSTITUTIONAL: Denies fever, chills, or sweats. EYES: Denies visual changes, redness, or discharge. ENT: Denies rhinorrhea, congestion, sore throat, or otalgia. CARDIOVASCULAR: Denies chest pain, palpitations, or edema. RESPIRATORY: Denies cough or dyspnea. GASTROINTESTINAL: Denies current abdominal pain, nausea, vomiting, or diarrhea. GENITOURINARY: Denies dysuria or hematuria. SKIN: Denies rash or itching. MUSCULOSKELETAL: Denies back pain, joint pain. Reports left upper extremity tingling and pain. NEUROLOGIC: Denies headache, numbness, or weakness. Reports tingling sensation left upper extremity. [facility] Past Medical History Medical History Depression HTN (hypertension) Hypercholesterolemia Kidney stone Migraine Obesity UTI (urinary tract infection) Surgical History Surgical History History of hysterectomy Laparoscopic total hysterectomy with BSO History of laparoscopic appendectomy 08/02/19 Hx of gastric bypass In January of 2019 at [place], current weight loss of 100 pounds since surgery Family History Family History Mother Diabetes mellitus Father , At age 64 Heart disease Acute myocardial infarction Social History Social History Social History: Primary care provider: Andrews GOLDSMITH Smoking status: Never smoker Alcohol intake: current Drinks per week: 2 Alcohol use details: She reports that since her father's last year she has been drinking more alcohol. She was drinking 2-3 alcoholic beverages a night. She has cut back down to 2 drinks a week over the last couple of months. Substance use: never Last use: Yesterday had an edible
[2021-10-06 14:00] VITALS: PULSE 61
[2021-10-06 14:01] VITALS: BP 169/116; O2SAT 100
--- NOTE | 2021-10-06 14:20 | ECG_ITS ---
Measurements Intervals [place] Rate: 54 P: 23 UT: 145 QRS: -4 QRSD: 92 T: 9 QT: 442 QTc: 421 Interpretive Statements SINUS BRADYCARDIA VOLTAGE CRITERIA FOR LVH [MEETS CRITERIA IN ONE OF: R(aVL), S(V1), R(V5), R(V5/V6)+S(V1)] COMPARED TO ECG 05/26/2021 09:02:17 SINUS BRADYCARDIA NOW PRESENT Electronically Signed On 10-06-2021 16:42:53 CDT by Sylvie Saunders M.D.
[2021-10-06 14:32] VITALS: BP 173/105; O2SAT 100
[2021-10-06] MEDS: SODIUM CHLORIDE 0.9% IV 1,000 ML 999 ML IV CONT (14:39)
[2021-10-06] MEDS: MORPHINE SULFATE (*CRX) 4 MG/ML INJ IV PUSH (14:41)
[2021-10-06 14:48] VITALS: BP 187/117; O2SAT 100
[2021-10-06 14:54] LABS: Basophils Percent Auto 0.5 % (0.2-1.2); Eosinophils Absolute Auto 0.2 K/mm3 (0-0.3); Eosinophils Percent Auto 2.2 % (0-4.4); Hematocrit 35.4 % (37.0-47.0); Hemoglobin 10.2 g/dL (12.0-15.0); Immature Granulocyte Absolute 0.02 K/mm3 (0.00-0.031); Immature Granulocyte Percent A 0.2 % (0-0.5); Lymphocytes Absolute Auto 1.87 K/mm3 (0.9-3.2); Lymphocytes Percent Auto 22.7 % (18.3-44.2); Mean Corpuscular HGB Conc 28.8 g/dl (32-36); Mean Corpuscular Hemoglobin 23.6 pg (26-34); Mean Corpuscular Volume 81.8 fl (80-100); Mean Platelet Volume 11.7 fl (7.4-10.4); Monocytes Absolute Auto 0.6 K/mm3 (0.1-0.6); Neutrophils Absolute Auto 5.6 K/mm3 (1.3-6.7); Neutrophils Percent Auto 67.4 % (45.5-73.1); Platelet Count Result 181 k/mm3 (150-375); Red Blood Count 4.33 M/mm3 (4.2-5.4); Red Cell Distribution Width 17.4 % (11.5-14.5); White Blood Count 8.2 K/mm3 (4.5-10.0)
[2021-10-06 15:14] LABS: Alanine Aminotransferase 26 U/L (6-35); Alkaline Phosphatase 99 U/L (38-126); Anion Gap 6 mmol/L (8-16); Aspartate Amino Transferase 25 U/L (14-36); Bilirubin,Total < 0.1 mg/dL (0.2-1.3); Blood Urea Nitrogen 16 mg/dL (7-17); CRP < 0.5 mg/dL (<1.0); Calcium 8.7 mg/dL (8.4-10.2); Carbon Dioxide 27 mmol/L (22-30); Chloride 104 mmol/L (98-107); Estimated CRCL calculation 85 ml/min; Estimated Glomerular Filt Rate > 60; Glucose 100 mg/dL (65-110); Potassium 3.7 mmol/L (3.4-5.0); Sodium 137 mmol/L (137-145)
[2021-10-06 15:34] LABS: Troponin I < 0.012 ng/mL (0.000-0.034)
[2021-10-06 15:48] LABS: Erythrocyte Sedimentation Rate 20 mm/hr (0-20)
[2021-10-06 17:20] VITALS: BP 182/119; O2SAT 100
[2021-10-06 18:12] LABS: Appearance Urine Clear (Clear); Bilirubin Urine Negative (Negative); Blood Urine Negative (Negative); Color Urine Yellow (Yellow); Glucose Urine UA Negative (Negative); Ketones Urine Negative (Negative); Leukocyte Esterase Ur Negative LEU/UL (Negative); Nitrate Urine Negative (Negative); Protein Urine Negative (Negative); Specific Grav Ur 1.025 (1.001-1.035)
[2021-10-06 18:20] LABS: D Dimer 0.46 ug/mL (<0.48)
[2021-10-06 18:20] LABS: Mucus Urine Rare /lpf; Squamous Epithelial Cell Urine Occasional /hpf (Few); WBC Urine 0-3 /hpf
[2021-10-06 18:21] LABS: Add Urine Microscopic? YES
[2021-10-06 18:25] LABS: Troponin I < 0.012 ng/mL (0.000-0.034)
== END 2021-10-06 20:00 | disposition home or self-care (01) ==
PROVIDERS: Emergency Provider Emergency Medicine; PCP Physician Assistant
DX: R20.2 Paresthesia of skin (principal); I10 Essential (primary) hypertension; E78.00 Pure hypercholesterolemia, unspecified; E66.9 Obesity, unspecified; Z68.36 Body mass index [BMI] 36.0-36.9, adult; F32.A Depression, unspecified; Z98.84 Bariatric surgery status; Z87.442 Personal history of urinary calculi; Z87.440 Personal history of urinary (tract) infections; R00.1 Bradycardia, unspecified; R94.31 Abnormal electrocardiogram [ECG] [EKG]
CPT/HCPCS: 36415; 71046; 71275; 74174; 80053; 81001; 81025; 82607; 82746; 84484; 85025; 85380; 85652; 86140; 93005; 96361; 96374; 99284; J2270; J7030; Q9967

== ENCOUNTER 2021-10-15 14:29 | Emergency (ER) | payer OTHER, SELFPAY ==
--- NOTE | ~2021-10-15 | CT_ITS ---
EXAMINATION: CT abdomen pelvis w con DATE: 10/15/2021 17:19 INDICATION: Right abdominal pain. Nausea. TECHNIQUE: Computed tomography (CT) of the abdomen and pelvis was performed with 100 mL Omnipaque 350 intravenous contrast. Automated exposure control and iterative reconstruction technique were employe d. The dose-length product was 1288.72 mGy-cm. COMPARISON: CT abdomen and pelvis 10/06/2021 FINDINGS: The visualized portions of the lung bases demonstrate mild atelectasis. No pleural effusion . The heart size is normal. No pericardial effusion. The liver, gallbladder, and spleen are normal. P ancreas divisum is noted. The adrenal glands and kidneys are normal. There are no dilated loops of kolton wel. There are changes of appendectomy. There are surgical changes of the stomach. There are no patho logically enlarged lymph nodes. There is no free intraperitoneal fluid. There is mild lumbar spondylo sis. IMPRESSION: 1. No etiology for the patient's symptoms. Reviewed, dictated and finalized at location A.
[2021-10-15 14:33] VITALS: BP 155/95; PULSE 60; RESP 18; TEMP 36.4; O2SAT 100
[2021-10-15 14:47] LABS: Basophils Percent Auto 0.4 % (0.2-1.2); Eosinophils Absolute Auto 0.2 K/mm3 (0-0.3); Eosinophils Percent Auto 2.3 % (0-4.4); Hematocrit 34.4 % (37.0-47.0); Hemoglobin 10.4 g/dL (12.0-15.0); Immature Granulocyte Absolute 0.02 K/mm3 (0.00-0.031); Immature Granulocyte Percent A 0.2 % (0-0.5); Lymphocytes Absolute Auto 1.98 K/mm3 (0.9-3.2); Lymphocytes Percent Auto 23.5 % (18.3-44.2); Mean Corpuscular HGB Conc 30.2 g/dl (32-36); Mean Corpuscular Hemoglobin 24.1 pg (26-34); Mean Corpuscular Volume 79.6 fl (80-100); Mean Platelet Volume 11.7 fl (7.4-10.4); Monocytes Absolute Auto 0.7 K/mm3 (0.1-0.6); Monocytes Percent Auto 7.7 % (2.6-8.5); Neutrophils Absolute Auto 5.6 K/mm3 (1.3-6.7); Neutrophils Percent Auto 65.9 % (45.5-73.1); Platelet Count Result 234 k/mm3 (150-375); Red Blood Count 4.32 M/mm3 (4.2-5.4); Red Cell Distribution Width 17.2 % (11.5-14.5); White Blood Count 8.4 K/mm3 (4.5-10.0)
[2021-10-15 14:57] LABS: Alanine Aminotransferase 25 U/L (6-35); Albumin Level 4.1 g/dL (3.5-5.1); Alkaline Phosphatase 107 U/L (38-126); Anion Gap 7 mmol/L (8-16); Aspartate Amino Transferase 30 U/L (14-36); Bilirubin,Total 0.3 mg/dL (0.2-1.3); Blood Urea Nitrogen 15 mg/dL (7-17); Calcium 8.8 mg/dL (8.4-10.2); Carbon Dioxide 27 mmol/L (22-30); Chloride 101 mmol/L (98-107); Estimated CRCL calculation 77 ml/min; Estimated Glomerular Filt Rate > 60; Glucose 94 mg/dL (65-110); Lipase 317 U/L (23-300); Sodium 135 mmol/L (137-145)
[2021-10-15 15:31] LABS: Appearance Urine Clear (Clear); Bilirubin Urine Negative (Negative); Blood Urine Negative (Negative); Color Urine Yellow (Yellow); Glucose Urine UA Negative (Negative); Ketones Urine Negative (Negative); Leukocyte Esterase Ur Negative LEU/UL (Negative); Nitrate Urine Negative (Negative); Protein Urine Negative (Negative); Specific Grav Ur 1.025 (1.001-1.035)
[2021-10-15 15:34] LABS: Add Urine Microscopic? NO
--- NOTE | 2021-10-15 16:29 | ED.ABDPAIN ---
HPI - Abdominal Pain General Chief Complaint: Abdominal Pain Stated Complaint: abd pain Time Seen by Provider: 10/15/21 16:20 Source: patient Mode of arrival: ambulatory Limitations: no limitations History of Present Illness HPI narrative: This is a 40-year-old female that presents to the emergency department for right flank pain present over the last couple of days. Reports history of kidney stones and that her pain felt similar. The pain is sharp in nature. It is worsened with certain movements. She has not taken anything today for pain. Denies fever, vomiting, dysuria, hematuria. Related Data Home Medications Medication Instructions Recorded Confirmed amlodipine 5 mg tablet 20 mg PO DAILY 04/02/20 07/22/21 fluoxetine 40 mg capsule 40 mg PO DAILY 04/02/20 07/22/21 losartan 100 mg tablet 100 mg PO DAILY 09/18/20 07/22/21 chlorthalidone 25 mg tablet 25 mg PO DAILY 06/25/21 07/22/21 omeprazole 40 mg capsule,delayed 40 mg PO DAILY 06/25/21 07/22/21 release spironolactone 50 mg tablet 50 mg PO DAILY 06/25/21 07/22/21 Allergies Allergy/AdvReac Type Severity Reaction Status Date / Time clindamycin Allergy Mild Swelling Verified 10/15/21 16:34 NSAIDS (Non-Steroidal AdvReac Unknown Verified 10/15/21 16:34 Anti-Inflamma Review of Systems Review of Systems: CONSTITUTIONAL: Denies fever GASTROINTESTINAL: Reports flank pain. Denies nausea, vomiting GENITOURINARY: Denies dysuria or hematuria. All systems reviewed & are unremarkable except as noted in HPI and below PMFSH Past Medical History Medical History Depression HTN (hypertension) Hypercholesterolemia Kidney stone Migraine Obesity UTI (urinary tract infection) Surgical History Surgical History History of hysterectomy Laparoscopic total hysterectomy with BSO History of laparoscopic appendectomy 08/02/19 Hx of gastric bypass In January of 2019 at [place], current weight loss of 100 pounds since surgery Family History Family History Mother Diabetes mellitus Father , At age 64 Heart disease Acute myocardial infarction Social History Social History Social History: Primary care provider: Andrews GOLDSMITH Smoking status: Never smoker Alcohol intake: current Drinks per week: 2 Alcohol use details: She reports that since her father's last year she has been drinking more alcohol. She was drinking 2-3 alcoholic beverages a night. She has cut back down to 2 drinks a week over the last couple of months. Substance use: never Last use: Yesterday had an edible. Additional living arrangements comments: With her they have been together for 22 years and been for 9 years.. They have 4 children. Her oldest child is 22 years old and youngest is 12. Additional occupation/education comments: Works for the [employer]. Currently on short-term disability due to depression. Gender identity (if verbalized by the patient): Female Spiritual care concerns: No Exam Narrative: GENERAL: Well-appearing, well-nourished, and in no acute distress. HEAD: Normocephalic, atraumatic. EYES: EOMI. CHEST: Clear to auscultation. No respiratory distress. No wheezes rales or rhonchi HEART: Regular rate and rhythm. No murmur heard. Normal peripheral pulses. ABDOMEN: Soft, nontender, nondistended, normal active bowel sounds. No CVA tenderness EXTREMITIES: Normal range of motion. No edema. SKIN: Warm, dry, no rash. NEURO: No focal deficits. Alert and oriented x3. PSYCH: Normal mood and affect Course Vital Signs Vital signs: Vital Signs Temperature 97.6 F 10/15/21 14:33 Pulse Rate 60 10/15/21 14:33 Respiratory Rate 18 10/15/21 14:33 Blood Pressure 155/95 H 10/15/21 14:33 Pulse Oximetry
[2021-10-15] MEDS: diazePAM INJ (*CRX) 10 MG/2 ML SYRINGE 5 MG IV PUSH (16:37)
[2021-10-15] MEDS: SODIUM CHLORIDE 0.9% IV 500 ML 999 ML IV CONT (16:50)
[2021-10-15 18:21] VITALS: BP 174/93; PULSE 58; RESP 16; O2SAT 100
== END 2021-10-15 18:22 | disposition home or self-care (01) ==
PROVIDERS: Emergency Medicine; Emergency Provider Family Medicine; PCP Physician Assistant
DX: M54.50 Low back pain, unspecified (principal); I10 Essential (primary) hypertension; E78.00 Pure hypercholesterolemia, unspecified; E66.9 Obesity, unspecified; Z68.36 Body mass index [BMI] 36.0-36.9, adult; F32.A Depression, unspecified; Z87.442 Personal history of urinary calculi; Z87.440 Personal history of urinary (tract) infections
CPT/HCPCS: 36415; 74177; 80053; 81003; 81025; 83690; 85025; 96361; 96374; 96375; 99284; J0131; J3360; J7040; Q9967

== ENCOUNTER 2021-11-01 11:29 | Emergency (ER) | payer OTHER, SELFPAY ==
--- NOTE | ~2021-11-01 | XR_ITS ---
EXAMINATION: XR knee LT 3V DATE: 11/01/2021 12:47 INDICATION: Left knee pain. TECHNIQUE: 3 views of left knee were obtained. COMPARISON: None. FINDINGS: Bone alignment is normal. No fracture. Joint spaces are well maintained. There is no knee j oint effusion. IMPRESSION: 1. Normal left knee. Reviewed, dictated and finalized at location A. IMPRESSION: 1. Normal left knee.
--- NOTE | ~2021-11-01 | XR_ITS ---
EXAMINATION: XR elbow LT min 3V DATE: 11/01/2021 12:47 INDICATION: Left elbow pain. TECHNIQUE: 4 views of left elbow were obtained. COMPARISON: None. FINDINGS: Bone alignment is normal. No fracture. Joint spaces are normal. No elbow joint effusion. IMPRESSION: 1. No fracture. Reviewed, dictated and finalized at location A. IMPRESSION: 1. No fracture.
[2021-11-01 11:45] VITALS: BP 155/104; PULSE 77; RESP 20; TEMP 36.2; O2SAT 100
--- NOTE | 2021-11-01 12:13 | ED.EXTPRO ---
HPI - Extremity Problem General Chief complaint: Extremity Problem,Nontraumatic Stated complaint: left arm and left knee Time Seen by Provider: 11/01/21 12:06 Source: patient Mode of arrival: ambulatory Limitations: no limitations History of Present Illness HPI Narrative: 40 years old -[place] female presents with pain at the left knee and left elbow started over 1 month ago. Patient been working at [employer] for 1 month. Patient is left-handed. Patient standing on her feet all shift. She reports left knee injury, hitting the edge of a table 1 month ago, history of gastric bypass cannot take anti-inflammatory, currently on Tylenol and muscle relaxants without any improvement Related Data Home Medications Medication Instructions Recorded Confirmed amlodipine 5 mg tablet 20 mg PO DAILY 04/02/20 07/22/21 fluoxetine 40 mg capsule 40 mg PO DAILY 04/02/20 07/22/21 losartan 100 mg tablet 100 mg PO DAILY 09/18/20 07/22/21 chlorthalidone 25 mg tablet 25 mg PO DAILY 06/25/21 07/22/21 omeprazole 40 mg capsule,delayed 40 mg PO DAILY 06/25/21 07/22/21 release spironolactone 50 mg tablet 50 mg PO DAILY 06/25/21 07/22/21 Allergies Allergy/AdvReac Type Severity Reaction Status Date / Time clindamycin Allergy Mild Swelling Verified 10/15/21 16:34 NSAIDS (Non-Steroidal AdvReac Unknown Verified 10/15/21 16:34 Anti-Inflamma Review of Systems Review of Systems: All systems reviewed & are unremarkable except as noted in HPI and below PMFSH Past Medical History Medical History Depression HTN (hypertension) Hypercholesterolemia Kidney stone Migraine Obesity UTI (urinary tract infection) Surgical History Surgical History History of hysterectomy Laparoscopic total hysterectomy with BSO History of laparoscopic appendectomy 08/02/19 Hx of gastric bypass In January of 2019 at [place], current weight loss of 100 pounds since surgery Family History Family History Mother Diabetes mellitus Father , At age 64 Heart disease Acute myocardial infarction Social History Social History Social History: Primary care provider: Andrews GOLDSMITH Smoking status: Never smoker Alcohol intake: current Drinks per week: 2 Alcohol use details: She reports that since her father's last year she has been drinking more alcohol. She was drinking 2-3 alcoholic beverages a night. She has cut back down to 2 drinks a week over the last couple of months. Substance use: never Last use: Yesterday had an edible. Additional living arrangements comments: With her they have been together for 22 years and been for 9 years.. They have 4 children. Her oldest child is 22 years old and youngest is 12. Additional occupation/education comments: Works for the [employer]. Currently on short-term disability due to depression. Gender identity (if verbalized by the patient): Female Spiritual care concerns: No Exam Narrative: General appearance: Well-developed, well-nourished Skin: Normal color Head: Normocephalic, nontraumatic Eyes: Clear conjunctiva ENT: Oropharynx normal, ears normal, nose normal Neck: Supple, nontender Chest and respiratory: Airway patent, no respiratory distress, no accessory muscle use Heart: Regular rate/rhythm Abdomen: Soft, nontender, no organomegaly, quiet bowel sounds Vascular: Normal peripheral pulses, normal capillary refill. 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
== END 2021-11-01 13:08 | disposition home or self-care (01) ==
PROVIDERS: Emergency Provider Emergency Medicine; PCP Physician Assistant
DX: M25.562 Pain in left knee (principal); M25.522 Pain in left elbow; I10 Essential (primary) hypertension; E78.00 Pure hypercholesterolemia, unspecified; E66.9 Obesity, unspecified; Z68.37 Body mass index [BMI] 37.0-37.9, adult; Z98.84 Bariatric surgery status; Z87.442 Personal history of urinary calculi; Z87.440 Personal history of urinary (tract) infections; Z90.710 Acquired absence of both cervix and uterus
CPT/HCPCS: 73080; 73562; 99284

== ENCOUNTER 2021-11-30 15:23 | Emergency (ER) | payer OTHER, SELFPAY ==
[2021-11-30] VITALS (13 sets, daily range): BP systolic 151–182; BP diastolic 100–134; PULSE 65–87; RESP 14–22; TEMP 36.6; O2SAT 98–100
--- NOTE | ~2021-11-30 | CT_ITS ---
EXAMINATION: CT brain wo con DATE: 11/30/2021 19:17 INDICATION: HTN, dizzy/lightheaded, trouble focusing . TECHNIQUE: Computed tomography (CT) of the head was performed without intravenous contrast. The mA wa s adjusted according to patient size. Iterative reconstruction technique was employed. The dose-lengt h product was 605.33 mGy-cm. COMPARISON: 12/16/2020. FINDINGS: No acute intracranial hemorrhage or extra-axial fluid collection. No hydrocephalus, mass, or herniation. No acute ischemic infarct. Unremarkable dural venous sinus attenuation. No acute osseous abnormality. Trace left mastoid fluid, the remaining aerated spaces are clear. IMPRESSION: No acute intracranial process. Reviewed, dictated and finalized at location K.
--- NOTE | ~2021-11-30 | XR_ITS ---
EXAMINATION: XR chest 2V Exam Date/Time: 11/30/2021 18:45 CDT HISTORY: HTN Comparison: 10/06/2021. RESULT: Lines, tubes, and devices: None. Lungs and pleura: Clear. Cardiomediastinal silhouette: Stable. Other: No acute osseous or upper abdominal finding. IMPRESSION: No acute cardiopulmonary process. Reviewed, dictated and finalized at location K.
--- NOTE | 2021-11-30 16:02 | ECG_ITS ---
Measurements Intervals [place] Rate: 67 P: 28 [place]: 157 QRS: -6 QRSD: 96 T: 11 QT: 418 QTc: 442 Interpretive Statements SINUS RHYTHM VOLTAGE CRITERIA FOR LVH [MEETS CRITERIA IN ONE OF: R(aVL), S(V1), R(V5), R(V5/V6)+S(V1)] COMPARED TO ECG 10/06/2021 14:33:40 SINUS RHYTHM NOW PRESENT Electronically Signed On 12-01-2021 17:13:05 CDT by Alan Villa M.D.
[2021-11-30 16:15] LABS: Basophils Percent Auto 0.4 % (0.2-1.2); Eosinophils Absolute Auto 0.2 K/mm3 (0-0.3); Eosinophils Percent Auto 2.1 % (0-4.4); Hematocrit 33.9 % (37.0-47.0); Hemoglobin 10.4 g/dL (12.0-15.0); Immature Granulocyte Absolute 0.01 K/mm3 (0.00-0.031); Immature Granulocyte Percent A 0.1 % (0-0.5); Lymphocytes Absolute Auto 1.69 K/mm3 (0.9-3.2); Lymphocytes Percent Auto 20.7 % (18.3-44.2); Mean Corpuscular HGB Conc 30.7 g/dl (32-36); Mean Corpuscular Hemoglobin 23.5 pg (26-34); Mean Corpuscular Volume 76.7 fl (80-100); Mean Platelet Volume 10.9 fl (7.4-10.4); Monocytes Absolute Auto 0.6 K/mm3 (0.1-0.6); Monocytes Percent Auto 7.9 % (2.6-8.5); Neutrophils Absolute Auto 5.6 K/mm3 (1.3-6.7); Neutrophils Percent Auto 68.8 % (45.5-73.1); Platelet Count Result 205 k/mm3 (150-375); Red Blood Count 4.42 M/mm3 (4.2-5.4); Red Cell Distribution Width 17.9 % (11.5-14.5); White Blood Count 8.2 K/mm3 (4.5-10.0)
[2021-11-30 16:34] LABS: Alanine Aminotransferase 26 U/L (6-35); Albumin Level 4.4 g/dL (3.5-5.1); Alkaline Phosphatase 114 U/L (38-126); Anion Gap 7 mmol/L (8-16); Aspartate Amino Transferase 27 U/L (14-36); Bilirubin,Total 0.2 mg/dL (0.2-1.3); Blood Urea Nitrogen 13 mg/dL (7-17); Calcium 8.5 mg/dL (8.4-10.2); Carbon Dioxide 26 mmol/L (22-30); Chloride 105 mmol/L (98-107); Estimated CRCL calculation 107 ml/min; Estimated Glomerular Filt Rate > 60; Glucose 86 mg/dL (65-110); Potassium 3.5 mmol/L (3.4-5.0); Sodium 138 mmol/L (137-145)
--- NOTE | 2021-11-30 18:33 | ED.GENADULT ---
HPI - General Adult General Chief complaint: Recheck/Abnormal Lab/Rx Stated complaint: high BP-lightheaded Time Seen by Provider: 11/30/21 18:27 Source: patient Mode of arrival: ambulatory Limitations: no limitations History of Present Illness HPI narrative: Patient is a 40-year-old female who presents to the ED with report of high blood pressure. Patient has a history of hypertension and takes losartan 100 mg and amlodipine 5 mg daily. She also takes Spironolactone 50mg daily. Patient reports her blood pressures having been elevated in the 150s systolic recently. This morning while working from home around 7:30 AM she took her blood pressure and noted it was 150s over 119. She reported feeling lightheaded at that time. 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 She also noted her heart was racing at that time. The symptoms resolved after about 5 minutes. She states she feels fine currently. Denies any current lightheadedness or dizziness, chest pain, difficulty breathing, headache, vision changes, abdominal pain, focal weakness. Patient has an appointment to see her primary care doctor on 12/04. Related Data Home Medications Medication Instructions Recorded Confirmed amlodipine 5 mg tablet 20 mg PO DAILY 04/02/20 07/22/21 fluoxetine 40 mg capsule 40 mg PO DAILY 04/02/20 07/22/21 losartan 100 mg tablet 100 mg PO DAILY 09/18/20 07/22/21 chlorthalidone 25 mg tablet 25 mg PO DAILY 06/25/21 07/22/21 omeprazole 40 mg capsule,delayed 40 mg PO DAILY 06/25/21 07/22/21 release spironolactone 50 mg tablet 50 mg PO DAILY 06/25/21 07/22/21 Allergies Allergy/AdvReac Type Severity Reaction Status Date / Time clindamycin Allergy Mild Swelling Verified 10/15/21 16:34 NSAIDS (Non-Steroidal AdvReac Unknown Verified 10/15/21 16:34 Anti-Inflamma Review of Systems Review of Systems: CONSTITUTIONAL: Denies fever, chills, or sweats. EYES: Denies visual changes. CARDIOVASCULAR: Reports racing heart palpitations. Denies chest pain. RESPIRATORY: Denies dyspnea. GASTROINTESTINAL: Denies abdominal pain, nausea, vomiting, or diarrhea. NEUROLOGIC: Reports lightheadedness, resolved. Denies dizziness, headache, numbness, or weakness. All systems reviewed & are unremarkable except as noted in HPI and below PMFSH Past Medical History Medical History Depression HTN (hypertension) Hypercholesterolemia Kidney stone Migraine Obesity UTI (urinary tract infection) Surgical History Surgical History History of hysterectomy Laparoscopic total hysterectomy with BSO History of laparoscopic appendectomy 08/02/19 Hx of gastric bypass In January of 2019 at [place], current weight loss of 100 pounds since surgery Family History Family History Mother Diabetes mellitus Father , At age 64 Heart disease Acute myocardial infarction Social History Social History Social History: Primary care provider: Andrews GOLDSMITH Smoking status: Never smoker Alcohol intake: current Drinks per week: 2 Alcohol use details: She reports that since her father's last year she has been drinking more alcohol. She was drinking 2-3 alcoholic beverages a night. She has cut back down to 2 drinks a week over the last couple of months. Substance use: never Last use: Yesterday had an edible. Additional living arrangements comments: With her they have been together for 22 years and been for 9 years.. They have 4 children. Her oldest child is 22 years old and youngest is 12. Additional occupation/education comments: Works for the [employer]. Currently on short-term disability due to depression. Gender identity (if verba
[2021-11-30 19:40] LABS: Appearance Urine Clear (Clear); Bilirubin Urine Negative (Negative); Blood Urine Negative (Negative); Color Urine Yellow (Yellow); Glucose Urine UA Negative (Negative); Ketones Urine Negative (Negative); Leukocyte Esterase Ur Negative LEU/UL (Negative); Nitrate Urine Negative (Negative); Protein Urine Negative (Negative); Specific Grav Ur 1.025 (1.001-1.035)
[2021-11-30 19:48] LABS: Mucus Urine Rare /lpf; RBC Urine 0-2 /hpf (0-2); Squamous Epithelial Cell Urine Few /hpf (Few); WBC Urine 0-3 /hpf
[2021-11-30 19:52] LABS: Troponin I < 0.012 ng/mL (0.000-0.034)
[2021-11-30 20:08] LABS: Add Urine Microscopic? NO
[2021-11-30 20:54] LABS: D Dimer 0.39 ug/mL (<0.48)
== END 2021-11-30 22:09 | disposition home or self-care (01) ==
PROVIDERS: Emergency Medicine; Physician Assistant; Emergency Provider General Practice; PCP Physician Assistant
DX: I10 Essential (primary) hypertension (principal); E78.00 Pure hypercholesterolemia, unspecified; F32.A Depression, unspecified; E66.9 Obesity, unspecified; Z68.36 Body mass index [BMI] 36.0-36.9, adult; Z87.442 Personal history of urinary calculi; Z87.440 Personal history of urinary (tract) infections; Z90.710 Acquired absence of both cervix and uterus; Z90.722 Acquired absence of ovaries, bilateral; Z98.84 Bariatric surgery status
CPT/HCPCS: 36415; 70450; 71046; 80053; 81003; 84484; 85025; 85380; 93005; 99284

== ENCOUNTER 2022-01-18 16:13 | Emergency (ER) | payer OTHER, SELFPAY ==
[2022-01-18 16:29] VITALS: BP 171/120; PULSE 79; RESP 20; TEMP 37.8; O2SAT 100
--- NOTE | 2022-01-18 16:34 | ED.URI ---
HPI - URI/Sore Throat General Chief Complaint: Upper Respiratory Infection Stated Complaint: Sore Throat Time Seen by Provider: 01/18/22 16:40 Source: patient, RN notes reviewed and old records reviewed Mode of arrival: ambulatory Limitations: no limitations History of Present Illness HPI Narrative: 41-year-old female presents to the [facility] with complaints of sore throat, cough and fever. Patient states minor symptoms started yesterday, got worse today. Has history of hypertension and is working with primary care provider to control blood pressure. Recently prescribed clonidine. Patient reports that she has chest wall pain only when coughing. Pain is not reproducible. No pain while sitting still. Related Data Home Medications Medication Instructions Recorded Confirmed amlodipine 5 mg tablet 20 mg PO DAILY 04/02/20 01/18/22 fluoxetine 40 mg capsule 40 mg PO DAILY 04/02/20 01/18/22 losartan 100 mg tablet 100 mg PO DAILY 09/18/20 01/18/22 clonidine HCl 0.1 mg tablet 0.1 mg DIRECTED 01/18/22 01/18/22 Allergies Allergy/AdvReac Type Severity Reaction Status Date / Time clindamycin Allergy Mild Swelling Verified 10/15/21 16:34 NSAIDS (Non-Steroidal AdvReac Unknown Verified 10/15/21 16:34 Anti-Inflamma Review of Systems Review of Systems: All systems reviewed & are unremarkable except as noted in HPI and below Constitutional: Constitutional: Reports no additional constitutional complaints, Denies chills and Denies fever(s) Eyes: Eyes: Reports no additional eye complaints ENT: Reports as per HPI and Reports sore throat Cardiovascular: Cardiovascular: Reports no additional cardiovascular complaints Respiratory: Respiratory: Reports as per HPI and Reports cough Gastrointestinal: Gastrointestinal: Reports no additional gastrointestinal complaints Musculoskeletal: Musculoskeletal: Reports no additional musculoskeletal complaints Integumentary/Breasts: Skin/Breast: Reports system reviewed and no additional complaints, except as docu Neurologic: Reports system reviewed and no additional complaints, except as documented Psychiatric: Psychiatric: Reports no additional psychiatric complaints Allergic/Immunologic: Allergic/Immunologic: Reports no additional allergic/immunologic complaints PMFSH Past Medical History Medical History Depression HTN (hypertension) Hypercholesterolemia Kidney stone Migraine Obesity UTI (urinary tract infection) Surgical History Surgical History History of hysterectomy Laparoscopic total hysterectomy with BSO History of laparoscopic appendectomy 08/02/19 Hx of gastric bypass In January of 2019 at [place], current weight loss of 100 pounds since surgery Family History Family History Mother Diabetes mellitus Father , At age 64 Heart disease Acute myocardial infarction Social History Social History Social History: Primary care provider: Andrews GOLDSMITH Smoking status: Never smoker Alcohol intake: current Drinks per week: 2 Alcohol use details: She reports that since her father's last year she has been drinking more alcohol. She was drinking 2-3 alcoholic beverages a night. She has cut back down to 2 drinks a week over the last couple of months. Substance use: never Last use: Yesterday had an edible. Additional living arrangements comments: With her they have been together for 22 years and been for 9 years.. They have 4 children. Her oldest child is 22 years old and youngest is 12. Additional occupation/education comments: Works for the [employer]. Currently on short-term disability due to depression. Gender identity (if verbalized by the patient): Female Spiritual care concerns: No Comm
== END 2022-01-18 17:18 | disposition home or self-care (01) ==
PROVIDERS: Emergency Provider Nurse Practitioner; PCP Physician Assistant
DX: J06.9 Acute upper respiratory infection, unspecified (principal); I10 Essential (primary) hypertension; E78.00 Pure hypercholesterolemia, unspecified; E66.9 Obesity, unspecified; Z68.36 Body mass index [BMI] 36.0-36.9, adult; F32.A Depression, unspecified
CPT/HCPCS: 87081; 87804; 87880; 99213; G0463

== ENCOUNTER 2022-01-19 05:02 | Emergency (ER) | payer OTHER, SELFPAY ==
[2022-01-19] VITALS (8 sets, daily range): BP systolic 149–180; BP diastolic 88–111; PULSE 84–104; RESP 17–21; TEMP 38.8; O2SAT 93–100
--- NOTE | ~2022-01-19 | XR_ITS ---
EXAMINATION: XR chest 2V DATE: 01/19/2022 06:06 INDICATION: Chest pain. TECHNIQUE: Frontal and lateral views of the chest were obtained. COMPARISON: Chest 2 views 11/30/2021 FINDINGS: There is mild atelectasis in left lower lung zone. No pleural effusion or pneumothorax. The heart size is normal. IMPRESSION: 1. Mild atelectasis in left lower lung zone. Reviewed, dictated and finalized at location A. ITY HEAD
--- NOTE | 2022-01-19 05:03 | ECG_ITS ---
Measurements Intervals [place] Rate: 87 P: 28 [place]: 155 QRS: -4 QRSD: 97 T: 19 QT: 353 QTc: 426 Interpretive Statements SINUS RHYTHM VOLTAGE CRITERIA FOR LVH NONSPECIFIC T-WAVE ABNORMALITY- ANT/INF LEADS BASELINE ARTIFACT- I, III, AVL, AVF, V3 BORDERLINE ECG COMPARED TO ECG 11/30/2021 16:07:23 T-WAVE ABNORMALITY NOW PRESENT Electronically Signed On 01-19-2022 6:19:36 FILM NUMBERER by Ori Roque D.O.
--- NOTE | 2022-01-19 05:33 | ED.CHESTPAIN ---
HPI - Chest Pain General Chief Complaint: Chest Pain Stated Complaint: CP, dizziness Time Seen by Provider: 01/19/22 05:08 History of Present Illness HPI narrative: Patient presenting with several days of sore throat, headache, fevers. She also has a cough and some chest pain with cough. Related Data Home Medications Medication Instructions Recorded Confirmed amlodipine 5 mg tablet 20 mg PO DAILY 04/02/20 01/18/22 fluoxetine 40 mg capsule 40 mg PO DAILY 04/02/20 01/18/22 losartan 100 mg tablet 100 mg PO DAILY 09/18/20 01/18/22 clonidine HCl 0.1 mg tablet 0.1 mg DIRECTED 01/18/22 01/18/22 Allergies Allergy/AdvReac Type Severity Reaction Status Date / Time clindamycin Allergy Mild Swelling Verified 10/15/21 16:34 NSAIDS (Non-Steroidal AdvReac Unknown Verified 10/15/21 16:34 Anti-Inflamma Review of Systems Review of Systems: CONST: Fever HEENT: sore throat C/V: chest pain with cough RESP: cough GI: no nausea : No dysuria. M/S: body aches SKIN: No rash. NEURO: headache without focal numbness/weakness PSYCH: [No depression] [facility] Past Medical History Medical History Depression HTN (hypertension) Hypercholesterolemia Kidney stone Migraine Obesity UTI (urinary tract infection) Surgical History Surgical History History of hysterectomy Laparoscopic total hysterectomy with BSO History of laparoscopic appendectomy 08/02/19 Hx of gastric bypass In January of 2019 at [place], current weight loss of 100 pounds since surgery Family History Family History Mother Diabetes mellitus Father , At age 64 Heart disease Acute myocardial infarction Social History Social History Social History: Primary care provider: Andrews GOLDSMITH Smoking status: Never smoker Alcohol intake: current Drinks per week: 2 Alcohol use details: She reports that since her father's last year she has been drinking more alcohol. She was drinking 2-3 alcoholic beverages a night. She has cut back down to 2 drinks a week over the last couple of months. Substance use: never Last use: Yesterday had an edible. Additional living arrangements comments: With her they have been together for 22 years and been for 9 years.. They have 4 children. Her oldest child is 22 years old and youngest is 12. Additional occupation/education comments: Works for the [employer]. Currently on short-term disability due to depression. Gender identity (if verbalized by the patient): Female Spiritual care concerns: No Exam Narrative: EXAMINATION OF ORGAN SYSTEMS/BODY AREAS: Constitutional: Vital signs per nursing GENERAL:[No acute distress, non-toxic appearing.] HEAD: Normal with no signs of head trauma. EYES: EOMI, conjunctiva normal ENT: Pharyngeal erythema, airway intact LUNGS: Nonlabored breathing. HEART: [Regular rate and rhythm] ABD: [Soft], [nontender to palpation] EXT: Normal range of motion SKIN: [No rashes or lesions.] NEURO: [Alert and oriented x 3. No gross focal sensory or strength deficits.] PSYCH: Normal affect Course Vital Signs Vital signs: Vital Signs Pulse Rate 104 H 01/19/22 05:09 Respiratory Rate 20 01/19/22 05:09 Pulse Oximetry 93 01/19/22 05:09 Temperature 101.8 F H 01/19/22 05:16 Pulse Rate 84 01/19/22 06:44 Respiratory Rate 18 01/19/22 05:45 Blood Pressure 149/88 H 01/19/22 06:44 Pulse Oximetry 100 01/19/22 05:45 Oxygen Delivery Room Air 01/19/22 05:33 MDM - Chest Pain MDM Narrative Medical decision making narrative: ED COURSE AND MEDICAL DECISION MAKING: This 41 year old patient presents with symptoms most suggestive of viral upper respiratory tract infection. Lungs are clear bilaterally without any respiratory distr
[2022-01-19 05:35] LABS: Basophils Percent Auto 0.3 % (0.2-1.2); Eosinophils Absolute Auto 0.1 K/mm3 (0-0.3); Eosinophils Percent Auto 1.7 % (0-4.4); Hematocrit 34.1 % (37.0-47.0); Hemoglobin 10.1 g/dL (12.0-15.0); Immature Granulocyte Absolute 0.02 K/mm3 (0.00-0.031); Immature Granulocyte Percent A 0.3 % (0-0.5); Immature Platelet Fraction Pct 8.4 % (0.9-11.2); Lymphocytes Absolute Auto 0.92 K/mm3 (0.9-3.2); Lymphocytes Percent Auto 15.5 % (18.3-44.2); Mean Corpuscular HGB Conc 29.6 g/dl (32-36); Mean Corpuscular Volume 77.7 fl (80-100); Mean Platelet Volume 11.5 fl (7.4-10.4); Monocytes Absolute Auto 0.7 K/mm3 (0.1-0.6); Monocytes Percent Auto 12.1 % (2.6-8.5); Neutrophils Absolute Auto 4.2 K/mm3 (1.3-6.7); Neutrophils Percent Auto 70.1 % (45.5-73.1); Platelet Count Result 176 k/mm3 (150-375); Red Blood Count 4.39 M/mm3 (4.2-5.4); Red Cell Distribution Width 17.3 % (11.5-14.5); White Blood Count 5.9 K/mm3 (4.5-10.0)
[2022-01-19] MEDS: METOCLOPRAMIDE HCL INJ 10 MG/2 ML VIAL IV PUSH (05:38)
[2022-01-19 05:45] LABS: Alanine Aminotransferase 29 U/L (6-35); Albumin Level 4.1 g/dL (3.5-5.1); Alkaline Phosphatase 116 U/L (38-126); Anion Gap 7 mmol/L (8-16); Aspartate Amino Transferase 24 U/L (14-36); Bilirubin,Total 0.3 mg/dL (0.2-1.3); Blood Urea Nitrogen 8 mg/dL (7-17); Calcium 8.5 mg/dL (8.4-10.2); Carbon Dioxide 26 mmol/L (22-30); Chloride 105 mmol/L (98-107); Estimated CRCL calculation 96 ml/min; Estimated Glomerular Filt Rate > 60; Glucose 103 mg/dL (65-110); Lipase 53 U/L (23-300); Potassium 3.7 mmol/L (3.4-5.0); Sodium 138 mmol/L (137-145)
[2022-01-19 05:50] LABS: Prothrombin Time 12.6 Seconds (11.1-14.7)
[2022-01-19 05:51] LABS: Partial Thromboplastin Time 25.9 SECONDS (22.3-36.8)
[2022-01-19 05:55] LABS: Troponin I < 0.012 ng/mL (0.000-0.034)
[2022-01-19 06:01] LABS: Hypochromasia 1+ (NORMAL); Macrocytosis 1+ (NORMAL); Schistocytes None Seen (NORMAL)
[2022-01-19 06:08] LABS: Influenza A QL RT-PCR Positive (Negative); Influenza B QL RT-PCR Negative (Negative); RSV RNA, RT-PCR Negative (Negative); SARS-CoV-2 RNA PCR Negative
[2022-01-19 06:21] LABS: Platelet Estimate Adequate (Adequate)
== END 2022-01-19 07:18 | disposition home or self-care (01) ==
PROVIDERS: Emergency Provider Emergency Medicine
DX: J10.1 Influenza due to other identified influenza virus with other respiratory manifestations (principal); Z20.822 Contact with and (suspected) exposure to COVID-19; F32.9 Major depressive disorder, single episode, unspecified; I10 Essential (primary) hypertension; E78.5 Hyperlipidemia, unspecified; Z87.440 Personal history of urinary (tract) infections; Z87.442 Personal history of urinary calculi
CPT/HCPCS: 36415; 71046; 80053; 83690; 84484; 85025; 85055; 85610; 85730; 87081; 87637; 87880; 93005; 96365; 96375; 99284; J0131; J2765

== ENCOUNTER 2022-02-17 14:18 | Emergency (ER) | payer OTHER, SELFPAY ==
[2022-02-17 14:21] VITALS: BP 174/118; PULSE 93; RESP 18; TEMP 36.4; O2SAT 100
[2022-02-17 15:35] LABS: Basophils Percent Auto 0.6 % (0.2-1.2); Eosinophils Absolute Auto 0.3 K/mm3 (0-0.3); Eosinophils Percent Auto 4.4 % (0-4.4); Hematocrit 33.9 % (37.0-47.0); Hemoglobin 10.1 g/dL (12.0-15.0); Immature Granulocyte Absolute 0.02 K/mm3 (0.00-0.031); Immature Granulocyte Percent A 0.3 % (0-0.5); Immature Platelet Fraction Pct 10.3 % (0.9-11.2); Lymphocytes Absolute Auto 1.56 K/mm3 (0.9-3.2); Lymphocytes Percent Auto 22.1 % (18.3-44.2); Mean Corpuscular HGB Conc 29.8 g/dl (32-36); Mean Corpuscular Hemoglobin 23.6 pg (26-34); Mean Corpuscular Volume 79.2 fl (80-100); Mean Platelet Volume 11.5 fl (7.4-10.4); Monocytes Absolute Auto 0.5 K/mm3 (0.1-0.6); Monocytes Percent Auto 7.6 % (2.6-8.5); Neutrophils Absolute Auto 4.6 K/mm3 (1.3-6.7); Platelet Count Result 171 k/mm3 (150-375); Red Blood Count 4.28 M/mm3 (4.2-5.4); Red Cell Distribution Width 18.6 % (11.5-14.5); White Blood Count 7.1 K/mm3 (4.5-10.0)
[2022-02-17 15:52] LABS: Alanine Aminotransferase 23 U/L (6-35); Albumin Level 3.9 g/dL (3.5-5.1); Alkaline Phosphatase 104 U/L (38-126); Anion Gap 2 mmol/L (8-16); Aspartate Amino Transferase 26 U/L (14-36); Bilirubin,Total 0.2 mg/dL (0.2-1.3); Blood Urea Nitrogen 12 mg/dL (7-17); Calcium 8.4 mg/dL (8.4-10.2); Carbon Dioxide 31 mmol/L (22-30); Chloride 103 mmol/L (98-107); Estimated CRCL calculation 94 ml/min; Estimated Glomerular Filt Rate > 60; Glucose 88 mg/dL (65-110); Lipase 63 U/L (23-300); Potassium 3.8 mmol/L (3.4-5.0); Sodium 136 mmol/L (137-145)
[2022-02-17 16:41] LABS: Add Urine Microscopic? YES; Appearance Urine Clear (Clear); Bilirubin Urine Negative (Negative); Blood Urine Negative (Negative); Color Urine Light Yellow (Yellow); Glucose Urine UA Negative (Negative); Ketones Urine Trace mg/dL (Negative); Leukocyte Esterase Ur Negative LEU/UL (Negative); Nitrate Urine Negative (Negative); Protein Urine Negative (Negative); Specific Grav Ur 1.025 (1.001-1.035); Urobilinogen Urine 0.2 mg/dL (<2.0); pH Urine 5.5 (5.0-9.0)
[2022-02-17 16:58] LABS: Platelet Estimate Adequate (Adequate); Schistocytes None Seen (NORMAL)
[2022-02-17 16:59] LABS: Anisocytosis 2+ (NORMAL); Hypochromasia 1+ (NORMAL)
[2022-02-17 17:07] LABS: Bacteria Urine Trace /hpf; Mucus Urine Rare /lpf; RBC Urine 0-2 /hpf (0-2); Squamous Epithelial Cell Urine Many /hpf (Few); WBC Urine 0-3 /hpf
--- NOTE | 2022-02-17 18:47 | PC.NURSE ---
pt left d/t wait time
== END 2022-02-17 18:47 | disposition left against medical advice (07) ==
LOC: ANHED 18:52
PROVIDERS: Emergency Provider Emergency Medicine
DX: R10.33 Periumbilical pain (principal)
CPT/HCPCS: 36415; 80053; 81001; 83690; 85025; 85055; 99199

== ENCOUNTER 2022-02-18 11:40 | Emergency (ER) | payer OTHER, SELFPAY ==
--- NOTE | ~2022-02-18 | CT_ITS ---
EXAMINATION: CT abdomen pelvis w con DATE: 02/18/2022 16:37 INDICATION: Abdominal pain TECHNIQUE: Computed tomography (CT) of the abdomen and pelvis was performed with 100 mL Omnipaque-350 intravenous contrast. Automated exposure control and iterative reconstruction technique were employe d. The dose-length product was 976.90 mGy-cm. COMPARISON: 10/15/2021 FINDINGS: Lung bases are clear. Mild cardiomegaly. No pericardial or pleural effusion. Postoperative change of prior gastric bypass procedure with the jejunojejunal anastomosis in the left lower quadrant. Focal h epatic steatosis at the ligamentum teres. Gallbladder, pancreas, spleen, bilateral adrenal glands and kidneys are normal. Suture line at the tip of the no significant likely related to prior appendectom y. There is extensive fatty infiltration of the wall of the colon likely related to body habitus. No bowel obstruction. Bladder is normal. The uterus is not identified and has likely been surgically res ected. No free intraperitoneal gas or fluid. There are 6 nonrib-bearing lumbar segments with the mcdowell sitional L6 segment partially sacralized on the right. IMPRESSION: 1. No acute intra-abdominal/pelvic process. 2. Mild cardiomegaly. Reviewed, dictated and finalized at location B. NEY SWEEPER
[2022-02-18 11:55] VITALS: BP 167/116; PULSE 76; RESP 18; TEMP 36.9; O2SAT 99
[2022-02-18 13:50] VITALS: BP 117/108; PULSE 73; RESP 18; TEMP 36.4; O2SAT 100
--- NOTE | 2022-02-18 15:26 | ED.GENADULT ---
HPI - General Adult General Chief complaint: Abdominal Pain Stated complaint: abd pain Time Seen by Provider: 02/18/22 15:16 Source: RN notes reviewed History of Present Illness HPI narrative: Patient presents emergency department from home for abdominal pain. Patient states symptoms began 4 days ago. The pain is located around the mid abdomen described as sharp and stabbing in nature. Patient states nothing makes the pain better or worse. States the pain does not radiate. She has taken Tylenol for the pain with minimal relief. States she does have associated nausea but denies any vomiting or diarrhea. Denies any fevers or chills or any other symptoms Related Data Home Medications Medication Instructions Recorded Confirmed amlodipine 5 mg tablet 20 mg PO DAILY 04/02/20 01/18/22 fluoxetine 40 mg capsule 40 mg PO DAILY 04/02/20 01/18/22 losartan 100 mg tablet 100 mg PO DAILY 09/18/20 01/18/22 clonidine HCl 0.1 mg tablet 0.1 mg DIRECTED 01/18/22 01/18/22 Allergies Allergy/AdvReac Type Severity Reaction Status Date / Time clindamycin Allergy Mild Swelling Verified 02/18/22 15:44 NSAIDS (Non-Steroidal AdvReac Unknown Verified 02/18/22 15:44 Anti-Inflamma Review of Systems Review of Systems: Gen.: Denies fevers or chills ENT: Denies congestion Respiratory: Denies shortness of breath or cough CV: Denies chest pain or palpitations GI: See HPI denies burning, urgency, frequency or hematuria Musculoskeletal: Denies back pain or muscle pain Neuro: Denies numbness, tingling, weakness or focal weakness Skin: Denies rash Except as documented, all other systems reviewed and negative [facility] Past Medical History Medical History Depression HTN (hypertension) Hypercholesterolemia Kidney stone Migraine Obesity UTI (urinary tract infection) Surgical History Surgical History History of hysterectomy Laparoscopic total hysterectomy with BSO History of laparoscopic appendectomy 08/02/19 Hx of gastric bypass In January of 2019 at [place], current weight loss of 100 pounds since surgery Family History Family History Mother Diabetes mellitus Father , At age 64 Heart disease Acute myocardial infarction Social History Social History Social History: Primary care provider: Andrews GOLDSMITH Smoking status: Never smoker Alcohol intake: current Drinks per week: 2 Alcohol use details: She reports that since her father's last year she has been drinking more alcohol. She was drinking 2-3 alcoholic beverages a night. She has cut back down to 2 drinks a week over the last couple of months. Substance use: never Last use: Yesterday had an edible. Additional living arrangements comments: With her they have been together for 22 years and been for 9 years.. They have 4 children. Her oldest child is 22 years old and youngest is 12. Additional occupation/education comments: Works for the [employer]. Currently on short-term disability due to depression. Gender identity (if verbalized by the patient): Female Spiritual care concerns: No Exam Narrative: APPEARANCE: No acute distress, nontoxic, resting in bed HEENT: Normocephalic, atraumatic, OMM RESPIRATORY: No respiratory distress, clear to auscultation bilaterally with no rhonchi wheezing or rales CARDIOVASCULAR: RRR s murmur ABDOMINAL: Soft nondistended tender to palpation over the periumbilical area region no tenderness in right upper quadrant, left upper quadrant, right lower quadrant and left lower quadrant no rebound or guarding MUSCULOSKELETAl: Moves all extremities. No clubbing, cyanosis or edema. NEURO: Awake and alert. Following commands, speech normal, no focal deficits SKIN:: Warm, dry. Normal [place]
[2022-02-18] MEDS: ONDANSETRON INJ 4 MG/2 ML VIAL IV PUSH (15:44)
[2022-02-18] MEDS: SODIUM CHLORIDE 0.9% IV 1,000 ML 999 ML IV CONT (15:44)
[2022-02-18 15:50] LABS: Basophils Percent Auto 0.4 % (0.2-1.2); Eosinophils Absolute Auto 0.3 K/mm3 (0-0.3); Eosinophils Percent Auto 4.5 % (0-4.4); Hemoglobin 11.2 g/dL (12.0-15.0); Immature Granulocyte Absolute 0.01 K/mm3 (0.00-0.031); Immature Granulocyte Percent A 0.1 % (0-0.5); Immature Platelet Fraction Pct 10.8 % (0.9-11.2); Lymphocytes Absolute Auto 1.84 K/mm3 (0.9-3.2); Lymphocytes Percent Auto 24.3 % (18.3-44.2); Mean Corpuscular HGB Conc 29.5 g/dl (32-36); Mean Corpuscular Hemoglobin 23.2 pg (26-34); Mean Corpuscular Volume 78.7 fl (80-100); Monocytes Absolute Auto 0.5 K/mm3 (0.1-0.6); Monocytes Percent Auto 6.5 % (2.6-8.5); Neutrophils Absolute Auto 4.9 K/mm3 (1.3-6.7); Neutrophils Percent Auto 64.2 % (45.5-73.1); Platelet Count Result 180 k/mm3 (150-375); Red Blood Count 4.83 M/mm3 (4.2-5.4); White Blood Count 7.6 K/mm3 (4.5-10.0)
[2022-02-18 16:05] LABS: Ovalocytes 1+ (NORMAL); Platelet Estimate Adequate (Adequate); Target Cells 1+ (NORMAL)
[2022-02-18 16:06] LABS: Schistocytes None Seen (NORMAL)
[2022-02-18 16:21] LABS: Alanine Aminotransferase 27 U/L (6-35); Albumin Level 4.4 g/dL (3.5-5.1); Alkaline Phosphatase 103 U/L (38-126); Anion Gap 5 mmol/L (8-16); Aspartate Amino Transferase 46 U/L (14-36); Bilirubin,Total 0.6 mg/dL (0.2-1.3); Blood Urea Nitrogen 9 mg/dL (7-17); Calcium 8.6 mg/dL (8.4-10.2); Carbon Dioxide 30 mmol/L (22-30); Chloride 102 mmol/L (98-107); Estimated CRCL calculation 106 ml/min; Estimated Glomerular Filt Rate > 60; Glucose 89 mg/dL (65-110); Lipase 65 U/L (23-300); Potassium 4.7 mmol/L (3.4-5.0); Sodium 137 mmol/L (137-145)
== END 2022-02-18 17:42 | disposition home or self-care (01) ==
PROVIDERS: Physician Assistant; Emergency Provider Emergency Medicine
DX: R10.9 Unspecified abdominal pain (principal); I10 Essential (primary) hypertension; E78.00 Pure hypercholesterolemia, unspecified; E66.9 Obesity, unspecified; Z68.36 Body mass index [BMI] 36.0-36.9, adult; F32.A Depression, unspecified; Z87.442 Personal history of urinary calculi; Z87.440 Personal history of urinary (tract) infections; Z98.84 Bariatric surgery status; Z90.710 Acquired absence of both cervix and uterus; Z90.722 Acquired absence of ovaries, bilateral; Z90.79 Acquired absence of other genital organ(s); I51.7 Cardiomegaly
CPT/HCPCS: 36415; 74177; 80053; 83690; 85025; 85055; 96361; 96374; 99284; J2405; J7030; Q9967

== ENCOUNTER 2022-03-18 10:23 | Observation (INO) | payer OTHER, SELFPAY ==
[2022-03-18] VITALS (11 sets, daily range): BP systolic 150–183; BP diastolic 94–117; PULSE 59–85; RESP 14–21; TEMP 35.5–36.4; O2SAT 97–100; BMI 35.0
--- NOTE | ~2022-03-18 | CT_ITS ---
Non-contrast Head CT History: Right-sided numbness COMPARISON: 11/30/2021 Technique: Axial non-contrast imaging of the brain was performed. Dose reduction technique was used on this scan by utilizing automated exposure control and iterative reconstruction technique. The dose -length product (DLP) was 605.33 mGy-cm. Findings: There is no evidence of intracranial hemorrhage, mass lesion, or acute infarct. Brain par enchyma appears normal. The ventricles and subarachnoid spaces are normal in size. The calvarium ap pears normal. The visualized paranasal sinuses and mastoid air cells are clear. Impression: No significant abnormality seen. Reviewed, dictated and finalized at location . ATOR CONSTRUCTOR Impression: No significant abnormality seen.
--- NOTE | ~2022-03-18 | MR_ITS ---
EXAMINATION: MR brain/brain stem wo/w con DATE: 03/19/2022 10:11 INDICATION: Right facial numbness, right-sided headache and blurry vision. Migraines. TECHNIQUE: Magnetic resonance imaging (MRI) of the brain and brainstem was performed without and with 19 mL Multihance intravenous contrast. Sequences included sagittal and axial T1-weighted FSE, axial diffusion-weighted FS EPI, axial T2*-weighted GRE, axial T2-weighted FLAIR Propeller, axial T2-weight ed Propeller, small lbjlh-px-wked coronal FIESTA, small riuzx-ch-nuuq coronal T1-weighted FSE, and sm all rfgvd-od-mvfk axial T1-weighted SPGR. Postcontrast sequences included axial T1-weighted FSE, smal l nbilf-cd-pzwx coronal T1-weighted FSE, and small vdepm-fg-bxyv axial T1-weighted SPGR. Apparent dif fusion coefficient (ADC) maps were created. COMPARISON: None. FINDINGS: There are no areas of restricted diffusion to suggest acute infarction. No intracranial hemorrhage or abnormal intracranial mass lesion. There are no intraparenchymal signal abnormalities seen on the ot her pulse sequences. The ventricles are symmetric and normal in size. Normal seventh/eighth cranial n erve complexes. No cerebellopontine angles masses. No evidence of mastoid or middle ear fluid. There are no abnormal extra-axial fluid collections. Flow vo ids are seen in the cerebral arteries on the T2-weighted sequences consistent with their expected pat ency. Mild mucoperiosteal thickening the bilateral ethmoid sinuses. Visualized orbits and soft tissue s are unremarkable. There are no areas of abnormal enhancement on the post contrast images. IMPRESSION: 1. Normal brain. No acute intracranial process or abnormally enhancing lesions. Reviewed, dictated and finalized at location A. PROCESS INSPECTOR
--- NOTE | ~2022-03-18 | CT_ITS ---
EXAMINATION: CTA brain carotid DATE: 03/18/2022 14:15 INDICATION: Right facial numbness and pain. TECHNIQUE: Computed tomographic angiography (CTA) of the head was performed with 100 mL Omnipaque-350 intravenous contrast. CTA of the neck was performed with intravenous contrast. Automated exposure co ntrol and iterative reconstruction technique were employed. The dose-length product was 1075.40 mGy-c m. Maximum intensity projection and volume rendered 3D-reconstructions were created by the Distract[employer]i st on a separate workstation. COMPARISON: Head CT 03/18/2022 FINDINGS: HEAD CTA: There is no intracranial hemorrhage, acute infarction, or abnormal intracranial mass lesion . The ventricles are normal in size. There is mild mucosal thickening in the paranasal sinuses. The m astoid air cells are normal. The orbits are normal. The vertebral arteries are codominant. There is n o significant stenosis of basilar artery or the posterior cerebral arteries. There is no significant stenosis of the intracranial internal carotid arteries or anterior or middle cerebral arteries. Anter ior communicating artery is normal. The posterior communicating arteries are normal. There is no aneu rysm. NECK CTA: There are no pathologically enlarged lymph nodes. There is no significant stenosis of the v ertebral arteries. There is no visible plaque in the proximal internal carotid arteries. There is 0% stenosis of the proximal right internal carotid artery relative to normal distal artery lumen diamete r (NASCET criteria). There is 0% stenosis of the proximal left internal carotid artery relative to no rmal distal artery lumen diameter. The bones are unremarkable. IMPRESSION: 1. Normal brain. No aneurysm or significant intracranial arterial stenosis. 2. 0% stenosis of the proximal internal carotid arteries relative to normal distal artery lumen diame ters (NASCET criteria). Reviewed, dictated and finalized at location A. ING OPERATOR IMPRESSION: 1. Normal brain. No aneurysm or significant intracranial arterial stenosis. 2. 0% stenosis of the proximal internal carotid arteries relative to normal dis trev artery lumen diameters (NASCET criteria).
--- NOTE | ~2022-03-18 | XR_ITS ---
Clinical Indication: Right-sided numbness PA and lateral views of the chest: Comparison: 01/19/2022 Findings: The lungs are clear, without evidence of focal consolidation or pleural effusion. Cardiome diastinal silhouette is within normal limits. Bones and soft tissues are unremarkable. Impression: Normal chest. Reviewed, dictated and finalized at location . LIER SPECIALIST Impression: Normal chest.
--- NOTE | 2022-03-18 10:29 | ECG_ITS ---
Measurements Intervals [place] Rate: 61 P: 28 [place]: 147 QRS: 2 QRSD: 103 T: 7 QT: 396 QTc: 401 Interpretive Statements SINUS RHYTHM VOLTAGE CRITERIA FOR LVH BORDERLINE T WAVE ABNORMALITY- ANT/INF LEADS BASELINE ARTIFACT- V3 BORDERLINE ECG COMPARED TO ECG 01/19/2022 05:13:28 NO SIGNIFICANT CHANGES Electronically Signed On 03-18-2022 10:56:04 RURAL CARRIER ASSOCIATE by Ori Roque D.O.
[2022-03-18 10:35] LABS: Glucose Point of Care 86 mg/dl (65-105)
[2022-03-18 10:49] LABS: Basophils Absolute Auto 0.1 K/mm3 (0.0-0.1); Basophils Percent Auto 0.7 % (0.2-1.2); Eosinophils Absolute Auto 0.1 K/mm3 (0-0.3); Eosinophils Percent Auto 1.6 % (0-4.4); Hematocrit 37.4 % (37.0-47.0); Hemoglobin 11.1 g/dL (12.0-15.0); Immature Granulocyte Absolute 0.02 K/mm3 (0.00-0.031); Immature Granulocyte Percent A 0.3 % (0-0.5); Lymphocytes Absolute Auto 1.48 K/mm3 (0.9-3.2); Lymphocytes Percent Auto 21.6 % (18.3-44.2); Mean Corpuscular HGB Conc 29.7 g/dl (32-36); Mean Corpuscular Hemoglobin 23.1 pg (26-34); Mean Corpuscular Volume 77.8 fl (80-100); Mean Platelet Volume 11.5 fl (7.4-10.4); Monocytes Absolute Auto 0.6 K/mm3 (0.1-0.6); Neutrophils Absolute Auto 4.7 K/mm3 (1.3-6.7); Neutrophils Percent Auto 67.8 % (45.5-73.1); Platelet Count Result 225 k/mm3 (150-375); Red Blood Count 4.81 M/mm3 (4.2-5.4); Red Cell Distribution Width 18.4 % (11.5-14.5); White Blood Count 6.9 K/mm3 (4.5-10.0)
[2022-03-18 11:03] LABS: Prothrombin Time 12.6 Seconds (11.1-14.7)
[2022-03-18 11:04] LABS: Partial Thromboplastin Time 26.1 SECONDS (22.3-36.8)
[2022-03-18 11:11] LABS: Anisocytosis 1+ (NORMAL); Hypochromasia 1+ (NORMAL); Microcytosis 1+ (NORMAL); Platelet Estimate Adequate (Adequate); Schistocytes None Seen (NORMAL)
[2022-03-18 11:14] LABS: Alanine Aminotransferase 26 U/L (6-35); Albumin Level 4.2 g/dL (3.5-5.1); Alkaline Phosphatase 117 U/L (38-126); Anion Gap 7 mmol/L (8-16); Aspartate Amino Transferase 25 U/L (14-36); Bilirubin,Total 0.2 mg/dL (0.2-1.3); Blood Urea Nitrogen 10 mg/dL (7-17); Calcium 8.6 mg/dL (8.4-10.2); Carbon Dioxide 31 mmol/L (22-30); Chloride 105 mmol/L (98-107); Estimated CRCL calculation 92 ml/min; Estimated Glomerular Filt Rate > 60; Glucose 92 mg/dL (65-110); Potassium 3.6 mmol/L (3.4-5.0); Sodium 143 mmol/L (137-145)
[2022-03-18 11:26] LABS: Troponin I < 0.012 ng/mL (0.000-0.034)
[2022-03-18] MEDS: PROCHLORPERAZINE EDISYLATE 10 MG/2 ML VIAL IV PUSH (12:31)
[2022-03-18] MEDS: diphenhydrAMINE HCl INJ 50 MG/ML VIAL 25 MG IV PUSH (12:31)
--- NOTE | 2022-03-18 12:31 | ED.NEUROSD ---
HPI - Neuro Symptoms/Deficit General Chief Complaint: Neuro Symptoms/Deficit <Dania Abraham PA-C - Last Filed: 03/18/22 17:19> Stated Complaint: R sided numbness <Dania Abraham PA-C - Last Filed: 03/18/22 17:19> Time Seen by Provider: 03/18/22 12:12 <Dania Abraham PA-C - Last Filed: 03/18/22 17:19> History of Present Illness HPI Narrative: 41-year-old female with a history of hypertension here for evaluation of right-sided headache. Patient states the pain is throbbing, intermittent in nature, starts in her right posterior neck and radiates forward into her scalp. She has not attempted any medicine for the pain. She also notes some intermittent numbness and tingling on the right side of her face, and that her entire face feels tight . Notes some blurry vision in both of her eyes. She has a history of migraine headaches but states this feels different. No nausea, vomiting, chest pain, shortness of breath, unilateral weakness, fevers or chills, ataxia or dizziness. She has a history of hypertension and did not take her home meds. <VITA Gaines Last Filed: 03/18/22 17:19> Related Data Home Medications: Home Medications Medication Instructions Recorded Confirmed clonidine HCl 0.1 mg tablet 0.1 mg DIRECTED 01/18/22 01/18/22 amlodipine 5 mg tablet mg 03/18/22 dulaglutide 3 mg/0.5 mL mg subcut 03/18/22 subcutaneous pen injector (Trulicity) ergocalciferol (vitamin D2) 1,250 03/18/22 mcg (50,000 unit) capsule ferrous sulfate 325 mg (65 mg mg 03/18/22 iron) tablet (FeroSul) fluoxetine 40 mg capsule mg 03/18/22 nystatin 100,000 unit/gram topical topical 03/18/22 cream <VITA Gaines Last Filed: 03/18/22 17:19> Allergies/Adverse Reactions: Allergies Allergy/AdvReac Type Severity Reaction Status Date / Time clindamycin Allergy Mild Swelling Verified 03/18/22 13:00 NSAIDS (Non-Steroidal AdvReac Unknown Verified 03/18/22 13:00 Anti-Inflamma <Dania Abraham PA-C - Last Filed: 03/18/22 17:19> Review of Systems Review of Systems: Gen: Denies fevers or chills Eyes: Denies eye pain or visual change ENT: Denies congestion Respiratory: Denies shortness of breath or cough CV: Denies chest pain or palpitations GI: Denies abdominal pain nausea, emesis or diarrhea denies burning, urgency, frequency or hematuria Musculoskeletal: Denies back pain or muscle pain Neuro: Reports right-sided facial numbness and tingling, right-sided headache. Denies numbness, tingling, weakness or focal weakness Skin: Denies rash Except as documented, all other systems reviewed and negative <Dania Abraham PA-C - Last Filed: 03/18/22 17:19> [facility] Past Medical History Medical History: Medical History Depression HTN (hypertension) Hypercholesterolemia Kidney stone Migraine Obesity UTI (urinary tract infection) <Dania Abraham PA-C - Last Filed: 03/18/22 17:19> Surgical History Surgical History: Surgical History History of hysterectomy Laparoscopic total hysterectomy with BSO History of laparoscopic appendectomy 08/02/19 Hx of gastric bypass In January of 2019 at [place], current weight loss of 100 pounds since surgery <Dania Abraham PA-C - Last Filed: 03/18/22 17:19> Family History Family History: Family History Mother Diabetes mellitus Father , At age 64 Heart disease Acute myocardial infarction <Dania Abraham PA-C - Last Filed: 03/18/22 17:19> Social History Social History: Social History Social History: Primary care provider: Andrews GOLDSMITH Smoking status: Never smoker Alcohol intake: current
[2022-03-18 14:02] LABS: Influenza A QL RT-PCR Negative (Negative); Influenza B QL RT-PCR Negative (Negative); SARS-CoV-2 RNA PCR Negative
--- NOTE | 2022-03-18 18:45 | ADMGEN ---
This patient, Rose Marie Haro, was admitted to 3 Med Surg Room 300-01 at 1825. Patient/family oriented to hospital policies and general routines including ID bracelet, bed and alarms, visiting hours, pain management, procedures, bathroom and other care routines, personal items, smoking policy, room service/diet, and visiting hours. Information on how to activate the Rapid Response Team has been discussed. Patient/Family are encouraged to report perceived risks to care and to ask questions if they do not understand what they are told or what they should do.
--- NOTE | 2022-03-18 20:27 | PM.IMHP ---
H&P: HPI History of Present Illness Date/Time: 03/18/22 20:27 Chief Complaint: Neuro deficit Narrative: This is a 41-year-old female patient who has a history of hypertension and diabetes. The patient stated that she had a right-sided neck pain and then it radiated to her ear and the left side of her head. The patient does have a history of migraines. Patient stated that she had painter helper spray head that was throbbing and intermittent. The patient did not try to take any medication for this she had numbness and tingling to the right side of her face and she stated that her whole tired face felt tight. No focal weakness. No facial drooping. No blurred vision. No nausea vomiting or diarrhea. No fever chills. She was negative for influenza a B and COVID. The patient was given Compazine and Benadryl and now states that her headache has surpassed. Neurology was consulted and agreed to consult and suggested that the patient be admitted to the hospitalist. The patient is being admitted to observation status on the date of service of 03/18/2022. Review of Systems Review of Systems: See his HPI All systems reviewed & are unremarkable except as noted in HPI and below Constitutional: Constitutional: Reports as per HPI and Reports no additional constitutional complaints Eyes: Eyes: Reports as per HPI and Reports no additional eye complaints ENT: Reports system reviewed and no additional complaints, except as documented and Reports Normal hearing present Cardiovascular: Cardiovascular: Reports no additional cardiovascular complaints Respiratory: Respiratory: Reports no additional respiratory complaints and Reports no additional respiratory complaints Gastrointestinal: Gastrointestinal: Reports as per HPI and Reports no additional gastrointestinal complaints Musculoskeletal: Musculoskeletal: Reports no additional musculoskeletal complaints Integumentary/Breasts: Skin/Breast: Reports system reviewed and no additional complaints, except as docu and Reports as per HPI Neurologic: Reports system reviewed and no additional complaints, except as documented, Reports as per HPI and Reports Normal hearing present Psychiatric: Psychiatric: Reports no additional psychiatric complaints and Reports as per HPI Endocrine: Endocrine: Reports no additional endocrine complaints Hematologic/Lymphatic: Hematologic/Lymphatic: Reports no additional hematologic/lymphatic complaints Allergic/Immunologic: Allergic/Immunologic: Reports no additional allergic/immunologic complaints PMFSH Past Medical History Medical History Depression HTN (hypertension) Hypercholesterolemia Kidney stone Migraine Obesity UTI (urinary tract infection) Surgical History Surgical History History of hysterectomy Laparoscopic total hysterectomy with BSO History of laparoscopic appendectomy 08/02/19 Hx of gastric bypass In January of 2019 at [place], current weight loss of 100 pounds since surgery Family History Family History (Updated 03/18/22 @ 23:07 by Nancy Murphy NP) Mother Diabetes mellitus Father , At age 64 Heart disease Acute myocardial infarction Diabetes mellitus Social History Social History (Updated 03/18/22 @ 23:04 by Nancy Murphy NP) Social History: She is and has 4 children. She works for a [employer] company. She has never smoked. Primary care provider: Andrews GOLDSMITH Code status full code Smoking status: Never smoker Alcohol intake: current Drinks per week: 2 Alcohol use details: She reports that since her father's last year she has been drinking more alcohol. She was drinking 2-3 alcoholic beverages a night. She has cut back down to 2 drinks a week over the last couple of months. Substance use: never Last use: Yesterday had an edible. Lack of Transportation: No Lack of Food: N
--- NOTE | 2022-03-19 | ECHO_ITS ---
Patient Info Name: Rose Marie Haro Age: 41 years : 1980 Gender: Female Ht: 65 in Wt: 210 lbs BSA: 2.13 m2 HR: 77 bpm BP: 149 / 102 mmHg Technical Quality: Good Exam Date: 03/19/2022 10:38 AM Exam Location: [facility] Patient Status: Inpatient Admit Date: 03/18/2022 Staff Ordering Physician: Nancy Murphy NP Material Loader: Kelsie Pena RDCS Attending Provider: Wolfgang Wheat MD Referring Physician: Katherine CLEMENTE; Exam Type: CA echo doppler color flow Study Info Indications - NEUROLOGICAL SYMPTOMS Complete two-dimensional, color flow and Doppler transthoracic echocardiogram is performed. Summary 1. Complete two-dimensional, color flow and Doppler transthoracic echocardiogram is performed. 2. Left ventricular chamber dimension is normal. 3. Left ventricular systolic function is normal, estimated at 60-65%. 4. There is mild concentric increased left ventricular wall thickness. 5. The left ventricular diastolic function is grade I diastolic dysfunction. 6. E/e' 8 is minimally elevated. 7. Global longitudinal strain is abnormal at -13.7%. 8. Left atrial chamber dimension is mildly enlarged. 9. There is trace mitral valve regurgitation. 10. No pulmonary hypertension, estimated pulmonary arterial systolic pressure is 34 mmHg. Left Ventricle E/e' 8 is minimally elevated. Global longitudinal strain is abnormal at -13.7%. Left ventricular chamber dimension is normal. Left ventricular systolic function is normal, estimated at 60-65%. There is mild concentric increased left ventricular wall thickness. The left ventricular diastolic function is grade I diastolic dysfunction. Right Ventricle Right ventricular systolic function is normal and with normal TAPSE 2.3 cm.. Right ventricular chamber dimension is normal. Left Atria Left atrial chamber dimension is mildly enlarged. Right Atria Right atrial chamber dimension is normal. Aortic Valve The aortic valve is trileaflet. There is no aortic valve stenosis. There is no aortic valve regurgitation. Pulmonic Valve There is no pulmonic regurgitation. Mitral Valve There is no mitral valve stenosis. There is trace mitral valve regurgitation. Tricuspid Valve There is no tricuspid valve regurgitation. No pulmonary hypertension, estimated pulmonary arterial systolic pressure is 34 mmHg. Pericardium/Pleural There is no pericardial effusion. Inferior Vena Cava Normal inferior vena cava with >50% collapse upon inspiration consistent with normal right atrial pressure, 5 mmHg. Aorta The aortic root size at the sinus of Valsalva is normal. Left Ventricular Outflow Tract Name Value Normal LVOT 2D LVOT Diameter 2.1 cm LVOT Doppler LVOT Peak Gradient 5 mmHg LVOT Mean Gradient 3 mmHg LVOT VTI 18 cm LVOT VTI/AV VTI Ratio 0.7 LVOT Stroke Volume 62 ml LVOT CO 4.5 l/min LVOT CI 2.1 l/min/m2 Pulmonic Valve
[2022-03-19 04:26] VITALS: BP 185/121; PULSE 67; RESP 14; TEMP 36.1; O2SAT 100
[2022-03-19] MEDS: hydrALAZINE HCL 20 MG/ML VIAL 10 MG IV PUSH (04:34)
[2022-03-19 05:45] VITALS: BP 149/102
--- NOTE | 2022-03-19 05:52 | PC.NURSE ---
Spoke with Dr. Rea at this time r/t patient's elevated BP's. PRN hydralazine was given for BP of 185/121 and follow up BP was 149/102. Dr. Rea says BP is okay for now with admission symptoms of possible stroke and keeping BP's permissive HTN. Can treat with hydralazine of current parameter of SBP of 180 or greater and Diastolic of 110 or greater.
[2022-03-19 06:58] LABS: Basophils Percent Auto 0.6 % (0.2-1.2); Eosinophils Absolute Auto 0.2 K/mm3 (0-0.3); Eosinophils Percent Auto 2.3 % (0-4.4); Hematocrit 35.6 % (37.0-47.0); Hemoglobin 10.5 g/dL (12.0-15.0); Immature Granulocyte Absolute 0.02 K/mm3 (0.00-0.031); Immature Granulocyte Percent A 0.3 % (0-0.5); Immature Platelet Fraction Pct 10.7 % (0.9-11.2); Lymphocytes Absolute Auto 1.22 K/mm3 (0.9-3.2); Lymphocytes Percent Auto 18.9 % (18.3-44.2); Mean Corpuscular HGB Conc 29.5 g/dl (32-36); Mean Corpuscular Hemoglobin 22.7 pg (26-34); Mean Corpuscular Volume 77.1 fl (80-100); Mean Platelet Volume 12.5 fl (7.4-10.4); Monocytes Absolute Auto 0.4 K/mm3 (0.1-0.6); Monocytes Percent Auto 6.8 % (2.6-8.5); Neutrophils Absolute Auto 4.6 K/mm3 (1.3-6.7); Neutrophils Percent Auto 71.1 % (45.5-73.1); Platelet Count Result 197 k/mm3 (150-375); Red Blood Count 4.62 M/mm3 (4.2-5.4); Red Cell Distribution Width 18.1 % (11.5-14.5); White Blood Count 6.4 K/mm3 (4.5-10.0)
[2022-03-19 07:09] LABS: Alanine Aminotransferase 23 U/L (6-35); Albumin Level 3.7 g/dL (3.5-5.1); Alkaline Phosphatase 111 U/L (38-126); Anion Gap 6 mmol/L (8-16); Aspartate Amino Transferase 20 U/L (14-36); Bilirubin,Total 0.4 mg/dL (0.2-1.3); Blood Urea Nitrogen 9 mg/dL (7-17); Calcium 8.5 mg/dL (8.4-10.2); Carbon Dioxide 30 mmol/L (22-30); Chloride 106 mmol/L (98-107); Estimated CRCL calculation 104 ml/min; Estimated Glomerular Filt Rate > 60; Glucose 82 mg/dL (65-110); Magnesium 2.3 mg/dL (1.6-2.3); Potassium 3.5 mmol/L (3.4-5.0); Sodium 142 mmol/L (137-145)
[2022-03-19 07:49] LABS: Anisocytosis 1+ (NORMAL); Hypochromasia 1+ (NORMAL); Ovalocytes 1+ (NORMAL); Platelet Estimate Adequate (Adequate); Schistocytes None Seen (NORMAL); Target Cells 1+ (NORMAL)
[2022-03-19 08:23] LABS: Glucose Point of Care 78 mg/dl (65-105)
[2022-03-19 08:23] LABS: Thyroid Stimulating Hormone Reflex 0.591 uIU/mL (0.465-4.68)
--- NOTE | 2022-03-19 08:42 | PM.IMPN ---
Progress Note: A&P Assessment and Plan (1) Numbness and tingling of right side of face: Code(s): R20.0 - Anesthesia of skin; R20.2 - Paresthesia of skin Status: Acute Assessment and Plan: Patient presented with numbness and tingling on the right side of her face. Neck pain that radiated to right ear and scalp. Could just be related to we complex migraine. Given Compazine and Benadryl in the emergency room and now she stated she is feeling much better. The patient has no focal weakness. No slurred speech. She is ambulating without difficulty. Neurology has been consulted and appreciate recommendations CTA head and neck no intracranial process, no carotid stenosis. MRI: Normal brain, no acute intracranial process. Echo: EF at 60-65%, grade 1 diastolic dysfunction, trace mitral valve regurg (2) Depression: Code(s): F32.9 - Major depressive disorder, single episode, unspecified Status: Acute Assessment and Plan: continue with fluoxetine. her mood appears to be appropriate at this time. (3) HTN (hypertension): Code(s): I10 - Essential (primary) hypertension Status: Acute Assessment and Plan: The patient has not had any of her medication today and her blood pressure is elevated to 150/94. Continue with her losartan, amlodipine, and clonidine. p.r.n. hydralazine with parameters. (4) Hypercholesterolemia: Code(s): E78.00 - Pure hypercholesterolemia, unspecified Status: Acute Assessment and Plan: Continue with heart healthy diet. (5) Migraine: Code(s): G43.909 - Migraine, unspecified, not intractable, without status migrainosus Status: Acute Assessment and Plan: -and I did not give any NSAIDs the patient has a history of gastric bypass. -will continue with p.r.n. Benadryl and Compazine. Subjective Date/time seen: 03/19/22 08:42 Objective Data Vital Signs Vital Signs: Vital Signs - 24 hr 03/18/22 10:25 03/18/22 13:00 03/18/22 13:02 Temperature 97.6 F Pulse Rate 66 59 L 59 L Respiratory Rate 14 20 18 Blood Pressure 151/116 H 183/109 H 183/109 H Pulse Oximetry 100 100 97 Oxygen Delivery Room Air Room Air 03/18/22 13:32 03/18/22 16:25 03/18/22 16:32 Temperature Pulse Rate 64 75 60 Respiratory Rate 16 21 H 15 Blood Pressure 163/108 H 162/117 H 153/105 H Pulse Oximetry 98 99 Oxygen Delivery 03/18/22 16:46 03/18/22 17:42 03/18/22 18:32 Temperature 97.4 F L Pulse Rate 61 84 85 Respiratory Rate 16 16 18 Blood Pressure 154/104 H 153/108 H 153/100 H Pulse Oximetry 98 98 100 Oxygen Delivery 03/18/22 20:00 03/18/22 22:00 03/19/22 04:26 Temperature 96 F L 97 F L Pulse Rate 59 L 67 Respiratory Rate 16 14 Blood Pressure 150/94 H 185/121 H Pulse Oximetry 100 100 100 Oxygen Delivery Room Air 03/19/22 05:45 Temperature Pulse Rate Respiratory Rate Blood Pressure 149/102 H Pulse Oximetry Oxygen Delivery Intake/Output Intake/Output: Intake & Output 03/16/22 03/17/22 03/18/22 03/19/22 23:59 23:59 23:59 23:59 Intake Total 100 Balance 100 Meds/Results Medications: Active Medications Generic Name Dose Route Start Last Admin Trade Name Freq PRN Reason Stop Dose Admin Amlodipine Besylate 5 mg 03/19/22 09:00 Amlodipine Besylate 5 Mg Tablet PO DAILY [facility] Clonidine HCl 0.1 mg 03/19/22 09:00 Clonidine Hcl 0.1 Mg Tablet PO BID [facility] Dextrose 12.5 gm 03/18/22 23:01 Dextrose 50% 25 Gm/50 Ml Syringe IV PUSH PRN PRN Hypoglycemia Protocol Diphenhydramine HCl 25 mg 03/18/22 23:19 Diphenhydramine Hcl Inj 50 Mg/Ml Vial IV PUSH Q4H PRN Itching Enoxaparin Sodium 40 mg 03/19/22 09:00 Enoxaparin 40 Mg/0.4 Ml Syringe SUB-Q DAILY [facility] Ergocalciferol 50,000 units 03/19/22 09:00 Ergocalciferol 50,000 Units Capsule PO Mo@0900 [facility] Ferrous Sulfate 324 mg
--- NOTE | 2022-03-19 09:22 | WPDNEURCNPN ---
Assessment and Plan Assessment and plan (1) Numbness and tingling of right side of face: Code(s): R20.0 - Anesthesia of skin; R20.2 - Paresthesia of skin Status: Acute Plan Rose Marie Haro is a 41 year old female with a history of anxiety, depression, gastric bypass presenting for evaluation of facial numbness/tingling in the setting of headache and hypertension. Initially there was concern for possible migraine with sensory aura however headache does not seem migrainous in quality and symptoms seem to be originating from the neck region and radiating upward to the face. MRI brain was unremarkable. . - No further work-up needed since patient's symptoms have resolved - If symptoms return, recommend obtaining MRI cervical spine w/wo contrast Consult date: 03/19/22 Reason for consult: Facial parasthesia HPI: Rose Marie Haro is a 41 year old female with a history of anxiety, depression, gastric bypass presenting for evaluation of facial numbness/tingling in the setting of headache. Patient presented due to pain in the right side of the neck that radiated to the ear, which then progressed to numbness/tingling in the right side of the face. The paraesthesias were intermittent throughout the day, lasting a few seconds at a time. She also complained of mild pressure like headache in the frontal region that lasted all day yesterday. There was no associated photophobia, phonophobia, nausea or vomiting. She did not take any medications at home for the headache. She presented to [place] ED with these complaints. CT head and CTA brain/carotid were unrevealing. BP was initially 150s systolic, but did rise up to 180s while in the hospital. She did receive Compazine and Benadryl which aborted the headache. She has not had any headache or facial paraesthesias today. She denies a prior history of migraines/headaches. There is possibly a family history of migraines in mother. MRI brain with and without contrast has been done which was unrevealing. Review of Systems Constitutional: Constitutional: Reports no additional constitutional complaints Eyes: Eyes: Reports blurry vision ENT: Reports system reviewed and no additional complaints, except as documented Cardiovascular: Cardiovascular: Reports chest pain Comments: chest pain yesterday at presentation Respiratory: Respiratory: Reports no additional respiratory complaints Gastrointestinal: Gastrointestinal: Reports no additional gastrointestinal complaints Genitourinary: Genitourinary: Reports no additional female genitourinary complaints Musculoskeletal: Musculoskeletal: Reports no additional musculoskeletal complaints Integumentary/Breasts: Skin/Breast: Reports system reviewed and no additional complaints, except as docu Neurologic: Reports as per HPI Psychiatric: Psychiatric: Reports anxiety and Reports depression [facility] Past Medical History Medical History Depression HTN (hypertension) Hypercholesterolemia Kidney stone Migraine Obesity UTI (urinary tract infection) Surgical History Surgical History History of hysterectomy Laparoscopic total hysterectomy with BSO History of laparoscopic appendectomy 08/02/19 Hx of gastric bypass In January of 2019 at [place], current weight loss of 100 pounds since surgery Family History Family History Mother Diabetes mellitus Father , At age 64 Heart disease Acute myocardial infarction Diabetes mellitus Social History Social History Social History: She is and has 4 children. She works for a [employer]. She has never smoked. Primary care provider: Andrews Falcon PA Code status full code Smoking status: Never smoker Alcohol intake: current Drinks per week: 2 Alcohol use d
[2022-03-19] MEDS: cloNIDine HCL 0.1 MG TABLET PO ×2 (10:18→16:32)
[2022-03-19] MEDS: ERGOCALCIFEROL 50,000 UNITS CAPSULE 50000 UNITS PO (10:18)
[2022-03-19] MEDS: FLUoxetine HCL 20 MG CAPSULE 40 MG PO (10:18)
[2022-03-19] MEDS: ENOXAPARIN 40 MG/0.4 ML SYRINGE SUB-Q (10:18)
[2022-03-19 10:19] LABS: Hemoglobin A1C 5.5 % (<5.7)
[2022-03-19] MEDS: LOSARTAN POTASSIUM 100 MG TABLET PO (10:19)
[2022-03-19] MEDS: FERROUS SULFATE 324 MG TABLET PO (10:19)
[2022-03-19] MEDS: amLODIPine BESYLATE 2.5 MG TABLET 7.5 MG PO (10:23)
[2022-03-19 11:46] LABS: Glucose Point of Care 165 mg/dl (65-105)
[2022-03-19 14:30] VITALS: BP 109/72; PULSE 70; RESP 16; TEMP 36.1; O2SAT 100
--- NOTE | 2022-03-19 14:40 | PM.DS ---
DS: Admitting Diagnosis Discharge Date 03/19/22 Admitting Diagnosis Numbness and tingling in the setting of Headache, hypertension DS: Discharge Diagnosis Discharge Diagnosis (1) Numbness and tingling of right side of face: Code(s): R20.0 - Anesthesia of skin; R20.2 - Paresthesia of skin Status: Acute Assessment and Plan: Patient presented with numbness and tingling on the right side of her face. Neck pain that radiated to right ear and scalp. Could just be related to we complex migraine. Given Compazine and Benadryl in the emergency room and now she stated she is feeling much better. The patient has no focal weakness. No slurred speech. She is ambulating without difficulty. Neurology has been consulted and appreciate recommendations CTA head and neck no intracranial process, no carotid stenosis. MRI: Normal brain, no acute intracranial process. Echo: EF at 60-65%, grade 1 diastolic dysfunction, trace mitral valve regurg (2) Depression: Code(s): F32.9 - Major depressive disorder, single episode, unspecified Status: Acute Assessment and Plan: continue with fluoxetine. her mood appears to be appropriate at this time. (3) HTN (hypertension): Code(s): I10 - Essential (primary) hypertension Status: Acute Assessment and Plan: The patient has not had any of her medication today and her blood pressure is elevated to 150/94. Continue with her losartan, amlodipine, and clonidine. p.r.n. hydralazine with parameters. (4) Hypercholesterolemia: Code(s): E78.00 - Pure hypercholesterolemia, unspecified Status: Acute Assessment and Plan: Continue with heart healthy diet. (5) Migraine: Code(s): G43.909 - Migraine, unspecified, not intractable, without status migrainosus Status: Acute Assessment and Plan: -and I did not give any NSAIDs the patient has a history of gastric bypass. -will continue with p.r.n. Benadryl and Compazine. DS: Summary Hospital Course Reason for hospitalization: Numbness and tingling in the setting of Headache, hypertension Hospital Course: 41-year-old female with a history of hypertension diabetes presents to the ED on 03/18/2022 for right-sided neck pain and right-sided facial numbness and tingling. Patient had facial tightness associated with the numbness and tingling. Patient did not have any focal weakness, facial drooping or blurred vision. Patient denied fever, chills, nausea vomiting. Patient given Compazine and Benadryl in the ER that resolved her headache. CT head no significant abnormality seen. CTA head neck normal brain, no carotid stenosis. Chest x-ray normal. Neurology consulted and patient was admitted to the observation. MRI ordered on the patient and revealed normal brain. Neurology not recommending any further workup at this time and patient's symptoms has resolved. Patient continued to have elevated blood pressure with systolic between 150-185. Increased patient's amlodipine to 7.5 mg. Recommend patient following up with PCP regarding migraine preventative and abortive medication as well as hypertensive medication. Time Spent with Patient Time attestation: Total time spent providing and/or coordinating discharge services: Exam Narrative: GENERAL: Comfortable, no acute distress HENMT: moist mucous membranes, no lumps or bumps noted on patient's had EYES: EOM intact b/l NECK: no lymphadenopathy RESPIRATORY: clear to auscultation CARDIO: RRR GI: soft, nontender, bowel sounds present SKIN: no rashes EXTREMITIES: no edema, redness or tenderness NEURO: Facial sensation intact, no facial droop, strength 5/5 throughout upper and lower extremities DS: Data Data Completed and Pending Labs on day of discharge: Labs from last 24 hours 03/19/22 03/19/22 03/19/22 11:37 07:55 06:05 WBC RBC Hgb Hct MCV MCH MCHC RDW Plt Count
== END 2022-03-19 17:00 | disposition home or self-care (01) ==
LOC: ANHED 15:34 → ANH3MEDSUR 17:48
PROVIDERS: Emergency Medicine; Nurse Practitioner; Physician Assistant; Admitting Provider Internal Medicine; Emergency Provider Emergency Medicine; PCP Internal Medicine; Visit Provider Internal Medicine
DX: R20.0 Anesthesia of skin (principal); R20.2 Paresthesia of skin; F32.A Depression, unspecified; E78.00 Pure hypercholesterolemia, unspecified; G43.909 Migraine, unspecified, not intractable, without status migrainosus; I11.9 Hypertensive heart disease without heart failure; E66.9 Obesity, unspecified; Z68.35 Body mass index [BMI] 35.0-35.9, adult; E11.69 Type 2 diabetes mellitus with other specified complication; N39.0 Urinary tract infection, site not specified; H53.8 Other visual disturbances; Z98.84 Bariatric surgery status; F10.90 Alcohol use, unspecified, uncomplicated; Z79.85 Long-term (current) use of injectable non-insulin antidiabetic drugs; Z79.899 Other long term (current) drug therapy
CPT/HCPCS: 36415; 70450; 70496; 70498; 70553; 71046; 80053; 81025; 82948; 83036; 83735; 84443; 84484; 85025; 85055; 85610; 85730; 87636; 93005; 93306; 96372; 96374; 96375; 99285; A9270; A9577; G0378; G0379; J0360; J0780; J1200; J1650; Q9967

== ENCOUNTER 2022-06-29 09:09 | Emergency (ER) | payer OTHER, SELFPAY ==
--- NOTE | ~2022-06-29 | CT_ITS ---
EXAMINATION: CT abdomen pelvis wo con DATE: 06/29/2022 11:56 INDICATION: Flank pain. TECHNIQUE: Computed tomography (CT) of the abdomen and pelvis was performed without intravenous contr ast. Automated exposure control and iterative reconstruction technique were employed. The dose-length product was 661.39 mGy-cm. COMPARISON: CT abdomen and pelvis 02/18/2022 FINDINGS: The visualized portions of the lung bases demonstrate minimal atelectasis. No pleural effus ion. The heart size is normal. No pericardial effusion. The liver, spleen, gallbladder, pancreas, and right adrenal gland are normal. There is a 14 mm mass in left adrenal gland measuring low attenuatio n, consistent with an adenoma. The kidneys are normal. There is no urolithiasis. There are changes of gastric bypass procedure. There are no dilated loops of bowel. There are changes of appendectomy. Th ere are no pathologically enlarged lymph nodes. There is no free intraperitoneal fluid. There is mild lumbar spondylosis. IMPRESSION: 1. No urolithiasis. Reviewed, dictated and finalized at location A. IMPRESSION: 1. No urolithiasis.
[2022-06-29 09:17] VITALS: BP 198/124; PULSE 96; RESP 18; TEMP 36.6; O2SAT 100
[2022-06-29 09:33] LABS: Basophils Percent Auto 0.6 % (0.2-1.2); Eosinophils Absolute Auto 0.2 K/mm3 (0-0.3); Eosinophils Percent Auto 2.7 % (0-4.4); Hematocrit 44.4 % (37.0-47.0); Hemoglobin 13.9 g/dL (12.0-15.0); Immature Granulocyte Absolute 0.01 K/mm3 (0.00-0.031); Immature Granulocyte Percent A 0.2 % (0-0.5); Lymphocytes Absolute Auto 1.69 K/mm3 (0.9-3.2); Lymphocytes Percent Auto 27.1 % (18.3-44.2); Mean Corpuscular HGB Conc 31.3 g/dl (32-36); Mean Corpuscular Hemoglobin 26.6 pg (26-34); Mean Corpuscular Volume 85.1 fl (80-100); Mean Platelet Volume 10.7 fl (7.4-10.4); Monocytes Absolute Auto 0.5 K/mm3 (0.1-0.6); Monocytes Percent Auto 7.5 % (2.6-8.5); Neutrophils Absolute Auto 3.9 K/mm3 (1.3-6.7); Neutrophils Percent Auto 61.9 % (45.5-73.1); Platelet Count Result 193 k/mm3 (150-375); Red Blood Count 5.22 M/mm3 (4.2-5.4); Red Cell Distribution Width 20.6 % (11.5-14.5); White Blood Count 6.2 K/mm3 (4.5-10.0)
[2022-06-29 09:40] LABS: Appearance Urine Cloudy (Clear); Bacteria Urine None Seen /hpf; Bilirubin Urine Negative (Negative); Blood Urine Negative (Negative); Color Urine Yellow (Yellow); Glucose Urine UA Negative (Negative); Ketones Urine Negative (Negative); Leukocyte Esterase Ur Negative LEU/UL (Negative); Nitrate Urine Negative (Negative); Non Pathogenic Casts 0-2; Protein Urine Trace mg/dL (Negative); RBC Urine 0-2 /hpf (0-2); Specific Grav Ur 1.024 (1.001-1.035); Squamous Epithelial Cell Urine None seen /hpf (Few); WBC Urine 0-5 /hpf; pH Urine 6.5 (5.0-9.0)
[2022-06-29 09:42] LABS: Add Urine Microscopic? YES
[2022-06-29 09:44] LABS: Alanine Aminotransferase 32 U/L (6-35); Albumin Level 4.6 g/dL (3.5-5.1); Alkaline Phosphatase 103 U/L (38-126); Anion Gap 5 mmol/L (8-16); Aspartate Amino Transferase 25 U/L (14-36); Bilirubin,Total 0.5 mg/dL (0.2-1.3); Blood Urea Nitrogen 11 mg/dL (7-17); Calcium 9.1 mg/dL (8.4-10.2); Carbon Dioxide 33 mmol/L (22-30); Chloride 103 mmol/L (98-107); Estimated CRCL calculation 90 ml/min; Estimated Glomerular Filt Rate > 60; Glucose 78 mg/dL (65-110); Potassium 3.4 mmol/L (3.4-5.0); Sodium 141 mmol/L (137-145)
--- NOTE | 2022-06-29 17:36 | ED.ABDPAIN ---
HPI - Abdominal Pain General Chief Complaint: Abdominal Pain Stated Complaint: abd pain Time Seen by Provider: 06/29/22 11:22 History of Present Illness HPI narrative: Patient has history of kidney stones, she has been having some flank discomfort the last few days and was trying to get into see her doctor but could not get in so came here. Denies any dysuria, nausea or vomiting, abdominal pain, fevers or chills. Related Data Home Medications Medication Instructions Recorded Confirmed clonidine HCl 0.1 mg tablet 0.1 mg PO BID 01/18/22 03/18/22 dulaglutide 3 mg/0.5 mL 3 mg subcut WEEKLY 03/18/22 03/18/22 subcutaneous pen injector (Trulicity) ergocalciferol (vitamin D2) 1,250 50,000 unit PO WEEKLY 03/18/22 03/18/22 mcg (50,000 unit) capsule ferrous sulfate 325 mg (65 mg 325 mg PO DAILY 03/18/22 03/18/22 iron) tablet (FeroSul) fluoxetine 40 mg capsule 40 mg PO DAILY 03/18/22 03/18/22 losartan 100 mg tablet 100 mg PO DAILY 03/18/22 03/18/22 nystatin 100,000 unit/gram topical 1 applic topical DAILY abdomen rash 03/18/22 03/18/22 cream Allergies Allergy/AdvReac Type Severity Reaction Status Date / Time clindamycin Allergy Mild Swelling Verified 06/29/22 11:08 NSAIDS (Non-Steroidal AdvReac Unknown Verified 06/29/22 11:08 Anti-Inflamma Review of Systems Review of Systems: CONST: No fever. HEENT: No sore throat C/V: No chest pain RESP: No cough GI: Reports flank pain : No dysuria. M/S: No joint pain. SKIN: No rash. NEURO: [No headache or focal numbness or weakness] PSYCH: [No depression] [facility] Past Medical History Medical History Depression HTN (hypertension) Hypercholesterolemia Kidney stone Migraine Obesity UTI (urinary tract infection) Surgical History Surgical History History of hysterectomy Laparoscopic total hysterectomy with BSO History of laparoscopic appendectomy 08/02/19 Hx of gastric bypass In January of 2019 at [place], current weight loss of 100 pounds since surgery Family History Family History Mother Diabetes mellitus Father , At age 64 Heart disease Acute myocardial infarction Diabetes mellitus Social History Social History Social History: She is and has 4 children. She works for a [employer]. She has never smoked. Primary care provider: Andrews Falcon PA Code status full code Smoking status: Never smoker Alcohol intake: current Drinks per week: 2 Alcohol use details: She reports that since her father's last year she has been drinking more alcohol. She was drinking 2-3 alcoholic beverages a night. She has cut back down to 2 drinks a week over the last couple of months. Substance use: never Last use: Yesterday had an edible. Lack of Transportation: No Lack of Food: Never True Current Housing: I Have Housing Concerned About Future Housing: No Difficulty Paying Gas/Electric Bills: No Difficulty Paying for Meds: No Currently Unemployed: No Education: Decline to Answer Difficulty w/ Childcare or Family Care: No Living arrangements: with family Additional living arrangements comments: With her they have been together for 22 years and been for 9 years.. They have 4 children. Her oldest child is 22 years old and youngest is 12. Occupation/Education: other Additional occupation/education comments: Works for the [employer]. Currently on short-term disability due to depression. Gender identity (if verbalized by the patient): Female Spiritual care concerns: No Exam Narrative: EXAMINATION OF ORGAN SYSTEMS/BODY AREAS: Constitutional: Vital signs per nursing GENERAL:[No acute distress, non-toxic appearing.] HEAD: Normal with no signs of head trauma. EYES: EOMI, con
== END 2022-06-29 12:55 | disposition home or self-care (01) ==
PROVIDERS: Emergency Provider Emergency Medicine; PCP Internal Medicine
DX: R10.9 Unspecified abdominal pain (principal); I10 Essential (primary) hypertension; E78.00 Pure hypercholesterolemia, unspecified; E66.9 Obesity, unspecified; Z68.33 Body mass index [BMI] 33.0-33.9, adult; Z87.440 Personal history of urinary (tract) infections; Z87.442 Personal history of urinary calculi; Z90.710 Acquired absence of both cervix and uterus; Z90.722 Acquired absence of ovaries, bilateral; Z90.79 Acquired absence of other genital organ(s)
CPT/HCPCS: 36415; 74176; 80053; 81001; 85025; 99284

== ENCOUNTER 2022-09-03 10:22 | Emergency (ER) | payer OTHER, SELFPAY ==
[2022-09-03] VITALS (40 sets, daily range): BP systolic 154–194; BP diastolic 81–125; PULSE 64–96; RESP 14–27; TEMP 36.7; O2SAT 97–100
--- NOTE | ~2022-09-03 | XR_ITS ---
EXAMINATION: XR chest 2V DATE: 09/03/2022 11:01 INDICATION: Chest pain. Epigastric abdominal pain. TECHNIQUE: Frontal and lateral views of the chest were obtained. COMPARISON: Chest 2 views 03/18/22 FINDINGS: The chest demonstrates clear lungs without pneumonia, pleural effusion, or pneumothorax. Th e heart size is normal. IMPRESSION: 1. No acute cardiopulmonary disease. Reviewed, dictated and finalized at location A.
--- NOTE | 2022-09-03 10:31 | ECG_ITS ---
Measurements Intervals [place] Rate: 87 P: 35 IA: 162 QRS: -1 QRSD: 92 T: 9 QT: 384 QTc: 464 Interpretive Statements SINUS RHYTHM VOLTAGE CRITERIA FOR LVH BORDERLINE ECG COMPARED TO ECG 03/18/2022 10:33:05 NO SIGNIFICANT CHANGES Electronically Signed On 09-03-2022 10:57:48 CDT by Ori Roque D.O.
[2022-09-03 10:52] LABS: Basophils Percent Auto 0.7 % (0.2-1.2); Eosinophils Absolute Auto 0.1 K/mm3 (0-0.3); Hematocrit 42.6 % (37.0-47.0); Hemoglobin 13.6 g/dL (12.0-15.0); Immature Granulocyte Absolute 0.02 K/mm3 (0.00-0.031); Immature Granulocyte Percent A 0.3 % (0-0.5); Lymphocytes Percent Auto 36.1 % (18.3-44.2); Mean Corpuscular HGB Conc 31.9 g/dl (32-36); Mean Corpuscular Hemoglobin 28.3 pg (26-34); Mean Corpuscular Volume 88.6 fl (80-100); Monocytes Absolute Auto 0.5 K/mm3 (0.1-0.6); Neutrophils Absolute Auto 3.2 K/mm3 (1.3-6.7); Neutrophils Percent Auto 52.9 % (45.5-73.1); Platelet Count Result 207 k/mm3 (150-375); Red Blood Count 4.81 M/mm3 (4.2-5.4); Red Cell Distribution Width 15.7 % (11.5-14.5); White Blood Count 6.1 K/mm3 (4.5-10.0)
[2022-09-03 11:03] LABS: Alanine Aminotransferase 29 U/L (6-35); Albumin Level 4.3 g/dL (3.5-5.1); Alkaline Phosphatase 116 U/L (38-126); Anion Gap 8 mmol/L (8-16); Aspartate Amino Transferase 26 U/L (14-36); Bilirubin,Total 0.6 mg/dL (0.2-1.3); Blood Urea Nitrogen 7 mg/dL (7-17); Carbon Dioxide 32 mmol/L (22-30); Chloride 101 mmol/L (98-107); Estimated CRCL calculation 98 ml/min; Estimated Glomerular Filt Rate > 60; Glucose 82 mg/dL (65-110); Lipase 36 U/L (23-300); Sodium 141 mmol/L (137-145)
[2022-09-03 11:06] LABS: Partial Thromboplastin Time 27.3 SECONDS (22.3-36.8); Prothrombin Time 13.3 Seconds (11.1-14.7)
[2022-09-03 11:15] LABS: Troponin I < 0.012 ng/mL (0.000-0.034)
--- NOTE | 2022-09-03 12:48 | ED.GENADULT ---
HPI - General Adult General Chief complaint: Chest Pain <James Plaza MD - Last Filed: 09/03/22 13:05> Stated complaint: ABD pain <James Plaza MD - Last Filed: 09/03/22 13:05> Time Seen by Provider: 09/03/22 11:49 <James Plaza MD - Last Filed: 09/03/22 13:05> Source: patient <James Plaza MD - Last Filed: 09/03/22 13:05> Mode of arrival: ambulatory <James Plaza MD - Last Filed: 09/03/22 13:05> Limitations: no limitations <James Plaza MD - Last Filed: 09/03/22 13:05> History of Present Illness HPI narrative: 41 years old -Armenian female presents with unstable hypertension, systolic blood pressure running between 120?180, diastolic blood pressure 60?110. Over the last 10 days. Scheduled to see her family physician on the of this month. Patient report stress, insomnia, intermittent this morning patient noticed intermittent retrosternal sharp stabbing discomfort and epigastric discomfort. During examination patient is asymptomatic currently patient on losartan, amlodipine and clonidine. <James Plaza MD - Last Filed: 09/03/22 13:05> Related Data Home medications: Home Medications Medication Instructions Recorded Confirmed clonidine HCl 0.1 mg tablet 0.1 mg PO BID 01/18/22 03/18/22 dulaglutide 3 mg/0.5 mL 3 mg subcut WEEKLY 03/18/22 03/18/22 subcutaneous pen injector (Trulicity) ergocalciferol (vitamin D2) 1,250 50,000 unit PO WEEKLY 03/18/22 03/18/22 mcg (50,000 unit) capsule ferrous sulfate 325 mg (65 mg 325 mg PO DAILY 03/18/22 03/18/22 iron) tablet (FeroSul) fluoxetine 40 mg capsule 40 mg PO DAILY 03/18/22 03/18/22 losartan 100 mg tablet 100 mg PO DAILY 03/18/22 03/18/22 nystatin 100,000 unit/gram topical 1 applic topical DAILY abdomen rash 03/18/22 03/18/22 cream <James Plaza MD - Last Filed: 09/03/22 13:05> Allergies/adverse reactions: Allergies Allergy/AdvReac Type Severity Reaction Status Date / Time clindamycin Allergy Mild Swelling Verified 09/03/22 10:36 NSAIDS (Non-Steroidal AdvReac Unknown Verified 09/03/22 10:36 Anti-Inflamma <James Plaza MD - Last Filed: 09/03/22 13:05> Review of Systems Review of Systems: All systems reviewed & are unremarkable except as noted in HPI and below <James Plaza MD - Last Filed: 09/03/22 13:05> [facility] Past Medical History Medical History: Medical History Depression HTN (hypertension) Hypercholesterolemia Kidney stone Migraine Obesity UTI (urinary tract infection) <James Plaza MD - Last Filed: 09/03/22 13:05> Surgical History Surgical History: Surgical History History of hysterectomy Laparoscopic total hysterectomy with BSO History of laparoscopic appendectomy 08/02/19 Hx of gastric bypass In January of 2019 at [place], current weight loss of 100 pounds since surgery <James Plaza MD - Last Filed: 09/03/22 13:05> Family History Family History: Family History Mother Diabetes mellitus Father , At age 64 Heart disease Acute myocardial infarction Diabetes mellitus <James Plaza MD - Last Filed: 09/03/22 13:05> Social History Social History: Social History Social History: She is and has 4 children. She works for a [employer]. She has never smoked. Primary care provider: Andrews Falcon PA Code status full code Smoking status: Never smoker Alcohol intake: current Drinks per week: 2 Alcohol use details: She reports that since her father's last year she has been drinking more alcohol. She was drinking 2-3 alcoholic beverages a night. She has cut back down to 2 drinks a week over the last couple of months. Substance use: never Last use: Yesterday had an edible.
[2022-09-03 13:37] LABS: Appearance Urine Clear (Clear); Bacteria Urine None Seen /hpf; Bilirubin Urine Negative (Negative); Blood Urine Negative (Negative); Color Urine Yellow (Yellow); Glucose Urine UA Negative (Negative); Ketones Urine 1+ mg/dL (Negative); Leukocyte Esterase Ur Negative LEU/UL (Negative); Nitrate Urine Negative (Negative); Non Pathogenic Casts 0-2; Protein Urine Trace mg/dL (Negative); RBC Urine 0-2 /hpf (0-2); Squamous Epithelial Cell Urine None seen /hpf (Few); WBC Urine 0-5 /hpf
[2022-09-03] MEDS: POTASSIUM CHLORIDE 20 MEQ PACKET (FOR LIQUID) 40 MEQ PO (13:38)
[2022-09-03] MEDS: LABETALOL HCL INJ 100 MG/20 ML VIAL 20 MG IV PUSH (13:39)
[2022-09-03 13:43] LABS: Add Urine Microscopic? YES
[2022-09-03 14:54] LABS: Troponin I < 0.012 ng/mL (0.000-0.034)
[2022-09-03] MEDS: amLODIPine BESYLATE 5 MG TABLET 2.5 MG PO (15:47)
[2022-09-03] MEDS: hydrALAZINE HCL 20 MG/ML VIAL 10 MG IV PUSH (15:47)
== END 2022-09-03 16:39 | disposition home or self-care (01) ==
PROVIDERS: Emergency Provider Emergency Medicine; PCP Internal Medicine
DX: I10 Essential (primary) hypertension (principal); E78.00 Pure hypercholesterolemia, unspecified; E66.9 Obesity, unspecified; Z68.31 Body mass index [BMI] 31.0-31.9, adult; Z87.442 Personal history of urinary calculi; Z87.440 Personal history of urinary (tract) infections; Z79.85 Long-term (current) use of injectable non-insulin antidiabetic drugs; Z90.710 Acquired absence of both cervix and uterus; Z90.722 Acquired absence of ovaries, bilateral; Z90.79 Acquired absence of other genital organ(s); Z98.84 Bariatric surgery status
CPT/HCPCS: 36415; 71046; 80053; 81001; 83690; 84484; 85025; 85610; 85730; 93005; 96374; 96375; 99284; A9270; J0360

== ENCOUNTER 2022-11-24 15:32 | Outpatient (CLI) | payer OTHER, SELFPAY ==
--- NOTE | ~2022-11-24 | MM_ITS ---
EXAMINATION: MM screening wali BI w niko HISTORY: Screening mammogram TECHNIQUE: Craniocaudal and mediolateral oblique 3-D tomosynthesis images were obtained and synthetic 2-D images were generated. CAD analysis was submitted and interpreted. COMPARISON: April 11, 2020 bilateral screening BREAST PARENCHYMAL COMPOSITION: There are scattered areas of fibroglandular density. FINDINGS: There is no evidence of suspicious mass, calcification, or architectural distortion to sugg est malignancy in either breast. There has been no suspicious interval change. IMPRESSION: 1. No mammographic evidence of malignancy. 2. Recommend routine screening mammography in one year. BI-RADS Category 1: Negative Reviewed, dictated and finalized at location A.
== END 2022-11-24 15:33 | disposition home or self-care (01) ==
LOC: ANHIMG 15:34
PROVIDERS: PCP Internal Medicine; Visit Provider Internal Medicine
DX: Z12.31 Encounter for screening mammogram for malignant neoplasm of breast (principal)
CPT/HCPCS: 77063; 77067

== ENCOUNTER 2023-04-19 10:39 | Emergency (ER) | payer OTHER, SELFPAY ==
[2023-04-19] VITALS (18 sets, daily range): BP systolic 144–172; BP diastolic 99–110; PULSE 54–70; RESP 10–22; TEMP 36.3–36.6; O2SAT 98–100
--- NOTE | ~2023-04-19 | CT_ITS ---
EXAMINATION: CT abdomen pelvis w con DATE: 04/19/2023 17:22 INDICATION: Epigastric abdominal pain. TECHNIQUE: Computed tomography (CT) of the abdomen and pelvis was performed with 100 mL Omnipaque 350 intravenous contrast. Automated exposure control and iterative reconstruction technique were employe d. The dose-length product was 651.23 mGy-cm. COMPARISON: CT abdomen and pelvis 06/29/2022 FINDINGS: The visualized portions of the lung bases demonstrate mild atelectasis on the left. No pleu ral effusion. The heart size is normal. No pericardial effusion. The liver, gallbladder, spleen, panc reas, and right adrenal gland are normal. There is a chronic 13 mm mass in left adrenal gland measuri ng soft tissue attenuation, likely an adenoma. The kidneys are normal. There are changes of gastric b ypass procedure. There is a short transient jejunal intussusception. There are no dilated loops of kol[place] wel. There are changes of appendectomy. There are no pathologically enlarged lymph nodes. There is no free intraperitoneal fluid. There is mild lumbar spondylosis. IMPRESSION: 1. No etiology for the patient's symptoms. Reviewed, dictated and finalized at location E. [facility]
--- NOTE | 2023-04-19 15:41 | ED.ABDPAIN ---
HPI - Abdominal Pain General Chief Complaint: Abdominal Pain <VITA Mcwilliams Last Filed: 04/20/23 09:48> Stated Complaint: abd pain since 0300 <VITA Mcwilliams Last Filed: 04/20/23 09:48> Time Seen by Provider: 04/19/23 15:41 <VITA Mcwilliams Last Filed: 04/20/23 09:48> Focused HPI: This is a 42 year old female that presents to the ER for abdominal pain. Ongoing since earlier this morning. Denies fever, vomiting, diarrhea, dysuria or hematuria. GENERAL: Well-appearing, well-nourished, and in no acute distress. HEAD: Normocephalic, atraumatic. CHEST: Clear to auscultation. ?No respiratory distress. HEART: Regular rate and rhythm.? NEURO: ?Alert and oriented x3. Patient screened in triage and initial orders placed.? ?Additional care and disposition to be based upon?diagnostic testing and treatment. <Dania Fang PA-C - Last Filed: 04/20/23 09:48> Focused HPI: This is a 42 year old female, with PMH of gastric bypass surgery, that presents to the ER for abdominal pain. Pain present in epigastric region and radiates throughout abdomen. Ongoing since 3am this morning, intermittent, no significant agg/allv factors. Has not tried anything for pain. Denies hx of similar pain. Reports diarrhea today but states this is not abnormal for her. Denies fever, vomiting, rectal bleeding, melena, dysuria or hematuria. Denies CP/SOB. GENERAL: Well-appearing, well-nourished, and in no acute distress. HEAD: Normocephalic, atraumatic. CHEST: Clear to auscultation. ?No respiratory distress. HEART: Regular rate and rhythm.? NEURO: ?Alert and oriented x3. Patient screened in triage and initial orders placed.? ?Additional care and disposition to be based upon?diagnostic testing and treatment. <VITA Burt Last Filed: 04/19/23 20:08> Related Data Home Medications: Home Medications Medication Instructions Recorded Confirmed clonidine HCl 0.1 mg tablet 0.1 mg PO BID 01/18/22 03/18/22 dulaglutide 3 mg/0.5 mL 3 mg subcut WEEKLY 03/18/22 03/18/22 subcutaneous pen injector (Trulicity) ergocalciferol (vitamin D2) 1,250 50,000 unit PO WEEKLY 03/18/22 03/18/22 mcg (50,000 unit) capsule ferrous sulfate 325 mg (65 mg 325 mg PO DAILY 03/18/22 03/18/22 iron) tablet (FeroSul) fluoxetine 40 mg capsule 40 mg PO DAILY 03/18/22 03/18/22 losartan 100 mg tablet 100 mg PO DAILY 03/18/22 03/18/22 nystatin 100,000 unit/gram topical 1 applic topical DAILY abdomen rash 03/18/22 03/18/22 cream <Dania Fang PA-C - Last Filed: 04/20/23 09:48> Allergies/Adverse Reactions: Allergies Allergy/AdvReac Type Severity Reaction Status Date / Time clindamycin Allergy Mild Swelling Verified 04/19/23 16:27 NSAIDS (Non-Steroidal AdvReac Unknown Verified 04/19/23 16:27 Anti-Inflamma <Dania Fang PA-C - Last Filed: 04/20/23 09:48> Review of Systems Review of Systems: CONSTITUTIONAL: Denies fever, chills, or sweats. CARDIOVASCULAR: Denies chest pain. RESPIRATORY: Denies dyspnea. GASTROINTESTINAL: See HPI. GENITOURINARY: Denies dysuria or hematuria. <Debbie Umana PA-C - Last Filed: 04/19/23 20:08> All systems reviewed & are unremarkable except as noted in HPI and below <Debbie Umana PA-C - Last Filed: 04/19/23 20:08> PMFSH Past Medical History Medical History: Medical History Depression HTN (hypertension) Hypercholesterolemia Kidney stone Migraine Obesity UTI (urinary tract infection) <Dania Fang PA-C - Last Filed: 04/20/23 09:48> Surgical History Surgical History: Surgical History History of hysterectomy Laparoscopic total hysterectomy with BSO History of laparoscopic appendectomy 08/02/19 Hx of gastric bypass In January of 2019 at [place], current weight loss of 100 pounds since surgery <Dania
[2023-04-19 16:38] LABS: Basophils Percent Auto 0.5 % (0.2-1.2); Eosinophils Absolute Auto 0.2 K/mm3 (0-0.3); Eosinophils Percent Auto 2.6 % (0-4.4); Hematocrit 39.1 % (37.0-47.0); Hemoglobin 12.2 g/dL (12.0-15.0); Immature Granulocyte Absolute 0.01 K/mm3 (0.00-0.031); Immature Granulocyte Percent A 0.2 % (0-0.5); Lymphocytes Absolute Auto 1.89 K/mm3 (0.9-3.2); Lymphocytes Percent Auto 29.3 % (18.3-44.2); Mean Corpuscular HGB Conc 31.2 g/dl (32-36); Mean Corpuscular Hemoglobin 28.3 pg (26-34); Mean Corpuscular Volume 90.7 fl (80-100); Mean Platelet Volume 12.2 fl (7.4-10.4); Monocytes Absolute Auto 0.4 K/mm3 (0.1-0.6); Monocytes Percent Auto 5.6 % (2.6-8.5); Neutrophils Percent Auto 61.8 % (45.5-73.1); Platelet Count Result 189 k/mm3 (150-375); Red Blood Count 4.31 M/mm3 (4.2-5.4); Red Cell Distribution Width 14.6 % (11.5-14.5); White Blood Count 6.4 K/mm3 (4.5-10.0)
[2023-04-19] MEDS: ONDANSETRON INJ 4 MG/2 ML VIAL IV PUSH (16:44)
[2023-04-19] MEDS: PANTOPRAZOLE SODIUM IV 40 MG VIAL IV PUSH (16:44)
[2023-04-19 16:46] LABS: Appearance Urine Clear (Clear); Bilirubin Urine Negative (Negative); Blood Urine Negative (Negative); Color Urine Yellow (Yellow); Glucose Urine UA Negative (Negative); Ketones Urine Trace mg/dL (Negative); Leukocyte Esterase Ur Negative LEU/UL (Negative); Nitrate Urine Negative (Negative); Protein Urine Negative (Negative); Specific Grav Ur 1.024 (1.001-1.035); pH Urine 5.5 (5.0-9.0)
[2023-04-19 16:49] LABS: Add Urine Microscopic? NO
[2023-04-19 17:03] LABS: Alanine Aminotransferase 134 U/L (6-35); Albumin Level 4.1 g/dL (3.5-5.1); Alkaline Phosphatase 82 U/L (38-126); Anion Gap 4 mmol/L (8-16); Aspartate Amino Transferase 91 U/L (14-36); Bilirubin,Total 0.6 mg/dL (0.2-1.3); Blood Urea Nitrogen 15 mg/dL (7-17); Calcium 9.1 mg/dL (8.4-10.2); Carbon Dioxide 29 mmol/L (22-30); Chloride 105 mmol/L (98-107); Estimated CRCL calculation 87 ml/min; Estimated Glomerular Filt Rate > 60; Glucose 82 mg/dL (65-110); Lipase 66 U/L (23-300); Potassium 4.2 mmol/L (3.4-5.0); Sodium 138 mmol/L (137-145)
[2023-04-19] MEDS: BELLADONNA ALK/PHENOB ELIX 10 ML, MAG HYDROX/ALUMINUM HYD/SIMETH 30 ML, LIDOCAINE HCL 2... PO (19:51)
[2023-04-19] MEDS: SODIUM CHLORIDE 0.9% IV 1,000 ML 999 ML IV CONT (19:51)
== END 2023-04-19 21:04 | disposition home or self-care (01) ==
PROVIDERS: Physician Assistant; Emergency Provider Physician Assistant; PCP Internal Medicine
DX: R10.13 Epigastric pain (principal); Z98.84 Bariatric surgery status; I10 Essential (primary) hypertension; E78.00 Pure hypercholesterolemia, unspecified; E66.9 Obesity, unspecified; Z68.31 Body mass index [BMI] 31.0-31.9, adult; Z87.442 Personal history of urinary calculi; Z87.440 Personal history of urinary (tract) infections; Z90.710 Acquired absence of both cervix and uterus
CPT/HCPCS: 36415; 74177; 80053; 81003; 83690; 85025; 96361; 96374; 96375; 99284; A9270; C9113; J2405; J7030; Q9967

== ENCOUNTER 2023-04-23 13:00 | Emergency (ER) | payer OTHER, SELFPAY ==
--- NOTE | ~2023-04-23 | CT_ITS ---
EXAMINATION: CT abdomen pelvis w con DATE: 04/23/2023 17:28 INDICATION: abd pain TECHNIQUE: Computed tomography (CT) of the abdomen and pelvis was performed 04/19/2023 intravenous con trast. Automated exposure control and iterative reconstruction technique were employed. The dose-luis th product was 765.72 mGy-cm. COMPARISON: None. FINDINGS: Lower thorax: Unremarkable Liver: Normal. Biliary/Gallbladder: Gallbladder is normal. No bile duct dilation. Pancreas: No mass or duct dilation. Spleen: Normal. Adrenals: Left adrenal adenoma. Kidneys: No suspicious mass, obstructing stone, or hydronephrosis. GI tract: Diffuse submucosal fatty deposition in the colon and to a lesser extent in the stomach. Mil d pericolonic inflammatory change from the hepatic flexure to the distal descending colon. Prior venkat krupa surgery. Short segment jejuno-jejunal intussusception in the left upper quadrant, with mild short segment proximal small bowel dilation, unchanged. No small or bowel dilation. Status post appendecto my. Mesentery/Peritoneum: No ascites, mass, or free air. Retroperitoneum: No mass. Pelvis: Pelvic organs are within normal limits. Soft Tissues: Soft tissues and body wall unremarkable. Bones: No acute osseous finding. IMPRESSION: Persistent short segment jejuno-jejunal intussusception, no evidence of obstruction. Mild pericolonic inflammatory change may reflect colitis in the appropriate clinical context. Colonic submucosal fat as can be seen with chronic IBD, obesity, chemotherapy treatment, and celiac d isease. Reviewed, dictated and finalized at location K. 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 Mild pericolonic inflammatory change may reflect colitis in the appropriate cli nical context. Colonic submucosal fat as can be seen with chronic IBD, obesity, chemotherapy t reatment, and celiac disease.
[2023-04-23 13:11] VITALS: BP 139/103; PULSE 100; RESP 20; TEMP 36.6; O2SAT 100
--- NOTE | 2023-04-23 15:58 | ED.ABDPAIN ---
HPI - Abdominal Pain General Chief Complaint: Abdominal Pain Stated Complaint: abdominal pain Time Seen by Provider: 04/23/23 15:16 Source: patient Mode of arrival: ambulatory Limitations: no limitations History of Present Illness HPI narrative: This is a 42 year old female that presents to the ER for lower abdominal pain. Ongoing over the last 4 days. Reports the pain is sharp and intermittent in nature. Also reports some intermittent right sided flank pain. Reports diarrhea. Denies fever, vomiting, dysuria or hematuria. Related Data Home Medications Medication Instructions Recorded Confirmed clonidine HCl 0.1 mg tablet 0.1 mg PO BID 01/18/22 03/18/22 dulaglutide 3 mg/0.5 mL 3 mg subcut WEEKLY 03/18/22 03/18/22 subcutaneous pen injector (Trulicity) ergocalciferol (vitamin D2) 1,250 50,000 unit PO WEEKLY 03/18/22 03/18/22 mcg (50,000 unit) capsule ferrous sulfate 325 mg (65 mg 325 mg PO DAILY 03/18/22 03/18/22 iron) tablet (FeroSul) fluoxetine 40 mg capsule 40 mg PO DAILY 03/18/22 03/18/22 losartan 100 mg tablet 100 mg PO DAILY 03/18/22 03/18/22 nystatin 100,000 unit/gram topical 1 applic topical DAILY abdomen rash 03/18/22 03/18/22 cream chlorthalidone 25 mg tablet mg 04/23/23 nifedipine 10 mg capsule mg 04/23/23 Allergies Allergy/AdvReac Type Severity Reaction Status Date / Time clindamycin Allergy Mild Swelling Verified 04/23/23 20:56 NSAIDS (Non-Steroidal AdvReac Unknown Verified 04/23/23 20:56 Anti-Inflamma Review of Systems Review of Systems: CONSTITUTIONAL: Denies fever GASTROINTESTINAL: Reports abdominal pain and diarrhea. Denies nausea, vomiting GENITOURINARY: Denies dysuria or hematuria. All systems reviewed & are unremarkable except as noted in HPI and below PMFSH Past Medical History Medical History Depression HTN (hypertension) Hypercholesterolemia Kidney stone Migraine Obesity UTI (urinary tract infection) Surgical History Surgical History History of hysterectomy Laparoscopic total hysterectomy with BSO History of laparoscopic appendectomy 6/4/20 Hx of gastric bypass In January of 2019 at [place], current weight loss of 100 pounds since surgery Family History Family History Mother Diabetes mellitus Father , At age 64 Heart disease Acute myocardial infarction Diabetes mellitus Social History Social History Social History: She is and has 4 children. She works for a [employer]. She has never smoked. Primary care provider: Andrews GOLDSMITH Code status full code Smoking status: Never smoker Alcohol intake: current Drinks per week: 2 Alcohol use details: She reports that since her father's last year she has been drinking more alcohol. She was drinking 2-3 alcoholic beverages a night. She has cut back down to 2 drinks a week over the last couple of months. Substance use: never Last use: Yesterday had an edible. Lack of Transportation: No Lack of Food: Never True Current Housing: I Have Housing Concerned About Future Housing: No Difficulty Paying Gas/Electric Bills: No Difficulty Paying for Meds: No Currently Unemployed: No Education: Decline to Answer Difficulty w/ Childcare or Family Care: No Living arrangements: with family Additional living arrangements comments: With her they have been together for 22 years and been for 9 years.. They have 4 children. Her oldest child is 22 years old and youngest is 12. Occupation/Education: other Additional occupation/education comments: Works for the [employer]. Currently on short-term disability due to depression. Gender identity (if verbalized by the patient): Female Spiritual care
[2023-04-23 16:03] LABS: Appearance Urine Clear (Clear); Bilirubin Urine Negative (Negative); Blood Urine Negative (Negative); Color Urine Yellow (Yellow); Glucose Urine UA Negative (Negative); Ketones Urine Negative (Negative); Leukocyte Esterase Ur Negative LEU/UL (Negative); Nitrate Urine Negative (Negative); Protein Urine Negative (Negative); Specific Grav Ur 1.023 (1.001-1.035); pH Urine 5.5 (5.0-9.0)
[2023-04-23 16:05] LABS: Basophils Percent Auto 0.5 % (0.2-1.2); Eosinophils Absolute Auto 0.1 K/mm3 (0-0.3); Eosinophils Percent Auto 1.5 % (0-4.4); Hematocrit 44.3 % (37.0-47.0); Hemoglobin 13.9 g/dL (12.0-15.0); Immature Granulocyte Absolute 0.01 K/mm3 (0.00-0.031); Immature Granulocyte Percent A 0.2 % (0-0.5); Lymphocytes Absolute Auto 1.63 K/mm3 (0.9-3.2); Lymphocytes Percent Auto 26.5 % (18.3-44.2); Mean Corpuscular HGB Conc 31.4 g/dl (32-36); Mean Corpuscular Hemoglobin 27.9 pg (26-34); Mean Corpuscular Volume 88.8 fl (80-100); Mean Platelet Volume 11.7 fl (7.4-10.4); Monocytes Absolute Auto 0.4 K/mm3 (0.1-0.6); Monocytes Percent Auto 6.3 % (2.6-8.5); Platelet Count Result 208 k/mm3 (150-375); Red Blood Count 4.99 M/mm3 (4.2-5.4); Red Cell Distribution Width 14.7 % (11.5-14.5); White Blood Count 6.2 K/mm3 (4.5-10.0)
[2023-04-23 16:08] LABS: Add Urine Microscopic? NO
[2023-04-23 16:15] LABS: Partial Thromboplastin Time 26.9 SECONDS (22.3-36.8); Prothrombin Time 13.4 Seconds (11.1-14.7)
[2023-04-23 16:23] LABS: D Dimer 0.46 ug/mL (<0.48)
[2023-04-23 16:31] LABS: Alanine Aminotransferase 115 U/L (6-35); Albumin Level 4.3 g/dL (3.5-5.1); Alkaline Phosphatase 81 U/L (38-126); Anion Gap 4 mmol/L (8-16); Aspartate Amino Transferase 77 U/L (14-36); Bilirubin,Total 0.7 mg/dL (0.2-1.3); Blood Urea Nitrogen 15 mg/dL (7-17); Calcium 9.4 mg/dL (8.4-10.2); Carbon Dioxide 32 mmol/L (22-30); Chloride 101 mmol/L (98-107); Estimated CRCL calculation 86 ml/min; Estimated Glomerular Filt Rate > 60; Glucose 80 mg/dL (65-110); Lipase 161 U/L (23-300); Potassium 3.7 mmol/L (3.4-5.0); Sodium 137 mmol/L (137-145)
[2023-04-23 19:53] VITALS: PULSE 69; RESP 18; O2SAT 100
[2023-04-23 19:54] VITALS: BP 163/121
[2023-04-23] MEDS: metroNIDAZOLE 500 MG/ISO 100ML 500 MG/100 ML BAG 100 MG IVPB (20:30)
--- NOTE | 2023-04-23 23:04 | PC.NURSE ---
report given to MAGUI Barrios.
== END 2023-04-23 23:35 | disposition short-term general hospital (02) ==
PROVIDERS: Emergency Provider Physician Assistant; PCP Internal Medicine
DX: K56.1 Intussusception (principal); K52.9 Noninfective gastroenteritis and colitis, unspecified; I10 Essential (primary) hypertension; E78.00 Pure hypercholesterolemia, unspecified; E66.9 Obesity, unspecified; Z68.31 Body mass index [BMI] 31.0-31.9, adult; Z87.442 Personal history of urinary calculi; Z87.440 Personal history of urinary (tract) infections; Z90.710 Acquired absence of both cervix and uterus; Z90.722 Acquired absence of ovaries, bilateral; Z90.79 Acquired absence of other genital organ(s); R93.3 Abnormal findings on diagnostic imaging of other parts of digestive tract
CPT/HCPCS: 36415; 74177; 80053; 81003; 81025; 83690; 85025; 85380; 85610; 85730; 87040; 96365; 96366; 96367; 99285; J0696; J1836; Q9967

== ENCOUNTER 2023-09-22 10:01 | Outpatient (CLI) | payer OTHER, SELFPAY ==
--- NOTE | ~2023-09-22 | XR_ITS ---
XR knee LT 3V 09/22/2023 10:17 INDICATION: Left knee pain PROCEDURE: 3 views left knee COMPARISON: 11/01/2021 FINDINGS: Fracture, dislocation or subluxation is not identified. The soft tissues appear within norm al limits. No foreign bodies are identified. IMPRESSION: 1: NO ACUTE BONE OR JOINT ABNORMALITY IDENTIFIED. Reviewed, dictated and finalized at location B.
== END 2023-09-22 10:02 | disposition home or self-care (01) ==
PROVIDERS: PCP Internal Medicine; Visit Provider Internal Medicine
DX: M25.562 Pain in left knee (principal)
CPT/HCPCS: 73562

== ENCOUNTER 2023-10-09 07:55 | Emergency (ER) | payer OTHER, SELFPAY ==
--- NOTE | ~2023-10-09 | CT_ITS ---
EXAMINATION: CT abdomen pelvis w con DATE: 10/09/2023 10:47 INDICATION: Postsurgical umbilical drainage. TECHNIQUE: Computed tomography (CT) of the abdomen and pelvis was performed with 100 mL Omnipaque 350 intravenous contrast. Automated exposure control and iterative reconstruction technique were employe d. The dose-length product was 941.63 mGy-cm. COMPARISON: CT abdomen and pelvis 04/23/2023 FINDINGS: The visualized portions of the lung bases demonstrate minimal atelectasis. No pleural effus ion. The heart size is normal. No pericardial effusion. There are surgical changes of the stomach. Th e liver, gallbladder, spleen, and adrenal glands are normal. There is partial pancreas divisum. The k idneys are normal. There are no dilated loops of bowel. There is a transient jejunal intussusception on the left. There are changes of appendectomy. There are no pathologically enlarged lymph nodes. The re is no free intraperitoneal fluid. There is skin thickening and subcutaneous fat stranding at the u mbilicus. There is mild lumbar spondylosis. IMPRESSION: 1. Skin thickening and subcutaneous fat stranding at the umbilicus, consistent with inflammation. No abscess. Reviewed, dictated and finalized at location E.
[2023-10-09 07:56] VITALS: BP 157/116; PULSE 65; RESP 16; TEMP 36.4; O2SAT 100
--- NOTE | 2023-10-09 08:02 | PC.NURSE ---
Pt states she took her HTN medication just before she arrived today.
[2023-10-09 10:03] LABS: Basophils Percent Auto 0.6 % (0.2-1.2); Eosinophils Absolute Auto 0.1 K/mm3 (0-0.3); Eosinophils Percent Auto 2.5 % (0-4.4); Hematocrit 41.4 % (37.0-47.0); Hemoglobin 13.3 g/dL (12.0-15.0); Immature Granulocyte Absolute 0.01 K/mm3 (0.00-0.031); Immature Granulocyte Percent A 0.2 % (0-0.5); Lymphocytes Absolute Auto 1.34 K/mm3 (0.9-3.2); Mean Corpuscular HGB Conc 32.1 g/dl (32-36); Mean Corpuscular Hemoglobin 29.6 pg (26-34); Mean Platelet Volume 12.6 fl (7.4-10.4); Monocytes Absolute Auto 0.4 K/mm3 (0.1-0.6); Neutrophils Absolute Auto 2.9 K/mm3 (1.3-6.7); Neutrophils Percent Auto 59.7 % (45.5-73.1); Platelet Count Result 135 k/mm3 (150-375); Red Cell Distribution Width 14.3 % (11.5-14.5); White Blood Count 4.8 K/mm3 (4.5-10.0)
[2023-10-09 10:05] LABS: Add Urine Microscopic? NO; Appearance Urine Clear (Clear); Bilirubin Urine Negative (Negative); Blood Urine Negative (Negative); Color Urine Yellow (Yellow); Glucose Urine UA Negative (Negative); Ketones Urine Negative (Negative); Leukocyte Esterase Ur Negative LEU/UL (Negative); Nitrate Urine Negative (Negative); Protein Urine Negative (Negative)
[2023-10-09 10:13] LABS: Alanine Aminotransferase 93 U/L (6-35); Albumin Level 4.3 g/dL (3.5-5.1); Alkaline Phosphatase 77 U/L (38-126); Anion Gap 8 mmol/L (4-12); Aspartate Amino Transferase 41 U/L (14-36); Bilirubin,Total 0.5 mg/dL (0.2-1.3); Blood Urea Nitrogen 12 mg/dL (7-17); Calcium 8.9 mg/dL (8.4-10.2); Carbon Dioxide 31 mmol/L (22-30); Chloride 102 mmol/L (98-107); Estimated CRCL calculation 116 ml/min; Estimated Glomerular Filt Rate > 60; Glucose 78 mg/dL (65-110); Lipase 56 U/L (23-300); Potassium 3.7 mmol/L (3.4-5.0); Sodium 141 mmol/L (137-145)
--- NOTE | 2023-10-09 10:47 | ED.SKABFB ---
HPI - Skin/Abscess/Foreign Bdy General Chief complaint: Skin/Abscess/Foreign Body Stated complaint: sharp pains in my navel with discharge Time Seen by Provider: 10/09/23 10:01 History of Present Illness HPI narrative: This is a 42-year-old female presenting for evaluation of pains, discharge and crusting around her navel. She states she has been dealing with this for several months. Denies any abdominal pain or tenderness, no GI or symptoms otherwise, no fevers, chills. She was otherwise normal state of health. Denies any trauma or foreign bodies. No recent piercing or instrumentation in this area. No recent surgeries. She states she had a previous colonoscopy several weeks ago that was unremarkable according to herself. States she has been trying to clean it with non scented soaps, detergents, keeping it dry but has not had any relief. She has seen her PCP several times but. Never been on antibiotics for this. No history of similar in the past. Related Data Home Medications Medication Instructions Recorded Confirmed clonidine HCl 0.1 mg tablet 0.1 mg PO BID 01/18/22 03/18/22 dulaglutide 3 mg/0.5 mL 3 mg subcut WEEKLY 03/18/22 03/18/22 subcutaneous pen injector (Trulicity) ergocalciferol (vitamin D2) 1,250 50,000 unit PO WEEKLY 03/18/22 03/18/22 mcg (50,000 unit) capsule ferrous sulfate 325 mg (65 mg 325 mg PO DAILY 03/18/22 03/18/22 iron) tablet (FeroSul) fluoxetine 40 mg capsule 40 mg PO DAILY 03/18/22 03/18/22 losartan 100 mg tablet 100 mg PO DAILY 03/18/22 03/18/22 nystatin 100,000 unit/gram topical 1 applic topical DAILY abdomen rash 03/18/22 03/18/22 cream chlorthalidone 25 mg tablet mg 04/23/23 nifedipine 10 mg capsule mg 04/23/23 Allergies Allergy/AdvReac Type Severity Reaction Status Date / Time clindamycin Allergy Mild Swelling Verified 10/09/23 08:03 NSAIDS (Non-Steroidal AdvReac Unknown Verified 10/09/23 08:03 Anti-Inflamma Review of Systems Review of Systems: As reviewed above in the HPI [facility] Past Medical History Medical History Depression HTN (hypertension) Hypercholesterolemia Kidney stone Migraine Obesity UTI (urinary tract infection) Surgical History Surgical History History of hysterectomy Laparoscopic total hysterectomy with BSO History of laparoscopic appendectomy 08/02/19 Hx of gastric bypass In January of 2019 at [facility], current weight loss of 100 pounds since surgery Family History Family History Mother Diabetes mellitus Father , At age 64 Heart disease Acute myocardial infarction Diabetes mellitus Social History Social History Social History: She is and has 4 children. She works for a [employer]. She has never smoked. Primary care provider: Andrews GOLDSMITH Code status full code Smoking status: Never smoker Alcohol intake: current Drinks per week: 2 Alcohol use details: She reports that since her father's last year she has been drinking more alcohol. She was drinking 2-3 alcoholic beverages a night. She has cut back down to 2 drinks a week over the last couple of months. Substance use: never Last use: Yesterday had an edible. Lack of Transportation: No Lack of Food: Never True Current Housing: I Have Housing Concerned About Future Housing: No Difficulty Paying Gas/Electric Bills: No Difficulty Paying for Meds: No Currently Unemployed: No Education: Decline to Answer Difficulty w/ Childcare or Family Care: No Living arrangements: with family Additional living arrangements comments: With her they have been together for 22 years and been for 9 years.. They have 4 children. Her oldest child is 22 years old a
[2023-10-09 10:58] LABS: BEDSIDEPREGUCG Negative
[2023-10-09 11:15] VITALS: BP 149/99; PULSE 86; RESP 19; TEMP 36.9; O2SAT 99
[2023-10-09] MEDS: SULFAMETHOXAZOLE/TRIMETHOPRIM 800/160 MG DS TABLET 1 TAB PO (12:21)
[2023-10-09 12:24] VITALS: BP 152/99; PULSE 79; RESP 17; TEMP 36.9; O2SAT 100
== END 2023-10-09 12:26 | disposition home or self-care (01) ==
PROVIDERS: Student in an Organized Health Care Education/Training Program; Emergency Provider Student in an Organized Health Care Education/Training Program; PCP Internal Medicine
DX: L08.82 Omphalitis not of newborn (principal); I10 Essential (primary) hypertension; E78.00 Pure hypercholesterolemia, unspecified; E66.9 Obesity, unspecified; Z68.33 Body mass index [BMI] 33.0-33.9, adult; F32.A Depression, unspecified; Z98.84 Bariatric surgery status; Z87.440 Personal history of urinary (tract) infections; Z87.442 Personal history of urinary calculi; Z90.710 Acquired absence of both cervix and uterus; Z79.85 Long-term (current) use of injectable non-insulin antidiabetic drugs; Z79.899 Other long term (current) drug therapy
CPT/HCPCS: 36415; 74177; 80053; 81003; 81025; 83690; 85025; 99284; A9270; Q9967

== ENCOUNTER 2023-12-08 13:30 | Emergency (ER) | payer OTHER, SELFPAY ==
--- NOTE | ~2023-12-08 | CT_ITS ---
CT abdomen pelvis w con Ordering provider: Epifanio Sandy MD History: 42 years Female with . Right side abdominal pain . Comparison: None. Technique: CT abdomen and pelvis with IV and without oral contrast. Automated exposure control and it erative reconstruction technique were employed. The dose-length product was 783.19 mGy-cm. 100 mL Omnipaque 350 was given IV. Findings: VISUALIZED LOWER CHEST: Dependent atelectatic changes. Slight cardiomegaly. UPPER ABDOMINAL ORGANS: Liver: Hepatomegaly. Gallbladder: Normal. Spleen: Normal. Stomach/duodenum: Postoperative changes. Pancreas: Prominent pancreatic duct. Possibility of pancreatic divisum is not excluded. Adrenals: Normal. Kidneys: Normal. PELVIC ORGANS: The bladder is normal. BOWEL AND MESENTERY: Colon: No evidence of diverticulitis. Appendix is not demonstrated. No inflammatory changes in the ar ea of the appendix. Small Bowel: Normal. No obstruction. Peritoneum/mesentery: No free air or free fluid. No mesenteric lymphadenopathy. RETROPERITONEUM: Normal aorta. No retroperitoneal lymphadenopathy. MUSCULOSKELETAL: Superficial soft tissues: Postoperative changes in the anterior abdominal wall with fat stranding. Th e superficial soft tissues are normal. Bones: Is normal spine. IMPRESSION: 1. No acute abdominal process with no evidence of appendicitis, diverticulitis or intestinal obstruc tion.. 2. Hepatomegaly. 3. Slightly prominent pancreatic duct. Possibility of pancreatic divisum is not excluded. Reviewed, dictated and finalized at location A. IMPRESSION: 1. No acute abdominal process with no evidence of appendicitis, diverticulitis or intestinal obstruction.. 2. Hepatomegaly. 3. Slightly prominent pancreatic duct. Possibility of pancreatic divisum is no t excluded.
[2023-12-08 14:16] VITALS: BP 137/96; PULSE 74; RESP 16; TEMP 36.7; O2SAT 99
[2023-12-08] MEDS: MORPHINE SULFATE (*CRX) 4 MG/ML INJ IV PUSH (14:34)
[2023-12-08] MEDS: ONDANSETRON INJ 4 MG/2 ML VIAL IV PUSH (14:36)
[2023-12-08] MEDS: SODIUM CHLORIDE 0.9% IV 1,000 ML 999 ML IV CONT (14:36)
[2023-12-08 14:45] LABS: Basophils Percent Auto 0.5 % (0.2-1.2); Eosinophils Absolute Auto 0.6 K/mm3 (0-0.3); Eosinophils Percent Auto 10.1 % (0-4.4); Hematocrit 35.8 % (37.0-47.0); Hemoglobin 11.4 g/dL (12.0-15.0); Immature Granulocyte Absolute 0.01 K/mm3 (0.00-0.031); Immature Granulocyte Percent A 0.2 % (0-0.5); Lymphocytes Absolute Auto 1.38 K/mm3 (0.9-3.2); Lymphocytes Percent Auto 24.3 % (18.3-44.2); Mean Corpuscular HGB Conc 31.8 g/dl (32-36); Mean Corpuscular Volume 94.2 fl (80-100); Mean Platelet Volume 10.5 fl (7.4-10.4); Monocytes Absolute Auto 0.5 K/mm3 (0.1-0.6); Monocytes Percent Auto 8.6 % (2.6-8.5); Neutrophils Absolute Auto 3.2 K/mm3 (1.3-6.7); Neutrophils Percent Auto 56.3 % (45.5-73.1); Platelet Count Result 316 k/mm3 (150-375); Red Cell Distribution Width 14.8 % (11.5-14.5); White Blood Count 5.7 K/mm3 (4.5-10.0)
--- NOTE | 2023-12-08 14:45 | ED.ABDPAIN ---
HPI - Abdominal Pain General Chief Complaint: Abdominal Pain Stated Complaint: pain above R. hip, prior ryland drain removal Time Seen by Provider: 12/08/23 13:48 Source: patient Mode of arrival: ambulatory Limitations: no limitations History of Present Illness HPI narrative: This is a 42-year-old female, with history of panniculectomy performed 3 weeks ago at [facility], who presents to the emergency department complaining of right-sided abdominal pain. The patient states over the past few days, she has had sharp, burning sensation at the distal aspect of her right sided incision, associated with fullness. She states she discussed this at her appointment yesterday with recommendation for ultrasound. She states her pain is worse today and she was advised by her surgeon to seek evaluation. She denies fevers, chills, vomiting, bleeding, shortness of breath, chest pain or loss of consciousness. she has no other complaints at this time. Related Data Home Medications Medication Instructions Recorded Confirmed clonidine HCl 0.1 mg tablet 0.1 mg PO BID 01/18/22 03/18/22 dulaglutide 3 mg/0.5 mL 3 mg subcut WEEKLY 03/18/22 03/18/22 subcutaneous pen injector (Trulicity) ergocalciferol (vitamin D2) 1,250 50,000 unit PO WEEKLY 03/18/22 03/18/22 mcg (50,000 unit) capsule ferrous sulfate 325 mg (65 mg 325 mg PO DAILY 03/18/22 03/18/22 iron) tablet (FeroSul) fluoxetine 40 mg capsule 40 mg PO DAILY 03/18/22 03/18/22 losartan 100 mg tablet 100 mg PO DAILY 03/18/22 03/18/22 nystatin 100,000 unit/gram topical 1 applic topical DAILY abdomen rash 03/18/22 03/18/22 cream chlorthalidone 25 mg tablet mg 04/23/23 nifedipine 10 mg capsule mg 04/23/23 Allergies Allergy/AdvReac Type Severity Reaction Status Date / Time clindamycin Allergy Mild Swelling Verified 12/08/23 13:32 NSAIDS (Non-Steroidal AdvReac Unknown Verified 12/08/23 13:32 Anti-Inflamma Review of Systems Review of Systems: All systems reviewed & are unremarkable except as noted in HPI and below PMFSH Past Medical History Medical History (Updated 12/08/23 @ 14:49 by Epifanio Sandy MD) Depression HTN (hypertension) Hypercholesterolemia Kidney stone Migraine Obesity UTI (urinary tract infection) Surgical History Surgical History (Updated 12/08/23 @ 14:47 by Epifanio Sandy MD) History of hysterectomy Laparoscopic total hysterectomy with BSO History of laparoscopic appendectomy 08/02/19 Hx of gastric bypass In January of 2019 at [place], current weight loss of 100 pounds since surgery Status post panniculectomy November 15, 2023 at [place] Family History Family History Mother Diabetes mellitus Father , At age 64 Heart disease Acute myocardial infarction Diabetes mellitus Social History Social History Social History: She is and has 4 children. She works for a [employer]. She has never smoked. Primary care provider: Andrews Falcon PA Code status full code Smoking status: Never smoker Alcohol intake: current Drinks per week: 2 Alcohol use details: She reports that since her father's last year she has been drinking more alcohol. She was drinking 2-3 alcoholic beverages a night. She has cut back down to 2 drinks a week over the last couple of months. Substance use: never Last use: Yesterday had an edible. Lack of Transportation: No Lack of Food: Never True Current Housing: I Have Housing Concerned About Future Housing: No Difficulty Paying Gas/Electric Bills: No Difficulty Paying for Meds: No Currently Unemployed: No Education: Decline to Answer Difficulty w/ Childcare or Family Care: No Living arrangements: with family Additional living arrangements comments: With her they have been together for 22 years and been for 9 years..
[2023-12-08 14:47] LABS: Add Urine Microscopic? NO; Appearance Urine Clear (Clear); Bilirubin Urine Negative (Negative); Blood Urine Negative (Negative); Color Urine Yellow (Yellow); Glucose Urine UA Negative (Negative); Ketones Urine Trace mg/dL (Negative); Leukocyte Esterase Ur Negative LEU/UL (Negative); Nitrate Urine Negative (Negative); Protein Urine Negative (Negative); Specific Grav Ur 1.024 (1.001-1.035); pH Urine 5.5 (5.0-9.0)
[2023-12-08 14:58] LABS: Lactic Acid Reflex 1.3 mmol/L (0.7-2.0)
[2023-12-08 15:02] LABS: Alanine Aminotransferase 117 U/L (6-35); Albumin Level 4.1 g/dL (3.5-5.1); Alkaline Phosphatase 91 U/L (38-126); Anion Gap 8 mmol/L (4-12); Aspartate Amino Transferase 60 U/L (14-36); Bilirubin,Total 0.2 mg/dL (0.2-1.3); Blood Urea Nitrogen 16 mg/dL (7-17); Calcium 8.8 mg/dL (8.4-10.2); Carbon Dioxide 26 mmol/L (22-30); Chloride 105 mmol/L (98-107); Estimated CRCL calculation 82 ml/min; Estimated Glomerular Filt Rate > 60; Glucose 99 mg/dL (65-110); Potassium 4.6 mmol/L (3.4-5.0); Sodium 139 mmol/L (137-145)
[2023-12-08] MEDS: oxyCODONE/ACETAMINOPHEN (*CRX) 5-325 MG TABLET 1 TABLET PO (17:35)
[2023-12-08 17:39] VITALS: BP 137/96; PULSE 78; RESP 16; TEMP 36.7; O2SAT 98
== END 2023-12-08 17:58 | disposition home or self-care (01) ==
PROVIDERS: Emergency Provider Preventive Medicine Aerospace Medicine; PCP Internal Medicine
DX: R10.31 Right lower quadrant pain (principal); Z98.890 Other specified postprocedural states; I10 Essential (primary) hypertension; E78.00 Pure hypercholesterolemia, unspecified; E66.9 Obesity, unspecified; Z68.35 Body mass index [BMI] 35.0-35.9, adult; Z98.84 Bariatric surgery status; Z87.442 Personal history of urinary calculi; Z87.440 Personal history of urinary (tract) infections; Z90.710 Acquired absence of both cervix and uterus; Z90.79 Acquired absence of other genital organ(s); Z90.722 Acquired absence of ovaries, bilateral; R16.0 Hepatomegaly, not elsewhere classified
CPT/HCPCS: 36415; 74177; 80053; 81003; 83605; 85025; 96361; 96374; 96375; 99284; A9270; J2270; J2405; J7030; Q9967

== ENCOUNTER 2024-01-18 01:41 | Emergency (ER) | payer OTHER, SELFPAY ==
--- NOTE | ~2024-01-18 | XR_ITS ---
Left foot Technique: AP, oblique, and lateral views were obtained. Clinical History: Third toe pain Findings: No acute fracture or dislocation is seen. Osseous alignment is anatomic. Joint spaces are p reserved without erosive or degenerative change. Soft tissues are unremarkable. Impression: Unremarkable left foot radiographs. Reviewed, dictated and finalized at [facility]. 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
[2024-01-18 01:47] VITALS: BP 175/109; PULSE 85; RESP 14; TEMP 36.8; O2SAT 98
--- NOTE | 2024-01-18 01:50 | ED.LOWEXIN ---
HPI - Extremity Injury (Lower) General Chief Complaint: Extremity Injury, Lower Stated Complaint: I think I broke my toe; left third toe Time Seen by Provider: 01/18/24 01:47 History of Present Illness HPI Narrative: 43-year-old female presents to emergency department for left 3rd toe pain. Patient states she was going to bed when her cat jumped, caused her to jump and she hyperextended her left 3rd toe. She is reporting pain dysuria since. Denies pain in the rest of her foot . No other injuries. Related Data Home Medications Medication Instructions Recorded Confirmed clonidine HCl 0.1 mg tablet 0.1 mg PO BID 01/18/22 03/18/22 dulaglutide 3 mg/0.5 mL 3 mg subcut WEEKLY 03/18/22 03/18/22 [facility] ergocalciferol (vitamin D2) 1,250 50,000 unit PO WEEKLY 03/18/22 03/18/22 mcg (50,000 unit) capsule ferrous sulfate 325 mg (65 mg 325 mg PO DAILY 03/18/22 03/18/22 iron) tablet (FeroSul) fluoxetine 40 mg capsule 40 mg PO DAILY 03/18/22 03/18/22 losartan 100 mg tablet 100 mg PO DAILY 03/18/22 03/18/22 nystatin 100,000 unit/gram topical 1 applic topical DAILY abdomen rash 03/18/22 03/18/22 cream chlorthalidone 25 mg tablet mg 04/23/23 nifedipine 10 mg capsule mg 04/23/23 Allergies Allergy/AdvReac Type Severity Reaction Status Date / Time clindamycin Allergy Mild Swelling Verified 01/18/24 01:55 NSAIDS (Non-Steroidal AdvReac Unknown Verified 01/18/24 01:55 Anti-Inflamma Review of Systems Review of Systems: All systems reviewed & are unremarkable except as noted in HPI and below PMFSH Past Medical History Medical History Depression HTN (hypertension) Hypercholesterolemia Kidney stone Migraine Obesity UTI (urinary tract infection) Surgical History Surgical History History of hysterectomy Laparoscopic total hysterectomy with BSO History of laparoscopic appendectomy 08/02/19 Hx of gastric bypass In January of 2019 at [facility], current weight loss of 100 pounds since surgery Status post panniculectomy November 15, 2023 at [place] Family History Family History Mother Diabetes mellitus Father , At age 64 Heart disease Acute myocardial infarction Diabetes mellitus Social History Social History Social History: She is and has 4 children. She works for a [employer]. She has never smoked. Primary care provider: Andrews GOLDSMITH Code status full code Smoking status: Never smoker Alcohol intake: current Drinks per week: 2 Alcohol use details: She reports that since her father's last year she has been drinking more alcohol. She was drinking 2-3 alcoholic beverages a night. She has cut back down to 2 drinks a week over the last couple of months. Substance use: never Last use: Yesterday had an edible. Lack of Transportation: No Lack of Food: Never True Current Housing: I Have Housing Concerned About Future Housing: No Difficulty Paying Gas/Electric Bills: No Difficulty Paying for Meds: No Currently Unemployed: No Education: Decline to Answer Difficulty w/ Childcare or Family Care: No Living arrangements: with family Additional living arrangements comments: With her they have been together for 22 years and been for 9 years.. They have 4 children. Her oldest child is 22 years old and youngest is 12. Occupation/Education: other Additional occupation/education comments: Works for the [employer]. Currently on short-term disability due to depression. Gender identity (if verbalized by the patient): Female Spiritual care concerns: No Exam Narrative: GENERAL: Well-appearing, well-nourished, and in no acute distress. HEAD: Normocephalic, atraumatic. ENT: Nares clear, no rhinorrhea or epistaxis. Mucous membranes moist. NECK: Supple. CHEST: Clear to auscultation. No respiratory distress. HEART: Regular rate and rhythm. No murmur heard. Normal peripheral pulses. EXTREMITIES: LLE: Tenderness palpation of the 3rd MTP with no overlying deformity or skin changes. No tenderness remainder of toes or foot. Cap refill less than 2. Sensation intact. Patient able to wiggle toes. DP pulse 2 +. SKIN: Warm, dry, no rash. NEURO: No focal deficits. Alert and oriented x3 Course Vital Signs Vital signs: Vital Signs Temperature 98.2 F 01/18/24 01:47 Pulse Rate 85 01/18/24 01:47 Respiratory Rate 14 01/18/24 01:47 Blood Pressure 175/109 H 01/18/24 01:47 Pulse Oximetry 98 01/18/24 01:47 Oxygen Delivery Room Air 01/18/24 01:47 Temperature 98.2 F 01/18/24 01:47 Pulse Rate 85 01/18/24 01:47 Respiratory Rate 14 01/18/24 01:47 Blood Pressure 175/109 H 01/18/24 01:47 Pulse Oximetry 98 01/18/24 01:47 Oxygen Delivery Room Air 01/18/24 01:47 MDM - Extremity Injury (Lower) MDM Narrative Medical decision making narrative: 43-year-old female presents to emergency department for left 3rd toe pain after she hyperextended it prior to arrival. Triage vitals elevated blood pressure 175/109. Patient does have a history of hypertension Has no complaints concerning for hypertensive emergency. Exam is significant for the above. X-ray of the foot is unremarkable. Patient updated on results. Encouraged Tylenol, rice and follow-up with her PCP. She was placed in a postop shoe. Strict ED return precautions discussed. She is agreeable to plan verbalized understanding. Discharged in stable condition. Discharge Plan Discharge Clinical Impression: Sprain of third toe, left Qualifiers: Encounter type: initial encounter Qualified Code(s): S93.505A - Unspecified sprain of left lesser toe(s), initial encounter Patient Disposition: Home, Self-Care Condition: Stable Instructions: Antibiotic Form Additional Instructions: rest, ice, elevate your toe. Take Tylenol as needed for pain. Follow-up with her PCP. Return to the emergency department if you develop worsening or changing symptoms. Prescriptions: No Action clonidine HCl 0.1 mg tablet 0.1 mg PO BID chlorthalidone 25 mg tablet nifedipine 10 mg capsule hydrocodone-acetaminophen 5-325 mg tablet 1 tablet PO Q12H PRN (Reason: pain) Qty: 8 0RF fluoxetine 40 mg capsule 40 mg PO DAILY ferrous sulfate [FeroSul] 325 mg (65 mg iron) tablet 325 mg PO DAILY nystatin 100,000 unit/gram cream 1 applic TOPICAL DAILY ergocalciferol (vitamin D2) 1,250 mcg (50,000 unit) capsule 50,000 unit PO WEEKLY Trulicity 3 mg/0.5 mL pen injector 3 mg SUBCUT WEEKLY losartan 100 mg tablet 100 mg PO DAILY amlodipine 2.5 mg Tablet 7.5 mg PO DAILY Qty: 30 0RF pantoprazole [Protonix] 20 mg tablet,delayed release (DR/EC) 20 mg PO HS 28 Days Qty: 28 0RF ChloraPrep Clear 2-70 % solution 10 ml topical Q8H Qty: 262.5 0RF sulfamethoxazole-trimethoprim [Bactrim DS] 800-160 mg tablet 1 tablet PO Q12H Qty: 14 0RF Follow-up/Referrals: Masoud,MD Ray [Primary Care Provider] -
[2024-01-18 02:29] VITALS: BP 170/98; PULSE 82; RESP 12; O2SAT 100
[2024-01-18 02:30] VITALS: BP 170/98; PULSE 82; RESP 12; O2SAT 100
== END 2024-01-18 02:35 | disposition home or self-care (01) ==
LOC: ANHED 02:19
PROVIDERS: Emergency Provider Physician Assistant; PCP Internal Medicine
DX: S93.505A Unspecified sprain of left lesser toe(s), initial encounter (principal); F32.A Depression, unspecified; I10 Essential (primary) hypertension; E78.5 Hyperlipidemia, unspecified; Z87.442 Personal history of urinary calculi; Z87.440 Personal history of urinary (tract) infections; X50.0XXA Overexertion from strenuous movement or load, initial encounter
CPT/HCPCS: 73630; 99283

== ENCOUNTER 2024-02-12 09:11 | Emergency (ER) | payer OTHER, SELFPAY ==
--- NOTE | 2024-02-12 09:14 | ED_ITS ---
HPI - URI/Sore Throat General Chief Complaint: Dental/Oral Stated Complaint: left side ear,throat pain. tooth pulled on hurs. Time Seen by Provider: 02/12/24 09:13 Source: patient Mode of arrival: ambulatory Limitations: no limitations History of Present Illness HPI Narrative: Rose Marie is a 43-year-old female patient presenting to the clinic today with complaints of left-sided ear pain, dental pain, and throat pain. Had tooth pulled on and states that they had a hard time getting the tooth out. Dentist sent and prescription for Tylenol and she says that that is not helping. She is unable to take oral NSAIDs due to gastric bypass. Denies any fevers, chills, or body aches. Patient's blood pressure is elevated in the clinic today however she has not taken her blood pressure medications this morning. MD elicited complaint: sore throat and other (Left ear pain, dental pain) Related Data Home Medications ?Medication ?Instructions ?Recorded ?Confirmed ?Last Taken ?Type clonidine HCl 0.1 mg tablet 0.1 mg PO BID 01/18/22 03/18/22 Unknown History ergocalciferol (vitamin D2) 1,250 50,000 unit PO WEEKLY 03/18/22 03/18/22 Unknown History mcg (50,000 unit) capsule ferrous sulfate 325 mg (65 mg 325 mg PO DAILY 03/18/22 03/18/22 Unknown History iron) tablet (FeroSul) fluoxetine 40 mg capsule 40 mg PO DAILY 03/18/22 03/18/22 Unknown History chlorthalidone 25 mg tablet mg 04/23/23 Unknown History acetaminophen 500 mg tablet 500 mg PO .q8 02/12/24 02/12/24 Unknown History atorvastatin 10 mg tablet 10 mg PO QPM 02/12/24 02/12/24 Unknown History dulaglutide 0.75 mg/0.5 mL 0.75 mg subcut WEEKLY 02/12/24 02/12/24 Unknown History subcutaneous pen injector (Trulicity) losartan 50 mg tablet 50 mg PO DAILY 02/12/24 02/12/24 Unknown History nifedipine 60 mg tablet,extended 60 mg PO DAILY 02/12/24 02/12/24 Unknown History release 24 hr Allergies Allergy/AdvReac Type Severity Reaction Status Date / Time clindamycin Allergy Mild Swelling Verified 02/12/24 09:23 NSAIDS (Non-Steroidal AdvReac Unknown Verified 02/12/24 09:23 Anti-Inflamma Review of Systems Review of Systems: Pertinent positives per HPI. Patient denies any fever, chills, rash, headache, visual changes, dizziness, cough, shortness of breath, chest pain, palpitations, nausea, vomiting, diarrhea, constipation, abdominal pain, or any urinary issues. PMFSH Past Medical History Medical History Hypercholesterolemia Migraine Obesity Depression UTI (urinary tract infection) HTN (hypertension) Kidney stone Surgical History Surgical History Status post panniculectomy November 15, 2023 at [place] History of laparoscopic appendectomy 08/02/19 History of hysterectomy Laparoscopic total hysterectomy with BSO Hx of gastric bypass In January of 2019 at [place], current weight loss of 100 pounds since surgery Family History Family History Mother Diabetes mellitus Father , At age 64 Heart disease Acute myocardial infarction Diabetes mellitus Social History Social History Social History: She is and has 4 children. She works for a [employer]. She has never smoked. Primary care provider: Andrews Falcon PA Code status full code Smoking status: Never smoker Alcohol intake: current Drinks per week: 2 Alcohol use details: She reports that since her father's last year she has been drinking more alcohol. She was drinking 2-3 alcoholic beverages a night. She has cut back down to 2 drinks a week over the last couple of months. Substance use: never Last use: Yesterday had an edible. Lack of Transportation: No Lack of Food: Never True Current Housing: I Have Housing Concerned About Future Housing: No Difficulty Paying Gas/Electric Bills: No Difficulty Paying for Meds: No Currently Unemployed: No Education: Decline to Answer Difficulty w/ Childcare or Family Care: No Living arrangements: with family Additional living arrangements comments: With her they have been together for 22 years and been for 9 years.. They have 4 children. Her oldest child is 22 years old and youngest is 12. Occupation/Education: other Additional occupation/education comments: Works for the [employer]. Currently on short-term disability due to depression. Gender identity (if verbalized by the patient): Female Spiritual care concerns: No Comments At the time of my signature, I reviewed and agree with the nursing past medical, surgical, social, and family history. There is no relevant family history pertinent to the patient complaint. Exam Narrative: General: Well-developed, well nourished, in no apparent distress Head: Normocephalic, atraumatic Eyes: Pupils equally round and reactive to light bilaterally, EOM intact, sclera and conjunctive clear, no discharge, lids normal Ears: Right TMs intact and clear, left TM intact, bulging, red ear canals clear, no drainage, grossly hearing normal. Nose: Nares patent, clear discharge, no inflammation, no sinus tenderness. Mouth: Oral pharynx without lesions or masses, poor dentition-dental infection to the left lower posterior molar/post removal, MMM. Neck: Supple, trachea midline, no enlargement of anterior or posterior cervical nodes, no thyroid masses or goiter palpable. Cardio: Regular rate and rhythm, s1 and s2 normal, no murmur appreciated. Resp: Clear to auscultation bilaterally, no rhonchi, rales, wheezing or rubs Course Course Emergency Course: Portions of this record may have been created with voice recognition software. Level of Care: Express Care Visit Vital Signs Vital signs: Vital Signs Temperature 36.4 C L 02/12/24 09:20 Pulse Rate 62 02/12/24 09:20 Respiratory Rate 16 02/12/24 09:20 Blood Pressure 159/108 H 02/12/24 09:20 Pulse Oximetry 99 02/12/24 09:20 Oxygen Delivery Room Air 02/12/24 09:20 Temperature 36.4 C L 02/12/24 09:20 Pulse Rate 62 02/12/24 09:20 Respiratory Rate 16 02/12/24 09:20 Blood Pressure 159/108 H 02/12/24 09:20 Pulse Oximetry 99 02/12/24 09:20 Oxygen Delivery Room Air 02/12/24 09:20 Vital signs reviewed MDM - URI/Sore Throat MDM Narrative Medical decision making narrative: At the time of visit patient is resting comfortably on the exam table. Patient appears to be nontoxic. Medications: Toradol 60 mg IM given in the clinic today Plan: Patient has poor dentition. Infected left lower molar- post removal-also has a left otitis media. Will place on amoxicillin. Toradol 60 mg IM given in the clinic today for pain. Supportive measures were discussed with the patient and they voiced understanding discharge instructions and agrees to treatment plan. Return precautions reviewed Differential Diagnosis Differential diagnosis: Likely upper respiratory infection, otitis media, sinusitis, viral infection, bronchitis, influenza, pharyngitis and other (COVID) Discharge Plan Discharge Clinical Impression: Acute left otitis media, Dental infection Patient Disposition: Home, Self-Care Condition: Stable Instructions: Antibiotic Form, Ear Infection (ED), Toothache (ED) Additional Instructions: Toradol 60 mg IM given in the clinic today Go home and take your blood pressure medications Take prescription medications only as prescribed-amoxicillin Increase fluids and stay well hydrated May continue Tylenol as needed for pain May apply warm or cool compress to the affected area to help alleviate pain Go to the ED if you develop a worsening in your condition Follow up with your PCP in 3-5 days if symptoms persist. Follow-up with your dentist as soon as possible Patient Language: Amharic Prescriptions: New amoxicillin 875 mg tablet 875 mg PO Q12H 10 Days Qty: 20 0RF No Action clonidine HCl 0.1 mg tablet 0.1 mg PO BID acetaminophen 500 mg tablet 500 mg PO .q8 atorvastatin 10 mg tablet 10 mg PO QPM Trulicity 0.75 mg/0.5 mL pen injector 0.75 mg SUBCUT WEEKLY losartan 50 mg tablet 50 mg PO DAILY nifedipine 60 mg tablet extended release 24hr 60 mg PO DAILY chlorthalidone 25 mg tablet nifedipine 10 mg capsule hydrocodone-acetaminophen 5-325 mg tablet 1 tablet PO Q12H PRN (Reason: pain) Qty: 8 0RF fluoxetine 40 mg capsule 40 mg PO DAILY ferrous sulfate [FeroSul] 325 mg (65 mg iron) tablet 325 mg PO DAILY nystatin 100,000 unit/gram cream 1 applic TOPICAL DAILY ergocalciferol (vitamin D2) 1,250 mcg (50,000 unit) capsule 50,000 unit PO WEEKLY Trulicity 3 mg/0.5 mL pen injector 3 mg SUBCUT WEEKLY losartan 100 mg tablet 100 mg PO DAILY pantoprazole [Protonix] 20 mg tablet,delayed release (DR/EC) 20 mg PO HS 28 Days Qty: 28 0RF Follow-up/Referrals: Masoud,MD Ray [Primary Care Provider] - Time of Disposition: 09:26 Quality NIHSS Nursing Documentation ED NIHSS nursing documentation: reviewed/agree
[2024-02-12 09:20] VITALS: BP 159/108; PULSE 62; RESP 16; TEMP 36.4; O2SAT 99
[2024-02-12] MEDS: KETOROLAC (*BKC) 60 MG/2 ML VIAL IM (09:32)
== END 2024-02-12 09:53 | disposition home or self-care (01) ==
PROVIDERS: Emergency Provider Nurse Practitioner Family; PCP Internal Medicine
DX: H66.92 Otitis media, unspecified, left ear (principal); T81.49XA Infection following a procedure, other surgical site, initial encounter; K04.7 Periapical abscess without sinus; Z98.818 Other dental procedure status; E78.00 Pure hypercholesterolemia, unspecified; E66.9 Obesity, unspecified; F32.A Depression, unspecified; Z98.84 Bariatric surgery status; Z68.33 Body mass index [BMI] 33.0-33.9, adult
CPT/HCPCS: 96372; 99213; G0463; J1885

== ENCOUNTER 2024-03-26 00:51 | Emergency (ER) | payer OTHER, SELFPAY ==
--- NOTE | ~2024-03-26 | XR_ITS ---
Portable chest x-ray Comparison: 09/03/2022 Clinical History: Chest pain Findings: Lungs are clear, without focal consolidation or pleural effusion. Cardiomediastinal silho uette is stable. Bones and soft tissues are unremarkable. Impression: Normal chest. Reviewed, dictated and finalized at [facility]. R CHECKER Impression: Normal chest.
--- OUTSIDE RECORDS SUMMARY | 2024-03-26 00:53 | XMS_ITS | Clinical Summary ---
Author Organization [facility] Care Team Providers Care Contract Negotiator Name Role Phone Unavailable Primary Care Provider Unavailabl e Social History Tobacco Use Types Packs/Day Years Used Date Smoking Tobacco: Never Assessed Comments Unknown Sex and Gender Information Value Date Recorded Sex Assigned at Not on file Legal Sex Female 12:49 PM CDT Gender Identity Not on file Sexual Orientation Not on file Plan of Treatment Health Maintenance Due Date Last Done Comments Hepatitis C Virus (HCV) Screening 1980 TdaP Immunization 1980 Hepatitis B Immunization (1 of 3 - 19+ 3-dose series) 12/12/1999 Pap Smear 2001 Cervical Cancer Screening (CCS) 2010 HPV/Cotest 2010 Discussion re Starting/Frequ ency of Mammograms 2020 Influenza Immunization (#1) 2023 SARS-COV-2 Immunization ( season) 2023 Respiratory Syncytial Virus (RSV) Immunization (Adult) (1 - 1-dose 75+ series) 12/12/2055 Meningococcal Immunization (ACWY) Aged Out No longer eligible based on patient's age to complete this topic Pneumococcal Immunization Combined Aged Out No longer eligible based on patient's age to complete this topic Rotavirus Immunization Aged Out No lo nger eligible based on patient's age to complete this topic
--- OUTSIDE RECORDS SUMMARY | 2024-03-26 00:53 | XMS_ITS | CONTINUITY OF CARE DOCUMENT ---
Author Name andriy, andriy Address Unknown Organization [facility] Address [address] [place] [address] Phone [phone] Care Team Providers Care Pharmaceutical Physician Name Role Phone Jeffery Gee MD Unavailable MAXIME THOMASON Unavailable YAMILET DANIEL MD Unavailable [phone] PROBLEMS Condition Status Date Provider Notes Hypertension active Jeffery Gee MD Chest pain active Jeffery Gee MD Depression active Jeffery Gee MD Obesity s/p gastric bypass active Jeffery conley MD Sinus bradycardia active Jeffery Gee MD Cardiovascular screening active Jeffery london MD Cardiology examination active Jeffery Gee MD ENCOUNTERS Date Type Provider Location Encounter Diag nosis - In-person encounter Office Visit Jeffery Gee MD [facility] Cardiology examination - In-person encounter Office Visit Jeffery Gee MD [place] [facility] - In-person encounter Office Visit Jeffery Gee MD [place] [facility] - In-person encounter Office Visit Jeffery Gee MD [place] [facility] - In-person encounter Office Visit Jeffery Gee MD [place] - In-person encounter Office Visit Jeffery Gee MD [facility] [place] HypertensionChest painDepressionObesity s/p gastric bypassSinus bradycardiaCardiovascular screening VITAL SIGNS Date Observation Value Provider Body Mass Index (Ratio) 33.94 kg/m2 Arcelia Gee MD blood pressure, diastolic 112 mm[Hg] Jimi man Gregorio blood pressure, systolic 148 mm[Hg] Kelly caro Gregorio oxygen saturation, oximetry 100 % [facility] pulse rate 61 /min [facility] weight E&M 204 [lb_av] [facility] blood pressure, cuff size regular Jimi magda Gregorio height E&M 65 [in_i] [facility] Body Mass Index (Ratio) 31.61 kg/m2 Arcelia Gee MD blood pressure, cuff size regular Ja [facility] blood pressure, diastolic 94 mm[Hg] Ja et blood pressure, systolic 121 mm[Hg] Darlene [facility] pulse rate 62 /min Coy respiratory rate E&M 12 /min Coy oxygen saturation, oximetry 97 % Coy weight E&M 190 [lb_av] Coy height E&M 65 [in_i] Coy y Body Mass Index (Ratio) 31.45 kg/m2 Arcelia Gee MD blood pressure, diastolic 91 mm[Hg] Sh shazia Leon blood pressure, systolic 128 mm[Hg] She mary ann Leon pulse rate 75 /min Noelle Leon respiratory rate E&M 18 /min Noelle Leon oxygen saturation, oximetry 99 % Noelle Leon weight E&M 189 [lb_av] Noelle Leon blood pressure, cuff size regular shazia Leon height E&M 65 [in_i] Noelle Leon Body Mass Index (Ratio) 31.45 kg/m2 Arcelia Gee MD blood pressure, diastolic 109 mm[Hg] shazia Leon blood pressure, systolic 143 mm[Hg] [facility] mary ann Leon weight E&M 189 [lb_av] Noelle Leon pulse rate 71 /min Noelle Leon respiratory rate E&M 18 /min Noelle Leon oxygen saturation, oximetry 98 % Noelle Leon blood pressure, cuff size large shazia Leon height E&M 65 [in_i] Noelle Leon Body Mass Index (Ratio) 36.61 kg/m2 Arcelia Gee MD blood pressure, diastolic 130 mm[Hg] Sa ra Esposito blood pressure, systolic 181 mm[Hg] Park a Esposito respiratory rate E&M 21 /min Martina Si ms oxygen saturation, oximetry 93 % Martina Esposito pulse rate 78 /min Martina Esposito blood pressure, cuff size regular Sa ra Esposito weight E&M 220 [lb_av] Martina Esposito height E&M 65 [in_i] Martina Esposito Body Mass Index (Ratio) 36.77 kg/m2 Arcelia Gee MD blood pressure, diastolic 108 mm[Hg] Li nkLogic blood pressure, systolic 157 mm[Hg] Nina kLogic blood pressure, diastolic 108 mm[Hg] Ca therine Keanu blood pressure, systolic 157 mm[Hg] Cat anushka [place] oxygen saturation, oximetry 85 % Ignacia Keanu respiratory rate E&M 14 /min Khadijah leavitt Keanu weight E&M 221 [lb_av] Ignacia Keanu height E&M 65 [in_i] Ignacia [place] blood pressure, cuff size regular Ca therine Keanu ALLERGIES Allergy Name Onset Date Reaction Criticality Status CLINDAMYACIN High Criticality active HISTORY OF MEDICATION USE Medication Status Instructions Dates Provider Indications Com ments nifedipine 60 mg tablet extended release 24hr active TAKE 1 TABLET BY MOUTH ONCE DAILY Heaven Ruple nifedipine 60 mg tablet extended release 24hr completed Take 1 tablet by mouth once a day - Heaven Stern losartan 50 mg tablet active 1 tablet by mouth twice a day Jeffery Gee MD olmesartan 20 mg tablet completed TAKE 1 TABLET BY MOUTH EVERY DAY - Jeffery Gee MD Trulicity 1.5 mg/0.5 mL pen injector active Maya Ventimiglia [employer] Vitamin D2 1,250 mcg (50,000 unit) capsule active Mayajayla ZACARIAS aspirin 81 mg tablet,chewable active CHEW 1 TABLET BY MOUTH ONCE A DAY Maya ZACARIAS nifedipine 60 mg tablet extended release 24hr completed 1 tablet once a day - ret spironolactone 50 mg tablet completed Take 1 tablet by mouth once a day - Jeffery Gee MD spironolactone 25 mg tablet completed Take 1 tablet by mouth once a day - Jeffery Gee MD chlorthalidone 25 mg tablet active TAKE 1 TABLET BY MOUTH EVERY DAY Jeffery Gee MD amlodipine 10 mg tablet completed - Jeffery Gee MD fluoxetine 40 mg capsule completed TAKE 1 CAPSULE BY MOUTH EVERY DAY IN THE MORNING - Maya Ventimiglia [employer] clonidine HCl 0.1 mg tablet completed - Ignacia Colunga losartan 100 mg tablet completed TAKE 1 TABLET BY MOUTH EVERY DAY IN THE MORNING - Jeffery Gee MD SOCIAL HISTORY Date Observation Value Provider drug use no Jeffery Gee MD alcohol use no Jeffery Gee MD smoking status Never smoker Jeffery Gee MD drug use no Jeffery Gee MD alcohol use no Jeffery Gee MD smoking status Never smoker Jeffery Gee MD drug use no Maya Ventimig sarthak [employer] alcohol use no Maya Ventimig sarthak [employer] smoking status Never smoker Noelle Leon smoking status Never smoker Jeffery Gee MD social history E&M S moking History: [place] has never smoked. Jeffery Gee MD social history reviewed E&M revi ewed - no changes required Jeffery Gee MD social history E&M S moking History: Moreno cast[place]on has never smoked. Jeffery Gee MD social history reviewed E&M revi ewed - no changes required Jeffery Gee MD smoking status Never smoker Jeffery Gee MD number of grandchildren Jeffery Gee MD U yves Gee MD alcohol use, type vodka Jeffery leonardo MD alcohol use, average drinks per day 4 /d Jeffery Gee MD alcohol use yes Jeffery Gee MD social history E&M S moking History: More[place] castellon has never smoked. Jeffery Gee MD social history reviewed E&M revi ewed - no changes required Jeffery Gee MD smoking status Never smoker Ignacia Yeung agap[employer] INSURANCE PROVIDERS Payer name Policy type / Coverage type [employer] party ID [employer] MEDICAID (2) Medicaid [id number] ADVANCE DIRECTIVES Name Date DISCUSSED - NO DECISION MADE TREATMENT PLAN Date Name Performer [id number],S, Mayajayla pool [facility] [id number],S,HR in 70s [place] ron Garcia [facility] [id number],C,B P improving but diastolic BP remains elevated W ill add olmesartan W ill check renin aldosterone S he will return in 2 mos or sooner if needed. H er updated medication list for this problem includes: Olmesartan 20 Mg Tablet (Olmesartan) ..... Take 1 tablet by mouth every day Aspirin 81 Mg Tablet,chewable (Aspirin) ..... Chew 1 tablet by mouth once a day Chlorthalidone 25 Mg Tablet (Chlorthalidone) ..... Take 1 tablet by mouth every day Nifedipine 60 Mg Tablet Extended Release 24hr (Nifedipine) ..... 1 tablet once a day Maya Garcia [facility] [id number],S,P t's pressure is high. Pt reports she has been dealing with issues with her having major surgery. She denies headache and blurred vision. Her echo showed mild concentric LVH and mild pulmonary HTN. Her renal US did not show any evidence of SARAHY. She has not taken her BP medicine today. Benefits of medication compliance restated. Pt informed of the dangers of having high BP and what immediate steps to take next. BP today: 181/130 P rior BP: 157/108 (05/21/2021) The following medications were removed from the medication list: Spironolactone 25 Mg Tablet (Spironolactone) ..... Take 1 tablet by mouth once a day Her updated medication list for this problem includes: Spironolactone 50 Mg Tablet (Spironolactone) ..... Take 1 tablet by mouth once a day Chlorthalidone 25 Mg Tablet (Chlorthalidone) ..... Take 1 tablet by mouth once a day Amlodipine 10 Mg Tablet (Amlodipine) Losartan 100 Mg Tablet (Losartan) ..... Take 1 tablet by mouth every day in the morning Jeffery Gee MD [id number],S, P t advised to lose weight. Jeffery Gee MD [id number],S, R ecommended patient lose weight. Jeffery Gee MD [id number],W,S ounds atypical. Since she has some risk factors for CAD we'll order a regadenoson stress test and an echo. Recommended she take a baby aspirin until we get the stress test. Jeffery Gee MD [id number],W, B P seems to runchronically elevated even at home. She tries to limit salt in her diet. She's on amlodipine and losartan but hasn't been taking the clonidine because it makes her tired. I'm going to add chlorthalidone 25mg a day and aldactone 25mg once a day. She needs to stop drinking as this is also contributing to her uncontrolled HTN. We're also going to order a renal artery doppler to see if she has renal artery stenosis. Pt. says she doesn't snore. Jeffery Gee MD Cardiology:per primary Jeffery conley MD Cardiology Jeffery Gee MD Cardiology:This visi t has been a part of the consistent, comprehensive, and ongoing management of the chronic medical condition(s) listed above for the patient. i ncrease losartan to 50mg twice daily Her updated medication list for this problem includes: Nifedipine 60 Mg Tablet Extended Release 24hr (Nifedipine) ..... Take 1 tablet by mouth once a day Losartan 50 Mg Tablet (Losartan) ..... Take 1 tablet by mouth every day Aspirin 81 Mg Tablet,chewable (Aspirin) ..... Chew 1 tablet by mouth once a day Chlorthalidone 25 Mg Tablet (Chlorthalidone) ..... Take 1 tablet by mouth every day BP today: 148/112 P rior BP: 121/94 (02/03/2023) Jeffery Gee MD Cardiology Jeffery Gee MD Cardiology Jeffery Gee MD Cardiology:denies Jeffery Marlenyael Godinez Cardiology: T he following medications were removed from the medication list: Olmesartan 20 Mg Tablet (Olmesartan) ..... Take 1 tablet by mouth every day Her updated medication list for this problem includes: Losartan 50 Mg Tablet (Losartan) ..... Take 1 tablet by mouth every day Aspirin 81 Mg Tablet,chewable (Aspirin) ..... Chew 1 tablet by mouth once a day Chlorthalidone 25 Mg Tablet (Chlorthalidone) ..... Take 1 tablet by mouth every day Nifedipine 60 Mg Tablet Extended Release 24hr (Nifedipine) ..... 1 tablet once a day BP today: 121/94 P rior BP: 128/91 (12/02/2022) Jeffery Gee MD Cardiology Jeffery Gee MD Cardiology Maya Ventimigl ia [facility] Cardiology:HR in 70s Maya Billings imiglia [facility] Cardiology:BP improv ing but diastolic BP remains elevated W ill add olmesartan W ill check renin aldosterone S he will return in 2 mos or sooner if needed. H er updated medication list for this problem includes: Olmesartan 20 Mg Tablet (Olmesartan) ..... Take 1 tablet by mouth every day Aspirin 81 Mg Tablet,chewable (Aspirin) ..... Chew 1 tablet by mouth once a day Chlorthalidone 25 Mg Tablet (Chlorthalidone) ..... Take 1 tablet by mouth every day Nifedipine 60 Mg Tablet Extended Release 24hr (Nifedipine) ..... 1 tablet once a day Maya Ventimiglia [facility] Cardiology:Pt's pres sure is high. Pt reports she has been dealing with issues with her having major surgery. She denies headache and blurred vision. Her echo showed mild concentric LVH and mild pulmonary HTN. Her renal US did not show any evidence of SARAHY. She has not taken her BP medicine today. Benefits of medication compliance restated. Pt informed of the dangers of having high BP and what immediate steps to take next. BP today: 181/130 P rior BP: 157/108 (05/21/2021) The following medications were removed from the medication list: Spironolactone 25 Mg Tablet (Spironolactone) ..... Take 1 tablet by mouth once a day Her updated medication list for this problem includes: Spironolactone 50 Mg Tablet (Spironolactone) ..... Take 1 tablet by mouth once a day Chlorthalidone 25 Mg Tablet (Chlorthalidone) ..... Take 1 tablet by mouth once a day Amlodipine 10 Mg Tablet (Amlodipine) Losartan 100 Mg Tablet (Losartan) ..... Take 1 tablet by mouth every day in the morning Jeffery Gee MD Cardiology: P t advised to lose weight. Jeffery Gee MD Cardiology: R ecommended patient lose weight. Jeffery Gee MD Cardiology:Sounds at ypical. Since she has some risk factors for CAD we'll order a regadenoson stress test and an echo. Recommended she take a baby aspirin until we get the stress test. Jeffery Gee MD Cardiology: B P seems to runchronically elevated even at home. She tries to limit salt in her diet. She's on amlodipine and losartan but hasn't been taking the clonidine because it makes her tired. I'm going to add chlorthalidone 25mg a day and aldactone 25mg once a day. She needs to stop drinking as this is also contributing to her uncontrolled HTN. We're also going to order a renal artery doppler to see if she has renal artery stenosis. Pt. says she doesn't snore. Jeffery Gee MD Date Name Renin Activity and A ldosterone Renal Artery Duplex Complete Echo Ca+PTH Intact Metanephrines, Frac. , Pl. Free Renin Activity and A ldosterone TSH, free T4, total T3 BASIC METABOLIC PANE L W/EGFR BASIC METABOLIC PANE L W/EGFR Renal Artery Duplex Stress Regadenoson Complete Echo HISTORY OF PROCEDURES Procedure Date Procedure Name Provider Procedure Notes S tatus EKG Jeffery Gee MD completed EKG Jeffery Gee MD completed
--- OUTSIDE RECORDS SUMMARY | 2024-03-26 00:54 | XMS_ITS | Referral Summary ---
Author Organization [facility] Address [address] [place] [address] Care Team Providers Care Product Communications Manager Name Role Phone Ángel Iqbal MD Primary Care Provider Leatha Zurita BATTING MACHINE OPERATOR INSULATION Unavailable [phone] Encounters Date Type Department Care Team Description 01/18/2024 3:45 PM TYPE ROLLING MACHINE OPERATOR Office Visit [facility] Surgery [address] 6[address] [place] [address] [place] [address] Addy Brown MD Panniculitis (Primary Dx) from Last 3 Months Allergies Active Allergy Reactions Criticality Noted Date Comments Clindamycin Other (See comments) Medium 01/26/2018 Tingling on bottom lip Nsaids (Non-Steroidal Anti-Inflammatory Drug) Other (See comments) Medium 08/26/2020 ulcers Medications ergocalciferol (VITAMIN D) 50,000 unit capsule Take 1 capsule (50,000 Units total) by mouth once a week 4 capsule 11 2 Active Additional Information Patient taking differently:50,000 Units oral Weekly,Indications: Vitamin D Deficiency, Informant: Self, Reported on 03/11/2023 aspirin 81 mg chewable tabletIndicatio ns:prevention of thrombosis Take 1 tablet (81 mg total) by mouth every morning 3 Active chlorthalidone (HYGROTON) 25 mg tabletIndicatio ns:hypertension Take 1 tablet (25 mg total) by mouth every morning 3 Active dulaglutide (Trulicity) 3 mg/0.5 mL pen injectorIndicat ions:appetite suppressant Inject 0.5 mL (3 mg total) under the skin once a week 2 mL 3 4 Active Additional Information Patient taking differently:3 mg subcutaneous Weekly,sundays, Indications: appetite suppressant, Informant: Self, Reported on 10/25/2023 nystatin creamIndication s:cutaneous candidiasis Apply 1 Application topically as needed 4 Active atorvastatin (LIPITOR) 10 mg tablet Take 1 tablet (10 mg total) by mouth daily 4 Active losartan (COZAAR) 50 mg tabletIndicatio ns:hypertension Take 1 tablet (50 mg total) by mouth every morning 4 Active oxyCODONE (ROXICODONE) 5 mg immediate release tabletIndicatio ns:Pain Take 1 tablet (5 mg total) by mouth every 4 (four) hours as needed for pain 14 tablet 4 Active cyclobenzaprine (FLEXERIL) 10 mg tablet Take 1 tablet (10 mg total) by mouth 3 (three) times a day as needed for muscle spasms 30 tablet 4 Active acetaminophen (TYLENOL) 500 mg tablet Take 1 tablet (500 mg total) by mouth every 6 (six) hours as needed for pain 45 tablet 4 Active Active Problems Problem Noted Date Diagnosed Date Abdominal pain 04/26/2023 Colitis 04/26/2023 Screening for colorectal cancer 04/26/2023 Intussusception of small bowel (CMS/HCC) 024 Panniculitis 02/02/2023 Iron deficiency anemia 04/16/2022 Pain of elbow on movement 12/04/2021 Sinus bradycardia 05/21/2021 Muscle strain of left shoulder 02/09/2021 Encounter for weight management 02/05/2021 Assessment & Plan (02/05/2021 5:05 PM TYPE ROLLING MACHINE OPERATOR): Discussed that significant health benefits/risk reduction may be seen with even 5% weight loss. Discussed that weight loss will require calorie deficit. Calculated basal metabolic rate and estimated total energy expenditure; discussed 500-1000 kcal/day deficit to lose 1-2 lb per week. Asked to keep detailed food diary for at least 1 week and bring to next visit. Discussed relatively small, although significant, role of exercise in weight loss; greater importance in weight maintenance as shown in Look Ahead study and National Weight Control Registry. Discussed recommendation/goal for 150 minutes per week moderate-intensity aerobic exercise. Metabolic and nutritional disorder 02/05/2021 Overview (02/05/2021): A1c 6.5 prior to RYGB. Assessment & Plan (02/05/2021 5:19 PM TYPE ROLLING MACHINE OPERATOR): Labs. Reviewed available prior labs in chart and Care Everywhere. Discussed insulin resistance including effect on weight and risk for progression to diabetes. Recommended low-carb, low-glycemic diet; choose whole grains and avoid more highly processed carbohydrates. Discussed potential benefits of this w/r/t gut microbiome. Referred to ADA and [employer] websites for additional information on topics including glycemic index/carbohydrate choices, protein sources. Consider metformin, GLP-1 RA. Pain of left hand 11/27/2020 Gastroesophageal reflux disease 08/26/2020 Overview (08/26/2020): Added automatically from request for surgery [id number] Plantar fasciitis 04/26/2020 Insomnia 05/22/2019 Low back pain 02/19/2019 History of gastric bypass 02/19/2019 Assessment & Plan (03/16/2021 8:39 PM TYPE ROLLING MACHINE OPERATOR): Routine labs to evaluate for vitamin deficiencies in setting of intestinal malabsorption. Irritable bowel syndrome with diarrhea 9 Lesion of liver 09/27/2018 Class 2 obesity in adult 11/23/2017 Overview (11/23/2017): Added automatically from request for surgery [id number] Assessment & Plan (03/16/2021 8:41 PM TYPE ROLLING MACHINE OPERATOR): Obesity is worsening. General weight loss/lifestyle modification strategies discussed (elicit support from others; identify saboteurs; non-food rewards, etc). Diet interventions: as noted. Informal exercise measures discussed, e.g. taking stairs instead of elevator. Regular aerobic exercise program discussed. More detailed recommendations pending review of labs, food record. Constipation 10/19/2017 Depressive disorder 10/19/2017 Disorder of vitamin B12 10/19/2017 Hip pain 10/19/2017 Hyperlipidemia 10/19/2017 Assessment & Plan (02/05/2021 5:22 PM TYPE ROLLING MACHINE OPERATOR): Discussed role of diet, exercise and weight loss in improving lipid profile. Hypertensive disorder 10/19/2017 Kidney stone 10/19/2017 Knee pain 10/19/2017 Menopausal syndrome 10/19/2017 Recurrent boils 10/19/2017 Vitamin D deficiency 10/19/2017 Assessment & Plan (03/16/2021 8:38 PM TYPE ROLLING MACHINE OPERATOR): Labs. Acute urinary tract infection 08/21/2017 No diagnosis on [place] I 08/17/2017 Trichomoniasis 08/13/2017 Benign essential HTN 06/22/2017 Assessment & Plan (02/05/2021 5:19 PM TYPE ROLLING MACHINE OPERATOR): Reviewed role of diet, exercise, weight loss in controlling blood pressure. Recommended low sodium/DASH diet. Continue current medications. Unable to lose weight 03/28/2017 Headache 11/05/2016 Pain of both breasts 11/05/2016 Acute pharyngitis 12/31/2015 Impaired glucose tolerance 12/31/2015 Assessment & Plan (03/16/2021 8:38 PM TYPE ROLLING MACHINE OPERATOR): Labs. Reviewed available prior labs in chart and Care Everywhere. Discussed insulin resistance including effect on weight and risk for progression to diabetes. Recommended low-carb, low-glycemic diet; choose whole grains and avoid more highly processed carbohydrates. Discussed potential benefits of this w/r/t gut microbiome. Referred to ADA and [employer] websites for additional information on topics including glycemic index/carbohydrate choices, protein sources. Resolved Problems Problem Noted Date Diagnosed Date Resolved Date Screening for colorectal cancer 04/26/2023 04/26/2023 Anemia 02/23/2018 04/26/2023 Air embolism (CMS/HCC) 01/26/201802/01 Overview (01/26/2018): Carbon dioxide Colitis 10/19/2017 02/01/2018 Gastroesophageal reflux disease 10/19/2017 04/13/2020 Iron deficiency 10/19/2017 04/26/2023 Morbid obesity 08/17/2017 04/13/2020 Immunizations Name Administration Dates Next Due Influenza, Quadrivalent, Split, Intramuscular ,01/16/2015 Social History Tobacco Use Types Packs/Day Years Used Date Smoking Tobacco: Never Passive Smoke Exposure: Past Smokeless Tobacco: Never Tobacco Cessation:Counseling Given: Not Answered Alcohol Use Standard Drinks/Week Comments Yes 3 (1 standard drink = 0.6 oz pure alcohol) twice per month 2-3 drinks per occasion AUDIT-C Answer Date Recorded Q1: How often do you have a drink containing alc ohol? 2-4 times a month 11/15/2023 Q2: How many drinks containi ng alcohol do you have on a typical day when you are drinking? 1 or 2 11/15/2023 Q3: How often do you have si x or more drinks on one occasion? Never 11/15/2023 PHQ-2 Answer Date Recorded PHQ-2 Score 0 10/20/2018 Personal Safety Answer Date Recorded Have you ever been in or are you currently in a harmful physical or emotional relationship or is someone making you feel afraid or unsafe? Denies 11/15/2023 Comments No Sex and Gender Information Value Date Recorded Sex Assigned at Not on file Legal Sex Female 12:38 AM TYPE ROLLING MACHINE OPERATOR Gender Identity Female 05/26/2020 10:20 AM CDT Sexual Orientation Straight 05/26/2020 10 :20 AM CDT Last Filed Vital Signs Vital Sign Reading Time Taken Comments Blood Pressure 152/92 11/15/2023 3:30 PM CDT Pulse 84 11/15/2023 3:30 PM CDT Temperature 36 ??C (96.8 ??F) 11/15/2023 1:45 PM CDT Respiratory Rate 17 11/15/2023 3:30 PM CDT Oxygen Saturation 97% 11/15/2023 3:30 PM CDT Inhaled Oxygen Concentration - - Weight 92.1 kg (203 lb) 11/15/2023 8:33 AM CDT Height 165.1 cm (5' 5 ) 11/15/2023 8:33 AM CDT Body Mass Index 33.78 11/15/2023 8:33 AM CDT Plan of Treatment Not on file Medical Devices Implanted Type Area Program Manager Rn Device Identifier Shelf Expiration Date Model / Serial / Lot Wl [employer] [id number] Seamguard Bioabsorbable Reinforcement Staple Line Sterile Latex Free - [id number] Implanted:Qty: 1 on 01/30/2018 by Dianelys Mendosa MD at [facility] N/A: Abdomen Wl [employer] 09/27/2020 [id number] / / Wl [employer] [id number] Seamguard Bioabsorbable Reinforcement Staple Line Sterile Latex Free - [id number] Implanted:Qty: 1 on 01/30/2018 by Dianelys Mendosa MD at [facility] N/A: Abdomen Wl [employer] 09/27/2020 [id number] / / Wl [employer] [id number] Seamguard Bioabsorbable Reinforcement Staple Line Sterile Latex Free - [id number] Implanted:Qty: 1 on 01/30/2018 by Dianelys Mendosa MD at [facility] N/A: Abdomen Wl [employer] 05/28/2020 [id number] / / Insurance [facility] Advance Directives For more information, please contact: [phone] * Full Code (Latest Code Status on File) Date Activated Date Inactivated Comments 05/05/2023 8:13 AM 05/05/2023 2:17 PM * Full Code Date Activated Date Inactivated Comments 04/24/2023 2:12 AM 04/25/2023 6:33 PM * Full Code Date Activated Date Inactivated Comments 03/12/2022 9:46 AM 03/12/2022 5:48 PM * Full Code Date Activated Date Inactivated Comments 03/09/2022 1:38 PM 03/09/2022 7:57 PM * Full Code Date Activated Date Inactivated Comments 02/03/2018 9:49 PM 02/05/2018 7:11 PM Care Teams Product Communications Manager Relationship Specialty Start Date End Date Ángel Iqbal MD [address] [place] [address] PCP - General Internal Medicine 03/16/22 Leatha Zurita NP [address] [place] [address] Nurse Practitioner Nurse Practitioner 04/26/23
--- OUTSIDE RECORDS SUMMARY | 2024-03-26 00:54 | XMS_ITS | Encounter Summary ---
Author Organization [facility] Address [address] [place] [address] Phone Care Team Providers Care Strategic Manager Name Role Phone Sai Falcon Primary Care Provider + Ángel Iqbal MD Primary Care Provider [phone] Leatha Zurita BENDER HELPER Unavailable [phone] Encounter Details Date Type Department Care Team (Latest Contact Info) Description 02/16/2021 Orders Only [facility] Scanning, Provider Social History Tobacco Use Types Packs/Day Years Used Date Smoking Tobacco: Never Smokeless Tobacco: Never Alcohol Use Standard Drinks/Week Comments Yes 3 (1 standard drink = 0.6 oz pure alcohol) twice per month 2-3 drinks per occasion AUDIT-C Answer Date Recorded Q1: How often do you have a drink containing alc ohol? 2-4 times a month 09/10/2020 Q2: How many drinks containi ng alcohol do you have on a typical day when you are drinking? 1 or 2 09/10/2020 Frequency of Binge Drinking Not on file 08/28 PHQ-2 Answer Date Recorded PHQ-2 Score 0 10/20/2018 Comments No Sex and Gender Information Value Date Recorded Sex Assigned at Not on file Legal Sex Female 12:38 AM RN PALLIATIVE Gender Identity Female 05/26/2020 10:20 AM CDT Sexual Orientation Straight 05/26/2020 10 :20 AM CDT documented as of this encounter Plan of Treatment Not on file documented as of this encounter Procedures Procedure Name Priority Date/Time Associated Diagnosis Comments SCAN - LABS 02/16/2021 documented in this encounter Results * SCAN - LABS (02/16/2021) us Provider Scanning Final Result documented in this encounter Visit Diagnoses Not on filedocumented in this encounter Care Teams Strategic Manager Relationship Specialty [place] [address] [place] [id number] PCP - General Internal Medicine 11/01/17 03/15/22 Ángel Iqbal MD [address] [place] [id number] PCP - General Internal Medicine 03/16/22 Leatha Zurita NP [address] [facility] [address] [place] [address] Nurse Practitioner Nurse Practitioner 04/26/23 documented as of this encounter
--- OUTSIDE RECORDS SUMMARY | 2024-03-26 00:54 | XMS_ITS | Data Portability ---
Author Organization [place] [facility] [employer], Main Office Address [address] [place] [address] Care Team Providers Care Manager Heavy Equipment Name Role Phone VISHNU VÁSQUEZ Primary Care Provider VISHNU VÁSQUEZ Referring Provider Assessment Encounter Date Assessment Date Assessment LastModified by Organization Details LastModified Time 09/28/2023 09/28/2023 42-year-old female presents for evaluation of her left knee. She reports pain for about 2 months. She denies any acute injury. She has pain when sitting for extended periods of time, and feels like that sometimes gives out. She currently reports 4/10 pain. She can not take anti-inflammator ies because of a previous gastric sleeve procedure. She has been taking Tylenol, using icy hot. She has not had any physical therapy. Review of systems per patient questionnaire Physical exam: She has tenderness palpation of the mediolateral joint lines well as over the patella. Range of motion 5-120, pain with flexion. Positive Terence's. Stable ligaments X-rays were reviewed, demonstrating no acute bony abnormality, preserved joint space For her knee pain and stiffness, we will begin with conservative management with physical therapy and topical Voltaren since she can not take oral anti-inflammator ies. We will see her back after the course of physical therapy. She if she continues have symptoms then we would consider getting MRI or discussing a cortisone injection. She is in agreement with the plan. [email or web address] Not available 09/28/2023 22:38:55 Plan of Treatment Reminders Order Date Submit Date Provider Last Modified By Organization Details Last Modified Time Details Appointments None recorded. Lab None recorded. Referral physical therapist referral - eval and treat 2023 024 [email or web address] [facility], [address], [place], [address], 4 23:19:56 Procedures None recorded. Surgeries None recorded. Imaging XR, knee, 3 view 2023 024 SHEY [facility] [place], [address], [place], [address], 4 11:34:18 Medication Orders None recorded. Patient TargetsNo targets recorded. Patient InstructionsNo instructions recorded. Reason for Referral Physical Therapist Referral for Pain of left knee joint eval and treat Referring Physician: Carlos Alberto Ugalde, Orthopedic Surgery, Encounter Date: 09/28/2023 Results Created Date Observation Date Name Description Value Unit Range Abnormal Flag Note LastModifiedBy Organization Detail LastModifiedTime 10/15/1910/14/2020 urina lysis , dipst ick Leukocytes (reference range: negative jayla/? ? ?l) Large Not Available [facility] [address], [address], [address], 10/14/2020 08:44:24 10/15/19 21 10/14/2020 urina lysis , dipst ick Nitrite (reference rage: negative mg/dl) negati ve Not Available [facility] [address], [address], [address], 10/14/2020 08:44:24 10/15/19 21 10/14/2020 urina lysis , dipst ick Urobilinogen (reference range: 0.2-1 mg/dl) 0.2 Not Available [facility] [address], [address], [address], 10/14/2020 08:44:24 10/15/19 21 10/14/2020 urina lysis , dipst ick Protein (reference range: negative mg/dl) Negati ve Not Available [address], [address], 10/14/2020 08:44:24 10/15/19 21 10/14/2020 urina lysis , dipst ick pH (reference range: 5-7) 7.0 Not Available Z_[address], [address], 10/14/2020 08:44:24 10/15/19 21 10/14/2020 urina lysis , dipst ick Blood (reference range: negative Dakota/? ? ?l) Non-He molyze d: Trace Not Available [address], [address], 10/14/2020 08:44:24 10/15/19 21 10/14/2020 urina lysis , dipst ick Specific [place] (reference range: 1.005-1.030) 1.025 Not Available [address], [address], 10/14/2020 08:44:24 10/15/19 21 10/14/2020 urina lysis , dipst ick Ketone (reference range: negative mg/dl) Negati ve Not Available [address], [address], 10/14/2020 08:44:24 10/15/19 21 10/14/2020 urina lysis , dipst ick Bilirubin (reference range: negative mg/dl) Negati ve Not Available [address], [place], [address], 10/14/2020 08:44:24 10/15/1910/14/2020 urina lysis , dipst ick Glucose (reference range: negative mg/dl) Negati ve Not Available [facility] [address], [address], 10/14/2020 08:44:24 10/15/19 21 10/14/2020 urina lysis , dipst ick Appearance Clear Not Available [facility] [address], [address], 10/14/2020 08:44:24 10/15/19 21 10/14/2020 urina lysis , dipst ick Color Yellow Not Available [facility], [address], 10/14/2020 08:44:24 10/15/19 21 10/14/2020 US, bladd er No observ ation record ed. [id number] [facility] [address], [address], 04/28/2022 23:32:24 09/28/19 24 XR, knee, 3 view No observ ation record ed. [email or web address] s[facility] [place] [address], [place], [address], 09/28/2023 15:38:07 11/03/19 24 11/03/2023 scree calvin breas t eugene, bilat [facility] [address], [place], [place] [phone] Patien t Name: RENETTA AVALOS Access ion #: [id number] Sex: F : 1980 3 Dictat ed By: Bernadette Atkins Attend ing Physic dez: LINNETTE VÁSQUEZ Orderi ng Physic dez: LINNETTE VÁSQUEZ Exam Date: 2023 15:35 PM Exam Name: MG SCRN BREAST EUGENE BILAT Admitt ing Diagno sis(es ): SCREEN ING MAMMOG RAE WITH TOMOSY NTHESI S: REASON FOR EXAM: screen ing for malign ant neopla sm COMPAR BOB: DIGITA L DIAGNO STIC MAMM on DOS: 7 TECHNI QUE: Bilate ral CC and MLO views obtain ed. Images were obtain ed using a Digita l Tomosy nthesi s Unit. Standa rd 2D and 3D Tomosy nthesi s images were review ed. FINDIN GS: BREAST COMPOS ITION: B - There are scatte red areas of fibrog landul ar densit y in the bilate ral breast s. In the right breast , no asymme trical parenc hymal patter n, regis ectura l distor tion, pleomo rphic microc alcifi cation s or masses . In the left breast , no asymme trical parenc hymal patter n, regis ectura l distor tion, pleomo rphic microc alcifi cation s or masses . IMPRES CHRISTIE: No findin gs of malign crissy. FOLLOW UP RECOMM ENDATI ON: Recomm end annual mammog rae. BIRADS : 1 - Negati ve Electr onical ly Signed by: Bernadette Atkins at 2023 16:19: 35 PM Page 1 [facility] ([facility]) [address] [place], [address], 11/15/2023 09:50:27 Result Notes None recorded. Problems Name Problem SNOMED Code Status Onset Date Resolution Date Notes Provider Name and Address Organization Details Recorded Time Pain of left knee joint [id number] Active 2023 BEN Clarke, [place] [facility] [place] [facility] 15:37:43 Notes:Some problems listed i n Document: #[id number] could not be added to this patient's chart. Please review this document and add these problems to the patient's chart manually as needed. Problem Notes None recorded. Procedures Surgical History Date Name Laterality Status Provider Name and Address Organization Details Recorded Time 02/28/19 21 Appendectomy completed Not Available [facility] 023 23:29:04 02/28/19 21 Kidney Stones completed Not Available [facility] 2022 23:29:04 01/29/20 19 Gastric Bypass completed Not Available [facility] 04/28 23:29:04 02/28/19 12 Hysterectomy completed Not Available [facility] 023 23:29:04 Imaging Results Imaging Date Name Status LastModified by Organiz ation Details LastModified Time 10/14/2020 US, bladder completed [id number] [facility] [place] [address] [place] [address], [address], [place], [address], 04/28/2022 23:32:24 09/28/2023 XR, knee, 3 view completed [email or web address] [facility] [place] [address], [place], [address], 09/28/2023 15:38:07 11/03/2023 screening breast eugene, bilat completed [email or web address] [facility] ([facility] [address] [place], [address], 11/15/2023 09:50:27 Procedure Notes None recorded. Medical Equipment None Reported. Allergies Allergen ID Allergen Name Allergen Category Reaction Reaction Severity Criticality Documentation Date Start Date Code Code System Note Provider Name and Address Organization Details Recorded Time 21938 Non-stero idal anti-infl ammatory agent (product) medicatio n Not available Not available Not available 04/28/2022 92580 005 SNOMED Not Available [facility] 23:32:07 19968 clindamyc in Not available Not available Not available Not available 04/28/2022 2582 RxNorm Not Available [facility] 3 23:32:07 Medications Name Sig Start Date Stop Date Status Note LastModified by Organization Details LastModified Time multivitami n tablet TAKE 1 TABLET BY MOUTH TWICE DAILY active Not Available Not Available No t Available losartan 50 mg tablet 09/27 completed Not Available Not Available Not Available nifedipine ER 30 mg tablet,exte nded release 24 hr TAKE 1 TABLET BY MOUTH EVERY DAY 09/27 completed Not Available Not Available Not Available fluoxetine 40 mg capsule TAKE ONE CAPSULE BY MOUTH EVERY MORNING. 09/25 completed Not Available Not Available Not Available cyclobenzap rine 10 mg tablet TAKE 1 TABLET BY MOUTH AT BEDTIME NEEDED 09/25 completed Not Available Not Available Not Available promethazin e-DM 6.25 mg-15 mg/5 mL oral syrup TAKE 5 ML BY MOUTH EVERY 4 HOURS FOR 10 DAYS 10/14 completed Not Available Not Available Not Available clonidine HCl 0.1 mg tablet TAKE 1 TABLET BY MOUTH EVERY 6 HOURS NEEDED FOR SYSTOLIC BLOOD PRESSURE OVER 160. MAX THREE TIMES DAILY 09/25 completed Not Available Not Available Not Available trazodone 50 mg tablet TAKE 1 TABLET BY MOUTH AT BEDTIME NEEDED 09/25 completed Not Available Not Available Not Available atorvastati n 10 mg tablet TAKE 1 TABLET BY MOUTH EVERY DAY active Not Available Not Available No t Available azithromyci n 250 mg tablet 10/14 completed Not Available Not Available Not Available fluconazole 150 mg tablet TK 1 T PO Q 72 H FOR 9 DAYS PRN 10/14 completed Not Available Not Available Not Available hydrocodone 5 mg-acetamin ophen 325 mg tablet TAKE 1-2 TABLETS BY MOUTH EVERY 6 HOURS NEEDED 10/14 completed Not Available Not Available Not Available prednisone 20 mg tablet TAKE 1 TABLET BY MOUTH DAILY 09/25 completed Not Available Not Available Not Available chlorthalid one 25 mg tablet TAKE 1 TABLET BY MOUTH EVERY DAY active Not Available Not Available No t Available amlodipine 5 mg tablet TAKE 1 TABLET BY MOUTH EVERY DAY IN THE MORNING 09/25 completed Not Available Not Available Not Available estradiol-n orethindron e acet 1 mg-0.5 mg tablet TK 1 T PO QD 09/25 completed Not Available Not Available Not Available ciprofloxac in 500 mg tablet TAKE 1 TABLET BY MOUTH TWICE DAILY FOR 10 DAYS 10/14 completed Not Available Not Available Not Available sulfamethox azole 800 mg-trimetho prim 160 mg tablet TAKE 1 TABLET BY MOUTH EVERY 12 HOURS FOR 5 DAYS 09/25 completed Not Available Not Available Not Available peg-electro lyte solution 420 gram oral solution FOLLOW PACKAGE DIRECTION S 09/27 completed Not Available Not Available Not Available omeprazole 40 mg capsule,del ayed release TAKE 1 CAPSULE BY MOUTH EVERY DAY 30 MINUTES BEFORE FOOD 09/25 completed Not Available Not Available Not Available pantoprazol e 20 mg tablet,yina yed release TAKE 1 TABLET BY MOUTH AT BEDTIME FOR 4 WEEKS 09/27 completed Not Available Not Available Not Available famotidine 20 mg tablet TAKE 1 TABLET BY MOUTH TWICE DAILY 10/14 completed Not Available Not Available Not Available nifedipine ER 60 mg tablet,exte nded release 24 hr TAKE 1 TABLET BY MOUTH EVERY DAY 09/27 completed Not Available Not Available Not Available gentamicin 0.3 % eye drops INSTILL 1 DROP IN RIGHT EYE EVERY 4 HOURS FOR 7 DAYS 10/14 completed Not Available Not Available Not Available nifedipine 10 mg capsule TAKE 1 CAPSULE BY MOUTH THREE TIMES DAILY active Not Available Not Available No t Available cephalexin 500 mg capsule TAKE 1 CAPSULE BY MOUTH EVERY 8 HOURS 10/14 completed Not Available Not Available Not Available hyoscyamine sulfate 0.125 mg tablet TAKE 1 TABLET BY MOUTH FOUR TIMES DAILY 10/14 completed Not Available Not Available Not Available nystatin 100,000 unit/gram topical cream APPLY TOPICALLY TO THE AFFECTED AREA TWICE DAILY 09/27 completed Not Available Not Available Not Available aspirin 81 mg chewable tablet CHEW 1 TABLET BY MOUTH ONCE A DAY active Not Available Not Available No t Available ergocalcife rol (vitamin D2) 1,250 mcg (50,000 unit) capsule TAKE 1 CAPSULE BY MOUTH EVERY WEEK WITH MEALS 09/25 completed Not Available Not Available Not Available albuterol sulfate HFA 90 mcg/actuati on aerosol inhaler INHALE 2 PUFFS BY MOUTH THREE TIMES DAILY FOR 10 DAYS NEEDED 09/25 completed Not Available Not Available Not Available ondansetron 4 mg disintegrat ing tablet DISSOLVE 1 TABLET ON THE TONGUE EVERY 8 HOURS NEEDED FOR NAUSEA OR VOMITING 10/14 completed Not Available Not Available Not Available losartan 100 mg tablet TAKE 1 TABLET BY MOUTH EVERY MORNING 09/25 completed Not Available Not Available Not Available fluoxetine 20 mg capsule TAKE 1 CAPSULE BY MOUTH EVERY DAY IN THE MORNING 10/14 completed Not Available Not Available Not Available loratadine 10 mg tablet TK 1 T PO QD IN THE MORNING 10/14 completed Not Available Not Available Not Available naproxen 500 mg tablet TAKE 1 TABLET BY MOUTH TWICE DAILY WITH MEALS 10/14 completed Not Available Not Available Not Available amoxicillin 875 mg-potassiu m clavulanate 125 mg tablet TAKE 1 TABLET BY MOUTH EVERY 12 HOURS FOR 5 DAYS 09/25 completed Not Available Not Available Not Available losartan 100 mg-hydrochl orothiazide 12.5 mg tablet TAKE 1 TABLET BY MOUTH EVERY DAY DIRECTED active Not Available Not Available No t Available calcium 600 mg (as carbonate)- vitamin D3 10 mcg (400 unit) tablet TK 1 T PO BID 09/25 completed Not Available Not Available Not Available FeroSul 325 mg (65 mg iron) tablet TAKE 1 TABLET BY MOUTH EVERY DAY WITH A MEAL 09/25 completed Not Available Not Available Not Available Trulicity 1.5 mg/0.5 mL subcutaneou s pen injector INJECT 1.5 MG SUBCUTANE OUS EVERY WEEK active Not Available Not Available No t Available Trulicity 3 mg/0.5 mL subcutaneou s pen injector active Not Available Not Available Not Available Daily-Fredrick (with folic acid) 400 mcg tablet TK 1 T PO QD 09/25 completed Not Available Not Available Not Available Vitals Date Recorded Body mass index (BMI) Body height Oxygen saturation Oxygen saturation in Arterial blood by Pulse oximetry Heart rate Body temperature Body weight Systolic blood pressure Diastolic blood pressure Provider Name and Address Organization Details Last Updated DateTime 1 35.3 kg/m2 165.1 cm 96 % 96 % 70 /min 97.9 [degF] 35268.5 8 g 180 mm[Hg] 110 mm[Hg] Not Available [facility] 3 23:29:09 Date Recorded Body height Body mass index (BMI) Body weight Provider Name and Address Organization Details Last Updated DateTime 09/28/2023 165.1 cm 32.6 kg/m2 73573.1 g Rossy Mikey, A [place] [facility] 09/28/2023 15:35:34 Social History Question Answer Notes LastModified by Organizat ion Details LastModified Time Tobacco Smoking Status Never Smoker Not Available [facility] 04/28/2022 23:28:20 What Is Your Level Of Alcohol Consumption? Moderate [email or web address] Information not available 09/28/2023 If You Are , What Was Your Level Of Alcohol Consumption Prior To ? None [id number] Information not available 04/28/2022 What Is Your Level Of Caffeine Consumption? None [id number] Information not available 04/28/2022 What Was The Date Of Your Most Recent Tobacco Screening? 09/28/2023 [email or web address] Information not available 09/28/2023 Have You Ever Been Counseled For Unhealthy Alcohol Use? No [id number] Information not available 04/28/2022 Do You Use Any Illicit Or Recreational Drugs? No [id number] Information not available 04/28/2022 Has Tobacco Cessation Counseling Been Provided? No [id number] Information not available 04/28/2022 Do You Or Have You Ever Used Any Other Forms Of Tobacco Or Nicotine? No [id number] Information not available 04/28/2022 Sex: Unknown Functional Status None recorded. Mental Status None recorded. Family History Relationship Description Onset Age of this Age Resolved Age Notes LastModified by Organization Details LastModified Time Unspecified Relation Diabetes mellitus [id number] Not available 04/28/2022 23:29:04 Unspecified Relation Hypertensive disorder [id number] Not available 04/28/2022 23:29:04 Medical History Condition Response CYSTITIS N BLINDNESS N RHEUMATIC FEVER N KIDNEY STONES Y BLADDER PROBLEMS N Enlarged Prostate N SLEEP APNEA N MRSA N INFECTIOUS DISEASE N LUNG DISEASE/DISORDER N PROSTATE N HEART ARRHYTHMIA N INSOMNIA N HISTORY OF DRUG ABUSE N RADIATION / CHEMOTHERAPY N COPD N HIGH CHOLESTEROL / HYPERLIPIDEMIA N HYPERTHYROIDISM N UTI N BLOOD DISEASES N EDEMA N HYPOTHYROIDISM N SHINGLES N BACK / NECK PROBLEMS N DEPRESSION (INCLUDING POST ) Y BOWEL PROBLEMS N HAVE YOU BEEN HOSPITALIZED OR SEEN IN [facility] IN THE PAST YEAR ? N STROKE/TIA N THYROID DISEASE N BENIGN PROSTATIC HYPERPLASIA N DIALYSIS N OBESITY N GERD/NAUSEA N ANEURYSM N OSTEOPOROSIS N Increased Urination N URINARY/BLADDER/KIDNEY PROBLEMS N CORONARY ARTERY DISEASE (CAD) N ARTHRITIS N USE OF BLOOD THINNERS N NO SIGNIFICANT PAST MEDICAL HISTORY N DIABETES, TYPE N EMPHYSEMA N PARKINSON N GASTROINTESTINAL DISORDER N GASTROINTESTINAL BLEEDING N BLOOD CLOTS N Difficulty Urinating N HEPATITIS / LIVER DISEASE N ASTHMA N CATARACTS N GOUT N SLEEP DISORDER N ALZHEIMER'S DISEASE N HERPES N ERECTILE DYSFUNCTION N SEIZURES/EPILEPSY N HEADACHES/MIGRAINES N GI PROBLEMS N PACEMAKER N Low Testosterone N HEART MURMUR N DIZZINESS N KIDNEY DISEASE N HEART DISEASE/HEART PROBLEMS N AIDS/HIV N MULTIPLE SCLEROSIS N LIVER DISEASE N MALE HYPOGONADISM N HYPERTENSION Y CANCER: SPECIFY N TOURETTE'S N BLOOD TRANSFUSION N ANESTHESIA COMPLICATIONS N ANEMIA/BLOOD DISORDER N ATRIAL FIBRILLATION N AUTOIMMUNE DISEASE N TUBERCULOSIS N GLAUCOMA N Gynecological HistoryNo gynecological history recorded. Obstetrics History GPAL:G 0 P 0 0 0 0 Past Encounters Encounter ID Performer Location Encounter Start Date Encounter Closed Date Diagnosis/Indication Diagnosis SNOMED-CT Code Diagnosis ICD10 Code Diagnosis Note [id number] [facility] [place] [address] [facility], [address] [place] [address] 10/14/2020 00:00:00 10/14/2020 09:49:34 [id number] Carlos Alberto Ugalde MD [facility] [place] [address] [place] [address] 09/28/2023 15:14:50 09/28/2023 16:31:06 Pain of left knee joint 6317506434 75692 M25.562 Health Concerns Section Related Observation LastModified by Organization Detai ls LastModified Time None Recorded Concern Status LastModified by Organization Details LastModified Time None Recorded Advance Directives Directive None Recorded Payers Encounter Date Sequence Insurance Name Policy Number Policy Nevarez Covered Member ID Nevarez Member ID Guarantor Name 09/28/2023 1 [facility] - DOS ON OR AFTER 20 (MEDICAID REPLACEMENT - HMO) Trish Haro [id number] Trish Haro OBGyn Episode No OBEpisode recorded.
--- OUTSIDE RECORDS SUMMARY | 2024-03-26 00:54 | XMS_ITS | Encounter Summary ---
Author Organization [facility] Address [address] [place] [address] Phone Care Team Providers Care Layer Out Name Role Phone Sai Falcon Primary Care Provider + Ángel Iqbal MD Primary Care Provider [phone] Leatha Zurita DIGITAL CONTENT COORDINATOR Unavailable [phone] Encounter Details Date Type Department Care Team (Latest Contact Info) Description 02/07/2021 Orders Only [facility] Scanning, Provider [...] on file Legal Sex Female 12:38 AM MEDICARE CONTACT SPECIALIST Gender Identity Female 05/26/2020 10:20 AM CDT Sexual Orientation Straight 05/26/2020 10 :20 AM CDT documented as of this encounter Plan of Treatment Not on file documented as of this encounter Procedures Procedure Name Priority Date/Time Associated Diagnosis Comments SCAN - LABS 02/07/2021 documented in this encounter Results * SCAN - LABS (02/07/2021) us Provider Scanning Final Result documented in this encounter Visit Diagnoses Not on filedocumented in this encounter Care Teams Layer Out Relationship Specialty [place] [address] [place] [address] PCP - General Internal Medicine 11/01/17 03/15/22 Ángel Iqbal MD [address] [place] [address] PCP - General Internal Medicine 03/16/22 Leatha Zurita NP [address] [facility] [address] [place] [address] Nurse Practitioner Nurse Practitioner 04/26/23 documented as of this encounter
--- OUTSIDE RECORDS SUMMARY | 2024-03-26 00:54 | XMS_ITS | Clinical Summary ---
Author Organization [facility] Address [address] [place] [address] Care Team Providers Care Installation Tech Name Role Phone Ángel Iqbal MD Primary Care Provider [phone] Leatha Zurita [employer] Unavailable [phone] Allergies Active Allergy Reactions Criticality Noted Date [...] 02/05/2021 Assessment & Plan (02/05/2021 5:05 PM RADIOTELEGRAPH OPERATOR): Discussed that significant health benefits/risk reduction [...] RYGB. Assessment & Plan (02/05/2021 5:19 PM RADIOTELEGRAPH OPERATOR): Labs. Reviewed available prior labs in chart and Care Everywhere. Discussed insulin resistance including effect on weight and risk for progression to diabetes. Recommended low-carb, low-glycemic diet; choose whole grains and avoid more highly processed carbohydrates. Discussed potential benefits of this w/r/t gut microbiome. Referred to ADA and [employer] websites for additional information on topics including glycemic index/carbohydrate choices, protein sources. Consider metformin, GLP-1 RA. Pain of left hand 11/27/2020 Gastroesophageal reflux disease 08/26/2020 Overview (08/26/2020): Added automatically from request for surgery [id number] Plantar fasciitis 04/26/2020 Insomnia 05/22/2019 Low back pain 02/19/2019 History of gastric bypass 02/19/2019 Assessment & Plan (03/16/2021 8:39 PM RADIOTELEGRAPH OPERATOR): Routine labs to evaluate for vitamin deficiencies in setting of intestinal malabsorption. Irritable bowel syndrome with diarrhea 9 Lesion of liver 09/27/2018 Class 2 obesity in adult 11/23/2017 Overview (11/23/2017): Added automatically from request for surgery [id number] Assessment & Plan (03/16/2021 8:41 PM RADIOTELEGRAPH OPERATOR): Obesity is worsening. General weight loss/lifestyle [...] 10/19/2017 Assessment & Plan (02/05/2021 5:22 PM RADIOTELEGRAPH OPERATOR): Discussed role of diet, exercise and weight loss in improving lipid profile. Hypertensive disorder 10/19/2017 Kidney stone 10/19/2017 Knee pain 10/19/2017 Menopausal syndrome 10/19/2017 Recurrent boils 10/19/2017 Vitamin D deficiency 10/19/2017 Assessment & Plan (03/16/2021 8:38 PM RADIOTELEGRAPH OPERATOR): Labs. Acute urinary tract infection 08/21/2017 No diagnosis on [place] I 08/17/2017 Trichomoniasis 08/13/2017 Benign essential HTN 06/22/2017 Assessment & Plan (02/05/2021 5:19 PM RADIOTELEGRAPH OPERATOR): Reviewed role of diet, exercise, weight loss in controlling blood pressure. Recommended low sodium/DASH diet. Continue current medications. Unable to lose weight 03/28/2017 Headache 11/05/2016 Pain of both breasts 11/05/2016 Acute pharyngitis 12/31/2015 Impaired glucose tolerance 12/31/2015 Assessment & Plan (03/16/2021 8:38 PM RADIOTELEGRAPH OPERATOR): Labs. Reviewed available prior labs in chart and Care Everywhere. Discussed insulin resistance including effect on weight and risk for progression to diabetes. Recommended low-carb, low-glycemic diet; choose whole grains and avoid more highly processed carbohydrates. Discussed potential benefits of this w/r/t gut microbiome. Referred to ADA and [employer] websites for additional information on topics including glycemic index/carbohydrate choices, protein sources. Resolved Problems Problem Noted Date Diagnosed Date Resolved Date Screening for colorectal cancer 04/26/2023 04/26/2023 Anemia 02/23/2018 04/26/2023 Air embolism (CMS/HCC) 01/26/201802/01 Overview (01/26/2018): Carbon dioxide Colitis 10/19/2017 02/01/2018 Gastroesophageal reflux disease 10/19/2017 04/13/2020 Iron deficiency 10/19/2017 04/26/2023 Morbid obesity 08/17/2017 04/13/2020 Encounters Date Type Department Care Team Description 01/18/2024 3:45 PM RADIOTELEGRAPH OPERATOR Office Visit [facility] Surgery [address] [place] [address] [place] [address] Addy Brown MD Panniculitis (Primary Dx) from Last 3 Months Immunizations Name Administration Dates Next Due Influenza, Quadrivalent, Split, Intramuscular ,01/16/2015 Surgical History Surgery Date Site/Laterality Comments OOPHERECTOMY Bilateral DILATION AND CURETTAGE OF UTERUS KIDNEY STONE SURGERY TUBAL LIGATION GASTRIC BYPASS 02/28/2017 - 02/27/2018 APPENDECTOMY 02/28/2019 - 02/28/2020 HYSTERECTOMY 05/30/2011 Medical History Medical History Date Comments Hypertension Hyperlipidemia GERD (gastroesophageal reflux disease) Impaired glucose tolerance Family History Medical History Relation Name Comments Hypertension Mother Family history of hypertension - (Added by TW Conv) Relation Name Status Comments Mother Social History Tobacco Use Types Packs/Day Years [...] on file Legal Sex Female 12:38 AM RADIOTELEGRAPH OPERATOR Gender Identity Female 05/26/2020 10:20 AM CDT Sexual Orientation Straight 05/26/2020 10 :20 AM CDT Obstetrics History Last Filed Vital Signs Vital Sign Reading [...] 11/15/2023 8:33 AM CDT Plan of Treatment Health Maintenance Due Date Last Done Comments Breast Cancer Screening-Mammogram 1980 Hepatitis C Screening 1980 Pneumococcal vaccine <65 (1 of 2 - PCV) 1986 DTaP/Tdap/Td Vaccine (1 - Tdap) 12/12/1991 Varicella Vaccines (1 of 2 - 13+ 2-dose series) 1993 Hepatitis B Screening 1998 Regular Well Visit/Exam 18-64 1998 Depression Screening 02/03/2019 02/03/2018, 02/03/2018 Covid-19 Vaccine (3 - 2023-2 5 season) 2023 10/06/2020, 09/15/2020 Influenza Vaccine (#1) 2023 6, 01/16/2015 HPV Vaccines Aged Out No longer eligi ble based on patient's age to complete this topic Medical Devices Implanted Type Area Asthma Educator Device Identifier Shelf Expiration Date Model / Serial / Lot Wl [employer] [id number] Seamguard Bioabsorbable Reinforcement Staple Line Sterile Latex Free - [id number] Implanted:Qty: 1 on 01/30/2018 by Dianelys Mendosa MD at [facility] N/A: Abdomen Wl [employer] 09/27/2020 [id number] / / Wl [employer] [id number] Seamguard Bioabsorbable Reinforcement Staple Line Sterile Latex Free - [id number] Implanted:Qty: 1 on 01/30/2018 by Dianelys Mendosa MD at [facility] N/A: Abdomen Wl [employer] 09/27/2020 [id number] / / Wl [employer] [id number] Seamguard Bioabsorbable Reinforcement Staple Line Sterile Latex Free - [id number] Implanted:Qty: 1 on 01/30/2018 by Dianelys Mendosa MD at [facility] N/A: Abdomen Wl [employer] 05/28/2020 [id number] / / Insurance [facility] [place] [address] [facility] MEDICAID [facility] [place] [address] [facility] Advance Directives For more information, please contact: [phone] * Full Code (Latest Code Status on [...] 9:49 PM 02/05/2018 7:11 PM Care Teams Installation Tech Relationship Specialty Start Date End Date Ángel Iqbal MD [address] [place] [id number] PCP - General Internal Medicine 03/16/22 Leatha Zurita NP [address] [place] [address] Nurse Practitioner Nurse Practitioner 04/26/23
[2024-03-26 00:56] VITALS: BP 176/107; PULSE 83; RESP 20; TEMP 36.2; O2SAT 100
--- NOTE | 2024-03-26 05:13 | ECG_ITS ---
Test Date: 2024-03-26 05:20:15 Measurements Intervals [place] Rate: 59 P: 46 NE: 176 QRS: 1 QRSD: 96 T: 18 QT: 426 QTc: 424 Interpretive Statements SINUS BRADYCARDIA MODERATE T-WAVE ABNORMALITY, CONSIDER ANTERIOR ISCHEMIA [-0.1+ mV T WAVE IN V3/V4] No previous ECG available for comparison Electronically Signed On 03-26-2024 21:20:07 UNIT TECHNICIAN by Caroline Pearce M.D.
[2024-03-26 05:26] VITALS: O2SAT 100
[2024-03-26 05:27] VITALS: BP 152/103; PULSE 70; RESP 17; O2SAT 97
[2024-03-26 05:57] LABS: Influenza A QL RT-PCR Negative (Negative); Influenza B QL RT-PCR Negative (Negative); RSV RNA, RT-PCR Negative (Negative); SARS-CoV-2 RNA PCR Negative (Negative)
--- OUTSIDE RECORDS SUMMARY | 2024-03-26 06:03 | XMS_ITS | Encounter Summary ---
Author Organization [facility] Address [address] [place] [address] Phone Care Team Providers Care Firer Locomotive Name Role Phone Sai Falcon Primary Care Provider + Ángel Iqbal MD Primary Care Provider [phone] Leatha Zurita DIRECTOR OF LITIGATION Unavailable [phone] Encounter Details Date Type Department Care Team [...] on file Legal Sex Female 12:38 AM HALL CLERK Gender Identity Female 05/26/2020 10:20 AM CDT [...] on filedocumented in this encounter Care Teams Firer Locomotive Relationship Specialty [place] [address] [place] [address] PCP - General Internal Medicine 11/01/17 03/15/22 Ángel Iqbal MD [address] [place] [address] PCP - General Internal Medicine 03/16/22 Leatha Zurita NP [address] [facility] [address] [place] [address] Nurse Practitioner Nurse Practitioner 04/26/23 documented as of this encounter
--- OUTSIDE RECORDS SUMMARY | 2024-03-26 06:03 | XMS_ITS | CONTINUITY OF CARE DOCUMENT ---
Author Name andriy, andriy Address Unknown Organization [facility] Address [address] [place] [address] Phone [phone] Care Team Providers Care Canadian Bacon Tier Name Role Phone Jeffery Gee MD Unavailable MAXIME THOMASON Unavailable YAMILET DANIEL MD Unavailable [phone] PROBLEMS Condition Status Date Provider Notes Hypertension [...] In-person encounter Office Visit Jeffery Gee MD [place] [facility] Cardiology examination - In-person encounter Office Visit Jeffery Gee MD [facility] [place] [facility] - In-person encounter Office Visit Jeffery Gee MD [facility] [place] [facility] - In-person encounter Office Visit Jeffery Gee MD [facility] [place] [facility] - In-person encounter Office Visit Jeffery Gee MD [facility] [place] [facility] - In-person encounter Office Visit Jeffery Gee MD [facility] [place] [facility] HypertensionChest painDepressionObesity s/p gastric bypassSinus bradycardiaCardiovascular screening VITAL SIGNS Date Observation Value Provider Body Mass Index (Ratio) 33.94 kg/m2 Arcelia Gee MD blood pressure, diastolic 112 mm[Hg] Jimi man Gregorio blood pressure, systolic 148 mm[Hg] Kelly caro Gregorio oxygen saturation, oximetry 100 % [facility] pulse rate 61 /min [facility]orio weight E&M 204 [lb_av] [facility] Gregorio blood pressure, cuff size regular Jimi magda Gregorio height E&M 65 [in_i] [facility] Gregorio Body Mass Index (Ratio) 31.61 kg/m2 Arcelia Gee MD blood pressure, cuff size regular Ja [facility] blood pressure, diastolic 94 mm[Hg] Ja et blood pressure, systolic 121 mm[Hg] [facility] pulse rate 62 /min Coy respiratory rate [...] Body Mass Index (Ratio) 31.45 kg/m2 Arcelia eGe MD blood pressure, diastolic 109 mm[Hg] shazia Leon blood pressure, systolic 143 mm[Hg] [facility] mary ann Leon weight E&M 189 [lb_av] [...] blood pressure, systolic 157 mm[Hg] Cat anushka [place] oxygen saturation, oximetry 85 % Ignacia Keanu respiratory rate E&M 14 /min Khadijah leavitt Keanu weight E&M 221 [lb_av] Ignacia Keanu height E&M 65 [in_i] Ignacia [place] blood pressure, cuff size regular Ca therine [...] mg/0.5 mL pen injector active Maya Ventimiglia USER SUPPORT ANALYST SUPERVISOR Vitamin D2 1,250 mcg (50,000 unit) capsule [...] DAY IN THE MORNING - Maya Ventimiglia USER SUPPORT ANALYST SUPERVISOR clonidine HCl 0.1 mg tablet completed - [...] MD drug use no Maya Ventimig sarthak USER SUPPORT ANALYST SUPERVISOR alcohol use no Maya Ventimig sarthak USER SUPPORT ANALYST SUPERVISOR smoking status Never smoker Noelle Leon smoking [...] Policy type / Coverage type Cruz red democrat ID [place] MEDICAID (2) Medicaid [id number] ADVANCE DIRECTIVES Name Date DISCUSSED - NO DECISION MADE TREATMENT PLAN Date Name Performer [id number],S, Mayajayla pool [facility] [id number],S,HR in 70s Bridger ron Garcia [facility] [id number],C,B P improving but diastolic BP remains elevated [...] 1 tablet once a day Maya Garcia [facility] [id number],S,P t's pressure is high. Pt reports she [...] day in the morning Jeffery Gee MD [id number],S, P t advised to lose weight. Jeffery Gee MD [id number],S, R ecommended patient lose weight. Jeffery Gee MD [id number],W,S ounds atypical. Since she has some risk factors for CAD we'll order a regadenoson stress test and an echo. Recommended she take a baby aspirin until we get the stress test. Jeffery Gee MD [id number],W, B P seems to runchronically elevated even [...] Jeffery Gee MD Cardiology Maya Ventimigl ia [facility] Cardiology:HR in 70s Maya Billings imiglia [facility] Cardiology:BP improv ing but diastolic BP remains [...] 1 tablet once a day Maya Ventimiglia [facility] Cardiology:Pt's pres sure is high. Pt reports [...]
--- OUTSIDE RECORDS SUMMARY | 2024-03-26 06:03 | XMS_ITS | Encounter Summary ---
Author Organization [facility] Address [address] [place] [address] Phone Care Team Providers Care Sole Trimmer Name Role Phone Sai Falcon Primary Care Provider + Ángel Iqbal MD Primary Care Provider [phone] Leatha Zurita DIRECTOR OF ACCOUNTS RECEIVABLE Unavailable [phone] Encounter Details Date Type Department Care Team [...] on file Legal Sex Female 12:38 AM SIZE TESTER Gender Identity Female 05/26/2020 10:20 AM CDT [...] on filedocumented in this encounter Care Teams Sole Trimmer Relationship Specialty [place] [address] [place] [address] PCP - General Internal Medicine 11/01/17 03/15/22 Ángel Iqbal MD [address] [place] [address] PCP - General Internal Medicine 03/16/22 Leatha Zurita NP [address] [facility] [address] [place] [address] Nurse Practitioner Nurse Practitioner 04/26/23 documented as of this encounter
--- OUTSIDE RECORDS SUMMARY | 2024-03-26 06:03 | XMS_ITS | Clinical Summary ---
Author Organization [facility] Care Team Providers Care Segment Assembler Name Role Phone Unavailable Primary Care Provider [...]
--- OUTSIDE RECORDS SUMMARY | 2024-03-26 06:04 | XMS_ITS | Clinical Summary ---
Author Organization [facility] Address [address] [place] [address] Care Team Providers Care Mailing Machine Assistant Name Role Phone Ángel Iqbal MD Primary Care Provider [phone] Leatha Zurita ACTIVITIES VOLUNTEER Unavailable [phone] Allergies Active Allergy Reactions Criticality Noted Date [...] 02/05/2021 Assessment & Plan (02/05/2021 5:05 PM ADULT SECONDARY EDUCATION INSTRUCTOR): Discussed that significant health benefits/risk reduction may [...] RYGB. Assessment & Plan (02/05/2021 5:19 PM ADULT SECONDARY EDUCATION INSTRUCTOR): Labs. Reviewed available prior labs in chart and Care Everywhere. Discussed insulin resistance including effect on weight and risk for progression to diabetes. Recommended low-carb, low-glycemic diet; choose whole grains and avoid more highly processed carbohydrates. Discussed potential benefits of this w/r/t gut microbiome. Referred to ADA and [place] websites for additional information on topics including glycemic index/carbohydrate choices, protein sources. Consider metformin, GLP-1 RA. Pain of left hand 11/27/2020 Gastroesophageal reflux disease 08/26/2020 Overview (08/26/2020): Added automatically from request for surgery [id number] Plantar fasciitis 04/26/2020 Insomnia 05/22/2019 Low back pain 02/19/2019 History of gastric bypass 02/19/2019 Assessment & Plan (03/16/2021 8:39 PM ADULT SECONDARY EDUCATION INSTRUCTOR): Routine labs to evaluate for vitamin deficiencies in setting of intestinal malabsorption. Irritable bowel syndrome with diarrhea 9 Lesion of liver 09/27/2018 Class 2 obesity in adult 11/23/2017 Overview (11/23/2017): Added automatically from request for surgery [id number] Assessment & Plan (03/16/2021 8:41 PM ADULT SECONDARY EDUCATION INSTRUCTOR): Obesity is worsening. General weight loss/lifestyle modification [...] 10/19/2017 Assessment & Plan (02/05/2021 5:22 PM ADULT SECONDARY EDUCATION INSTRUCTOR): Discussed role of diet, exercise and weight loss in improving lipid profile. Hypertensive disorder 10/19/2017 Kidney stone 10/19/2017 Knee pain 10/19/2017 Menopausal syndrome 10/19/2017 Recurrent boils 10/19/2017 Vitamin D deficiency 10/19/2017 Assessment & Plan (03/16/2021 8:38 PM ADULT SECONDARY EDUCATION INSTRUCTOR): Labs. Acute urinary tract infection 08/21/2017 No diagnosis on [place] I 08/17/2017 Trichomoniasis 08/13/2017 Benign essential HTN 06/22/2017 Assessment & Plan (02/05/2021 5:19 PM ADULT SECONDARY EDUCATION INSTRUCTOR): Reviewed role of diet, exercise, weight loss in controlling blood pressure. Recommended low sodium/DASH diet. Continue current medications. Unable to lose weight 03/28/2017 Headache 11/05/2016 Pain of both breasts 11/05/2016 Acute pharyngitis 12/31/2015 Impaired glucose tolerance 12/31/2015 Assessment & Plan (03/16/2021 8:38 PM ADULT SECONDARY EDUCATION INSTRUCTOR): Labs. Reviewed available prior labs in chart and Care Everywhere. Discussed insulin resistance including effect on weight and risk for progression to diabetes. Recommended low-carb, low-glycemic diet; choose whole grains and avoid more highly processed carbohydrates. Discussed potential benefits of this w/r/t gut microbiome. Referred to ADA and [employer] ? [employer] websites for additional information on topics [...] Department Care Team Description 01/18/2024 3:45 PM ADULT SECONDARY EDUCATION INSTRUCTOR Office Visit [facility] Surgery [address] [place] [address] [place] [address] Addy Brown MD Panniculitis (Primary Dx) from [...] on file Legal Sex Female 12:38 AM ADULT SECONDARY EDUCATION INSTRUCTOR Gender Identity Female 05/26/2020 10:20 AM CDT [...] this topic Medical Devices Implanted Type Area Invas Tech Device Identifier Shelf Expiration Date Model / Serial / Lot Wl [employer] [id number] Seamguard Bioabsorbable Reinforcement Staple Line Sterile Latex Free - [id number] Implanted:Qty: 1 on 01/30/2018 by Dianelys Mendosa MD at [facility] N/A: Abdomen Wl [employer] 09/27/2020 [id number] / / Wl [employer] [id number] Seamguard Bioabsorbable Reinforcement Staple Line Sterile Latex Free - [id number] Implanted:Qty: 1 on 01/30/2018 by Dianelys Mendosa MD at [facility] N/A: Abdomen Wl [employer] 09/27/2020 [id number] / / Wl [employer] [id number] Seamguard Bioabsorbable Reinforcement Staple Line Sterile Latex Free - [id number] Implanted:Qty: 1 on 01/30/2018 by Dianelys Mendosa MD at [facility] N/A: Abdomen Wl [employer] 05/28/2020 [id number] / / Insurance [place] [address] [facility] MEDICAID [facility] [place] [address] [facility] Advance Directives For more information, please contact: [phone] * Full Code (Latest Code Status on [...] 9:49 PM 02/05/2018 7:11 PM Care Teams Mailing Machine Assistant Relationship Specialty Start Date End Date Ángel Iqbal MD [address] [place] [address] PCP - General Internal Medicine 03/16/22 Leatha Zurita NP [address] [place] [address] Nurse Practitioner Nurse Practitioner 04/26/23
--- OUTSIDE RECORDS SUMMARY | 2024-03-26 06:04 | XMS_ITS | Referral Summary ---
Author Organization [facility] Address [address] [place] [address] Care Team Providers Care Airplane And Engine Inspector Name Role Phone Ángel Iqbal MD Primary Care Provider [phone] Leatha Zurita RESEARCH LABORATORY SPECIALIST Unavailable [phone] Encounters Date Type Department Care Team Description 01/18/2024 3:45 PM FAMILY MEDICINE CHAIR Office Visit [facility] Surgery [address] 6[address] [place] [address] [place] [address] Addy Brown MD Panniculitis (Primary [...] 02/05/2021 Assessment & Plan (02/05/2021 5:05 PM FAMILY MEDICINE CHAIR): Discussed that significant health benefits/risk reduction may [...] RYGB. Assessment & Plan (02/05/2021 5:19 PM FAMILY MEDICINE CHAIR): Labs. Reviewed available prior labs in chart and Care Everywhere. Discussed insulin resistance including effect on weight and risk for progression to diabetes. Recommended low-carb, low-glycemic diet; choose whole grains and avoid more highly processed carbohydrates. Discussed potential benefits of this w/r/t gut microbiome. Referred to ADA and [place] websites for additional information on topics including glycemic index/carbohydrate choices, protein sources. Consider metformin, GLP-1 RA. Pain of left hand 11/27/2020 Gastroesophageal reflux disease 08/26/2020 Overview (08/26/2020): Added automatically from request for surgery [id number] Plantar fasciitis 04/26/2020 Insomnia 05/22/2019 Low back pain 02/19/2019 History of gastric bypass 02/19/2019 Assessment & Plan (03/16/2021 8:39 PM FAMILY MEDICINE CHAIR): Routine labs to evaluate for vitamin deficiencies in setting of intestinal malabsorption. Irritable bowel syndrome with diarrhea 9 Lesion of liver 09/27/2018 Class 2 obesity in adult 11/23/2017 Overview (11/23/2017): Added automatically from request for surgery [id number] Assessment & Plan (03/16/2021 8:41 PM FAMILY MEDICINE CHAIR): Obesity is worsening. General weight loss/lifestyle modification [...] 10/19/2017 Assessment & Plan (02/05/2021 5:22 PM FAMILY MEDICINE CHAIR): Discussed role of diet, exercise and weight loss in improving lipid profile. Hypertensive disorder 10/19/2017 Kidney stone 10/19/2017 Knee pain 10/19/2017 Menopausal syndrome 10/19/2017 Recurrent boils 10/19/2017 Vitamin D deficiency 10/19/2017 Assessment & Plan (03/16/2021 8:38 PM FAMILY MEDICINE CHAIR): Labs. Acute urinary tract infection 08/21/2017 No diagnosis on [place] I 08/17/2017 Trichomoniasis 08/13/2017 Benign essential HTN 06/22/2017 Assessment & Plan (02/05/2021 5:19 PM FAMILY MEDICINE CHAIR): Reviewed role of diet, exercise, weight loss in controlling blood pressure. Recommended low sodium/DASH diet. Continue current medications. Unable to lose weight 03/28/2017 Headache 11/05/2016 Pain of both breasts 11/05/2016 Acute pharyngitis 12/31/2015 Impaired glucose tolerance 12/31/2015 Assessment & Plan (03/16/2021 8:38 PM FAMILY MEDICINE CHAIR): Labs. Reviewed available prior labs in chart and Care Everywhere. Discussed insulin resistance including effect on weight and risk for progression to diabetes. Recommended low-carb, low-glycemic diet; choose whole grains and avoid more highly processed carbohydrates. Discussed potential benefits of this w/r/t gut microbiome. Referred to ADA and [employer] websites for additional information on topics [...] on file Legal Sex Female 12:38 AM FAMILY MEDICINE CHAIR Gender Identity Female 05/26/2020 10:20 AM CDT [...] on file Medical Devices Implanted Type Area Cigarette Vendor Device Identifier Shelf Expiration Date Model / Serial / Lot Wl [employer] [id number] Seamguard Bioabsorbable Reinforcement Staple Line Sterile Latex Free - [id number] Implanted:Qty: 1 on 01/30/2018 by Dianelys Mendosa MD at [facility] N/A: Abdomen Wl [employer] 09/27/2020 [id number] / / [employer] [id number] Seamguard Bioabsorbable Reinforcement Staple Line Sterile Latex Free - [id number] Implanted:Qty: 1 on 01/30/2018 by Dianelys Mendosa MD at [facility] N/A: Abdomen Wl [employer] 09/27/2020 [id number] / / Wl [employer] [id number] Seamguard Bioabsorbable Reinforcement Staple Line Sterile Latex Free - [id number] Implanted:Qty: 1 on 01/30/2018 by Dianelys Mendosa MD at [facility] N/A: Abdomen Wl [employer] 05/28/2020 [id number] / / Insurance [facility] MED[facility]ID [facility] Advance Directives For more information, please contact: [phone] * Full Code (Latest Code Status on [...] 9:49 PM 02/05/2018 7:11 PM Care Teams Airplane And Engine Inspector Relationship Specialty Start Date End Date Ángel Iqbal MD [address] [place] [address] PCP - General Internal Medicine 03/16/22 Leatha Zurita NP [address] [place] [address] Nurse Practitioner Nurse Practitioner 04/26/23
[2024-03-26 06:18] VITALS: BP 145/97; PULSE 60; RESP 13; O2SAT 100
[2024-03-26] MEDS: FLUTICASONE PROPIONATE 0.05% NA SPR 16 GM BTL (*BKC) 2 SPRAY NASAL (06:27)
[2024-03-26] MEDS: PSEUDOEPHEDRINE HCL 30 MG TABLET PO (06:27)
[2024-03-26 08:10] VITALS: BP 151/110; PULSE 71; RESP 16; TEMP 36.4; O2SAT 100
--- NOTE | 2024-03-26 08:16 | ED_ITS ---
HPI - URI/Sore Throat General Chief Complaint: Upper Respiratory Infection Stated Complaint: itching throat, congestion, post nasal drip Time Seen by Provider: 03/26/24 05:32 History of Present Illness HPI Narrative: 43-year-old female presenting to the emergency department the URI symptoms including coughing, congestion, postnasal drip and itchy throat. She states she also had epigastric pain episode today that woke her from sleep that has resolved. Denies any difficulty breathing and chest discomfort. She states that she has been dealing with flu-like symptoms for last several days and taking Tylenol, cold and flu medication. This significant relief of her symptoms. She states that she feels like she is having significant postnasal drip causing her difficulty in breathing at night. She was otherwise in her normal state of health. Denies any recent injuries or illnesses. Did take recent antibiotics for dental infection about 2 months prior. No recent sick contacts or travel. Related Data Home Medications ?Medication ?Instructions ?Recorded ?Confirmed ?Last Taken ?Type acetaminophen 500 mg tablet 500 mg PO .q8 02/12/24 02/12/24 Unknown History atorvastatin 10 mg tablet 10 mg PO QPM 02/12/24 02/12/24 Unknown History dulaglutide 0.75 mg/0.5 mL 0.75 mg subcut WEEKLY 02/12/24 02/12/24 Unknown History subcutaneous pen injector (Trulicity) losartan 50 mg tablet 50 mg PO DAILY 02/12/24 02/12/24 Unknown History nifedipine 60 mg tablet,extended 60 mg PO DAILY 02/12/24 02/12/24 Unknown History release 24 hr Allergies Allergy/AdvReac Type Severity Reaction Status Date / Time clindamycin Allergy Mild Swelling Verified 03/26/24 01:05 NSAIDS (Non-Steroidal AdvReac Unknown Verified 03/26/24 01:05 Anti-Inflamma Review of Systems Review of Systems: As reviewed above in HPI ON LICENSE OF [facility] Past Medical History Medical History Hypercholesterolemia Migraine Obesity Depression UTI (urinary tract infection) HTN (hypertension) Kidney stone Surgical History Surgical History Status post panniculectomy November 15, 2023 at [place] History of laparoscopic appendectomy 08/02/19 History of hysterectomy Laparoscopic total hysterectomy with BSO Hx of gastric bypass In January of 2019 at [place], current weight loss of 100 pounds since surgery Family History Family History Mother Diabetes mellitus Father , At age 64 Heart disease Acute myocardial infarction Diabetes mellitus Social History Social History Social History: She is and has 4 children. She works for a [employer]. She has never smoked. Primary care provider: Andrews Falcon PA Code status full code Smoking status: Never smoker Alcohol intake: current Drinks per week: 2 Alcohol use details: She reports that since her father's last year she has been drinking more alcohol. She was drinking 2-3 alcoholic beverages a night. She has cut back down to 2 drinks a week over the last couple of months. Substance use: never Last use: Yesterday had an edible. Lack of Transportation: No Lack of Food: Never True Current Housing: I Have Housing Concerned About Future Housing: No Difficulty Paying Gas/Electric Bills: No Difficulty Paying for Meds: No Currently Unemployed: No Education: Decline to Answer Difficulty w/ Childcare or Family Care: No Living arrangements: with family Additional living arrangements comments: With her they have been together for 22 years and been for 9 years.. They have 4 children. Her oldest child is 22 years old and youngest is 12. Occupation/Education: other Additional occupation/education comments: Works for the [employer]. Currently on short-term disability due to depression. Gender identity (if verbalized by the patient): Female Spiritual care concerns: No Exam Narrative: GENERAL: [Well-appearing, well-nourished, and in no acute distress.] HEAD: [Normocephalic, atraumatic.] EYES: [PERRLA and EOMI.] ENT: Nares clear, no rhinorrhea or epistaxis. Mucous membranes moist. Evidence of postnasal drip NECK: Supple. CHEST: [Clear to auscultation. No respiratory distress.] HEART: [Regular rate and rhythm]. No murmur heard. [Normal peripheral pulses.] ABDOMEN: [Soft, nondistended], [nontender], [No rigidity or guarding] EXTREMITIES: Normal range of motion. [No edema.] SKIN: Warm, dry, no rash. NEURO: [No focal deficits]. Alert and oriented [x3.] PSYCH: [Normal mood and affect.] Course Vital Signs Vital signs: Vital Signs Temperature 36.2 C L 03/26/24 00:56 Pulse Rate 83 03/26/24 00:56 Respiratory Rate 20 03/26/24 00:56 Blood Pressure 176/107 H 03/26/24 00:56 Pulse Oximetry 100 03/26/24 00:56 Oxygen Delivery Room Air 03/26/24 00:56 Temperature 36.2 C L 03/26/24 00:56 Pulse Rate 60 03/26/24 06:18 Respiratory Rate 13 03/26/24 06:18 Blood Pressure 145/97 H 03/26/24 06:18 Pulse Oximetry 100 03/26/24 06:18 Oxygen Delivery Room Air 03/26/24 05:26 MDM - URI/Sore Throat MDM Narrative Medical decision making narrative: 43-year-old otherwise healthy female presenting with URI symptoms for last several days. She experiences sore throat after postnasal drip throughout the night and feels like she is having difficulty in breathing despite called to flu medication. She otherwise appears well in, not any acute distress, no fever, hypoxia, tachycardia or significant blood pressure concerns. Her examination is reassuring. Symptoms consistent with URI versus flu-like symptoms versus COVID versus pneumonia less likely. EKG was obtained given the sharp epigastric/chest pain she had that resolved and chest x-ray, COVID fluid RSV swabs obtained. She was given Sudafed and Flonase. Chest x-ray shows no acute concern. EKG without any ST segment elevations or depressions. COVID flu and RSV swabs are negative. Patient felt improved and is stable for discharge home with symptom controlling medications which we prescribed to her. She is given return precautions and safely discharged at this time. Medical Records Attestation: I reviewed the patient's medical records. Lab Data Attestation: I reviewed the patient's lab results. Labs: Lab Results 03/26/24 Range/Units 05:15 Influenza A (RT-PCR) Negative (Negative) Influenza B (RT-PCR) Negative (Negative) RSV (RT-PCR) Negative (Negative) SARS-CoV-2 RNA (RT-PCR) Negative (Negative) Imaging Data Attestation: I personally reviewed and interpreted this imaging study as follows: My impression: Impressions Chest X-Ray 03/26/24 06:32 Impression: Normal chest. Discharge Plan Discharge Clinical Impression: Acute upper respiratory infection Patient Disposition: Home, Self-Care Condition: Stable Instructions: Antibiotic Form, Upper Respiratory Infection (DC), Viral Syndrome (ED) Additional Instructions: Your symptoms are very consistent with a viral upper respiratory tract infection, your COVID flu and RSV swabs were negative and her chest x-ray shows no evidence of a pneumonia. We will send you home with some symptomatic controlling medications, follow-up with your regular doctor as needed. Patient Language: Italian Prescriptions: New fluticasone propionate [Flonase Allergy Relief] 50 mcg/actuation spray,suspension 1 spray intranasal Q12H Qty: 16 0RF Rx Instructions: administer into each nostril pseudoephedrine HCl 30 mg tablet 30 mg PO Q4-6H PRN (Reason: nasal congestion) 5 Days Qty: 28 0RF Rx Instructions: DNExceed 4 doses/24h loratadine [Claritin] 10 mg tablet 10 mg PO DAILY PRN (Reason: congestion) Qty: 20 0RF No Action acetaminophen 500 mg tablet 500 mg PO .q8 atorvastatin 10 mg tablet 10 mg PO QPM Trulicity 0.75 mg/0.5 mL pen injector 0.75 mg SUBCUT WEEKLY losartan 50 mg tablet 50 mg PO DAILY nifedipine 60 mg tablet extended release 24hr 60 mg PO DAILY amoxicillin 875 mg tablet 875 mg PO Q12H 10 Days Qty: 20 0RF Follow-up/Referrals: Masoud,MD Ray [Primary Care Provider] - Time of Disposition: 07:51
== END 2024-03-26 08:10 | disposition home or self-care (01) ==
PROVIDERS: Emergency Provider Student in an Organized Health Care Education/Training Program; PCP Internal Medicine
DX: J06.9 Acute upper respiratory infection, unspecified (principal); E78.00 Pure hypercholesterolemia, unspecified; I10 Essential (primary) hypertension; F32.A Depression, unspecified; Z98.84 Bariatric surgery status; Z20.822 Contact with and (suspected) exposure to COVID-19
CPT/HCPCS: 71045; 87637; 93005; 99283; A9270

== ENCOUNTER 2024-05-19 11:01 | Emergency (ER) | payer OTHER, SELFPAY ==
[2024-05-19 11:01] VITALS: BP 197/143; PULSE 73; RESP 15; TEMP 36.7; O2SAT 100
[2024-05-19 11:13] VITALS: PULSE 74; RESP 19; O2SAT 100
[2024-05-19 11:16] VITALS: BP 197/139; PULSE 77; RESP 15; O2SAT 100
[2024-05-19 11:31] VITALS: BP 190/129; PULSE 75; RESP 17; O2SAT 99
--- OUTSIDE RECORDS SUMMARY | 2024-05-19 11:44 | XMS_ITS | Encounter Summary ---
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
--- OUTSIDE RECORDS SUMMARY | 2024-05-19 11:44 | XMS_ITS | Encounter Summary ---
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
--- OUTSIDE RECORDS SUMMARY | 2024-05-19 11:44 | XMS_ITS | Referral Summary ---
Author Organization [facility] Address [address] [place] [address] Care Team Providers Care Hospice Educator Name Role Phone Ángel Iqbal MD Primary Care Provider [phone] Leatha Zurita CONCESSION MANAGER Unavailable [phone] Allergies Active Allergy Reactions Criticality Noted Date [...] colorectal cancer 04/26/2023 Intussusception of small bowel 04/24/2023 Panniculitis 02/02/2023 Iron deficiency anemia 04/16/2022 Pain of elbow on movement 12/04/2021 Sinus bradycardia 05/21/2021 Muscle strain of left shoulder 02/09/2021 Encounter for weight management 02/05/2021 Assessment & Plan (02/05/2021 5:05 PM EXPERIMENTAL MACHINIST): Discussed that significant health benefits/risk reduction may [...] RYGB. Assessment & Plan (02/05/2021 5:19 PM EXPERIMENTAL MACHINIST): Labs. Reviewed available prior labs in chart and Care Everywhere. Discussed insulin resistance including effect on weight and risk for progression to diabetes. Recommended low-carb, low-glycemic diet; choose whole grains and avoid more highly processed carbohydrates. Discussed potential benefits of this w/r/t gut microbiome. Referred to ADA and [employer] websites for additional information on topics including glycemic index/carbohydrate choices, protein sources. Consider metformin, GLP-1 RA. Pain of left hand 11/27/2020 Gastroesophageal reflux disease 08/26/2020 Overview (08/26/2020): Added automatically from request for surgery [id number] Plantar fasciitis 04/26/2020 Insomnia 05/22/2019 Low back pain 02/19/2019 History of gastric bypass 02/19/2019 Assessment & Plan (03/16/2021 8:39 PM EXPERIMENTAL MACHINIST): Routine labs to evaluate for vitamin deficiencies in setting of intestinal malabsorption. Irritable bowel syndrome with diarrhea 9 Lesion of liver 09/27/2018 Class 2 obesity in adult 11/23/2017 Overview (11/23/2017): Added automatically from request for surgery [id number] Assessment & Plan (03/16/2021 8:41 PM EXPERIMENTAL MACHINIST): Obesity is worsening. General weight loss/lifestyle modification [...] 10/19/2017 Assessment & Plan (02/05/2021 5:22 PM EXPERIMENTAL MACHINIST): Discussed role of diet, exercise and weight loss in improving lipid profile. Hypertensive disorder 10/19/2017 Kidney stone 10/19/2017 Knee pain 10/19/2017 Menopausal syndrome 10/19/2017 Recurrent boils 10/19/2017 Vitamin D deficiency 10/19/2017 Assessment & Plan (03/16/2021 8:38 PM EXPERIMENTAL MACHINIST): Labs. Acute urinary tract infection 08/21/2017 No diagnosis on [place] I 08/17/2017 Trichomoniasis 08/13/2017 Benign essential HTN 06/22/2017 Assessment & Plan (02/05/2021 5:19 PM EXPERIMENTAL MACHINIST): Reviewed role of diet, exercise, weight loss in controlling blood pressure. Recommended low sodium/DASH diet. Continue current medications. Unable to lose weight 03/28/2017 Headache 11/05/2016 Pain of both breasts 11/05/2016 Acute pharyngitis 12/31/2015 Impaired glucose tolerance 12/31/2015 Assessment & Plan (03/16/2021 8:38 PM EXPERIMENTAL MACHINIST): Labs. Reviewed available prior labs in chart and Care Everywhere. Discussed insulin resistance including effect on weight and risk for progression to diabetes. Recommended low-carb, low-glycemic diet; choose whole grains and avoid more highly processed carbohydrates. Discussed potential benefits of this w/r/t gut microbiome. Referred to ADA and [employer] websites for additional information on topics including glycemic index/carbohydrate choices, protein sources. 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 Gender Identity Female 05/26/2020 10:20 AM CDT Sexual Orientation Straight 05/26/2020 10 :20 AM CDT Last Filed Vital Signs Vital Sign Reading Time Taken Comments Blood Pressure 152/92 11/15/2023 3:30 PM CDT Pulse 84 11/15/2023 3:30 PM CDT Temperature 36 C (96.8 F) 11/15/2023 1:45 PM CDT Respiratory Rate 17 11/15/2023 3:30 PM CDT Oxygen Saturation 97% 11/15/2023 3:30 PM CDT Inhaled Oxygen Concentration - - Weight 92.1 kg (203 lb) 11/15/2023 8:33 AM CDT Height 165.1 cm (5' 5 ) 11/15/2023 8:33 AM CDT Body Mass Index 33.78 11/15/2023 8:33 AM CDT Plan of Treatment Not on file Medical Devices Implanted Type Area Project Construction Manager Device Identifier Shelf Expiration Date Model / Serial / Lot [employer] [id number] Seamguard Bioabsorbable Reinforcement Staple Line Sterile Latex Free - [id number] Implanted:Qty: 1 on 01/30/2018 by Dianelys Mendosa MD at [facility] N/A: Abdomen [employer] 09/27/2020 [id number] / / [employer] [id number] Seamguard Bioabsorbable Reinforcement Staple Line Sterile Latex Free - [id number] Implanted:Qty: 1 on 01/30/2018 by Dianelys Mendosa MD at [facility] N/A: Abdomen [employer] 09/27/2020 [id number] / / [employer] [id number] Seamguard Bioabsorbable Reinforcement Staple Line Sterile Latex Free - [id number] Implanted:Qty: 1 on 01/30/2018 by Dianelys Mendosa MD at [facility] N/A: Abdomen [employer] 05/28/2020 [id number] / / Insurance [facility] MEDICAID [facility] [place] [address] [facility] Advance Directives For more information, please contact: [phone] * Full Code (Latest Code Status on [...] 9:49 PM 02/05/2018 7:11 PM Care Teams Hospice Educator Relationship Specialty Start Date End Date Ángel Iqbal MD [address] [place] [address] PCP - General Internal Medicine 03/16/22 Leatha Zurita NP [address] [place] [address] Nurse Practitioner Nurse Practitioner 04/26/23
--- OUTSIDE RECORDS SUMMARY | 2024-05-19 11:44 | XMS_ITS | CONTINUITY OF CARE DOCUMENT ---
Author Name andriy, andriy Address Unknown Organization [facility] Address [address] [place] [address] Phone [phone] Care Team Providers Care Detective Sergeant Name Role Phone Jeffery Gee MD Unavailable [phone] MAXIME THOMASON Unavailable YAMILET DANIEL MD Unavailable [phone] PROBLEMS Condition Status Date Provider Notes Hypertension [...] In-person encounter Office Visit Jeffery Gee MD [place] [facility] Cardiology examination - In-person encounter Office Visit Jeffery Gee MD [facility] - In-person encounter Office Visit Jeffery Gee MD [facility] - In-person encounter Office Visit Jeffery Gee MD [facility] - In-person encounter Office Visit Jeffery Gee MD [facility] - In-person encounter Office Visit Jeffery Gee MD [facility] HypertensionChest painDepressionObesity s/p gastric bypassSinus bradycardiaCardiovascular screening VITAL SIGNS Date Observation Value Provider Body Mass Index (Ratio) 33.94 kg/m2 Arcelia Gee MD blood pressure, diastolic 112 mm[Hg] Jimi man Gregorio blood pressure, systolic 148 mm[Hg] Kelly caro Gregorio oxygen saturation, oximetry 100 % [facility] pulse rate 61 /min [facility] Greg[facility] weight E&M 204 [lb_av] [facility] blood pressure, cuff size regular Jimi magda Gregorio height E&M 65 [in_i] [facility] Body Mass Index (Ratio) 31.61 kg/m2 Arcelia Gee MD blood pressure, cuff size regular Ja [facility] blood pressure, diastolic 94 mm[Hg] Ja et blood pressure, systolic 121 mm[Hg] D[facility] pulse rate 62 /min Coy respiratory rate E&M 12 /min Coy oxygen saturation, oximetry 97 % Coy weight E&M 190 [lb_av] Coy height E&M 65 [in_i] Coy y Body Mass Index (Ratio) 31.45 kg/m2 Arcelia Gee MD blood pressure, diastolic 91 mm[Hg] Sh shazia eLon blood pressure, systolic 128 mm[Hg] She mary [...] shazia Leon blood pressure, systolic 143 mm[Hg] [facility] mary ann Leon weight E&M 189 [...] Si ms oxygen saturation, oximetry 93 % Martian Esposito pulse rate 78 /min Martina Esposito [...] blood pressure, systolic 157 mm[Hg] Cat anushka [place] oxygen saturation, oximetry 85 % Ignacia [place] respiratory rate E&M 14 /min Khadijah leavitt [place] weight E&M 221 [lb_av] Ignacia Keanu height E&M 65 [in_i] Ignacia [place] blood pressure, cuff size regular Ca therine [...] mg/0.5 mL pen injector active Maya Ventimiglia MATERNAL CHILD NURSE Vitamin D2 1,250 mcg (50,000 unit) capsule [...] DAY IN THE MORNING - Maya Ventimiglia MATERNAL CHILD NURSE clonidine HCl 0.1 mg tablet completed - [...] MD drug use no Maya Ventimig sarthak MATERNAL CHILD NURSE alcohol use no Maya Ventimig sarthak MATERNAL CHILD NURSE smoking status Never smoker Noelle Leon smoking [...] red democrat ID SAMANTHA MEDICAID (2) Medicaid [id number] ADVANCE DIRECTIVES Name Date DISCUSSED - NO DECISION MADE TREATMENT PLAN Date Name Performer [id number],S, Mayajayla pool [facility] [id number],S,HR in 70s [place] ron Garcia [facility] [id number],C,B P improving but diastolic BP remains elevated [...] 1 tablet once a day Maya Garcia [facility] [id number],S,P t's pressure is high. Pt reports she [...] day in the morning Jeffery Gee MD [id number],S, P t advised to lose weight. Jeffery Gee MD [id number],S, R ecommended patient lose weight. Jeffery Gee MD [id number],W,S ounds atypical. Since she has some risk factors for CAD we'll order a regadenoson stress test and an echo. Recommended she take a baby aspirin until we get the stress test. Jeffery Gee MD [id number],W, B P seems to runchronically elevated even [...] Jeffery Gee MD Cardiology Maya Ventimigl ia [facility] Cardiology:HR in 70s Maya Billings imiglia [facility] Cardiology:BP improv ing but diastolic BP [...] 1 tablet once a day Maya Ventimiglia [facility] Cardiology:Pt's pres sure is high. Pt [...]
--- OUTSIDE RECORDS SUMMARY | 2024-05-19 11:44 | XMS_ITS | Data Portability ---
Author Organization [place] [facility] [employer], Main Office Address [address] [place] [address] Care Team Providers Care Plastics Engineer Name Role Phone VISHNU VÁSQUEZ Primary Care Provider [phone] VISHNU VÁSQUEZ Referring Provider Assessment Encounter Date [...] the plan. [email or web address] Not available 09/28/2023 22:38:55 04/26/2024 04/26/[address] Partida for surgical intervention, HAV correction [email or web address] Not available 05/07/2024 08:53:39 Plan of Treatment Reminders Order Date Submit Date Provider Last Modified By Organization Details Last Modified Time Details Appointments New Patient 15 2024 03:15P Wiliam Partida, JOAN Not available Not available Not available Lab None recorded. Referral podiatris t referral - BUNION/TOVAR MMER TOE EVAL 2024 025 SHEY Partida DPM, [address], [place], [address], 05/07/2024 08:54:23 physical therapist referral - eval and treat [address] [facility], [address], [place], [address], 09/28/2023 23:19:56 Procedures None recorded. Surgeries None recorded. Imaging XR, foot, 3 or more view 2024 025 [facility] (Radiology), [address] [place], [address], 05/07/2024 08:55:56 XR, knee, 3 view 2023 024 [facility] [place], [address], [place], [address], 09/30/2023 11:34:18 Medication Orders None recorded. Patient TargetsNo targets recorded. Patient InstructionsNo instructions recorded. Reason for Referral Physical Therapist Referral for Pain of left knee joint eval and treat Referring Physician: Carlos Alberto Ugalde, Orthopedic Surgery, Encounter Date: 09/28/2023 Senior Network Administrator Referral for Buni on BUNION/HAMMER TOE EVAL Referring Physician: Madhav Myers, Podiatry, Encounter Date: 04/26/2024 Results Created Date Observation Date Name Description Value Unit Range Abnormal Flag Note LastModifiedBy Organization Detail LastModifiedTime 10/15/19 21 10/14/2020 urina lysis , dipst ick Leukocytes (reference range: negative jayla/ l) Large Not Available [facility] [place] [address], [address], [place], [address], 10/14/2020 08:44:24 10/15/19 21 10/14/2020 urina lysis , dipst ick Nitrite (reference rage: negative mg/dl) negati ve Not Available [address], [address], 10/14/2020 08:44:24 10/15/19 21 10/14/2020 urina lysis , dipst ick Urobilinogen (reference range: 0.2-1 mg/dl) 0.2 Not Available [address], [address], 10/14/2020 08:44:24 10/15/19 21 10/14/2020 urina lysis , dipst ick Protein (reference range: negative mg/dl) Negati ve Not Available [address], [address], 10/14/2020 08:44:24 10/15/19 21 10/14/2020 urina lysis , dipst ick pH (reference range: 5-7) 7.0 Not Available [address], [address], 10/14/2020 08:44:24 10/15/19 21 10/14/2020 urina lysis , dipst ick Blood (reference range: negative [place]/ l) Non-He molyze d: Trace Not Available [address], [address], 10/14/2020 08:44:24 10/15/19 21 10/14/2020 urina lysis , dipst ick Specific [place] (reference range: 1.005-1.030) 1.025 Not Available [address], [address], 10/14/2020 08:44:24 10/15/19 21 10/14/2020 urina lysis , dipst ick Ketone (reference range: negative mg/dl) Negati ve Not Available [address], [address], 10/14/2020 08:44:24 10/15/19 21 10/14/2020 urina lysis , dipst ick Bilirubin (reference range: negative mg/dl) Negati ve Not Available [address], [address], 10/14/2020 08:44:24 10/15/1910/14/2020 urina lysis , dipst ick Glucose (reference range: negative mg/dl) Negati ve Not Available [address], [address], 10/14/2020 08:44:24 10/15/1910/14/2020 urina lysis , dipst ick Appearance Clear Not Available [address], [address], 10/14/2020 08:44:24 10/15/19 21 10/14/2020 urina lysis , dipst ick Color Yellow Not Available [address] [place], [address], 10/14/2020 08:44:24 10/15/19 21 10/14/2020 US, bladd er No observ ation record ed. [id number] [facility] [place] [address], [place], [address], 04/28/2022 23:32:24 09/28/19 24 XR, knee, 3 view No observ ation record ed. s[facility] [place] [address], [place], [address], 09/28/2023 15:38:07 11/03/19 24 11/03/2023 scree calvin breas t eugene, bilat [facility] [address] [place] [address] [phone] Patien t Name: RENETTA AVALOS Access ion #: [id number] Sex: F : 1980 3 Dictat ed By: Bernadette Atkins Attend ing Physic dez: LINNETTE VÁSQUEZ Orderi Physic dez: LINNETTE VÁSQUEZ Exam Date: 2023 [...] at 2023 16:19: 35 PM Page 1 [email or web address] [facility] (Imaging) [address] [place], [address], 11/15/2023 09:50:27 Result Notes None recorded. Problems Name Problem SNOMED Code Status Onset Date Resolution Date Notes Provider Name and Address Organization Details Recorded Time Pain of left knee joint 253455138687933 Active 2023 BEN Clarke, [employer] 4 15:37:43 Bunion [id number] Active 2024 BEN Burgos, [employer] 5 16:07:19 Notes:Some problems listed i n Document: #[id number] could not be added to this patient's chart. Please review this document and add these problems to the patient's chart manually as needed. Problem Notes None recorded. Procedures Surgical History Date Name Laterality Status Provider Name and Address Organization Details Recorded Time 02/28/19 21 Appendectomy completed Not Available [facility] 023 23:29:04 02/28/19 21 Kidney Stones completed Not Available [facility] 2022 23:29:04 01/29/20 19 Gastric Bypass completed Not Available [facility] 04/28 23:29:04 02/28/19 12 Hysterectomy completed Not Available [facility] 023 23:29:04 Imaging Results Imaging Date Name Status LastModified by [facility] Details LastModified Time 10/14/2020 US, bladder completed [id number] [facility] [place] [address], [place], [address], 04/28/2022 23:32:24 09/28/2023 XR, knee, 3 view completed [email or web address] [facility] Sudarshan Fall [address], [place], [address], 09/28/2023 15:38:07 11/03/2023 screening breast eugene, bilat completed [email or web address] [facility] ([facility]) [address], [place], [address], 11/15/2023 09:50:27 Procedure Notes None recorded. Medical Equipment None Reported. Allergies Allergen ID Allergen Name Allergen Category Reaction Reaction Severity Criticality Documentation Date Start Date Code Code System Note Provider Name and Address Organization Details Recorded Time 15049 Non-stero idal anti-infl ammatory agent (product) medicatio n Not available Not available Not available 04/28/2022 19764 005 SNOMED Not Available [facility] 3 23:32:07 15017 clindamyc in Not available Not available Not available Not available 04/28/2022 2582 RxNorm Not Available [facility] 3 23:32:07 Medications Name Sig Start Date Stop Date Status Note LastModified by Organization Details LastModified Time multivitami n tablet TAKE 1 TABLET BY MOUTH TWICE DAILY active Not Available Not Available No t Available losartan 50 mg tablet active Not Available Not Available No t Available nifedipine ER 30 mg tablet,exte nded release 24 hr TAKE 1 TABLET BY MOUTH EVERY DAY 09/27 completed Not Available Not Available Not Available fluoxetine 40 mg capsule TAKE ONE CAPSULE BY MOUTH EVERY MORNING. 09/25 completed Not Available Not Available Not Available cyclobenzap rine 10 mg tablet TAKE 1 TABLET BY MOUTH AT BEDTIME NEEDED active Not Available Not Available No t Available amoxicillin 500 mg capsule TAKE ONE CAPSULE BY MOUTH THREE TIMES DAILY UNTIL ALL TAKEN active Not Available Not Available No t Available promethazin e-DM 6.25 mg-15 mg/5 mL [...] 5 mg-acetamin ophen 325 mg tablet TAKE 1 TABLET BY MOUTH EVERY 12 HOURS NEEDED FOR PAIN active Not Available Not Available No t Available prednisone 20 mg tablet TAKE 1 [...] 1 TABLET BY MOUTH EVERY 12 HOURS active Not Available Not Available No t Available peg-electro lyte solution 420 gram oral solution FOLLOW PACKAGE DIRECTION S 09/27 completed Not Available Not Available Not Available omeprazole 40 mg capsule,del ayed release TAKE 1 CAPSULE BY MOUTH EVERY DAY 30 MINUTES BEFORE FOOD 09/25 completed Not Available Not Available Not Available doxycycline monohydrate 100 mg tablet active Not Available Not Available Not Available acetaminoph en 500 mg tablet TAKE 1 TABLET BY MOUTH EVERY 8 HOURS FOR 10 DAYS active Not Available Not Available No t Available pantoprazol e 20 mg tablet,yina yed release TAKE 1 TABLET BY MOUTH AT BEDTIME FOR 4 WEEKS 09/27 completed Not Available Not Available Not Available amoxicillin 875 mg tablet TAKE 1 TABLET BY MOUTH EVERY 12 HOURS FOR 10 DAYS active Not Available Not Available No t Available famotidine 20 mg tablet TAKE 1 TABLET BY MOUTH TWICE DAILY 10/14 completed Not Available Not Available Not Available nifedipine ER 60 mg tablet,exte nded release 24 hr TAKE 1 TABLET BY MOUTH EVERY DAY active Not Available Not Available No t Available gentamicin 0.3 % eye drops INSTILL [...] completed Not Available Not Available Not Available fluticasone propionate 50 mcg/actuati on nasal spray,suspe nsion SHAKE LIQUID AND USE 1 SPRAY IN EACH NOSTRIL EVERY 12 HOURS active Not Available Not Available No t Available loratadine 10 mg tablet TAKE 1 TABLET BY MOUTH DAILY NEEDED FOR CONGESTIO N active Not Available Not Available No t Available naproxen 500 mg tablet TAKE 1 TABLET BY MOUTH TWICE DAILY WITH MEALS 10/14 completed Not Available Not Available Not Available amoxicillin 875 mg-potassiu m clavulanate 125 mg tablet TAKE 1 TABLET BY MOUTH EVERY 12 HOURS FOR 5 DAYS 09/25 completed Not Available Not Available Not Available oxycodone 5 mg tablet active Not Available Not Available No t Available losartan 100 mg-hydrochl orothiazide 12.5 mg [...] 1.5 mg/0.5 mL subcutaneou s pen injector ADMINISTE R 1.5 MG UNDER THE SKIN EVERY WEEK active Not Available Not Available No t Available Trulicity 0.75 mg/0.5 mL subcutaneou s pen injector active Not Available Not Available Not Available Trulicity 3 mg/0.5 mL subcutaneou s [...] % 96 % 70 /min 97.9 [degF] 66776.5 8 g 180 mm[Hg] 110 mm[Hg] Not Available [employer] 3 23:29:09 Date Recorded Body height Body mass index (BMI) Body weight Pain severity - 0-10 verbal numeric rating [Score] - Reported Provider Name and Address Organization Details Last Updated DateTime 09/28/2023 165.1 cm 32.6 kg/m2 56831.1 g 4 BEN Clarke [place] [facility] 09/28/2023 15:35:52 Social History Question Answer Notes LastModified by Organizat ion Details LastModified Time Tobacco Smoking Status Never Smoker Not Available [facility] 04/28/2022 23:28:20 What Is Your Level Of Alcohol Consumption? Moderate Information not available 09/28/2023 If You Are , What Was Your Level Of Alcohol Consumption Prior To ? None [id number] Information not available 04/28/2022 What Is Your Level Of Caffeine Consumption? None [id number] Information not available 04/28/2022 What Was The Date Of Your Most Recent Tobacco Screening? 09/28/2023 [email or web address] Information not available 09/28/2023 Have You Ever Been Counseled For Unhealthy Alcohol Use? No [id number] Information not available 04/28/2022 Do You Use Any Illicit Or Recreational Drugs? No [id number] Information not available 04/28/2022 Has Tobacco Cessation Counseling Been Provided? No [id number] Information not available 04/28/2022 Do You Or Have You Ever Used Any Other Forms Of Tobacco Or Nicotine? No [id number] Information not available 04/28/2022 Sex: Unknown Functional Status None recorded. Mental Status None recorded. Family History Relationship Description Onset Age of this Age Resolved Age Notes LastModified by Organization Details LastModified Time Unspecified Relation Diabetes mellitus [id number] Not available 04/28/2022 23:29:04 Unspecified Relation Hypertensive disorder [id number] Not available 04/28/2022 23:29:04 Medical History Condition Response CYSTITIS N BLINDNESS N RHEUMATIC FEVER N KIDNEY STONES Y BLADDER PROBLEMS N Enlarged Prostate N SLEEP APNEA N MRSA N INFECTIOUS DISEASE N LUNG DISEASE/DISORDER N HEART ARRHYTHMIA N PROSTATE N INSOMNIA N HISTORY OF DRUG ABUSE N RADIATION / CHEMOTHERAPY N COPD N HIGH CHOLESTEROL / HYPERLIPIDEMIA N HYPERTHYROIDISM N UTI N BLOOD DISEASES N EDEMA N HYPOTHYROIDISM N SHINGLES N BOWEL PROBLEMS N BACK / NECK PROBLEMS N DEPRESSION (INCLUDING POST ) Y HAVE YOU BEEN HOSPITALIZED OR SEEN IN [facility] IN THE PAST YEAR ? N STROKE/TIA N THYROID DISEASE N BENIGN PROSTATIC HYPERPLASIA N DIALYSIS N OBESITY N GERD/NAUSEA N ANEURYSM N OSTEOPOROSIS N URINARY/BLADDER/KIDNEY PROBLEMS N Increased Urination N CORONARY ARTERY DISEASE (CAD) N ARTHRITIS [...] SPECIFY N TOURETTE'S N BLOOD TRANSFUSION N ANEMIA/BLOOD DISORDER N ANESTHESIA COMPLICATIONS N ATRIAL FIBRILLATION N AUTOIMMUNE DISEASE N TUBERCULOSIS N GLAUCOMA N Gynecological HistoryNo gynecological history recorded. Obstetrics History GPAL:G 0 P 0 0 0 0 Past Encounters Encounter ID Performer Location Encounter Start Date Encounter Closed Date Diagnosis/Indication Diagnosis SNOMED-CT Code Diagnosis ICD10 Code Diagnosis Note [id number] [facility] [place] [address] [place] [address] 10/14/2020 00:00:00 10/14/2020 09:49:34 [id number] Carlos Alberto Ugalde MD [facility] [place] [address] [place] [address] 09/28/2023 15:14:50 09/28/2023 16:31:06 Pain of left knee joint 3266084523 71076 M25.210 [id number] Madhav Myers DPM [facility] [address] [address] 04/26/2024 15:47:07 05/07/2024 08:53:48 Bunion 539694132 M21.619 Health Concerns Section Related Observation LastModified by Organization Detai ls LastModified Time None Recorded Concern Status LastModified by Organization Details LastModified Time None Recorded Advance Directives Directive None Recorded Payers Encounter Date Sequence Insurance Name Policy Number Policy Nevarez Covered Member ID Nevarez Member ID Guarantor Name 09/28/2023 1 [facility] ON OR AFTER 08/28/20 (MEDICAID REPLACEMENT - HMO) Trish Haro [id number] Trish Haro 04/26/2024 1 [facility] ON OR AFTER 08/28/20 (MEDICAID REPLACEMENT - HMO) Trish Haro [id number] Trish Haro Notes Date Note Type Note Provider Name and Address Organization Details Recorded Time 04/26/2024 text/html Pt RTC for c/o bunions lindy; seeks permanent alleviation via surgery Madhav Myers DPM [address] [facility] [facility] [address], [place], [address], [place] [facility] 05/07/2024 08:53:47 OBGyn Episode No OBEpisode recorded.
--- OUTSIDE RECORDS SUMMARY | 2024-05-19 11:44 | XMS_ITS | Clinical Summary ---
Author Organization [facility] Address [address] [place] [address] Care Team Providers Care Chemical Etching Processor Name Role Phone Ángel Iqbal MD Primary Care Provider [phone] ROLLER OPERATOR Unavailable [phone] Allergies Active Allergy Reactions Criticality Noted Date [...] 02/05/2021 Assessment & Plan (02/05/2021 5:05 PM DRILL PRESS HAND): Discussed that significant health benefits/risk reduction may [...] RYGB. Assessment & Plan (02/05/2021 5:19 PM DRILL PRESS HAND): Labs. Reviewed available prior labs in chart and Care Everywhere. Discussed insulin resistance including effect on weight and risk for progression to diabetes. Recommended low-carb, low-glycemic diet; choose whole grains and avoid more highly processed carbohydrates. Discussed potential benefits of this w/r/t gut microbiome. Referred to ADA and [employer] [employer] websites for additional information on topics including glycemic index/carbohydrate choices, protein sources. Consider metformin, GLP-1 RA. Pain of left hand 11/27/2020 Gastroesophageal reflux disease 08/26/2020 Overview (08/26/2020): Added automatically from request for surgery [id number] Plantar fasciitis 04/26/2020 Insomnia 05/22/2019 Low back pain 02/19/2019 History of gastric bypass 02/19/2019 Assessment & Plan (03/16/2021 8:39 PM DRILL PRESS HAND): Routine labs to evaluate for vitamin deficiencies in setting of intestinal malabsorption. Irritable bowel syndrome with diarrhea 9 Lesion of liver 09/27/2018 Class 2 obesity in adult 11/23/2017 Overview (11/23/2017): Added automatically from request for surgery [id number] Assessment & Plan (03/16/2021 8:41 PM DRILL PRESS HAND): Obesity is worsening. General weight loss/lifestyle modification [...] 10/19/2017 Assessment & Plan (02/05/2021 5:22 PM DRILL PRESS HAND): Discussed role of diet, exercise and weight loss in improving lipid profile. Hypertensive disorder 10/19/2017 Kidney stone 10/19/2017 Knee pain 10/19/2017 Menopausal syndrome 10/19/2017 Recurrent boils 10/19/2017 Vitamin D deficiency 10/19/2017 Assessment & Plan (03/16/2021 8:38 PM DRILL PRESS HAND): Labs. Acute urinary tract infection 08/21/2017 No diagnosis on [place] I 08/17/2017 Trichomoniasis 08/13/2017 Benign essential HTN 06/22/2017 Assessment & Plan (02/05/2021 5:19 PM DRILL PRESS HAND): Reviewed role of diet, exercise, weight loss in controlling blood pressure. Recommended low sodium/DASH diet. Continue current medications. Unable to lose weight 03/28/2017 Headache 11/05/2016 Pain of both breasts 11/05/2016 Acute pharyngitis 12/31/2015 Impaired glucose tolerance 12/31/2015 Assessment & Plan (03/16/2021 8:38 PM DRILL PRESS HAND): Labs. Reviewed available prior labs in chart and Care Everywhere. Discussed insulin resistance including effect on weight and risk for progression to diabetes. Recommended low-carb, low-glycemic diet; choose whole grains and avoid more highly processed carbohydrates. Discussed potential benefits of this w/r/t gut microbiome. Referred to ADA and [employer] [facility] websites for additional information on topics [...] on file Legal Sex Female 12:38 AM DRILL PRESS HAND Gender Identity Female 05/26/2020 10:20 AM CDT [...] Cancer Screening-Mammogram 1980 Hepatitis C Screening 1980 DTaP/Tdap/Td Vaccine (1 - Tdap) 12/12/1991 Varicella Vaccines (1 of 2 - 13+ 2-dose series) 1993 Hepatitis B Screening 1998 Regular Well Visit/Exam 18-64 1998 Pneumococcal vaccine <65 (1 of 2 - PCV) 12/12/1999 Depression Screening 02/03/2019 02/03/2018, 02/03/2018 Covid-19 Vaccine (3 - 2023-2 5 season) 2023 10/06/2020, 09/15/2020 Influenza Vaccine (#1) 2023 , 01/16/2015 HPV Vaccines Aged Out No longer eligi ble based on patient's age to complete this topic Medical Devices Implanted Type Area Ob Scrub Tech Device Identifier Shelf Expiration Date Model / Serial / Lot Wl [employer] [id number] Seamguard Bioabsorbable Reinforcement Staple Line Sterile Latex Free - [id number] Implanted:Qty: 1 on 01/30/2018 by Dianelys Mendosa MD at [facility] N/A: Abdomen [employer] 09/27/2020 [id number] / / [employer] [id number] Seamguard Bioabsorbable Reinforcement Staple Line Sterile Latex Free - [id number] Implanted:Qty: 1 on 01/30/2018 by Dianelys Mendosa MD at [facility] N/A: Abdomen [employer] 09/27/2020 [id number] / / [employer] [id number] Seamguard Bioabsorbable Reinforcement Staple Line Sterile Latex Free - [id number] Implanted:Qty: 1 on 01/30/2018 by Dianelys Mendosa MD at [facility] N/A: Abdomen [employer] 05/28/2020 [id number] / / Insurance [facility] MEDICAID [facility] Advance Directives For more information, please contact: [phone] * Full Code (Latest Code Status on [...] 9:49 PM 02/05/2018 7:11 PM Care Teams Chemical Etching Processor Relationship Specialty Start Date End Date Ángel Iqbal MD [address] [place] [id number] PCP - General Internal Medicine 03/16/22 Leatha Zurita NP [address] [place] [address] Nurse Practitioner Nurse Practitioner 04/26/23
--- OUTSIDE RECORDS SUMMARY | 2024-05-19 11:44 | XMS_ITS | Clinical Summary ---
Author Organization [facility] Care Team Providers Care Survey Instrument Operator Name Role Phone Unavailable Primary Care Provider [...] of 3 - 19+ 3-dose series) 12/12/1999 Influenza Immunization (#1) 2023 SARS-COV-2 Immunization ( - season) 2023 Respiratory Syncytial Virus (RSV) Immunization [...]
[2024-05-19 11:46] VITALS: BP 188/118; PULSE 72; RESP 19; O2SAT 100
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
[2024-05-19 12:05] VITALS: PULSE 73; RESP 17; O2SAT 100
[2024-05-19] MEDS: KETOROLAC 30 MG/ML VIAL (*BKC) 15 MG IM (12:27)
[2024-05-19] MEDS: HYDROcodone/acetaminophen (*CRX) 5-325 MG TABLET 1 TAB PO (12:27)
--- NOTE | 2024-05-19 12:43 | PC.NURSE ---
pt tolerates PO challenge well.
== END 2024-05-19 12:42 | disposition home or self-care (01) ==
PROVIDERS: Emergency Provider Student in an Organized Health Care Education/Training Program; PCP Internal Medicine
DX: S19.9XXA Unspecified injury of neck, initial encounter (principal); I10 Essential (primary) hypertension; E78.00 Pure hypercholesterolemia, unspecified; R73.03 Prediabetes; Z98.84 Bariatric surgery status; Z87.442 Personal history of urinary calculi; Z87.440 Personal history of urinary (tract) infections; Z90.710 Acquired absence of both cervix and uterus; Z90.722 Acquired absence of ovaries, bilateral; Z90.79 Acquired absence of other genital organ(s); V49.40XA Driver injured in collision with unspecified motor vehicles in traffic accident, initial encounter
CPT/HCPCS: 99283; A9270; J1885

== ENCOUNTER 2024-05-24 07:38 | Outpatient (CLI) | payer OTHER, SELFPAY ==
--- NOTE | ~2024-05-24 | US_ITS ---
US abdomen limited INDICATION: Elevated liver function tests PROCEDURE: Realtime right upper abdominal ultrasound. COMPARISON: CT dated 12/08/2023 FINDINGS: The pancreas is normal without focal mass or pancreatic ductal dilation. Liver echotexture is normal without focal mass or biliary dilatation. There is normal directional flow in the portal vein. The gallbladder is normal without stones, gallbladder wall thickening or pericholecystic fluid. Comm on bile duct measures 2 mm. No sonographic Reyez's sign. IMPRESSION: 1: Normal limited abdominal ultrasound. Reviewed, dictated and finalized at location A.
--- OUTSIDE RECORDS SUMMARY | 2024-05-24 07:44 | XMS_ITS | Encounter Summary ---
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
--- OUTSIDE RECORDS SUMMARY | 2024-05-24 07:44 | XMS_ITS | Clinical Summary ---
Author Organization [facility] Care Team Providers Care Dairy Husbandry Worker Name Role Phone Unavailable Primary Care Provider [...]
--- OUTSIDE RECORDS SUMMARY | 2024-05-24 07:44 | XMS_ITS | Encounter Summary ---
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
--- OUTSIDE RECORDS SUMMARY | 2024-05-24 07:44 | XMS_ITS | Referral Summary ---
Author Organization [facility] Address [address] [place] [address] Care Team Providers Care Supervisor Fine Grading Name Role Phone Ángel Iqbal MD Primary Care Provider [phone] Leatha Zurita GAS INSPECTOR Unavailable [phone] Allergies Active Allergy Reactions Criticality Noted Date [...] 02/05/2021 Assessment & Plan (02/05/2021 5:05 PM INSTRUMENTAL TEACHER): Discussed that significant health benefits/risk reduction may [...] RYGB. Assessment & Plan (02/05/2021 5:19 PM INSTRUMENTAL TEACHER): Labs. Reviewed available prior labs in chart and Care Everywhere. Discussed insulin resistance including effect on weight and risk for progression to diabetes. Recommended low-carb, low-glycemic diet; choose whole grains and avoid more highly processed carbohydrates. Discussed potential benefits of this w/r/t gut microbiome. Referred to ADA and [facility] websites for additional information on topics including glycemic index/carbohydrate choices, protein sources. Consider metformin, GLP-1 RA. Pain of left hand 11/27/2020 Gastroesophageal reflux disease 08/26/2020 Overview (08/26/2020): Added automatically from request for surgery [id number] Plantar fasciitis 04/26/2020 Insomnia 05/22/2019 Low back pain 02/19/2019 History of gastric bypass 02/19/2019 Assessment & Plan (03/16/2021 8:39 PM INSTRUMENTAL TEACHER): Routine labs to evaluate for vitamin deficiencies in setting of intestinal malabsorption. Irritable bowel syndrome with diarrhea 9 Lesion of liver 09/27/2018 Class 2 obesity in adult 11/23/2017 Overview (11/23/2017): Added automatically from request for surgery [id number] Assessment & Plan (03/16/2021 8:41 PM INSTRUMENTAL TEACHER): Obesity is worsening. General weight loss/lifestyle modification [...] 10/19/2017 Assessment & Plan (02/05/2021 5:22 PM INSTRUMENTAL TEACHER): Discussed role of diet, exercise and weight loss in improving lipid profile. Hypertensive disorder 10/19/2017 Kidney stone 10/19/2017 Knee pain 10/19/2017 Menopausal syndrome 10/19/2017 Recurrent boils 10/19/2017 Vitamin D deficiency 10/19/2017 Assessment & Plan (03/16/2021 8:38 PM INSTRUMENTAL TEACHER): Labs. Acute urinary tract infection 08/21/2017 No diagnosis on [place] I 08/17/2017 Trichomoniasis 08/13/2017 Benign essential HTN 06/22/2017 Assessment & Plan (02/05/2021 5:19 PM INSTRUMENTAL TEACHER): Reviewed role of diet, exercise, weight loss in controlling blood pressure. Recommended low sodium/DASH diet. Continue current medications. Unable to lose weight 03/28/2017 Headache 11/05/2016 Pain of both breasts 11/05/2016 Acute pharyngitis 12/31/2015 Impaired glucose tolerance 12/31/2015 Assessment & Plan (03/16/2021 8:38 PM INSTRUMENTAL TEACHER): Labs. Reviewed available prior labs in chart and Care Everywhere. Discussed insulin resistance including effect on weight and risk for progression to diabetes. Recommended low-carb, low-glycemic diet; choose whole grains and avoid more highly processed carbohydrates. Discussed potential benefits of this w/r/t gut microbiome. Referred to ADA and [employer] websites for additional information on topics [...] on file Legal Sex Female 12:38 AM INSTRUMENTAL TEACHER Gender Identity Female 05/26/2020 10:20 AM CDT [...] on file Medical Devices Implanted Type Area Dust Collector Device Identifier Shelf Expiration Date Model / Serial / Lot [employer] [id number] Seamguard Bioabsorbable Reinforcement Staple Line Sterile Latex Free - [id number] Implanted:Qty: 1 on 01/30/2018 by Dianelys Mendosa MD at [facility] N/A: Abdomen [employer] 09/27/2020 [id number] / / [employer] [id number] Seamguard Bioabsorbable Reinforcement Staple Line Sterile Latex Free - [id number] Implanted:Qty: 1 on 01/30/2018 by Dianelys Mendosa MD at [facility] N/A: Abdomen [employer] 09/27/2020 [id number] / / [employer] [id number] Seamguard Bioabsorbable Reinforcement Staple Line Sterile Latex Free - [id number] Implanted:Qty: 1 on 01/30/2018 by Dianelys Mendosa MD at [facility] N/A: Abdomen [employer] 05/28/2020 [id number] / / Insurance [facility] MEDICAID [facility] [place] [address] [facility] Advance Directives For more information, please contact: [phone] * Full Code (Latest Code Status on [...] 9:49 PM 02/05/2018 7:11 PM Care Teams Supervisor Fine Grading Relationship Specialty Start Date End Date Ángel Iqbal MD [address] [place] [address] PCP - General Internal Medicine 03/16/22 Leatha Zurita NP [address] [place] [address] Nurse Practitioner Nurse Practitioner 04/26/23
--- OUTSIDE RECORDS SUMMARY | 2024-05-24 07:44 | XMS_ITS | Data Portability ---
Author Organization [place] - [facility], Main Office Address [address] [place] [address] Care Team Providers Care Seasoner Name Role Phone VISHNU VÁSQUEZ Primary Care Provider [phone] VISHNU VÁSQUEZ Referring Provider [phone] Assessment Encounter Date Assessment Date Assessment LastModified [...] EVAL 2024 025 SHEY Partida DPM, [address] [facility], [address], [place], [address], 05/07/2024 08:54:23 physical therapist referral - eval and treat 2023 024 dz7 [facility], [address], [place], [address], 09/28/2023 23:19:56 Procedures None recorded. Surgeries None recorded. Imaging XR, foot, 3 or more view 2024 025 [facility] (Radiology), [address], [place], [address], 05/22/2024 12:19:44 XR, knee, 3 view 2023 024 [facility] [place], [address], [place], [address], 09/30/2023 11:34:18 Medication Orders None recorded. Patient TargetsNo targets recorded. Patient InstructionsNo instructions recorded. Reason for Referral Physical Therapist Referral for Pain of left knee joint eval and treat Referring Physician: Carlos Alberto Ugalde, Orthopedic Surgery, Encounter Date: 09/28/2023 Principal Investigator Referral for Buni on BUNION/HAMMER TOE EVAL Referring Physician: Madhav Myers, Podiatry, Encounter Date: 04/26/2024 Results Created Date Observation Date Name Description Value Unit Range Abnormal Flag Note LastModifiedBy Organization Detail LastModifiedTime 10/15/19 21 10/14/2020 urina lysis , dipst ick Leukocytes (reference range: negative jayla/ l) Large Not Available [facility] [place] [address], [address], [address], 10/14/2020 08:44:24 10/15/19 21 10/14/2020 urina lysis , dipst ick Nitrite (reference rage: negative mg/dl) negati ve Not Available [address], [address], 10/14/2020 08:44:24 10/15/19 21 10/14/2020 urina lysis , dipst ick Urobilinogen (reference range: 0.2-1 mg/dl) 0.2 Not Available [address], [address], 10/14/2020 08:44:24 10/15/19 21 10/14/2020 urina lysis , dipst ick Protein (reference range: negative mg/dl) Negati ve Not Available [address], [address], 10/14/2020 08:44:24 10/15/19 21 10/14/2020 urina lysis , dipst ick pH (reference range: 5-7) 7.0 Not Available [address], [address], 10/14/2020 08:44:24 10/15/19 21 10/14/2020 urina lysis , dipst ick Blood (reference range: negative [place]/ l) Non-He molyze d: Trace Not Available [address], [address], 10/14/2020 08:44:24 10/15/19 21 10/14/2020 urina lysis , dipst ick Specific [place] (reference range: 1.005-1.030) 1.025 Not Available [address], [address], [address], 10/14/2020 08:44:24 10/15/19 21 10/14/2020 urina lysis , dipst ick Ketone (reference range: negative mg/dl) Negati ve Not Available [address], [address], 10/14/2020 08:44:24 10/15/19 21 10/14/2020 urina lysis , dipst ick Bilirubin (reference range: negative mg/dl) Negati ve Not Available [address], [address], 10/14/2020 08:44:24 10/15/19 21 10/14/2020 urina lysis , dipst ick Glucose (reference range: negative mg/dl) Negati ve Not Available [address], [address], 10/14/2020 08:44:24 10/15/19 21 10/14/2020 urina lysis , dipst ick Appearance Clear Not Available [address], [address], 10/14/2020 08:44:24 10/15/19 21 10/14/2020 urina lysis , dipst ick Color Yellow Not Available [address], [address], 10/14/2020 08:44:24 10/15/19 21 10/14/2020 US, bladd er No observ ation record ed. [id number] [facility] [place] [address] [facility], [address], [place], [address], 04/28/2022 23:32:24 09/28/19 24 XR, knee, 3 view No observ ation record ed. [facility] [place] [address], [place], [address], 09/28/2023 15:38:07 11/03/19 24 11/03/2023 scree calvin breas t eugene, bilat [facility] [address] [facility], [place] [address] [phone] Patien t Name: RENETTA AVALOS Access ion #: [id number] Sex: F : 1980 3 Dictat [...] at 2023 16:19: 35 PM Page 1 [facility] (Imaging) [address] [place], [address], 11/15/2023 09:50:27 05/23/1904/26/2024 XR, foot, 3 or more view No observ ation record ed. [email or web address] [facility] (Radiology) [address] [place], [address], 05/22/2024 12:19:50 Result Notes None recorded. Problems Name Problem SNOMED Code Status Onset Date Resolution Date Notes Provider Name and Address Organization Details Recorded Time Pain of left knee joint 510515583813413 Active 2023 BEN Clarke, [facility] [place] [employer] [facility] 4 15:37:43 Bunion 773805642 Active 2024 BEN Burgos, [facility] [place] [employer] [facility] 5 16:07:19 Notes:Some problems listed i n Document: #[id number] could not be added to this patient's chart. Please review this document and add these problems to the patient's chart manually as needed. Problem Notes None recorded. Procedures Surgical History Date Name Laterality Status Provider Name and Address Organization Details Recorded Time 02/28/19 21 Appendectomy completed Not Available [facility] 023 23:29:04 02/28/19 21 Kidney Stones completed Not Available [facility] 2022 23:29:04 01/29/20 19 Gastric Bypass completed Not Available [facility] 04/28 23:29:04 02/28/19 12 Hysterectomy completed Not Available [facility] 023 23:29:04 Imaging Results Imaging Date Name Status LastModified by Organiz ation Details LastModified Time 10/14/2020 US, bladder completed [id number] [facility] [place] [address] [facility], [address], [place], [address], 04/28/2022 23:32:24 09/28/2023 XR, knee, 3 view completed [email or web address] [facility] [place] [address], [place], [address], 09/28/2023 15:38:07 11/03/2023 screening breast eugene, bilat completed [email or web address] [facility] (Imaging) [address] [place], [address], 11/15/2023 09:50:27 04/26/2024 XR, foot, 3 or more view completed [email or web address] [facility] (Radiology) [address] [place], [address], 05/22/2024 12:19:50 Procedure Notes None recorded. Medical Equipment None Reported. Allergies Allergen ID Allergen Name Allergen Category Reaction Reaction Severity Criticality Documentation Date Start Date Code Code System Note Provider Name and Address Organization Details Recorded Time 76497 Non-stero idal anti-infl ammatory agent (product) medicatio n Not available Not available Not available 04/28/2022 29828 005 SNOMED Not Available [facility] 3 23:32:07 21344 clindamyc in Not available Not available Not available Not available 04/28/2022 2582 RxNorm Not Available [facility] 3 23:32:07 Medications Name Sig Start [...] and Address Organization Details Last Updated DateTime 35.3 kg/m2 165.1 cm 96 % 96 % 70 /min 97.9 [degF] 60151.5 8 g 180 mm[Hg] 110 mm[Hg] Not Available [facility] 23:29:09 Date Recorded Body height Body mass index (BMI) Body weight Pain severity - 0-10 verbal numeric rating [Score] - Reported Provider Name and Address Organization Details Last Updated DateTime 09/28/2023 165.1 cm 32.6 kg/m2 20323.1 g 4 BEN Clarke [place] [facility] 09/28/2023 15:35:52 Social History Question Answer Notes LastModified by Organizat ion Details LastModified Time Tobacco Smoking Status Never Smoker Not Available [facility] 04/28/2022 23:28:20 What Is Your Level Of Alcohol Consumption? Moderate [email or web address] Information not available 09/28/2023 If You Are , What Was Your Level Of Alcohol Consumption Prior To ? None [id number] Information not available 04/28/2022 What Is Your Level Of Caffeine Consumption? None [id number] 026 Information not available 04/28/2022 What Was The Date Of Your Most Recent Tobacco Screening? 09/28/2023 [email or web address] Information not available 09/28/2023 Have You Ever Been Counseled For Unhealthy Alcohol Use? No [id number] 026 Information not available 04/28/2022 Do You Use Any Illicit Or Recreational Drugs? No [id number] 026 Information not available 04/28/2022 Has Tobacco Cessation Counseling Been Provided? No [id number] 026 Information not available 04/28/2022 Do You Or Have You Ever Used Any Other Forms Of Tobacco Or Nicotine? No [id number] 026 Information not available 04/28/2022 Sex: Unknown Functional Status None recorded. Mental Status None recorded. Family History Relationship Description Onset Age of this Age Resolved Age Notes LastModified by Organization Details LastModified Time Unspecified Relation Diabetes mellitus [id number] Not available 04/28/2022 23:29:04 Unspecified Relation Hypertensive disorder [id number] Not available 04/28/2022 23:29:04 Medical History Condition Response CYSTITIS N BLINDNESS N RHEUMATIC FEVER N KIDNEY STONES Y BLADDER PROBLEMS N Enlarged Prostate N MRSA N SLEEP APNEA N INFECTIOUS DISEASE N LUNG DISEASE/DISORDER N PROSTATE N HEART ARRHYTHMIA N HISTORY OF DRUG ABUSE N INSOMNIA N COPD N RADIATION / CHEMOTHERAPY N HIGH CHOLESTEROL / HYPERLIPIDEMIA N HYPERTHYROIDISM N UTI N BLOOD DISEASES N EDEMA N HYPOTHYROIDISM N SHINGLES N DEPRESSION (INCLUDING POST ) Y BOWEL PROBLEMS N BACK / NECK PROBLEMS N HAVE YOU BEEN HOSPITALIZED OR SEEN IN [facility] IN THE PAST YEAR ? N STROKE/TIA N THYROID DISEASE N BENIGN PROSTATIC HYPERPLASIA N DIALYSIS N OBESITY N GERD/NAUSEA N ANEURYSM N OSTEOPOROSIS N Increased Urination N URINARY/BLADDER/KIDNEY PROBLEMS N CORONARY ARTERY DISEASE (CAD) N ARTHRITIS N USE OF BLOOD THINNERS N NO SIGNIFICANT PAST MEDICAL HISTORY N DIABETES, TYPE N EMPHYSEMA N GASTROINTESTINAL DISORDER N PARKINSON N GASTROINTESTINAL BLEEDING N BLOOD CLOTS N Difficulty Urinating N ASTHMA N HEPATITIS / LIVER DISEASE N CATARACTS N GOUT N SLEEP DISORDER N ALZHEIMER'S DISEASE N ERECTILE DYSFUNCTION N HERPES N SEIZURES/EPILEPSY N HEADACHES/MIGRAINES N GI PROBLEMS N Low Testosterone N PACEMAKER N HEART MURMUR N DIZZINESS N AIDS/HIV N KIDNEY DISEASE N HEART DISEASE/HEART PROBLEMS N LIVER DISEASE N MULTIPLE SCLEROSIS N MALE HYPOGONADISM N HYPERTENSION Y CANCER: [...] SNOMED-CT Code Diagnosis ICD10 Code Diagnosis Note [id number] [facility] [place] [address] [place] [address] 10/14/2020 00:00:00 10/14/2020 09:49:34 [id number] Carlos Alberto Ugalde MD [facility] [place] [address] [place] [address] 09/28/2023 15:14:50 09/28/2023 16:31:06 Pain of left knee joint [id number] 41201 M25.190 [id number] Madhav Myers DPM [facility] [address] [address] 04/26/2024 15:47:07 05/22/2024 09:01:02 Bunion [id number] M21.619 Health Concerns Section Related Observation LastModified by Organization Detai ls LastModified Time None Recorded Concern Status LastModified by Organization Details LastModified Time None Recorded Advance Directives Directive None Recorded Payers Encounter Date Sequence Insurance Name Policy Number Policy Nevarez Covered Member ID Nevarez Member ID Guarantor Name 09/28/2023 1 [facility] ON OR AFTER 08/28/20 (MEDICAID REPLACEMENT - HMO) Trish Haro [id number] Trish Haro 04/26/2024 1 [facility] ON OR AFTER 08/28/20 (MEDICAID REPLACEMENT - HMO) Trish Haro [id number] Trish Haro Notes Date Note Type Note Provider Name and Address Organization Details Recorded Time 04/26/2024 text/html Pt RTC for c/o bunions lindy; seeks permanent alleviation via surgery Madhav Myers DPM [address] [facility] [place] [address], [place], [address], [place] [facility] [employer] 05/07/2024 08:53:47 OBGyn Episode No OBEpisode recorded.
--- OUTSIDE RECORDS SUMMARY | 2024-05-24 07:44 | XMS_ITS | Clinical Summary ---
Author Organization [facility] Address [address] [place] [address] Care Team Providers Care Registered Nurse Nursery Name Role Phone Ángel Iqbal MD Primary Care Provider [phone] Leatha Zurita VIDEO CAMERA OPERATOR Unavailable [phone] Allergies Active Allergy Reactions Criticality Noted Date [...] 02/05/2021 Assessment & Plan (02/05/2021 5:05 PM TRACK LAYER): Discussed that significant health benefits/risk reduction may [...] RYGB. Assessment & Plan (02/05/2021 5:19 PM TRACK LAYER): Labs. Reviewed available prior labs in chart and Care Everywhere. Discussed insulin resistance including effect on weight and risk for progression to diabetes. Recommended low-carb, low-glycemic diet; choose whole grains and avoid more highly processed carbohydrates. Discussed potential benefits of this w/r/t gut microbiome. Referred to ADA and [employer] websites for additional information on topics including glycemic index/carbohydrate choices, protein sources. Consider metformin, GLP-1 RA. Pain of left hand 11/27/2020 Gastroesophageal reflux disease 08/26/2020 Overview (08/26/2020): Added automatically from request for surgery [id number] Plantar fasciitis 04/26/2020 Insomnia 05/22/2019 Low back pain 02/19/2019 History of gastric bypass 02/19/2019 Assessment & Plan (03/16/2021 8:39 PM TRACK LAYER): Routine labs to evaluate for vitamin deficiencies in setting of intestinal malabsorption. Irritable bowel syndrome with diarrhea 9 Lesion of liver 09/27/2018 Class 2 obesity in adult 11/23/2017 Overview (11/23/2017): Added automatically from request for surgery [id number] Assessment & Plan (03/16/2021 8:41 PM TRACK LAYER): Obesity is worsening. General weight loss/lifestyle modification [...] 10/19/2017 Assessment & Plan (02/05/2021 5:22 PM TRACK LAYER): Discussed role of diet, exercise and weight loss in improving lipid profile. Hypertensive disorder 10/19/2017 Kidney stone 10/19/2017 Knee pain 10/19/2017 Menopausal syndrome 10/19/2017 Recurrent boils 10/19/2017 Vitamin D deficiency 10/19/2017 Assessment & Plan (03/16/2021 8:38 PM TRACK LAYER): Labs. Acute urinary tract infection 08/21/2017 No diagnosis on [place] I 08/17/2017 Trichomoniasis 08/13/2017 Benign essential HTN 06/22/2017 Assessment & Plan (02/05/2021 5:19 PM TRACK LAYER): Reviewed role of diet, exercise, weight loss in controlling blood pressure. Recommended low sodium/DASH diet. Continue current medications. Unable to lose weight 03/28/2017 Headache 11/05/2016 Pain of both breasts 11/05/2016 Acute pharyngitis 12/31/2015 Impaired glucose tolerance 12/31/2015 Assessment & Plan (03/16/2021 8:38 PM TRACK LAYER): Labs. Reviewed available prior labs in chart and Care Everywhere. Discussed insulin resistance including effect on weight and risk for progression to diabetes. Recommended low-carb, low-glycemic diet; choose whole grains and avoid more highly processed carbohydrates. Discussed potential benefits of this w/r/t gut microbiome. Referred to ADA and [employer] websites for additional information on topics [...] on file Legal Sex Female 12:38 AM TRACK LAYER Gender Identity Female 05/26/2020 10:20 AM CDT [...] this topic Medical Devices Implanted Type Area Boat Garnisher Device Identifier Shelf Expiration Date Model / Serial / Lot [employer] [id number] Seamguard Bioabsorbable Reinforcement Staple Line Sterile Latex Free - [id number] Implanted:Qty: 1 on 01/30/2018 by Dianelys Mendosa MD at [facility] N/A: Abdomen [employer] 09/27/2020 [id number] / / [employer] [id number] Seamguard Bioabsorbable Reinforcement Staple Line Sterile Latex Free - [id number] Implanted:Qty: 1 on 01/30/2018 by Dianelys Mendosa MD at [facility] N/A: Abdomen [employer] 09/27/2020 [id number] / / [employer] [id number] Seamguard Bioabsorbable Reinforcement Staple Line Sterile Latex Free - [id number] Implanted:Qty: 1 on 01/30/2018 by Dianelys Mendosa MD at [facility] N/A: Abdomen [employer] 05/28/2020 [id number] / / Insurance [facility] MEDICAID [facility] Advance Directives For more information, please contact: [phone] * Full Code (Latest Code Status on [...] 9:49 PM 02/05/2018 7:11 PM Care Teams Registered Nurse Nursery Relationship Specialty Start Date End Date Ángel Iqbal MD [address] [place] [address] PCP - General Internal Medicine 03/16/22 Leatha Zurita NP [address] [place] [address] Nurse Practitioner Nurse Practitioner 04/26/23
--- OUTSIDE RECORDS SUMMARY | 2024-05-24 07:44 | XMS_ITS | CONTINUITY OF CARE DOCUMENT ---
Author Name andriy, andriy Address Unknown Organization [facility] Address [address] [facility] [address] [place] [address] Phone [phone] Care Team Providers Care Brick Yard Hand Name Role Phone Jeffery Gee MD Unavailable [phone] MAXIME THOMASON Unavailable YAMILET DANIEL MD Unavailable [phone] PROBLEMS Condition Status Date Provider Notes Hypertension [...] In-person encounter Office Visit Jeffery Gee MD [facility] Cardiology examination - In-person encounter Office Visit Jeffery Gee MD [facility] - In-person encounter Office Visit Jeffery Gee MD [facility] - In-person encounter Office Visit Jeffery Gee MD [facility] - In-person encounter Office Visit Jeffery Gee MD [facility] - In-person encounter Office Visit Jeffery Gee MD [facility] HypertensionChest painDepressionObesity s/p gastric bypassSinus bradycardiaCardiovascular screening VITAL SIGNS Date Observation Value Provider Body Mass Index (Ratio) 33.94 kg/m2 Arcelia Gee MD blood pressure, diastolic 112 mm[Hg] Jimi man Gregorio blood pressure, systolic 148 mm[Hg] Kelly caro Gregorio oxygen saturation, oximetry 100 % [facility] pulse rate 61 /min [facility] weight E&M 204 [lb_av] [facility] Gregorio blood pressure, cuff size regular Jimi magda Gregorio height E&M 65 [in_i] [facility] Gregorio Body Mass Index (Ratio) 31.61 kg/m2 Arcelia Gee MD blood pressure, cuff size regular Ja [facility] blood pressure, diastolic 94 mm[Hg] Ja et blood pressure, systolic 121 mm[Hg] [facility] pulse rate 62 /min Coy respiratory rate E&M 12 /min Cyo oxygen saturation, oximetry 97 % Coy weight [...] shazia Leon blood pressure, systolic 143 mm[Hg] [facility] mary ann Leon weight E&M [...] blood pressure, systolic 157 mm[Hg] Cat anushka Patriot oxygen saturation, oximetry 85 % Ignacia Patriot respiratory rate E&M 14 /min Khadijah leavitt Patriot weight E&M 221 [lb_av] Ignacia Keanu height E&M 65 [in_i] Ignacia Patriot blood pressure, cuff size regular Ca therine [...] mg/0.5 mL pen injector active Maya Ventimiglia YARDAGE TUFTING MACHINE OPERATOR Vitamin D2 1,250 mcg (50,000 unit) capsule [...] DAY IN THE MORNING - Maya Ventimiglia YARDAGE TUFTING MACHINE OPERATOR clonidine HCl 0.1 mg tablet completed - [...] MD drug use no Maya Ventimig sarthak YARDAGE TUFTING MACHINE OPERATOR alcohol use no Maya Ventimig sarthak YARDAGE TUFTING MACHINE OPERATOR smoking status Never smoker Noelle Leon smoking [...] MD social history E&M S moking History: Morneo castellon has never smoked. Jeffery Gee MD social history reviewed E&M revi ewed - no changes required Jeffery Gee MD smoking status Never smoker Ignacia Yeung [employer] INSURANCE PROVIDERS Payer name Policy type / Coverage type Cruz red green party ID [place] MEDICAID (2) Medicaid [id number] ADVANCE DIRECTIVES Name Date DISCUSSED - NO DECISION MADE TREATMENT PLAN Date Name Performer [id number],S, Mayajayla pool [facility] [id number],S,HR in 70s Kotlik ron Garcia [facility] [id number],C,B P improving but diastolic BP remains elevated [...] day Maya Garcia [facility] [id number],S,P t's pressure is high. Pt reports she [...] day in the morning Jeffery Gee MD [id number],S, P t advised to lose weight. Jeffery Gee MD [id number],S, R ecommended patient lose weight. Jeffery Gee MD [id number],W,S ounds atypical. Since she has some risk factors for CAD we'll order a regadenoson stress test and an echo. Recommended she take a baby aspirin until we get the stress test. Jeffery Gee MD [id number],W, B P seems to runchronically elevated even [...]
== END 2024-05-24 07:39 | disposition home or self-care (01) ==
LOC: ANHIMG 07:42
PROVIDERS: PCP Internal Medicine; Visit Provider Nurse Practitioner Family
DX: R74.8 Abnormal levels of other serum enzymes (principal); K76.0 Fatty (change of) liver, not elsewhere classified
CPT/HCPCS: 76705

== ENCOUNTER 2024-06-30 11:04 | Emergency (ER) | payer OTHER, SELFPAY ==
--- NOTE | ~2024-06-30 | CT_ITS ---
EXAMINATION: CT abdomen pelvis wo con DATE: 06/30/2024 12:24 INDICATION: Left flank pain TECHNIQUE: Computed tomography (CT) of the abdomen and pelvis was performed without intravenous contr ast. Automated exposure control and iterative reconstruction technique were employed. The dose-length product was 510.12 mGy-cm. COMPARISON: 12/08/2023 FINDINGS: Lung bases are clear. Borderline heart size. No pericardial or pleural effusion. Liver, gallbladder, spleen, pancreas, bilateral adrenal glands and kidneys are normal. Bladder is normal. The uterus is n ot identified and has likely been surgically resected. Postoperative change of prior gastric bypass p rocedure. Likely transient small bowel intussusception at the jejunojejunal anastomosis. No bowel obs truction. Suture line at the tip the cecum consistent with prior appendectomy. Fatty infiltration of the wall the proximal colon likely related to body habitus. No free intraperitoneal gas or fluid. No pathologically enlarged abdominal or pelvic lymphadenopathy. Mild lumbar spondylosis. IMPRESSION: 1. Lluvia-en-Y gastric bypass procedure with likely transient small bowel intussusception at the jejuno jejunal anastomosis. Reviewed, dictated and finalized at location A. IMPRESSION: 1. Lluvia-en-Y gastric bypass procedure with likely transient small bowel intussu sception at the jejunojejunal anastomosis.
[2024-06-30 11:44] VITALS: BP 182/110; PULSE 66; RESP 16; TEMP 36.3; O2SAT 100
--- NOTE | 2024-06-30 11:49 | PC.NURSE ---
Pt. hypertensive during triage. Pt. states she did not take her blood pressure medication this morning.
--- NOTE | 2024-06-30 12:09 | ED.GENADULT ---
HPI - General Adult General Chief complaint: Abdominal Pain Stated complaint: left side pain Time Seen by Provider: 06/30/24 11:20 History of Present Illness HPI narrative: 43-year-old female presents to the emergency department for evaluation for left flank pain. Patient does have prior history of kidney stones approximately 2 years ago. Patient also has a prior history of a gastric bypass at [facility]. patient states her left flank pain started approximately 6:00 a.m. this morning Patient reports he did have some constipation for the last few days but did start having a bowel movement yesterday. Related Data Home Medications ?Medication ?Instructions ?Recorded ?Confirmed ?Last Taken ?Type atorvastatin 10 mg tablet 10 mg PO QPM 02/12/24 06/14/24 Unknown History dulaglutide 0.75 mg/0.5 mL 0.75 mg subcut WEEKLY 02/12/24 06/14/24 Unknown History subcutaneous pen injector (Trulicity) losartan 50 mg tablet 50 mg PO DAILY 02/12/24 06/14/24 Unknown History nifedipine 60 mg tablet,extended 60 mg PO DAILY 02/12/24 06/14/24 Unknown History release 24 hr Allergies Allergy/AdvReac Type Severity Reaction Status Date / Time clindamycin Allergy Mild Swelling Verified 06/12/24 15:01 NSAIDS (Non-Steroidal AdvReac Unknown Verified 06/12/24 15:01 Anti-Inflamma Review of Systems Review of Systems: All systems reviewed & are unremarkable except as noted in HPI and below PMFSH Past Medical History Medical History Borderline diabetes Hypercholesterolemia Migraine Obesity Depression UTI (urinary tract infection) HTN (hypertension) Kidney stone Surgical History Surgical History Status post panniculectomy November 15, 2023 at [facility] History of laparoscopic appendectomy 08/02/19 History of hysterectomy Laparoscopic total hysterectomy with BSO Hx of gastric bypass In January of 2019 at [facility], current weight loss of 100 pounds since surgery Family History Family History Mother Diabetes mellitus Father , At age 64 Heart disease Acute myocardial infarction Diabetes mellitus Social History Social History Social History: She is and has 4 children. She works for a [employer]. She has never smoked. Primary care provider: Andrews GOLDSMITH Code status full code Smoking status: Never smoker Alcohol intake: current Drinks per week: 2 Alcohol use details: She reports that since her father's last year she has been drinking more alcohol. She was drinking 2-3 alcoholic beverages a night. She has cut back down to 2 drinks a week over the last couple of months. Substance use: never Last use: Yesterday had an edible. Lack of Transportation: No Lack of Food: Never True Current Housing: I Have Housing Concerned About Future Housing: No Difficulty Paying Gas/Electric Bills: No Difficulty Paying for Meds: No Currently Unemployed: No Education: Decline to Answer Difficulty w/ Childcare or Family Care: No Living arrangements: with family Additional living arrangements comments: With her they have been together for 22 years and been for 9 years.. They have 4 children. Her oldest child is 22 years old and youngest is 12. Occupation/Education: other Additional occupation/education comments: Works for the [employer]. Currently on short-term disability due to depression. Gender identity (if verbalized by the patient): Female Spiritual care concerns: No Exam Narrative: APPEARANCE: Well appearing, no pain, no distress, well-nourished. HEAD: normocephalic, atraumatic. EYES: PERRLA/EOMI, conjunctivae clear. NOSE: Normal no drainage EARS:TMS clear with good light reflex. THROAT: Pharynx clear, no exudate. NECK: Supple. No adenopathy, no masses. RESPIRATORY: Airway patent, respirations nonlabored. Clear to auscultation bilaterally, no rales, rhonchi, wheezing. CARDIOVASCULAR: Regular rate and rhythm without murmurs rubs or gallops. ABDOMINAL: Mild left upper quadrant and left CVA tenderness to palpation MUSCULOSKELETAL: Moves all extremities. Strength/ROM intact, No edema, No calf tenderness. NEURO: Alert. Cranial nerves II through XII intact. Good gait. Good coordination SKIN: Warm, dry. Normal Color Course Vital Signs Vital signs: Vital Signs Temperature 97.4 F L 06/30/24 11:44 Pulse Rate 66 06/30/24 11:44 Respiratory Rate 16 06/30/24 11:44 Blood Pressure 182/110 H 06/30/24 11:44 Pulse Oximetry 100 06/30/24 11:44 Oxygen Delivery Room Air 06/30/24 11:44 Temperature 97.9 F 06/30/24 14:51 Pulse Rate 77 06/30/24 14:51 Respiratory Rate 16 06/30/24 14:51 Blood Pressure 164/88 H 06/30/24 14:51 Pulse Oximetry 98 06/30/24 14:51 Oxygen Delivery Room Air 06/30/24 11:44 Medical Decision Making MDM Narrative Medical decision making narrative: 43-year-old female presenting to the emergency department for evaluation for left CVA tenderness. Patient is currently afebrile with no leukocytosis hemoglobin of 13.7. No acute abnormalities on her CMP other than mildly elevated AST and ALT. UA was negative for infection. CT scan was ordered and does show evidence Lluvia-en-Y gastric bypass procedure with likely transient small bowel intussusception at the jejunojejunal anastomosis. [facility] was consulted. Case was discussed with Dr. Resendiz at [facility]. He was able to review the images and if patient is able to tolerate a p.o. challenge he was comfortable with her having close follow-up as outpatient. Patient was updated results of workup she was also comfortable with this plan. Patient was well-appearing at time of discharge. Differential Diagnosis Differential Diagnosis: Small-bowel obstruction, ureteral calculi, kidney infection, intussusception, gastritis, esophagitis, diverticulitis Vital Signs Vital Signs: Vital Signs Temperature 97.4 F L 06/30/24 11:44 Pulse Rate 66 06/30/24 11:44 Respiratory Rate 16 06/30/24 11:44 Blood Pressure 182/110 H 06/30/24 11:44 Pulse Oximetry 100 06/30/24 11:44 Oxygen Delivery Room Air 06/30/24 11:44 Temperature 97.9 F 06/30/24 14:51 Pulse Rate 77 06/30/24 14:51 Respiratory Rate 16 06/30/24 14:51 Blood Pressure 164/88 H 06/30/24 14:51 Pulse Oximetry 98 06/30/24 14:51 Oxygen Delivery Room Air 06/30/24 11:44 Lab Data Lab results reviewed: Yes I reviewed the patient's lab results. 06/30/24 12:19 06/30/24 12:19 Labs: Lab Results 06/30/24 Range/Units 12:19 WBC 6.5 (4.5-10.0) K/mm3 RBC 4.81 (4.2-5.4) M/mm3 Hgb 13.7 (12.0-15.0) g/dL Hct 44.7 (37.0-47.0) % MCV 92.9 (80-100) fl MCH 28.5 (26-34) pg MCHC 30.6 L (32-36) g/dl RDW 13.5 (11.5-14.5) % Plt Count 187 (150-375) k/mm3 MPV 11.8 H (7.4-10.4) fl Immature Gran % (Auto) 0.3 (0-0.5) % Neut % (Auto) 68.4 (45.5-73.1) % Lymph % (Auto) 22.3 (18.3-44.2) % Perry % (Auto) 7.6 (2.6-8.5) % Eos % (Auto) 0.8 (0-4.4) % Baso % (Auto) 0.6 (0.2-1.2) % Lymph # (Auto) 1.44 (0.9-3.2) K/mm3 Perry # (Auto) 0.5 (0.1-0.6) K/mm3 Eos # (Auto) 0.1 (0-0.3) K/mm3 Baso # (Auto) 0.0 (0.0-0.1) K/mm3 Abs Immat Gran (auto) 0.02 (0.00-0.031) K/mm3 Absolute Neuts (auto) 4.4 (1.3-6.7) K/mm3 Absolute Nucleated RBC 0.000 (0.0-0.012) K/mm3 Nucleated RBC % 0.0 (0.0-0.2) % Sodium 138 (137-145) mmol/L Potassium 3.7 (3.4-5.0) mmol/L Chloride 102 (98-107) mmol/L Carbon Dioxide 27 (22-30) mmol/L Anion Gap 9 (4-12) mmol/L BUN 12 (7-17) mg/dL Creatinine 0.82 (0.7-1.0) mg/dL Estim Creat Clear Calc 89 ml/min Estimated GFR > 60 (59 - ) Glucose 93 (65-110) mg/dL Calcium 9.3 (8.4-10.2) mg/dL Total Bilirubin 0.5 (0.2-1.3) mg/dL AST 51 H (14-36) U/L ALT 91 H (6-35) U/L Alkaline Phosphatase 121 (38-126) U/L Total Protein 8.0 (6.3-8.2) g/dL Albumin 4.7 (3.5-5.1) g/dL Urine Color Yellow (Yellow) Urine Appearance Clear (Clear) Urine pH 6.0 (5.0-9.0) Ur Specific [place] 1.020 (1.001-1.035) Urine Protein Negative (Negative) mg/dL Urine Glucose (UA) Negative (Negative) mg/dL Urine Ketones Negative (Negative) mg/dL Ur Blood (Man) Negative (Negative) Urine Nitrate Negative (Negative) Urine Bilirubin Negative (Negative) Urine Urobilinogen 1.0 (<2.0) mg/dL Leukocyte Esterase Rfl Negative (Negative) OSKAR/UL Imaging Data Radiologist's impression: Impressions Abdomen/Pelvis CT 06/30/24 12:33 IMPRESSION: 1. Lluvia-en-Y gastric bypass procedure with likely transient small bowel intussusception at the jejunojejunal anastomosis. Discharge Plan Discharge Clinical Impression: Intussusception intestine Patient Disposition: Home Condition: Stable Instructions: Antibiotic Form, Clear Liquid Diet (ED) Additional Instructions: Zofran as needed for nausea control. Clear liquid diet as needed. Continue to have close follow-up with your physicians at [facility]. if you have any worsening symptoms then please call or return to the emergency department. Patient Language: German Prescriptions: New ondansetron 4 mg tablet,disintegrating 4 mg PO Q8H PRN (Reason: nausea and vomiting) Qty: 14 0RF No Action atorvastatin 10 mg tablet 10 mg PO QPM Trulicity 0.75 mg/0.5 mL pen injector 0.75 mg SUBCUT WEEKLY losartan 50 mg tablet 50 mg PO DAILY nifedipine 60 mg tablet extended release 24hr 60 mg PO DAILY pseudoephedrine HCl 30 mg tablet 30 mg PO Q4-6H PRN (Reason: nasal congestion) 5 Days Qty: 28 0RF Rx Instructions: DNExceed 4 doses/24h acetaminophen 500 mg capsule 1,000 mg PO Q6H PRN (Reason: pain) Qty: 20 0RF Follow-up/Referrals: UNKNOWN,DOCTOR [Primary Care Provider] -
[2024-06-30 12:26] LABS: Basophils Percent Auto 0.6 % (0.2-1.2); Eosinophils Absolute Auto 0.1 K/mm3 (0-0.3); Eosinophils Percent Auto 0.8 % (0-4.4); Hematocrit 44.7 % (37.0-47.0); Hemoglobin 13.7 g/dL (12.0-15.0); Immature Granulocyte Absolute 0.02 K/mm3 (0.00-0.031); Immature Granulocyte Percent A 0.3 % (0-0.5); Lymphocytes Absolute Auto 1.44 K/mm3 (0.9-3.2); Lymphocytes Percent Auto 22.3 % (18.3-44.2); Mean Corpuscular HGB Conc 30.6 g/dl (32-36); Mean Corpuscular Hemoglobin 28.5 pg (26-34); Mean Corpuscular Volume 92.9 fl (80-100); Mean Platelet Volume 11.8 fl (7.4-10.4); Monocytes Absolute Auto 0.5 K/mm3 (0.1-0.6); Monocytes Percent Auto 7.6 % (2.6-8.5); Neutrophils Absolute Auto 4.4 K/mm3 (1.3-6.7); Neutrophils Percent Auto 68.4 % (45.5-73.1); Platelet Count Result 187 k/mm3 (150-375); Red Blood Count 4.81 M/mm3 (4.2-5.4); Red Cell Distribution Width 13.5 % (11.5-14.5); White Blood Count 6.5 K/mm3 (4.5-10.0)
[2024-06-30 12:27] LABS: Add Urine Microscopic? NO; Appearance Urine Clear (Clear); Bilirubin Urine Negative (Negative); Blood Urine Negative (Negative); Color Urine Yellow (Yellow); Glucose Urine UA Negative (Negative); Ketones Urine Negative (Negative); Leukocyte Esterase Ur Negative LEU/UL (Negative); Nitrate Urine Negative (Negative); Protein Urine Negative (Negative)
[2024-06-30 12:35] LABS: Alanine Aminotransferase 91 U/L (6-35); Albumin Level 4.7 g/dL (3.5-5.1); Alkaline Phosphatase 121 U/L (38-126); Anion Gap 9 mmol/L (4-12); Aspartate Amino Transferase 51 U/L (14-36); Bilirubin,Total 0.5 mg/dL (0.2-1.3); Blood Urea Nitrogen 12 mg/dL (7-17); Calcium 9.3 mg/dL (8.4-10.2); Carbon Dioxide 27 mmol/L (22-30); Chloride 102 mmol/L (98-107); Estimated CRCL calculation 89 ml/min; Estimated Glomerular Filt Rate > 60; Glucose 93 mg/dL (65-110); Potassium 3.7 mmol/L (3.4-5.0); Sodium 138 mmol/L (137-145)
[2024-06-30] MEDS: SODIUM CHLORIDE 0.9% IV 1,000 ML 999 ML IV CONT (12:52)
[2024-06-30] MEDS: HYDROmorphone HCL INJ (*CRX) 2 MG/ML VIAL 0.5 MG IV PUSH (12:52)
[2024-06-30] MEDS: ONDANSETRON INJ 4 MG/2 ML VIAL IV PUSH (12:52)
[2024-06-30 13:00] VITALS: PULSE 60; RESP 16; O2SAT 98
--- NOTE | 2024-06-30 13:03 | PC.NURSE ---
Pt. placed on portable monitor d/t IV pain medication administration.
[2024-06-30 14:51] VITALS: BP 164/88; PULSE 77; RESP 16; TEMP 36.6; O2SAT 98
--- OUTSIDE RECORDS SUMMARY | 2024-06-30 16:23 | XMS_ITS | Clinical Summary ---
Author Organization [facility] Care Team Providers Care Biscuit Machine Operator Name Role Phone Unavailable Primary Care [...] of 3 - 19+ 3-dose series) 12/12/1999 SARS-COV-2 Immunization (2023- season) 2023 Influenza Immunization (Seas on Ended) 2024 Respiratory Syncytial Virus (RSV) Immunization (Adult) (1 - 1-dose 75+ series) 12/12/2055 Human Papillomavirus (HPV) Immunization Aged Out No longer eligible b ased on patient's age to complete this topic Meningococcal Immunization (ACWY) Aged Out No longer eligible based on patient's age to complete this topic Pneumococcal Immunization Combined Aged Out No longer eligible based on patient's age to complete this topic Rotavirus Immunization Aged Out No lo nger eligible based on patient's age to complete this topic
--- OUTSIDE RECORDS SUMMARY | 2024-06-30 16:23 | XMS_ITS | CONTINUITY OF CARE DOCUMENT ---
Author Name andriy, andriy Address Unknown Organization [facility] Address [address] [address] [address] [place] [address] Phone [phone] Care Team Providers Care Paint Mixer Name Role Phone Jeffery Gee MD Unavailable [phone] MAXIME THOMASON Unavailable YAMILET DANIEL MD Unavailable [phone] PROBLEMS Condition Status Date Provider Notes Hypertension active Jeffery Gee MD Cardiology examination active Jeffery Gee MD Cardiovascular screening active Jeffery london MD Sinus bradycardia active Jeffery Gee MD Obesity s/p gastric bypass active Jeffery conley MD Depression active Jeffery Gee MD Chest pain active Jeffery Gee MD ENCOUNTERS Date Type Provider Location Encounter Diag nosis - In-person encounter Office Visit Jeffery Gee MD [facility] Cardiology examination - In-person encounter Office Visit Jeffery Gee MD [place] - In-person encounter Office Visit Jeffery Gee MD [facility] - In-person encounter Office Visit Jeffery Gee MD [facility] - In-person encounter Office Visit Jeffery Gee MD [facility] - In-person encounter Office Visit Jeffery Gee MD [facility] HypertensionChest painDepressionObesity s/p gastric bypassSinus bradycardiaCardiovascular screening VITAL SIGNS Date Observation Value Provider Body Mass Index (Ratio) 33.94 kg/m2 Arcelia Gee MD blood pressure, diastolic 112 mm[Hg] Jimi man Gregorio blood pressure, systolic 148 mm[Hg] Kelly caro Gregorio oxygen saturation, oximetry 100 % [facility] pulse rate 61 /min [facility] weight E&M 204 [lb_av] [facility] blood pressure, cuff size regular Jimi magda Gregorio height E&M 65 [in_i] [facility] Body Mass Index (Ratio) 31.61 kg/m2 Arcelia Gee MD blood pressure, cuff size regular Ja [facility] blood pressure, diastolic 94 mm[Hg] Ja et blood pressure, systolic 121 mm[Hg] Darlene [facility] pulse rate 62 /min Coy respiratory [...] shazia Leon blood pressure, systolic 143 mm[Hg] [facility] mary ann Leon weight E&M 189 [...] blood pressure, systolic 157 mm[Hg] Cat anushka Irwin oxygen saturation, oximetry 85 % Ignacia Keanu respiratory rate E&M 14 /min Khadijah leavitt Keanu weight E&M 221 [lb_av] Ignacia Irwin height E&M 65 [in_i] Ignacia Irwin blood pressure, cuff size regular Ca therine Irwin ALLERGIES Allergy Name Onset Date Reaction Criticality [...] mg/0.5 mL pen injector active Maya Ventimiglia LOAD CHECKER Vitamin D2 1,250 mcg (50,000 unit) capsule [...] DAY IN THE MORNING - Maya Ventimiglia LOAD CHECKER clonidine HCl 0.1 mg tablet completed - Ignacia Colunga losartan 100 mg tablet completed TAKE 1 TABLET BY MOUTH EVERY DAY IN THE MORNING - Jeffery Gee MD SOCIAL HISTORY Date Observation Value Provider drug use no Jeffery Gee MD alcohol use no Jeffery Gee MD smoking status Never smoker Jeffrey Gee MD drug use no Jeffery Gee MD alcohol use no Jeffery Gee MD smoking status Never smoker Jeffery Gee MD drug use no Maya Ventimig sarthak LOAD CHECKER alcohol use no Maya Ventimig sarthak LOAD CHECKER smoking status Never smoker Noelle Leon smoking [...] Policy type / Coverage type [employer] party ID [place] MEDICAID (2) Medicaid [id number] ADVANCE DIRECTIVES Name Date DISCUSSED - NO DECISION MADE TREATMENT PLAN Date Name Performer [id number],S, Mayajayla pool [facility] [id number],S,HR in 70s Harrietta ron Garcia [facility] [id number],C,B P improving but diastolic BP remains elevated [...] 1 tablet once a day Maya Garcia [facility] [id number],S,P t's pressure is high. Pt reports she [...] day in the morning Jeffery Gee MD [id number],S, P t advised to lose weight. Jeffery Gee MD [id number],S, R ecommended patient lose weight. Jeffery Gee MD [id number],W,S ounds atypical. Since she has some risk factors for CAD we'll order a regadenoson stress test and an echo. Recommended she take a baby aspirin until we get the stress test. Jeffery Gee MD [id number],W, B P seems to runchronically elevated even [...] Jeffery Gee MD Cardiology Maya Ventimigl ia [facility] Cardiology:HR in 70s Maya Billings imiglia [facility] Cardiology:BP improv ing but diastolic BP remains [...] 1 tablet once a day Maya Ventimiglia [facility] Cardiology:Pt's pres sure is high. Pt reports [...]
--- OUTSIDE RECORDS SUMMARY | 2024-06-30 16:24 | XMS_ITS | Clinical Summary ---
Author Organization [facility] Address [address] [place] [address] Care Team Providers Care Layer Out Plate Glass Name Role Phone Ángel Iqbal MD Primary Care Provider [phone] Leatha Zurita COMPUTER LABORATORY TECHNICIAN Unavailable [phone] Allergies Active Allergy Reactions Criticality Noted Date [...] 02/05/2021 Assessment & Plan (02/05/2021 5:05 PM HEALTH SCIENCES PROGRAM COORDINATOR): Discussed that significant health benefits/risk reduction may [...] RYGB. Assessment & Plan (02/05/2021 5:19 PM HEALTH SCIENCES PROGRAM COORDINATOR): Labs. Reviewed available prior labs in chart and Care Everywhere. Discussed insulin resistance including effect on weight and risk for progression to diabetes. Recommended low-carb, low-glycemic diet; choose whole grains and avoid more highly processed carbohydrates. Discussed potential benefits of this w/r/t gut microbiome. Referred to ADA and [place] [employer] websites for additional information on topics including glycemic index/carbohydrate choices, protein sources. Consider metformin, GLP-1 RA. Pain of left hand 11/27/2020 Gastroesophageal reflux disease 08/26/2020 Overview (08/26/2020): Added automatically from request for surgery [id number] Plantar fasciitis 04/26/2020 Insomnia 05/22/2019 Low back pain 02/19/2019 History of gastric bypass 02/19/2019 Assessment & Plan (03/16/2021 8:39 PM HEALTH SCIENCES PROGRAM COORDINATOR): Routine labs to evaluate for vitamin deficiencies in setting of intestinal malabsorption. Irritable bowel syndrome with diarrhea 9 Lesion of liver 09/27/2018 Class 2 obesity in adult 11/23/2017 Overview (11/23/2017): Added automatically from request for surgery [id number] Assessment & Plan (03/16/2021 8:41 PM HEALTH SCIENCES PROGRAM COORDINATOR): Obesity is worsening. General weight loss/lifestyle modification [...] 10/19/2017 Assessment & Plan (02/05/2021 5:22 PM HEALTH SCIENCES PROGRAM COORDINATOR): Discussed role of diet, exercise and weight loss in improving lipid profile. Hypertensive disorder 10/19/2017 Kidney stone 10/19/2017 Knee pain 10/19/2017 Menopausal syndrome 10/19/2017 Recurrent boils 10/19/2017 Vitamin D deficiency 10/19/2017 Assessment & Plan (03/16/2021 8:38 PM HEALTH SCIENCES PROGRAM COORDINATOR): Labs. Acute urinary tract infection 08/21/2017 No diagnosis on [place] I 08/17/2017 Trichomoniasis 08/13/2017 Benign essential HTN 06/22/2017 Assessment & Plan (02/05/2021 5:19 PM HEALTH SCIENCES PROGRAM COORDINATOR): Reviewed role of diet, exercise, weight loss in controlling blood pressure. Recommended low sodium/DASH diet. Continue current medications. Unable to lose weight 03/28/2017 Headache 11/05/2016 Pain of both breasts 11/05/2016 Acute pharyngitis 12/31/2015 Impaired glucose tolerance 12/31/2015 Assessment & Plan (03/16/2021 8:38 PM HEALTH SCIENCES PROGRAM COORDINATOR): Labs. Reviewed available prior labs in chart and Care Everywhere. Discussed insulin resistance including effect on weight and risk for progression to diabetes. Recommended low-carb, low-glycemic diet; choose whole grains and avoid more highly processed carbohydrates. Discussed potential benefits of this w/r/t gut microbiome. Referred to ADA and [employer] [facility] websites for additional information on topics [...] on file Legal Sex Female 12:38 AM HEALTH SCIENCES PROGRAM COORDINATOR Gender Identity Female 05/26/2020 10:20 AM CDT [...] 5 season) 2023 10/06/2020, 09/15/2020 Influenza Vaccine (Season Ended) 2024 11/13/2015, 01/16/2015 HPV Vaccines Aged Out No longer eligi ble based on patient's age to complete this topic Medical Devices Implanted Type Area Computer Security Coordinator Device Identifier Shelf Expiration Date Model / Serial / Lot Wl [employer] [id number] Seamguard Bioabsorbable Reinforcement Staple Line Sterile Latex Free - [id number] Implanted:Qty: 1 on 01/30/2018 by Dianelys Mendosa MD at [facility] N/A: Abdomen Wl [employer] 09/27/2020 [id number] / / Wl [employer] [id number] Seamguard Bioabsorbable Reinforcement Staple Line Sterile Latex Free - [id number] Implanted:Qty: 1 on 01/30/2018 by Dianelys Mendosa MD at [facility] N/A: Abdomen Wl [employer] 09/27/2020 [id number] / / Wl [employer] [id number] Seamguard Bioabsorbable Reinforcement Staple Line Sterile Latex Free - [id number] Implanted:Qty: 1 on 01/30/2018 by Dianelys Mendosa MD at [facility] N/A: Abdomen Wl [employer] 05/28/2020 [id number] / / Insurance [facility] MEDICAID [facility] Advance Directives For more information, please contact: [phone] * Full Code (Latest Code Status on [...] 9:49 PM 02/05/2018 7:11 PM Care Teams Layer Out Plate Glass Relationship Specialty Start Date End Date Ángel Iqbal MD [address] [place] [id number] PCP - General Internal Medicine 03/16/22 Leatha Zurita NP [address] [place] [address] Nurse Practitioner Nurse Practitioner 04/26/23
--- OUTSIDE RECORDS SUMMARY | 2024-06-30 16:24 | XMS_ITS | Encounter Summary ---
Author Organization [facility] Address [address] [place] [address] Phone Care Team Providers Care Cardiac Cath Lab Manager Name Role Phone Sai Falcon Primary Care Provider + Ángel Iqbal MD Primary Care Provider Leatha Zurita ORE DIGGER Unavailable [phone] Encounter Details Date Type Department Care Team [...] on file Legal Sex Female 12:38 AM EXPLOSIVE ORDNANCE DISPOSAL TECHNICIAN Gender Identity Female 05/26/2020 10:20 AM CDT [...] on filedocumented in this encounter Care Teams Cardiac Cath Lab Manager Relationship Specialty [place] [address] [place] [id number] PCP - General Internal Medicine 11/01/17 03/15/22 Ángel Iqbal MD [address] [place] [id number] PCP - General Internal Medicine 03/16/22 Leatha Zurita NP [address] [facility] [address] [place] [address] Nurse Practitioner Nurse Practitioner 04/26/23 documented as of this encounter
--- OUTSIDE RECORDS SUMMARY | 2024-06-30 16:24 | XMS_ITS | Data Portability ---
Author Organization [place] - [place] [employer], Main Office Address [address] [place] [address] Care Team Providers Care Promotions Manager Name Role Phone VISHNU VÁSQUEZ Primary Care Provider [phone] VISHNU VÁSQUEZ Referring Provider Assessment Encounter Date [...] Dr. Partida for surgical intervention, HAV correction [email or web address] Not available 05/07/2024 08:53:39 05/31/2024 05/31/2024 This note is dictated and transcribed by [email or web address] Fluency Direct Software. Oakes Machine Operator variances may occur. Despite proofreading, typographical errors may occur. Occasional wrong-word or 'qmwrk-s-thcn' substitutions may have occurred due to the inherent limitations of voice recording. Read the chart carefully and recognize, using context, where substitutions have occurred. [email or web address] Not available 05/31/2024 16:44:53 Plan of Treatment Reminders Order Date Submit Date Provider Last Modified By Organization Details Last Modified Time Details Appointments Establish ed Patient 15 2024 03:15P Wiliam Partida DPM Not available Not available Not available Lab None recorded. Referral podiatris t referral - BUNION/TOVAR MMER TOE EVAL 2024 025 SHEY Partida DPM, [address] [facility], [place], [address], 06/04/2024 04:25:15 physical therapist referral - eval and treat 2023 024 [email or web address] [facility], [address], [place], [address], 09/28/2023 23:19:56 Procedures None recorded. Surgeries None recorded. Imaging XR, toe(s) - radiology may read- middle phalanx fracture 3rd toe 2024 025 [email or web address] [facility] (One Call Scheduling), [address] [place], [address], 06/28/2024 10:27:31 XR, foot, 3 or more view 2024 025 [facility] (Radiology), [address] [place], [address], 05/22/2024 12:19:44 XR, knee, 3 view 2023 024 [facility] [place], [address], [place], [address], 09/30/2023 11:34:18 Medication Orders None recorded. Patient TargetsNo targets recorded. Patient InstructionsNo instructions recorded. Reason for Referral Physical Therapist Referral for Pain of left knee joint eval and treat Referring Physician: Carlos Alberto Ugalde, Orthopedic Surgery, Encounter Date: 09/28/2023 Machine I Coremaker Referral for Buni on BUNION/HAMMER TOE EVAL Referring Physician: Madhav Myers, Podiatry, Encounter Date: 04/26/2024 Results Created Date Observation Date Name Description Value Unit Range Abnormal Flag Note LastModifiedBy Organization Detail LastModifiedTime 10/15/19 21 10/14/2020 urina lysis , dipst ick Leukocytes (reference range: negative jayla/ l) Large Not Available Z_hr c_[address], [address], [address], 10/14/2020 08:44:24 10/15/19 21 10/14/2020 urina lysis , dipst ick Nitrite (reference rage: negative mg/dl) negati ve Not Available _[facility]_[address], [address], 10/14/2020 08:44:24 10/15/19 21 10/14/2020 urina lysis , dipst ick Urobilinogen (reference range: 0.2-1 mg/dl) 0.2 Not Available _[facility] c_[address], [address], 10/14/2020 08:44:24 10/15/19 21 10/14/2020 urina lysis , dipst ick Protein (reference range: negative mg/dl) Negati ve Not Available Z_[facility]_[address], [address], [address], 10/14/2020 08:44:24 10/15/19 21 10/14/2020 urina lysis , dipst ick pH (reference range: 5-7) 7.0 Not Available [address], [address], 10/14/2020 08:44:24 10/15/19 21 10/14/2020 urina lysis , dipst ick Blood (reference range: negative [place]/ l) Non-He molyze d: Trace Not Available [address], [address], 10/14/2020 08:44:24 10/15/19 21 10/14/2020 urina lysis , dipst ick Specific [place] (reference range: 1.005-1.030) 1.025 Not Available [address], [address], 10/14/2020 08:44:24 10/15/19 21 10/14/2020 urina lysis , dipst ick Ketone (reference range: negative mg/dl) Negati ve Not Available [address], [address], 10/14/2020 08:44:24 10/15/19 21 10/14/2020 urina lysis , dipst ick Bilirubin (reference range: negative mg/dl) Negati ve Not Available [address], [address], 10/14/2020 08:44:24 10/15/19 21 10/14/2020 urina lysis , dipst ick Glucose (reference range: negative mg/dl) Negati ve Not Available [facility] [address] [place] [address], [address] , [place], [address], 10/14/2020 08:44:24 10/15/19 21 10/14/2020 urina lysis , dipst ick Appearance Clear Not Available _[address], [address], [address], 10/14/2020 08:44:24 10/15/19 21 10/14/2020 urina lysis , dipst ick Color Yellow Not Available [address], [address] , [place], [address], 10/14/2020 08:44:24 10/15/19 21 10/14/2020 , bladd No observ ation record ed. [id number] [facility]_[address], [address] , [place], [address], 04/28/2022 23:32:24 09/28/19 24 XR, knee, 3 view No observ ation record ed. [email or web address] s_[facility] [place] [address], [place], [address], 09/28/2023 15:38:07 11/03/19 24 11/03/2023 scree calvin breas t eugene, bilat [facility] [address], [place] [address] [phone] Patiami matty Name: RENETTA AVALOS Access ion #: [id number] Sex: F : 1980 3 Dictat ed By: Bernadette Atkins Attend [facility] Physic dez: LINNETTE VÁSQUEZ [facility] Physic dez: LINNETTE VÁSQUEZ Exam Date: 2023 [...] at 2023 16:19: 35 PM Page 1 [email or web address] [facility] (Imaging) [address] [place], [address], 11/15/2023 09:50:27 05/23/19 25 04/26/2024 XR, foot, 3 or more view No observ ation record ed. [email or web address] [facility] (Radiology) [address] [place], [address], 05/22/2024 12:19:50 Result Notes None recorded. Problems Name Problem SNOMED Code Status Onset Date Resolution Date Notes Provider Name and Address Organization Details Recorded Time Pain of left knee joint 213994685296081 Active 2023 BEN Clarke null, [place] - [facility] [place] [facility] 15:37:43 Bunion 013556543 Active 2024 Guerrero Crum, RMRenata null, [place] [employer] [facility] [employer] 16:07:19 Hammer toe 999706316 Active 2024 Mj Partida DPM [address], [address], [place], [address], [employer] [facility] [employer] 16:45:07 Pain in both feet 167112826265286 02 Active 2024 Mj Partida DPM [address], [address], [place], [address], [employer] 16:45:42 Closed fracture middle phalanx, toe 223686602 Active 2024 Mj Partida DPM [address], [address], [place], [address], Expert [employer] 16:47:33 Notes:Some problems listed i n Document: #[id number] could not be added to this patient's chart. Please review this document and add these problems to the patient's chart manually as needed. Problem Notes None recorded. Procedures Surgical History Date Name Laterality Status Provider Name and Address Organization Details Recorded Time 02/28/19 21 Appendectomy completed Not Available [facility] 023 23:29:04 02/28/19 21 Kidney Stones completed Not Available [facility] 2022 23:29:04 01/29/20 19 Gastric Bypass completed Not Available [facility] 04/28 23:29:04 02/28/19 12 Hysterectomy completed Not Available [facility] 023 23:29:04 Imaging Results Imaging Date Name Status LastModified by Organiz ation Details LastModified Time 10/14/2020 US, bladder completed [id number] 026 [facility] [place] [address] [facility], [address], [place], [address], 04/28/2022 23:32:24 09/28/2023 XR, knee, 3 view completed [facility] [place] [address], [place], [address], 09/28/2023 15:38:07 11/03/2023 screening breast eugene, bilat completed [email or web address] [facility] (Imaging) [address] [place], [address], 11/15/2023 09:50:27 04/26/2024 XR, foot, 3 or more view completed [email or web address] [facility] (Radiology) [address] [place], [address], 05/22/2024 12:19:50 Procedure Notes None recorded. Medical Equipment None Reported. Allergies Allergen ID Allergen Name Allergen Category Reaction Reaction Severity Criticality Documentation Date Start Date Code Code System Note Provider Name and Address Organization Details Recorded Time 92159 Non-stero idal anti-infl ammatory agent (product) medicatio n Not available Not available Not available 04/28/2022 82264 005 SNOMED Not Available [facility] 3 23:32:07 46409 clindamyc in Not available Not available Not available Not available 04/28/2022 2582 RxNorm Not Available [facility] 3 23:32:07 Medications Name Sig Start Date [...] TAKE 1 TABLET BY MOUTH TWICE DAILY NEEDED FOR SPASMS active Not Available Not Available No t [...] Available acetaminoph en 500 mg tablet TAKE 2 TABLETS BY MOUTH EVERY 6 HOURS NEEDED FOR PAIN active Not Available [...] completed Not Available Not Available Not Available methocarbam ol 750 mg tablet TAKE 1 TABLET BY MOUTH AT BEDTIME active Not Available Not Available No t Available nifedipine ER 60 mg tablet,exte nded [...] Available Not Available Not Available amoxicillin 875 mg-jean-paul london clavulanate 125 mg tablet TAKE 1 TABLET [...] active Not Available Not Available Not Available Lidocaine Pain Relief 4 % topical patch APPLY 1 PATCH TOPICALLY TO THE SKIN DAILY NEEDED FOR PAIN active Not Available Not [...] % 96 % 70 /min 97.9 [degF] 37983.5 8 g 180 mm[Hg] 110 mm[Hg] Not Available [employer] 3 23:29:09 Date Recorded Body height Body mass index (BMI) Body weight Pain severity - 0-10 verbal numeric rating [Score] - Reported Provider Name and Address Organization Details Last Updated DateTime 09/28/2023 165.1 cm 32.6 kg/m2 84948.1 g 4 Rossy Mikey MAGANRenata [place] [employer] [facility] [employer] 09/28/2023 15:35:52 Date Recorded Body height Body mass index (BMI) Body weight Heart rate Respiratory rate Oxygen saturation Oxygen saturation in Arterial blood by Pulse oximetry Systolic blood pressure Diastolic blood pressure Provider Name and Address Organization Details Last Updated DateTime 5 165.1 cm 32.6 kg/m2 58388.1 g 64 /min 14 /min 99 % 99 % 150 mm[Hg] 110 mm[Hg] Carolyn Ezekiel [place] [employer] [facility] [employer] 5 16:17:04 Social History Question Answer Notes LastModified by Organizat ion Details LastModified Time Tobacco Smoking Status Never Smoker Not Available [facility] 04/28/2022 23:28:20 What Is Your Level Of Alcohol Consumption? Moderate [email or web address] Information not available 09/28/2023 If You Are , What Was Your Level Of Alcohol Consumption Prior To ? None [id number] Information not available 04/28/2022 What Is Your Level Of Caffeine Consumption? None [id number] Information not available 04/28/2022 What Was The Date Of Your Most Recent Tobacco Screening? 09/28/2023 [email or web address] Information not available 09/28/2023 Have You Ever Been Counseled For Unhealthy Alcohol Use? No [id number] Information not available 04/28/2022 Do You Use Any Illicit Or Recreational Drugs? No [id number] Information not available 04/28/2022 Has Tobacco Cessation Counseling Been Provided? No [id number] Information not available 04/28/2022 Do You Or Have You Ever Used Any Other Forms Of Tobacco Or Nicotine? No [id number] Information not available 04/28/2022 Sex: Unknown Functional Status None recorded. Mental Status None recorded. Family History Relationship Description Onset Age of this Age Resolved Age Notes LastModified by Organization Details LastModified Time Unspecified Relation Diabetes mellitus [id number] Not available 04/28/2022 23:29:04 Unspecified Relation Hypertensive disorder [id number] Not available 04/28/2022 23:29:04 Medical History Condition Response BLINDNESS N CYSTITIS N RHEUMATIC FEVER N BLADDER PROBLEMS N KIDNEY STONES Y Enlarged Prostate N MRSA N SLEEP APNEA N INFECTIOUS DISEASE N HEART ARRHYTHMIA N LUNG DISEASE/DISORDER N PROSTATE N INSOMNIA N HISTORY OF DRUG ABUSE N COPD N RADIATION / CHEMOTHERAPY N HIGH CHOLESTEROL / HYPERLIPIDEMIA N HYPERTHYROIDISM N UTI N BLOOD DISEASES N EDEMA N HYPOTHYROIDISM N SHINGLES N BOWEL PROBLEMS N DEPRESSION (INCLUDING POST ) Y BACK / NECK PROBLEMS N HAVE YOU BEEN HOSPITALIZED OR SEEN IN [facility] ER IN THE PAST YEAR ? N [...] DISEASE N ERECTILE DYSFUNCTION N HERPES N HEADACHES/MIGRAINES N SEIZURES/EPILEPSY N GI PROBLEMS N Low Testosterone N HEART MURMUR N PACEMAKER N DIZZINESS N HEART DISEASE/HEART PROBLEMS N AIDS/HIV N KIDNEY DISEASE N MULTIPLE SCLEROSIS N LIVER DISEASE N [...] SNOMED-CT Code Diagnosis ICD10 Code Diagnosis Note [id number] Andres Shi NP [facility] [place] [address] [place] [address] 10/14/2020 00:00:00 10/14/2020 09:49:34 [id number] Carlos Alberto Ugalde MD [facility] [place] [address] [place] [address] 09/28/2023 15:14:50 09/28/2023 16:31:06 Pain of left knee joint 4163215405 87363 M25.029 [id number] Madhav Myers DPM [facility] [address] [address] 04/26/2024 15:47:07 05/22/2024 09:01:02 Bunion 287344334 M21.855 [id number] Mj Partida DPM [facility] [address] [place] [address] 05/31/2024 16:04:51 05/31/2024 16:59:50 Bunion 502956638 M21.619 bilateralD iscuss treatment options conservati ve and surgicalRe commend conservati ve therapy- wide shoe gear, bunion sleeve, silicone toe sleeve, silicone toe spacer, rice therapy, NSAIDs, Voltaren gel, soft toe box shoe gear, orthotics reviewed Hammer toe 125629134 M20 .41 M20.42 bilateral 2nd toediscuss treatment optionsas above Pain in both feet 642695 9001 4664181 M79.671 M79.672 secondary to above Closed fra cture middle phalanx, toe 604943027 S92.525A Health Concerns Section Related Observation LastModified by Organization Detai ls LastModified Time None Recorded Concern Status LastModified by Organization Details LastModified Time None Recorded Advance Directives Directive None Recorded Payers Encounter Date Sequence Insurance Name Policy Number Policy Nevarez Covered Member ID Nevarez Member ID Guarantor Name 09/28/2023 1 [facility] ON OR AFTER 08/28/20 (MEDICAID REPLACEMENT - HMO) Trish Haro [id number] Trish Haro 04/26/2024 1 [facility] ON OR AFTER 08/28/20 (MEDICAID REPLACEMENT - HMO) Trish Haro [id number] Trish Haro 05/31/2024 1 [facility] ON OR AFTER 08/28/20 (MEDICAID REPLACEMENT - HMO) Trish Haro [id number] Trish Haro Notes Date Note Type Note Provider Name and Address Organization Details Recorded Time 04/26/2024 text/html Pt RTC for c/o bunions lindy; seeks permanent alleviation via surgery Madhav Myers DPM [address] [facility], [facility] [address], [place], [address], [place] [employer] [facility] 05/07/2024 08:53:47 05/31/2024 text/html . Patient is a 43-year-old female she presents to the office with complaints of toe pain to the bilateral great toes. Patient states that she is bunion deformities she states that she has not had any wounds to the toes she denies any conservative care for this issue. Patient states that when she is wearing normal shoe gear she develops pain after few hours and has to remove the shoes. Patient was seen previously by another ballaster for a avulsion fracture of the middle phalanx of the left 3rd toe. Patient denies any further pain or swelling to this toe. Patient denies any other complaints. Mj Partida DPM [address] [facility] [address], [place], [address], [facility] [employer] 05/31/2024 16:48:52 OBGyn Episode No OBEpisode recorded.
--- OUTSIDE RECORDS SUMMARY | 2024-06-30 16:24 | XMS_ITS | Encounter Summary ---
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
--- OUTSIDE RECORDS SUMMARY | 2024-06-30 16:24 | XMS_ITS | Referral Summary ---
Author Organization [facility] Address [address] [place] [address] Care Team Providers Care Finish Machine Tender Name Role Phone Ángel Iqbal MD Primary Care Provider [phone] Leatha Zurita SLAB MILLER OPERATOR Unavailable [phone] Allergies Active Allergy Reactions Criticality Noted Date [...] 02/05/2021 Assessment & Plan (02/05/2021 5:05 PM SAFETY PATROL OFFICER): Discussed that significant health benefits/risk reduction may [...] RYGB. Assessment & Plan (02/05/2021 5:19 PM SAFETY PATROL OFFICER): Labs. Reviewed available prior labs in chart and Care Everywhere. Discussed insulin resistance including effect on weight and risk for progression to diabetes. Recommended low-carb, low-glycemic diet; choose whole grains and avoid more highly processed carbohydrates. Discussed potential benefits of this w/r/t gut microbiome. Referred to ADA and [employer] websites for additional information on topics including glycemic index/carbohydrate choices, protein sources. Consider metformin, GLP-1 RA. Pain of left hand 11/27/2020 Gastroesophageal reflux disease 08/26/2020 Overview (08/26/2020): Added automatically from request for surgery [id number] Plantar fasciitis 04/26/2020 Insomnia 05/22/2019 Low back pain 02/19/2019 History of gastric bypass 02/19/2019 Assessment & Plan (03/16/2021 8:39 PM SAFETY PATROL OFFICER): Routine labs to evaluate for vitamin deficiencies in setting of intestinal malabsorption. Irritable bowel syndrome with diarrhea 9 Lesion of liver 09/27/2018 Class 2 obesity in adult 11/23/2017 Overview (11/23/2017): Added automatically from request for surgery [id number] Assessment & Plan (03/16/2021 8:41 PM SAFETY PATROL OFFICER): Obesity is worsening. General weight loss/lifestyle modification [...] 10/19/2017 Assessment & Plan (02/05/2021 5:22 PM SAFETY PATROL OFFICER): Discussed role of diet, exercise and weight loss in improving lipid profile. Hypertensive disorder 10/19/2017 Kidney stone 10/19/2017 Knee pain 10/19/2017 Menopausal syndrome 10/19/2017 Recurrent boils 10/19/2017 Vitamin D deficiency 10/19/2017 Assessment & Plan (03/16/2021 8:38 PM SAFETY PATROL OFFICER): Labs. Acute urinary tract infection 08/21/2017 No diagnosis on [place] 08/17/2017 Trichomoniasis 08/13/2017 Benign essential HTN 06/22/2017 Assessment & Plan (02/05/2021 5:19 PM SAFETY PATROL OFFICER): Reviewed role of diet, exercise, weight loss in controlling blood pressure. Recommended low sodium/DASH diet. Continue current medications. Unable to lose weight 03/28/2017 Headache 11/05/2016 Pain of both breasts 11/05/2016 Acute pharyngitis 12/31/2015 Impaired glucose tolerance 12/31/2015 Assessment & Plan (03/16/2021 8:38 PM SAFETY PATROL OFFICER): Labs. Reviewed available prior labs in chart and Care Everywhere. Discussed insulin resistance including effect on weight and risk for progression to diabetes. Recommended low-carb, low-glycemic diet; choose whole grains and avoid more highly processed carbohydrates. Discussed potential benefits of this w/r/t gut microbiome. Referred to ADA and [employer] websites for additional information on topics [...] on file Legal Sex Female 12:38 AM SAFETY PATROL OFFICER Gender Identity Female 05/26/2020 10:20 AM CDT [...] on file Medical Devices Implanted Type Area Learning Technologist Device Identifier Shelf Expiration Date Model / Serial / Lot [employer] [id number] Seamguard Bioabsorbable Reinforcement Staple Line Sterile Latex Free - [id number] Implanted:Qty: 1 on 01/30/2018 by Dianelys Mendosa MD at [facility] N/A: Abdomen [employer] 09/27/2020 [id number] / / [employer] [id number] Seamguard Bioabsorbable Reinforcement Staple Line Sterile Latex Free - [id number] Implanted:Qty: 1 on 01/30/2018 by Dianelys Mendosa MD at [facility] N/A: Abdomen [employer] 09/27/2020 [id number] / / [employer] [id number] Seamguard Bioabsorbable Reinforcement Staple Line Sterile Latex Free - [id number] Implanted:Qty: 1 on 01/30/2018 by Dianelys Mendosa MD at [facility] N/A: Abdomen [employer] 05/28/2020 [id number] / / Insurance [facility] MEDICAID [place] [address] [facility] Advance Directives For more information, please contact: [phone] * Full Code (Latest Code Status on [...] 9:49 PM 02/05/2018 7:11 PM Care Teams Finish Machine Tender Relationship Specialty Start Date End Date Ángel Iqbal MD [address] [place] [address] PCP - General Internal Medicine 03/16/22 Leatha Zurita NP [address] [place] [address] Nurse Practitioner Nurse Practitioner 04/26/23
--- OUTSIDE RECORDS SUMMARY | 2024-06-30 16:31 | XMS_ITS | CONTINUITY OF CARE DOCUMENT ---
Author Name andriy, adnriy Address Unknown Organization [facility] Address [address] [place] [address] Phone [phone] Care Team Providers Care Nuclear Fuel Processing Technician Name Role Phone Jeffery Gee MD Unavailable [phone] MAXIME THOMASON Unavailable [phone] YAMILET DANIEL MD Unavailable [phone] PROBLEMS Condition Status Date Provider Notes Hypertension [...] In-person encounter Office Visit Jeffery Gee MD [facility] Cardiology examination - In-person encounter Office Visit Jeffery Gee MD [facility] - In-person encounter Office Visit Jeffery Gee MD [facility] - In-person encounter Office Visit Jeffery Gee MD [facility] - In-person encounter Office Visit Jeffery Gee MD [facility] - In-person encounter Office Visit Jeffery Gee MD [facility] HypertensionChest painDepressionObesity s/p gastric bypassSinus bradycardiaCardiovascular screening VITAL SIGNS Date Observation Value Provider Body Mass Index (Ratio) 33.94 kg/m2 Arcelia Gee MD blood pressure, diastolic 112 mm[Hg] Jimi man Gregorio blood pressure, systolic 148 mm[Hg] Kelly caro Gregorio oxygen saturation, oximetry 100 % [facility] pulse rate 61 /min [facility] weight E&M 204 [lb_av] [facility] blood pressure, cuff size regular Jimi magda Gregorio height E&M 65 [in_i] [facility] Gregorio Body Mass Index (Ratio) 31.61 kg/m2 Arcelia Gee MD blood pressure, cuff size regular Ja [facility] blood pressure, diastolic 94 mm[Hg] Ja et blood pressure, systolic 121 mm[Hg] [facility] pulse rate 62 /min Coy respiratory [...] shazia Leon blood pressure, systolic 143 mm[Hg] [facility] mary ann Leon weight E&M 189 [...] blood pressure, systolic 157 mm[Hg] Cat anushka [place] oxygen saturation, oximetry 85 % Ignacia Keanu respiratory rate E&M 14 /min Khadijah leavitt Keanu weight E&M 221 [lb_av] Ignacia [place] height E&M 65 [in_i] Ignacia [place] blood pressure, cuff size regular Ca therine [place] ALLERGIES Allergy Name Onset Date Reaction Criticality [...] mg/0.5 mL pen injector active Maya Ventimiglia [employer]IOR [employer]PORATE STRATEGY MANAGER Vitamin D2 1,250 mcg (50,000 unit) capsule [...] DAY IN THE MORNING - Maya Ventimiglia SENIOR CORPORATE STRATEGY MANAGER clonidine HCl 0.1 mg tablet completed - [...] MD drug use no Maya Ventimig sarthak S[employer]IOR [employer]PORATE STRATEGY MANAGER alcohol use no Maya Ventimig sarthak SENIOR CORPORATE STRATEGY MANAGER smoking status Never smoker Noelle Leon smoking status Never smoker Jeffery Gee MD social history E&M S moking History: oMreno castellon has never smoked. Jeffery Gee MD [...] Policy type / Coverage type [place] red libertarian [place] MEDICAID (2) Medicaid [id number] ADVANCE DIRECTIVES Name Date DISCUSSED - NO DECISION MADE TREATMENT PLAN Date Name Performer [id number],S, Mayajayla pool [facility] [id number],S,HR in 70s [place] Garcia [facility] [id number],C,B P improving but diastolic BP remains elevated [...] 1 tablet once a day Maya Garcia [facility] [id number],S,P t's pressure is high. Pt reports she [...] day in the morning Jeffery Gee MD [id number],S, P t advised to lose weight. Jeffery Gee MD [id number],S, R ecommended patient lose weight. Jeffery Gee MD [id number],W,S ounds atypical. Since she has some risk factors for CAD we'll order a regadenoson stress test and an echo. Recommended she take a baby aspirin until we get the stress test. Jeffery Gee MD [id number],W, B P seems to runchronically elevated even [...] Jeffery Gee MD Cardiology Maya Ventimigl ia [facility] Cardiology:HR in 70s Maya Billings imiglia [facility] Cardiology:BP improv ing but diastolic [...] 1 tablet once a day Maya Ventimiglia [facility] Cardiology:Pt's pres sure is high. [...] tatus EKG Jeffery Gee MD completed EKG Jeffrey Gee MD completed
== END 2024-06-30 14:52 | disposition home or self-care (01) ==
PROVIDERS: Emergency Provider Emergency Medicine
DX: K56.1 Intussusception (principal); Z98.84 Bariatric surgery status; E78.00 Pure hypercholesterolemia, unspecified; I10 Essential (primary) hypertension
CPT/HCPCS: 36415; 74176; 80053; 81003; 85025; 96361; 96374; 96375; 99284; J1171; J2405; J7030

== ENCOUNTER 2024-12-05 19:32 | Emergency (ER) | payer OTHER, SELFPAY ==
--- NOTE | ~2024-12-05 | CT_ITS ---
CT HEAD NON-CONTRAST Clinical History: R sided headache Comparison: None Technique: Unenhanced axial images skull base to vertex Coronal, sagittal reformats CT images acquired with automatic exposure control for dose reduction DLP: 681 mGy-cm Findings: Sulci, ventricles: Unremarkable. No intracerebral hemorrhage. No evidence acute territorial infarct. No mass effect, midline shift. Bony calvarium intact. Visualized paranasal sinuses: Clear. Mastoid air cells: Clear. IMPRESSION: 1. No acute intracranial findings. Reviewed, dictated and finalized at location R.
--- NOTE | ~2024-12-05 | XR_ITS ---
Examination: XR chest 2V Clinical History: Chest pain Comparison: 03/26/2024 Technique: PA and Lateral Findings: Cardiomediastinal silhouette normal size and configuration. Lungs clear. No acute bony abnormality. IMPRESSION: 1. No acute cardiopulmonary findings. Reviewed, dictated and finalized at location R.
[2024-12-05 19:39] VITALS: BP 170/100; PULSE 109; RESP 20; TEMP 36.5; O2SAT 100
--- NOTE | 2024-12-05 22:37 | ECG_ITS ---
Test Date: 2024-12-05 22:51:02 Measurements Intervals [place] Rate: 71 P: 35 FL: 165 QRS: -10 QRSD: 93 T: 9 QT: 391 QTc: 427 Interpretive Statements SINUS RHYTHM VOLTAGE CRITERIA FOR LVH BASELINE ARTIFACT- I, II, AVR, AVL, AVF, V1 BORDERLINE ECG Compared to ECG 03/26/2024 05:20:15 HEART RATE HAS INCREASED Electronically Signed On 12-06-2024 05:10:58 CDT by Ori Roque D.O.
[2024-12-05 22:38] VITALS: BP 185/118; PULSE 77; RESP 16; O2SAT 99
[2024-12-05 23:07] LABS: Hematocrit 42.8 % (37.0-47.0); Hemoglobin 13.5 g/dL (12.0-15.0); Immature Granulocyte Percent A 0.1 % (0-0.5); Lymphocytes Absolute Auto 1.95 K/mm3 (0.9-3.2); Mean Corpuscular HGB Conc 31.5 g/dl (32-36); Mean Corpuscular Hemoglobin 28.4 pg (26-34); Mean Corpuscular Volume 89.9 fl (80-100); Nucleated Red Blood Cells Absolute Auto 0.000 K/mm3 (0.0-0.012); Nucleated Red Blood Cells Perc 0.0 % (0.0-0.2); Platelet Count Result 191 k/mm3 (150-375); Red Blood Count 4.76 M/mm3 (4.2-5.4); White Blood Count 7.3 K/mm3 (4.5-10.0)
[2024-12-05 23:22] LABS: Alanine Aminotransferase 32 U/L (6-35); Albumin Level 4.4 g/dL (3.5-5.1); Alkaline Phosphatase 119 U/L (38-126); Anion Gap 5 mmol/L (4-12); Aspartate Amino Transferase 32 U/L (14-36); Bilirubin,Total 0.4 mg/dL (0.2-1.3); Blood Urea Nitrogen 13 mg/dL (7-17); Calcium 9.2 mg/dL (8.4-10.2); Carbon Dioxide 26 mmol/L (22-30); Chloride 104 mmol/L (98-107); Estimated CRCL calculation 92 ml/min; Estimated Glomerular Filt Rate > 60; Glucose 95 mg/dL (65-110); INR 0.9; Lipase 91 U/L (23-300); Potassium 4.1 mmol/L (3.4-5.0); Prothrombin Time 12.5 Seconds (11.1-14.7); Sodium 135 mmol/L (137-145); Total Protein 8.0 g/dL (6.3-8.2)
[2024-12-05 23:23] LABS: Partial Thromboplastin Time 28.4 Seconds (22.3-36.8)
[2024-12-05 23:29] LABS: Troponin I 0.015 ng/mL (0.000-0.034)
--- NOTE | 2024-12-05 23:43 | ED.HA ---
HPI - Headache General Chief Complaint: Headache Stated Complaint: headache Time Seen by Provider: 12/05/24 22:34 History of Present Illness HPI Narrative: Patient is a 43-year-old female who presents to the ER with 3 day history of intermittent chest pain and a headache that started this morning. She reports she who started her blood pressure medication this morning and her symptoms started shortly afterwards. Patient reports she took naproxen and caffeine at home but it did not help relieve her symptoms. She endorses a headache that radiates to her right face, down towards her right neck and right forehead. Patient denies any one-sided numbness and tingling, recent fevers, or neck stiffness. She endorses a history of high blood pressure, hysterectomy, gastric bypass surgery, and kidney stones. Related Data Home Medications ?Medication ?Instructions ?Recorded ?Confirmed ?Last Taken ?Type atorvastatin 10 mg tablet 10 mg PO QPM 02/12/24 06/14/24 Unknown History dulaglutide 0.75 mg/0.5 mL 0.75 mg subcut WEEKLY 02/12/24 06/14/24 Unknown History subcutaneous pen injector (Trulicity) losartan 50 mg tablet 50 mg PO DAILY 02/12/24 06/14/24 Unknown History nifedipine 60 mg tablet,extended 60 mg PO DAILY 02/12/24 06/14/24 Unknown History release 24 hr Allergies Allergy/AdvReac Type Severity Reaction Status Date / Time clindamycin Allergy Mild Swelling Verified 06/12/24 15:01 NSAIDS (Non-Steroidal AdvReac Unknown Verified 06/12/24 15:01 Anti-Inflamma Review of Systems Review of Systems: All systems reviewed & are unremarkable except as noted in HPI and below PMFSH Past Medical History Medical History Borderline diabetes Hypercholesterolemia Migraine Obesity Depression UTI (urinary tract infection) HTN (hypertension) Kidney stone Surgical History Surgical History Status post panniculectomy November 15, 2023 at [facility] History of laparoscopic appendectomy 08/02/19 History of hysterectomy Laparoscopic total hysterectomy with BSO Hx of gastric bypass In January of 2019 at [facility], current weight loss of 100 pounds since surgery Family History Family History Mother Diabetes mellitus Father , At age 64 Heart disease Acute myocardial infarction Diabetes mellitus Social History Social History Social History: She is and has 4 children. She works for a [employer]. She has never smoked. Primary care provider: Andrews GOLDSMITH Code status full code Smoking status: Never smoker Alcohol intake: current Drinks per week: 2 Alcohol use details: She reports that since her father's last year she has been drinking more alcohol. She was drinking 2-3 alcoholic beverages a night. She has cut back down to 2 drinks a week over the last couple of months. Substance use: never Last use: Yesterday had an edible. Lack of Transportation: No Lack of Food: Never True Current Housing: I Have Housing Concerned About Future Housing: No Difficulty Paying Gas/Electric Bills: No Difficulty Paying for Meds: No Currently Unemployed: No Education: Decline to Answer Difficulty w/ Childcare or Family Care: No Living arrangements: with family Additional living arrangements comments: With her they have been together for 22 years and been for 9 years.. They have 4 children. Her oldest child is 22 years old and youngest is 12. Occupation/Education: other Additional occupation/education comments: Works for the [employer]. Currently on short-term disability due to depression. Gender identity (if verbalized by the patient): Female Spiritual care concerns: No Exam Narrative: GENERAL: Well appearing, well-nourished, non-toxic, in no acute distress. HEAD: Normocephalic, atraumatic. NECK: Supple. No adenopathy, no masses. RESPIRATORY: Airway patent, respirations nonlabored. Clear to auscultation bilaterally, no rales, rhonchi, wheezing. CARDIOVASCULAR: Regular rate and rhythm without murmurs, rubs, or gallops. Peripheral pulses 2+ and equal bilaterally. ABDOMINAL: Soft, nontender, nondistended, no hepatosplenomegaly. Normoactive BS. MUSCULOSKELETAL: Moves all extremities. Strength/ROM intact without gross deformities. SKIN: Warm, dry, normal color. No rashes. NEURO: A&O X3. Speech clear. Cranial nerves II-XII intact. No ataxic movements. PSYCHIATRIC: Appropriate mood and affect. Normal interaction. Course Vital Signs Vital signs: Vital Signs Temperature 36.5 C 12/05/24 19:39 Pulse Rate 109 H 12/05/24 19:39 Respiratory Rate 20 12/05/24 19:39 Blood Pressure 170/100 H 12/05/24 19:39 Pulse Oximetry 100 12/05/24 19:39 Oxygen Delivery Room Air 12/05/24 19:39 Temperature 36.5 C 12/05/24 19:39 Pulse Rate 90 12/06/24 01:31 Respiratory Rate 21 H 12/06/24 01:31 Blood Pressure 168/99 H 12/06/24 01:31 Pulse Oximetry 98 12/06/24 01:31 Oxygen Delivery Room Air 12/05/24 22:38 MDM - Headache MDM Narrative Medical decision making narrative: Patient is a 43-year-old female who presents to the ER with 3 day history of intermittent chest pain and a headache that started this morning. She reports she who started her blood pressure medication this morning and her symptoms started shortly afterwards. Patient reports she took naproxen and caffeine at home but it did not help relieve her symptoms. She endorses a headache that radiates to her right face, down towards her right neck and right forehead. Patient denies any one-sided numbness and tingling, recent fevers, or neck stiffness. She endorses a history of high blood pressure, hysterectomy, gastric bypass surgery, and kidney stones. Labs Ordered: CBC, CMP, TSH, troponin, lipase, PTT, INR Imaging Ordered: Chest x-ray, CT brain Medications Ordered: 1 L normal saline IV bolus, Reglan 10 mg IV, magnesium sulfate 1 g IV, Decadron 10 mg IV, Benadryl 25 mg IV Results: Patient has blood work results does not indicate any acute abnormality. Her CT brain indicates no acute intracranial abnormality. Diagnosis: Atypical chest pain, side effect of medication Risks: HEART score: low risk HEART Score for Major Cardiac Events from [email or web address] on 12/05/2024 All calculations should be rechecked by clinician prior to use RESULT SUMMARY: 2 points Low Score (0-3 points) Risk of MACE of 0.9-1.7%. INPUTS: History ?> 1 = Moderately suspicious EKG ?> 0 = Normal Age ?> 0 = <45 Risk factors ?> 1 = 1-2 risk factors Initial troponin ?> 0 = <Normal limit Upon re-evaluation, patient reports she has a bilingual patient support caseworker already established. Patient reports she was seeing 1 bilingual patient support caseworker but then her insurance changed, causing her to switch to a different bilingual patient support caseworker. She reports she has an appointment with her new bilingual patient support caseworker on January 01. Patient reports she has had these episodes of intermittent chest pain for many years and ?they can never find anything wrong. Patient Education/Shared MDM: Results of lab work and imaging shared with patient. She endorses improvement of symptoms following medication administration. Patient strongly advised to maintain hydration status upon discharge and follow-up with her bilingual patient support caseworker as soon as possible. She will be discharged home with a prescription for Fioricet, as she cannot take NSAIDs d/t her previous gastric bypass surgery. Strict return precautions provided. Patient verbalized understanding and is in agreement with plan. Vital signs stable at time of discharge. All questions answered. Differential Diagnosis Differential diagnosis: Likely migraine, tension headache, headache and other (Side effects of medication, STEMI, abnormal thyroid) Lab Data Attestation: I reviewed the patient's lab results. 12/05/24 23:00 12/05/24 23:00 Labs: Lab Results 12/05/24 Range/Units 23:00 WBC 7.3 (4.5-10.0) K/mm3 RBC 4.76 (4.2-5.4) M/mm3 Hgb 13.5 (12.0-15.0) g/dL Hct 42.8 (37.0-47.0) % MCV 89.9 (80-100) fl MCH 28.4 (26-34) pg MCHC 31.5 L (32-36) g/dl RDW 14.0 (11.5-14.5) % Plt Count 191 (150-375) k/mm3 MPV 11.6 H (7.4-10.4) fl Immature Gran % (Auto) 0.1 (0-0.5) % Neut % (Auto) 63.3 (45.5-73.1) % Lymph % (Auto) 26.9 (18.3-44.2) % [place] % (Auto) 7.2 (2.6-8.5) % Eos % (Auto) 1.9 (0-4.4) % Baso % (Auto) 0.6 (0.2-1.2) % Lymph # (Auto) 1.95 (0.9-3.2) K/mm3 [place] # (Auto) 0.5 (0.1-0.6) K/mm3 Eos # (Auto) 0.1 (0-0.3) K/mm3 Baso # (Auto) 0.0 (0.0-0.1) K/mm3 Abs Immat Gran (auto) 0.01 (0.00-0.031) K/mm3 Absolute Neuts (auto) 4.6 (1.3-6.7) K/mm3 Absolute Nucleated RBC 0.000 (0.0-0.012) K/mm3 Nucleated RBC % 0.0 (0.0-0.2) % PT 12.5 (11.1-14.7) Seconds INR 0.9 APTT 28.4 (22.3-36.8) Seconds Sodium 135 L (137-145) mmol/L Potassium 4.1 (3.4-5.0) mmol/L Chloride 104 (98-107) mmol/L Carbon Dioxide 26 (22-30) mmol/L Anion Gap 5 (4-12) mmol/L BUN 13 (7-17) mg/dL Creatinine 0.79 (0.7-1.0) mg/dL Estim Creat Clear Calc 92 ml/min Estimated GFR > 60 (59 - ) Glucose 95 (65-110) mg/dL Calcium 9.2 (8.4-10.2) mg/dL Total Bilirubin 0.4 (0.2-1.3) mg/dL AST 32 (14-36) U/L ALT 32 (6-35) U/L Alkaline Phosphatase 119 (38-126) U/L Troponin I 0.015 (0.000-0.034) ng/mL Total Protein 8.0 (6.3-8.2) g/dL Albumin 4.4 (3.5-5.1) g/dL Lipase 91 (23-300) U/L TSH 1.610 (0.465-4.680) uIU/mL Imaging Data Attestation: I personally reviewed and interpreted this imaging study as follows: Radiologist's impression: Patient's CT head indicates no acute intracranial abnormality. Discharge Plan Discharge Clinical Impression: Migraine, Side effect of medication, Atypical chest pain Patient Disposition: Home Condition: Stable Instructions: Antibiotic Form, Nifedipine (By mouth), Acute Headache (ED) Additional Instructions: Please return to the ER with any worsening symptoms. Follow-up with primary care provider and bilingual patient support caseworker as soon as possible. Take all medications as prescribed, including regularly scheduled medications. You may take Fioricet as needed for headaches. Please do not take naproxen or ibuprofen since you have had gastric bypass surgery. Remember to drink lots of water. Patient Language: Norwegian Prescriptions: No Action atorvastatin 10 mg tablet 10 mg PO QPM Trulicity 0.75 mg/0.5 mL pen injector 0.75 mg SUBCUT WEEKLY losartan 50 mg tablet 50 mg PO DAILY nifedipine 60 mg tablet extended release 24hr 60 mg PO DAILY pseudoephedrine HCl 30 mg tablet 30 mg PO Q4-6H PRN (Reason: nasal congestion) 5 Days Qty: 28 0RF Rx Instructions: DNExceed 4 doses/24h acetaminophen 500 mg capsule 1,000 mg PO Q6H PRN (Reason: pain) Qty: 20 0RF ondansetron 4 mg tablet,disintegrating 4 mg PO Q8H PRN (Reason: nausea and vomiting) Qty: 14 0RF Follow-up/Referrals: Masoud,MD Ray [Primary Care Provider]
[2024-12-06] MEDS: SODIUM CHLORIDE 0.9% IV 1,000 ML 999 ML IV CONT (00:15)
[2024-12-06] MEDS: dexAMETHasone SOD PHOS INJ 10 MG/ML 1 ML VIAL IV PUSH (00:16)
[2024-12-06] MEDS: METOCLOPRAMIDE HCL INJ 10 MG/2 ML VIAL IV PUSH (00:16)
[2024-12-06] MEDS: MAGNESIUM SULF 1 GM/D5W 100 ML 1 GM/100 ML BAG IVPB (00:21)
[2024-12-06 00:26] VITALS: BP 149/109; PULSE 104; RESP 25; O2SAT 100
[2024-12-06 00:37] LABS: Thyroid Stimulating Hormone 1.610 uIU/mL (0.465-4.680)
[2024-12-06 01:31] VITALS: BP 168/99; PULSE 90; RESP 21; O2SAT 98
[2024-12-06 02:27] VITALS: BP 168/99; PULSE 90; RESP 21; O2SAT 98
== END 2024-12-06 02:35 | disposition home or self-care (01) ==
PROVIDERS: Emergency Provider Registered Nurse; PCP Internal Medicine
DX: G43.909 Migraine, unspecified, not intractable, without status migrainosus (principal); R07.89 Other chest pain; T46.5X5A Adverse effect of other antihypertensive drugs, initial encounter; I10 Essential (primary) hypertension; E78.00 Pure hypercholesterolemia, unspecified; F32.A Depression, unspecified; Z98.84 Bariatric surgery status; Z87.442 Personal history of urinary calculi; Z87.440 Personal history of urinary (tract) infections; Z90.710 Acquired absence of both cervix and uterus
CPT/HCPCS: 36415; 70450; 71046; 80053; 83690; 84443; 84484; 85025; 85610; 85730; 93005; 96365; 96375; 99284; J1100; J1200; J2765; J3475; J7030